=== PATIENT | male | born 1945 | race Caucasian/White ===

== ENCOUNTER 2017-01-31 05:54 | Outpatient (CLI) | payer MEDICARE, BC ==
[~2017-01-31] VITALS: Ht 182.9 cm; Wt 99.8 kg
[~2017-01-31 05:54] MED LIST: AC500T; ALFU10TA6 PO; AMLO10TA PO; ASP81TEC PO; ATOR40TA PO; BENADRYL; CARV25TA PO; CLOP75TA PO; CYAN1TAB21 PO; DICL75TA2; DIGO125T PO; DILT180C82; DIPH25TA82; E400C PO; FLUT1DIS26 IH; FOLI1TAB7 PO; GABA-486 PO; GLIP5TAB13 PO; INSU100I10 SQ; IRBE300T9 PO; KCL20TCR PO; LANS30CA; LTN005OP2; LTN005OP2 OU; MEXI200C; MEXI250C PO; MOME13HF2 IH; MONT10TA24 PO; MTF500T PO; NF-METANX PO; NF-VAL40T PO; NTR.4SL SL; OMEG1CAP PO; OMG1KC PO; PANT40TA3 PO; PNT40TEC PO; RNT150T PO; RT-ALBUINH IH; TYLENOL
[2017-01-31] MEDS ORDERED: INSU100I34 SQ (14:24)
[2017-01-31] MEDS ORDERED: RT-ALBUINH IH (14:24)
[2017-01-31] MEDS ORDERED: TIOT18CA2 IH (14:24)
[2017-01-31] MEDS ORDERED: LEVO1CAP9 PO (14:24)
== END 2017-01-31 14:26 ==
LOC: PREOP 05:54
PROVIDERS: ATTEND Urology
DX: Z01.818 Encounter for other preprocedural examination (principal); N40.0 Benign prostatic hyperplasia without lower urinary tract symptoms

== ENCOUNTER 2017-02-07 06:01 | Day surgery (SDC) | payer MEDICARE, BC ==
[~2017-02-07] VITALS: Ht 182.9 cm; Wt 99.8 kg
[~2017-02-07 06:01] MED LIST changes: +INSU100I34 SQ; +LEVO1CAP9 PO; +TIOT18CA2 IH
[2017-02-07 06:35] VITALS: BP 135/79
[2017-02-07] MEDS ORDERED: cefTRIAXone 1 GM (ROCEPHIN) VIAL ONE (06:42)
[2017-02-07] MEDS ORDERED: NS (IVPB) 50 ML ONE (06:42)
[2017-02-07] MEDS ORDERED: FAMOTIDINE 20MG/2ML IV (PEPCID) ONE (06:43)
[2017-02-07] MEDS ORDERED: LACTATED RINGERS 1,000 ML IV PRN (06:51)
[2017-02-07] MEDS ORDERED: SEVOFLURANE (ULTANE) 15 ML INHAL SOLN ONE (06:51)
[2017-02-07] MEDS ORDERED: proPOfol 200 MG/20 ML (DIPRIVAN) VIAL IV ONE (06:51)
[2017-02-07] MEDS ORDERED: ONDANSETRON 4 MG/2 ML (SDV) Z0FRAN ONE (06:51)
[2017-02-07] MEDS ORDERED: LIDOCAINE PF 2% 5 ML (XYLOCAINE) VIAL ONE (06:51)
[2017-02-07] MEDS ORDERED: fentaNYL INJECTION 100 MCG/2 ML AMP ONE (06:51)
[2017-02-07] MEDS ORDERED: FAMOTIDINE 20MG/2ML IV (PEPCID) IV ONE (07:00)
--- NOTE | 2017-02-07 07:13 | Progress Note-Pre Operative ---
Pre-Operative Progress Note H&P Reviewed The H&P was reviewed, patient examined and no changes noted. Date H&P Reviewed: February 07, 2017 Time H&P Reviewed: 07:13 Pre-Operative Diagnosis: BPH WITH PROSTATISM NANCY GARCÍA MD February 07, 2017 7:13 am
--- NOTE | 2017-02-07 08:15 | Progress Note-Post Operative ---
Post-Operative Progess Note Surgeon (s)/Elastic Tape Inserter (s) Surgeon NANCY GARCÍA MD Elastic Tape Inserter: N/A Pre-Operative Diagnosis BPH WITH PROSTATISM Post-Operative Diagnosis SAME Procedure & Operative Findings Date of Procedure 02/07/17 Procedure Performed/Findings UROLIFT IMPLANT / ENLARGED PROSTATE WITH BNC AND TRABECULATIONS, URETHRAL STRICTURE, NO MEDIAN LOBE Anesthesia Type GENERAL Estimated Blood Loss Estimated blood loss (mL): N/A Specimens/Packing Specimens Removed NONE NANCY GARCÍA MD February 07, 2017 8:15 am
--- NOTE | 2017-02-07 08:19 | Discharge Inst-Urology ---
Discharge Inst-Urology Discharge Medications New, Converted, or Re-newed RX: RX on Chart Patient Instructions/Follow Up Plan Discharge on leg bag (daytime), large bag (night) time with instructions. Come to office 9am to BEENA Calvillo. Please make appointment with me in office in 2 weeks. Monday, january resume ASA and Plavix if no bleedings Increase oral fluids for 48 hours and then as needed. Diet and Activity as tolerated. If questions or concerns contact your physician Or seek help at emergency department. NANCY GARCÍA MD February 07, 2017 8:19 am
[2017-02-07] MEDS ORDERED: morphine INJ 10 MG/ML 1ML (SYR OR VIAL) IVP PRN (08:30)
[2017-02-07] MEDS ORDERED: ONDANSETRON 4 MG/2 ML (SDV) Z0FRAN IVP PRN (08:30)
[2017-02-07] MEDS ORDERED: CIPR-225 PO (09:07)
[2017-02-07] MEDS ORDERED: PHEN-640 PO (09:07)
[2017-02-07 09:10] VITALS: BP 140/79
--- NOTE | 2017-02-07 09:11 | OPERATIVE REPORT ---
DATE OF SERVICE: 02/07/2017 PREOPERATIVE DIAGNOSIS: Benign prostatic hypertrophy with prostatism. POSTOPERATIVE DIAGNOSES: 1. Benign prostatic hypertrophy with prostatism. 2. Urethral stricture. OPERATION PERFORMED: UroLift implant. SURGEON: Bolivar García MD ANESTHESIA: General. COMPLICATIONS: None. PROCEDURE: After satisfactory general anesthesia, with the patient in the lithotomy position, genitalia were prepped and draped in the usual sterile fashion. The 20-Haitian special UroLift implant cystoscope was introduced under vision. There was a wide caliber stricture distal to the sphincter not admitting the scope. So I removed the scope, introduced a 17-Haitian cystoscope. I was able to go through the stricture with no problem. Then I exchanged the sheath with a 23-Haitian. I was able to go again so I reinserted the 20-Haitian special UroLift implant cystoscope. There was lateral lobe enlargement, meeting in the midline, causing bladder neck obstruction and trabeculations. There was no medial lobe and there was no bleeding from the dilatation of the stricture. So I went ahead and inserted UroLift implants, 2 proximal and 2 distal, using the described technique. There was very nice opening of the prostatic urethra. There was no need for further implants. There was no bleeding. The scope was removed and then I elected to leave a catheter for soft dilatation of the stricture for a couple of days. I inserted a 20-Haitian 2-way 5 mL balloon catheter, Coude type. It went easily and connected to a leg bag after inflated the balloon to 10 mL. ESTIMATED BLOOD LOSS: Negligible. The patient tolerated the procedure and anesthesia well, was sent to the recovery room in stable condition. Instructions were given to his . Job ID: [id number] DocumentID: [id number] Dictated Date: 02/07/2017 08:22:37 In Home Sales Consultant Date: 02/07/2017 09:11:05 Dictated By: BOLIVAR GARCÍA MD
[2017-02-07 09:40] VITALS: BP 142/84
[2017-02-07] MEDS ORDERED: cefTRIAXone 1 GM/NS 50 ML IVPB IV ONE ×2 (10:00)
[2017-02-07 10:10] VITALS: BP 132/88
[2017-02-07 10:35] VITALS: BP 132/88
== END 2017-02-07 10:35 | disposition home or self-care (01) ==
LOC: SDC 06:01
PROVIDERS: ATTEND Urology
DX: N40.0 Benign prostatic hyperplasia without lower urinary tract symptoms (principal); N35.9 Urethral stricture, unspecified; I25.10 Atherosclerotic heart disease of native coronary artery without angina pectoris; I10 Essential (primary) hypertension; E10.9 Type 1 diabetes mellitus without complications; F17.210 Nicotine dependence, cigarettes, uncomplicated; J44.9 Chronic obstructive pulmonary disease, unspecified; G47.33 Obstructive sleep apnea (adult) (pediatric); Z79.4 Long term (current) use of insulin; Z95.5 Presence of coronary angioplasty implant and graft
CPT/HCPCS: 82962; 87081

== ENCOUNTER → 2017-02-21 | Outpatient (CLI) | payer MEDICARE, BC ==
[~2017-02-21] MED LIST changes: +CATHETER FLUSH 10 ML SYR IV PRN; +CIPR-225 PO; +IOHEXOL 350 MG/ML 150 ML (OMNIPAQUE 350) VIAL IV ONE; +NS 100 ML (IVPB) BAG IV ONE; +PHEN-640 PO
--- NOTE | 2017-02-21 10:10 | Diagnostic Imaging Report ---
EXAMINATION: CT angiogram of the abdomen and pelvis with bilateral lower extremity runoff. Coronal MIP technique reconstructions were performed. INDICATION: Right leg cramping. CONTRAST: 150 mL of Omnipaque 350 was administered intravenously. FINDINGS: CTA ABDOMEN AND PELVIS: The lung bases demonstrate prominent emphysematous changes as well as a right lung base 6.5 cm bulla. Also, there is suggestion of gallbladder small calcified stones seen. The liver, spleen, and pancreas appear grossly unremarkable. The adrenal glands are thickened on both sides in a somewhat diffuse fashion, perhaps related to hyperplasia. There are multiple renal lesions seen with one in the lower pole of the right kidney having density of simple fluid and is not well characterized on this single angiographic phase study. It is 2.5 cm in size. Renal ultrasound correlation is recommended. There is evidence of prior right inguinal hernia repair with mesh. The abdominal aorta demonstrates an infrarenal abdominal aortic aneurysm measuring 3 cm in caliber. There is no dissection. Its lumen is patent. There is only mild ectasia of the right common iliac artery. Prominent calcified plaque in the iliac arteries is seen on both sides with a mild degree of stenosis in the right common iliac and external iliac artery. The right internal iliac artery is patent. In the left common iliac and external iliac arteries, there is mild disease. There is a significant stenosis along the origin of the left internal iliac artery, however. BILATERAL LOWER EXTREMITY RUNOFF: The right common femoral artery demonstrates prominent plaque with a moderate stenosis distally. The profunda femoris is patent. The SFA demonstrates diffuse plaque with areas of moderate stenosis proximally and moderate to severe stenosis distally. The popliteal artery demonstrates diffuse disease, worse in the proximal aspect. Portions of the right popliteal artery are obscured by artifacts from knee replacement The right anterior tibial artery is patent although has a small caliber, particularly in the mid to distal leg. The tibioperoneal trunk is patent with mild disease. The peroneal artery is patent to the distal leg and the posterior tibial artery is patent to the foot. LEFT LOWER EXTREMITY RUNOFF: The left SENIOR LINUX SYSTEMS ADMINISTRATOR is patent with mild disease. The profunda femoris is patent. The SFA demonstrates mild disease proximally and moderate disease distally. The popliteal artery demonstrates mild disease. The anterior tibial artery is patent to the ankle and not well seen in the foot. The tibioperoneal trunk is patent. The peroneal artery is patent to the distal leg. The posterior tibial artery is patent to the foot. There is a lipoma measuring 4.7 x 2.1 x 5.6 cm seen within the right adductor jorgito muscle. IMPRESSION: 1. Tiny gallstones. 2. Diffuse thickening of the adrenal glands, probably related to hyperplasia. 3. Indeterminate 2.5 cm hypodense lesion in the lower pole of the right kidney. Renal ultrasound evaluation is recommended. 4. Infrarenal 3 cm AAA. 5. Diffuse disease in the iliac arteries with a mild stenosis in the common and external iliac arteries bilaterally. High-grade focal stenosis at the origin of the left internal iliac artery. 6. Diffuse disease in the right SFA with moderate to severe stenosis distally. The popliteal artery on the right side is partially obscured by artifacts from knee replacement. 7. Moderate stenosis in the distal left SFA. 8. Mild bilateral infrapopliteal disease. Dictated by: Dictated on workstation # [id number]
== END ==
LOC: RAD 07:25
PROVIDERS: ATTEND Internal Medicine Cardiovascular Disease
DX: I70.203 Unspecified atherosclerosis of native arteries of extremities, bilateral legs (principal)
CPT/HCPCS: 75635

== ENCOUNTER → 2017-02-21 | Outpatient (CLI) | payer MEDICARE, BC ==
[~2017-02-21] MED LIST changes: -CATHETER FLUSH 10 ML SYR IV PRN; -IOHEXOL 350 MG/ML 150 ML (OMNIPAQUE 350) VIAL IV ONE; -NS 100 ML (IVPB) BAG IV ONE
[2017-02-21 08:01] LABS: BLOOD UREA NITROGEN 12 MG/DL (7-18); BUN/CREATININE RATIO 12; CREATININE SERUM 0.97 MG/DL (0.60-1.30); GFR ESTIMATED > 60
== END ==
LOC: LAB 07:30
PROVIDERS: ATTEND Family Medicine
DX: E10.9 Type 1 diabetes mellitus without complications (principal)
CPT/HCPCS: 36415; 82565; 84520

== ENCOUNTER → 2017-06-07 | Outpatient (CLI) | payer MEDICARE, BC ==
--- NOTE | 2017-06-07 11:26 | Diagnostic Imaging Report ---
INDICATION: Left hip pain. TECHNIQUE: AP and oblique views of the left hip were obtained. FINDINGS: No fracture or acute bony abnormality is seen. There is mild joint space narrowing in the left hip joint. IMPRESSION: Mild degenerative change with no acute bony abnormality. Dictated by: Dictated on workstation # [id number]
== END ==
LOC: RAD 10:42
PROVIDERS: ATTEND Nurse Practitioner Family
DX: M25.552 Pain in left hip (principal)
CPT/HCPCS: 73502

== ENCOUNTER 2017-09-07 21:10 | Inpatient (IN) | payer MEDICARE, BC ==
[~2017-09-07] VITALS: Ht 182.9 cm; Wt 93.2 kg
--- OUTSIDE RECORDS SUMMARY | 2017-09-07 21:18 | XMS REPORT | Continuity of Care Document ---
Author Author [facility] Organization [facility] Address Unknown Phone Unavailable Allergies Active Description Code Type Severity Reaction Onset Reported/Identified Relationship to Patient Clinical Status Yes No Known Drug Allergies [id number] Drug Allergy Unknown N/A 10/03/2009 Yes No Known Drug Allergies No Known Drug Allergies Drug Allergy Unknown . 05/2013 Medications There is no data. Problems Date Dx Coded Attending Type Code Diagnosis Diagnosed By 01/05/2010 Ot 682.9 01/05/2010 Ot V58.69 10/31/2010 Ot 276.51 DEHYDRATION 10/31/2010 Ot 427.9 CARDIAC DYSRHYTHMIA NOS 10/31/2010 Ot 780.79 OTH MALAISE FATIGUE 10/31/2010 Ot V58.69 OTH MED,LT, CURRENT USE 05/14/2014 PATRICIA MURPHY MD Ot 530.10 ESOPHAGITIS NOS 05/14/2014 PATRICIA MURPHY MD Ot 530.3 ESOPHAGEAL STRICTURE 05/14/2014 PATRICIA MURPHY MD Ot 553.3 DIAPHRAGMATIC HERNIA 09/12/2014 FANI LOZADA CONCRETE WORKER Ot 924.21 CONTUSION OF ANKLE 09/12/2014 FANI LOZADA CONCRETE WORKER Ot 959.7 LOWER LEG INJURY NOS 09/12/2014 FANI LOZADA CONCRETE WORKER Ot E000.8 OTHER EXTERNAL CAUSE STATUS 09/12/2014 FANI LOZADA CONCRETE WORKER Ot E849.0 ACCIDENT IN HOME 09/12/2014 FANI LOZADA CONCRETE WORKER Ot E885.9 FALL FROM SLIPPING, TRIPPING, OR STUMBLI 09/29/2014 PATRICIA MURPHY MD Ot 530.10 ESOPHAGITIS NOS 09/29/2014 PATRICIA MURPHY MD Ot 530.3 ESOPHAGEAL STRICTURE 09/29/2014 PATRICIA MURPHY MD Ot 531.90 STOMACH ULCER NOS 12/31/2014 PATRICIA MURPHY MD Ot V72.84 12/31/2014 PATRICIA MURPHY MD Ot V72.84 02/04/2015 Ot 682.9 02/04/2015 Ot V58.69 02/04/2015 Ot 250.00 02/04/2015 Ot 715.97 02/04/2015 Ot 354.9 02/04/2015 Ot 722.4 02/04/2015 JEFFREY BEAVERS, PATRICIA Lockett Ot V72.84 02/04/2015 JEFFREY BEAVERS, PATRICIA Lockett Ot 530.81 02/04/2015 JEFFREY BEAVERS, PATRICIA Lockett Ot V72.84 03/16/2015 JESS FRANCIS DO Ot 278.00 03/16/2015 JESS FRANCIS DO Ot 305.1 03/16/2015 JESS FRANCIS DO Ot 327.23 03/16/2015 JESS FRANCIS DO Ot 496 03/16/2015 JESS FRANCIS DO Ot 786.09 03/19/2015 JESS FRANCIS DO Ot 278.00 03/19/2015 JESS FRANCIS DO Ot 305.1 03/19/2015 JESS FRANCIS DO Ot 327.23 03/19/2015 JESS FRANCIS DO Ot 496 03/19/2015 JESS FRANCIS DO Ot 786.09 11/26/2015 JEFFREY BEAVERS, PATRICIA Lockett Ot Z01.818 ENCOUNTER FOR OTHER PREPROCEDURAL EXAMIN 11/30/2015 JEFFREY BEAVERS, PATRICIA Lockett Ot K22.2 ESOPHAGEAL OBSTRUCTION 12/01/2015 PATRICIA MURPHY MD Ot K22.2 01/02/2016 Ot 250.00 DIAB ROBERT WO COMPL, TYPE II OR UNSPEC TY 01/02/2016 Ot 715.97 OSTEOARTHROS NOS-ANKLE 01/02/2016 Ot 354.9 MONONEURITIS ARM NOS 01/02/2016 Ot 722.4 CERVICAL DISC DEGEN 01/02/2016 JEFFREY BEAVERS, PATRICIA Lockett Ot V72.84 EXAM PRE-OPERATIVE NOS 01/02/2016 JEFFREY BEAVERS, PATRICIA Lockett Ot 530.81 ESOPHAGEAL REFLUX 01/02/2016 PATRICIA MURPHY MD Ot V72.84 EXAM PRE-OPERATIVE NOS 01/02/2016 JESS FRANCIS DO Ot 278.00 OBESITY, NOS 01/02/2016 JESS FRANCIS DO Ot 305.1 TOBACCO USE DISORDER 01/02/2016 JESS FRANCIS DO Ot 327.23 OBSTRUCTIVE SLEEP APNEA (ADULT) (PEDIATR 01/02/2016 JESS FRANCIS DO Ot 496 CHR AIRWAY OBSTRUCT NEC 01/02/2016 JESS FRANCIS DO Ot 786.09 RESPIRATORY ABNORM NEC 01/02/2016 LUIS MILNER MD Ot F17.210 NICOTINE DEPENDENCE, CIGARETTES, UNCOMPL 01/02/2016 LUIS MILNER MD Ot S22.32XA FRACTURE OF ONE RIB, LEFT SIDE, INIT FOR 01/02/2016 LUIS MILNER MD Ot W01.0XXA FALL SAME LEV FROM SLIP/TRIP W/O STRIKE 01/02/2016 LUIS MILNER MD Ot Y92.[address] IN UNSP NON-INSTITUT (PRIVATE 01/02/2016 LUIS MILNER MD Ot Y99.8 OTHER EXTERNAL CAUSE STATUS 03/25/2016 SANDHYA DE LA GARZA APRN Ot J44.9 CHRONIC OBSTRUCTIVE PULMONARY DISEASE, U 03/29/2016 SANDHYA DE LA GARZA APRN Ot J44.9 CHRONIC OBSTRUCTIVE PULMONARY DISEASE, U 03/29/2016 SANDHYA DE LA GARZA CONCRETE WORKER Ot R06.09 OTHER FORMS OF DYSPNEA 03/29/2016 HOLLISANDHYA REED CONCRETE WORKER Ot J44.9 CHRONIC OBSTRUCTIVE PULMONARY DISEASE, U 03/29/2016 SANDHYA DE LA GARZA CONCRETE WORKER Ot R06.09 OTHER FORMS OF DYSPNEA 04/27/2016 SANDHYA DE LA GARZA CONCRETE WORKER Ot J44.9 CHRONIC OBSTRUCTIVE PULMONARY DISEASE, U 04/27/2016 SANDHYA DE LA GARZA CONCRETE WORKER Ot R06.09 OTHER FORMS OF DYSPNEA 04/29/2016 SANDHYA DE LA GARZA CONCRETE WORKER Ot J44.9 CHRONIC OBSTRUCTIVE PULMONARY DISEASE, U 04/29/2016 SANDHYA DE LA GARZA CONCRETE WORKER Ot R06.09 OTHER FORMS OF DYSPNEA 08/01/2016 Ot 250.00 DIAB ROBERT WO COMPL, TYPE II OR UNSPEC TY 08/01/2016 Ot 715.97 OSTEOARTHROS NOS-ANKLE 08/01/2016 Ot 354.9 MONONEURITIS ARM NOS 08/01/2016 Ot 722.4 CERVICAL DISC DEGEN 08/01/2016 JEFFREY BEAVERS, PATRICIA Lockett Ot V72.84 EXAM PRE-OPERATIVE NOS 08/01/2016 PATRICIA MURPHY MD Ot 530.81 ESOPHAGEAL REFLUX 08/01/2016 JEFFREY BEAVERS, PATRICIA Lockett Ot V72.84 EXAM PRE-OPERATIVE NOS 08/01/2016 JESS FRANCIS DO Ot 278.00 OBESITY, NOS 08/01/2016 JESS FRANCIS DO Ot 305.1 TOBACCO USE DISORDER 08/01/2016 JESS FRANCIS DO Ot 327.23 OBSTRUCTIVE SLEEP APNEA (ADULT) (PEDIATR 08/01/2016 JESS FRANCIS DO Ot 496 CHR AIRWAY OBSTRUCT NEC 08/01/2016 JESS FRANCIS DO Ot 786.09 RESPIRATORY ABNORM NEC 08/01/2016 SANDHYA DE LA GARZA APRN Ot J44.9 CHRONIC OBSTRUCTIVE PULMONARY DISEASE, U 08/01/2016 SANDHYA DE LA GARZA APRN Ot R06.09 OTHER FORMS OF DYSPNEA 01/31/2017 RAQUEL BEAVERS, NANCY Guzman Ot N40.0 BENIGN PROSTATIC HYPERPLASIA WITHOUT LOW 01/31/2017 RAQUEL BEAVERS, NANCY Guzman Ot Z01.818 ENCOUNTER FOR OTHER PREPROCEDURAL EXAMIN 02/07/2017 Ot 354.9 MONONEURITIS ARM NOS 02/07/2017 Ot 722.4 CERVICAL DISC DEGEN 02/07/2017 JEFFREY BEAVERS, PATRICIA Lockett Ot V72.84 EXAM PRE-OPERATIVE NOS 02/07/2017 JEFFREY BEAVERS, PATRICIA Lockett Ot 530.81 ESOPHAGEAL REFLUX 02/07/2017 JEFFREY BEAVERS, PATRICIA Lockett Ot V72.84 EXAM PRE-OPERATIVE NOS 02/07/2017 JESS FRANCIS DO Ot 278.00 OBESITY, NOS 02/07/2017 JESS FRANCIS DO Ot 305.1 TOBACCO USE DISORDER 02/07/2017 JESS FRANCIS DO Ot 327.23 OBSTRUCTIVE SLEEP APNEA (ADULT) (PEDIATR 02/07/2017 JESS FRANCIS DO Ot 496 CHR AIRWAY OBSTRUCT NEC 02/07/2017 JESS FRANCIS DO Ot 786.09 RESPIRATORY ABNORM NEC 02/07/2017 SANDHYA DE LA GARZA APRN Ot J44.9 CHRONIC OBSTRUCTIVE PULMONARY DISEASE, U 02/07/2017 SANDHYA DE LA GARZA APRN Ot R06.09 OTHER FORMS OF DYSPNEA 02/07/2017 RAQUEL BEAVERS, NANCY Guzman Ot E10.9 TYPE 1 DIABETES MELLITUS WITHOUT COMPLIC 02/07/2017 NANCY GARCÍA MD Ot F17.210 NICOTINE DEPENDENCE, CIGARETTES, UNCOMPL 02/07/2017 NANCY GARCÍA MD Ot G47.33 OBSTRUCTIVE SLEEP APNEA (ADULT) (PEDIATR 02/07/2017 NANCY GARCÍA MD Ot I10 ESSENTIAL (PRIMARY) HYPERTENSION 02/07/2017 NANCY GARCÍA MD Ot I25.10 ATHSCL HEART DISEASE OF [place] CORONARY 02/07/2017 NANCY GARCÍA MD Ot J44.9 CHRONIC OBSTRUCTIVE PULMONARY DISEASE, U 02/07/2017 NANCY GARCÍA MD Ot N35.9 URETHRAL STRICTURE, UNSPECIFIED 02/07/2017 NANCY GARCÍA MD Ot N40.0 BENIGN PROSTATIC HYPERPLASIA WITHOUT LOW 02/07/2017 NANCY GARCÍA MD, Ot Z79.4 DETENTION (CURRENT) USE OF INSULIN 02/07/2017 NANCY GARCÍA MD Ot Z95.5 PRESENCE OF CORONARY ANGIOPLASTY IMPLANT 02/09/2017 NANCY GARCÍA MD Ot E10.9 TYPE 1 DIABETES MELLITUS WITHOUT COMPLIC 02/09/2017 NANCY GARCÍA MD Ot F17.210 NICOTINE DEPENDENCE, CIGARETTES, UNCOMPL 02/09/2017 NANCY GARCÍA MD, Ot G47.33 OBSTRUCTIVE SLEEP APNEA (ADULT) (PEDIATR 02/09/2017 NANCY GARCÍA MD Ot I10 ESSENTIAL (PRIMARY) HYPERTENSION 02/09/2017 NANCY GARCÍA MD Ot I25.10 ATHSCL HEART DISEASE OF [place] CORONARY 02/09/2017 NANCY GARCÍA MD, Ot J44.9 CHRONIC OBSTRUCTIVE PULMONARY DISEASE, U 02/09/2017 NANCY GARCÍA MD Ot N35.9 URETHRAL STRICTURE, UNSPECIFIED 02/09/2017 NANCY GARCÍA MD Ot N40.0 BENIGN PROSTATIC HYPERPLASIA WITHOUT LOW 02/09/2017 NANCY GARCÍA MD, Ot Z79.4 MARKETING CONTENT SPECIALIST (CURRENT) USE OF INSULIN 02/09/2017 NANCY GARCÍA MD Ot Z95.5 PRESENCE OF CORONARY ANGIOPLASTY IMPLANT 02/16/2017 NANCY GARCÍA MD Ot E10.9 TYPE 1 DIABETES MELLITUS WITHOUT COMPLIC 02/16/2017 NANCY GARCÍA MD Ot F17.210 NICOTINE DEPENDENCE, CIGARETTES, UNCOMPL 02/16/2017 NANCY GARCÍA MD Ot G47.33 OBSTRUCTIVE SLEEP APNEA (ADULT) (PEDIATR 02/16/2017 NANCY GARCÍA MD Ot I10 ESSENTIAL (PRIMARY) HYPERTENSION 02/16/2017 NANCY GARCÍA MD, Ot I25.10 ATHSCL HEART DISEASE OF [place] CORONARY 02/16/2017 NANCY GARCÍA MD, Ot J44.9 CHRONIC OBSTRUCTIVE PULMONARY DISEASE, U 02/16/2017 NANCY GARCÍA MD, Ot N35.9 URETHRAL STRICTURE, UNSPECIFIED 02/16/2017 NANCY GARCÍA MD, Ot N40.0 BENIGN PROSTATIC HYPERPLASIA WITHOUT LOW 02/16/2017 NANCY GARCÍA MD, Ot Z79.4 DETENTION (CURRENT) USE OF INSULIN 02/16/2017 NANCY GARCÍA MD, Ot Z95.5 PRESENCE OF CORONARY ANGIOPLASTY IMPLANT 02/23/2017 IGNACIA BEAVERS, SELAM Yung Ot I70.203 UNSP ATHSCL [place] ARTERIES OF [facility] 03/16/2017 Ot E10.9 TYPE 1 DIABETES MELLITUS WITHOUT COMPLIC 03/20/2017 SELAM BETH MD Ot I70.203 UNSP ATHSCL [place] ARTERIES OF [facility] 03/22/2017 SELAM BETH MD Ot I70.203 UNSP ATHSCL [place] [facility] 06/07/2017 JEFFREY BEAVERS, PATRICIA Lockett Ot V72.84 EXAM PRE-OPERATIVE NOS 06/07/2017 JEFFREY BEAVERS, PATRICIA Lockett Ot 530.81 ESOPHAGEAL REFLUX 06/07/2017 JEFFREY BEAVERS, PATRICIA Lockett Ot V72.84 EXAM PRE-OPERATIVE NOS 06/07/2017 JESS FRANCIS DO Ot 278.00 OBESITY, NOS 06/07/2017 JESS FRANCIS DO Ot 305.1 TOBACCO USE DISORDER 06/07/2017 JESS FRANCIS DO Ot 327.23 OBSTRUCTIVE SLEEP APNEA (ADULT) (PEDIATR 06/07/2017 JESS FRANCIS DO Ot 496 CHR AIRWAY OBSTRUCT NEC 06/07/2017 JESS FRANCIS DO Ot 786.09 RESPIRATORY ABNORM NEC 06/07/2017 SANDHYA DE LA GARZA APRN Ot J44.9 CHRONIC OBSTRUCTIVE PULMONARY DISEASE, U 06/07/2017 SANDHYA DE LA GARZA APRN Ot R06.09 OTHER FORMS OF DYSPNEA 06/07/2017 IGNACIA BEAVERS, SELAM Yung Ot I70.203 UNSP ATHSCL [place] ARTERIES OF EXTREMITI 06/07/2017 Ot E10.9 TYPE 1 DIABETES MELLITUS WITHOUT COMPLIC 06/08/2017 VICK VARGAS APRN Ot M25.552 PAIN IN LEFT HIP 06/27/2017 VICK VARGAS APRN Ot M25.552 PAIN IN LEFT HIP 07/05/2017 VICK VARGAS APRN Ot M25.552 PAIN IN LEFT HIP Procedures There is no data. Results Test Result Range Capillary blood glucose measurement by glucometer (mass/volume) - 02/07/17 06: 28 Capillary blood glucose measurement by glucometer (mass/volume) 82 mg/dL 70-110 Methicillin resistant Staphylococcus aureus (MRSA) screening culture - 06:30 Methicillin resistant Staphylococcus aureus (MRSA) screening culture NEG NRG CBC W/DIFF - 03/09/17 12:16 BASOPHIL # 0.1 k/cumm 0.0-0.2 BASOPHIL % 1 % 0-1 EOSINOPHIL # 0.4 k/cumm 0.1-0.5 EOSINOPHIL % 5 % 2-4 GRANULOCYTE # 6.3 k/cumm 2.0-9.0 GRANULOCYTE % 65 % 50-75 LYMPHOCYTE # 2.0 k/cumm 1.0-4.0 LYMPHOCYTE % 21 % 20-30 MEAN CELL HGB 30.3 pg 27.0-33.0 MEAN CELL HGB CONCENTRATION 34.3 g/dL 32.0-37.0 MEAN CELL VOLUME 88.4 fl 80.0-100.0 MONOCYTE # 0.9 k/cumm 0.1-1.0 MONOCYTE % 9 % 4-6 RED BLOOD CELL 4.65 m/cumm 4.00-6.00 RED CELL DISTRIBUTION WIDTH 14.5 % 11.0-15.6 WHITE BLOOD CELL 9.6 k/cumm 5.0-10.0 HEMOGLOBIN 14.1 gm/dL 14.0-18.0 HEMATOCRIT 41.1 % 40.0-54.0 PLATELET COUNT 238 k/cumm 150-450 PROTHROMBIN TIME WITH INR - 03/09/17 12:16 INTERNATIONAL NORMAL RATIO 1.2 0.9-1.1 PROTHROMBIN TIME 13.9 sec 10.0-12.8 METABOLIC PANEL, BASIC - 03/09/17 12:16 POTASSIUM 4.6 mmol/L 3.5-5.3 EST GFR (MDRD) 35 mL/min > 59 ANION GAP 9 mmol/L 5-15 GLUCOSE 50 mg/dL 70-99 CALCIUM 9.1 mg/dL 8.5-10.1 BLOOD UREA NITROGEN 27 mg/dL 7-20 CREATININE 1.9 mg/dL 0.7-1.3 SODIUM 137 mmol/L 135-148 CHLORIDE 106 mmol/L 98-110 CARBON DIOXIDE 22 mmol/L 21-32 LIPID PANEL - 03/09/17 12:16 CHOLESTEROL/HDL RATIO 7.1 < 5.0 LDL CHOLESTEROL 154 mg/dL < 100 VLDL CHOLESTEROL 29 mg/dL < 30 TRIGLYCERIDES 144 mg/dL < 150 CHOLESTEROL 213 mg/dL < 200 HDL CHOLESTEROL 30 mg/dL > 39 GLUCOSE (POC) - 03/09/17 12:22 GLUCOSE (POC) 47 mg/dL 70-99 GLUCOSE (POC) - 03/09/17 12:58 GLUCOSE (POC) 119 mg/dL 70-99 GLUCOSE (POC) - 03/09/17 14:30 GLUCOSE (POC) 65 mg/dL 70-99 GLUCOSE (POC) - 03/09/17 15:00 GLUCOSE (POC) 108 mg/dL 70-99 Encounters ACCT No. Visit Date/Time Discharge Status Pt. Type Provider Facility Loc./Unit Complaint [id number] 06/07/2017 10:42:00 06/07/2017 23:59:59 CLS Outpatient VICK VARGAS APRN [facility] RAD M25.552 [id number] 02/21/2017 08:45:00 02/21/2017 23:59:59 CLS Outpatient SELAM BETH MD [facility] RAD SEVERE PVD [id number] 02/07/2017 06:01:00 02/07/2017 10:35:00 DIS Outpatient NANCY GARCÍA MD [facility] SDC BENIGN PROSTATIC HYPERTROPHY, PROSTATISM [id number] 01/31/2017 05:54:00 01/31/2017 14:26:00 DIS Outpatient NANCY GARCÍA MD [facility] PREOP BENIGN PROSTATIC HYPERTROPHY, PROSTATISM [id number] 03/24/2016 08:51:00 03/24/2016 23:59:59 CLS Outpatient SANDHYA DE LA GARZA APRN [facility] RAD DYSPNEA; COPD [id number] 01/02/2016 09:39:00 01/02/2016 10:45:00 DIS Emergency LUIS MILNER MD [facility] ER FALL L RIB PAIN [id number] 11/30/2015 07:15:00 11/30/2015 10:00:00 DIS Out[facility]; DYSPHAGIA [id number] 11/26/2015 05:46:00 11/26/2015 10:13:00 DIS Outpatient PATRICIA MURPHY MD [facility] PREOP GERD; DYSPHAGIA [id number] 02/20/2015 12:51:00 02/20/2015 23:59:59 CLS Outpatient JESS FRANCIS DO [facility] RT COPD [id number] 09/29/2014 10:57:00 09/29/2014 13:45:00 DIS Outpatient [facility]UR[facility] REFLUX [id number] 09/24/2014 05:49:00 09/24/2014 23:59:59 CLS Outpatient PATRICIA MURPHY MD [facility] PREOP REFLUX [id number] 09/12/2014 17:43:00 09/12/2014 19:09:00 DIS Emergency FANI LOZADA APRN [facility] ER FELL INJ LEFT FOOT [id number] 05/14/2014 06:15:00 05/14/2014 09:25:00 DIS Outpatient PATRICIA MURPHY MD [facility] GERD [id number] 05/09/2014 12:01:00 05/09/2014 23:59:59 CLS Outpatient PATRICIA MURPHY MD [facility] GERD [id number] 05/07/2014 07:22:00 05/07/2014 23:59:59 CLS Outpatient PATRICIA MRUPHY MD [facility] PREOP GERD [id number] 02/21/2017 07:30:00 Document Registration [id number] 02/04/2015 12:21:00 Document Registration [id number] 02/04/2015 12:20:00 Document Registration [id number] 12/14/2011 09:27:00 Document Registration [id number] 06/01/2011 10:33:00 Document Registration [id number] 10/31/2010 11:48:00 Document Registration [id number] 01/06/2010 00:00:00 Document Registration [id number] 03/09/2017 10:59:00 03/09/2017 21:30:00 DIS Outpatient Emmett BEAVERS, [facility] & DEREK KOROMA
[2017-09-07] MEDS ORDERED: methylPREDNISolone 125 MG (Solu-MEDROL) VIAL ONE (21:33)
[2017-09-07] MEDS ORDERED: NS IV 1000 ML 1,000 ML IV SCH (21:45)
--- NOTE | 2017-09-07 21:46 | ED Cough/URI ---
General Chief Complaint: Respiratory Problems Stated Complaint: TROUBLE BREATHING Source: patient Exam Limitations: no limitations History of Present Illness Time seen by provider: 21:43 Initial Comments To ER with trouble breathing since Monday09/05/17. He wears a C Pap at night but does not wear oxygen at home. He has a history of COPD. He smokes three quarters of a pack of cigarettes per day and has done so for many, many years. He reports diffuse body aches. Denies any change in the intensity or frequency of his cough. He has not known himself to have any fevers during this illness. When asked if he wants to be FULL CODE STATUS/intubation if required patient and state "yes". Oxygen saturation 87% on arrival to ER on room air. Hypotensive at 94/50. Timing/Duration: constant Severity/Quality: moderate (chronic unchanged cough) Associated Symptoms: cough, fever/chills (chills), muscle aches (body aches) Allergies and Home Medications Allergies Coded Allergies: No Known Drug Allergies (Verified , 10/03/09) Home Medications Albuterol Sulfate 18 Gm Hfa.aer.ad, 2 PUFF INH QID PRN for SHORTNESS OF BREATH, (Reported) Amlodipine Besylate 10 Mg Tablet, 10 MG PO DAILY, (Reported) Aspirin 81 Mg Tablet.dr, 81 MG PO DAILY, (Reported) Carvedilol 25 Mg Tablet, 25 MG PO HS, (Reported) Carvedilol 25 Mg Tablet, 12.5 MG PO DAILY, (Reported) TAKES 1/2 (25MG) TABLET Cefdinir 300 Mg Capsule, 300 MG PO BID, #10 Prescribed by: SHAVONNE LUCAS on 09/09/17 1256 Cilostazol 100 Mg Tablet, 100 MG PO BID, (Reported) Clopidogrel Bisulfate 75 Mg Tablet, 75 MG PO DAILY, (Reported) Digoxin 125 Mcg Tablet, 125 MCG PO HS, (Reported) Esomeprazole Magnesium 20 Mg Tablet.dr, 20 MG PO DAILY, (Reported) Fluticasone/Vilanterol 1 Each Blst.w.dev, 1 PUFF INH DAILY, (Reported) Gabapentin 100 Mg Capsule, 100 MG PO DAILY, (Reported) Gabapentin 100 Mg Capsule, 200 MG PO HS, (Reported) TAKES 2 (100MG) CAPSULES Glipizide 5 Mg Tablet, 5 MG PO DAILY, (Reported) Insulin Glargine,Hum.rec.anlog 100 Unit/1 Ml Insuln.pen, 10 UNIT SQ DAILY, ( Reported) Insulin Glargine,Hum.rec.anlog 100 Unit/1 Ml Insuln.pen, 40 UNIT SQ HS, ( Reported) Ipratropium/Albuterol Sulfate 3 Ml Ampul.neb, 3 ML IH QID PRN for SHORTNESS OF BREATH, #60 Prescribed by: SHAVONNE LUCAS on 09/08/17 1248 Irbesartan 300 Mg Tablet, 300 MG PO HS, (Reported) Latanoprost 2.5 Ml Drops, 2 DROPS OD HS, (Reported) Levomefolate/B6/B12/Algal Oil 1 Each Capsule, 1 CAP PO BID, (Reported) Metformin HCl 500 Mg Tablet, 500 MG PO BID WITH MEALS, (Reported) Mexiletine HCl 200 Mg Capsule, 200 MG PO BID, (Reported) Multivit-Min/FA/Lycopene/Lut 1 Each Tablet, 1 TAB PO DAILY, (Reported) Nitroglycerin 0.4 Mg Tab.subl, 0.4 MG SL UD PRN for CHEST PAIN, #24 (Reported) [place] 3 Polyunsat Fatty Acids 1,000 Mg Cap, 1,000 MG PO HS, (Reported) Potassium Chloride 20 Meq Tab.er.prt, 20 MEQ PO DAILY, (Reported) Prednisone 10 Mg Tab.ds.pk, 10 MG PO DAILY, #21 Take 6 tabs(60mg)daily,decrease by 1 tab(10MG)daily. Prescribed by: SHAVONNE LUCAS on 09/09/17 1256 Tiotropium [place] 1 Inh Aerp, 1 CAP INH DAILY, (Reported) Vitamin E Acetate 400 Unit Capsule, 400 UNIT PO DAILY, (Reported) Constitutional: see HPI, chills EENTM: see HPI Respiratory: dyspnea on exertion, short of breath Cardiovascular: no symptoms reported Genitourinary: no symptoms reported Musculoskeletal: no symptoms reported Skin: no symptoms reported Psychiatric/Neurological: No Symptoms Reported Hematologic/Lymphatic: No Symptoms Reported Immunological/Allergic: no symptoms reported Past Qqdjjdp-Jtwdmm-Qsvkqu Hx Patient Social History Type Used: Cigarettes Recent Foreign Travel: No Contact w/Someone Who Travel: No Recent Hopitalizations: No Immunizations Up To Date Date of Pneumonia Vaccine: Jul 30, 2014 Date of Influenza Vaccine: Jul 30, 2014 Seasonal Allergies Seasonal Allergies: No Respiratory Respiratory Disorders: Sleep Apnea, COPD Currently Using CPAP: Yes Cardiovascular Cardiac Disorders: Coronary Artery Disease, Heart Attack, High Cholesterol, Hypertension Reproductive System Hx Reproductive Disorders: No Genitourinary Genitourinary Disorders: Prostate Problems Musculoskeletal Musculoskeletal Disorders: Arthritis Physical Exam Vital Signs Vital Sign - Last 12Hours 09/07/17 09/07/17 21:28 22:10 Temp 99.4 Pulse 92 Resp 24 B/P (MAP) 93/64 (74) Pulse Ox 88 O2 Delivery Room Air O2 Flow Rate 3.00 Capillary Refill : General Appearance: WD/WN, no apparent distress, No mild distress, No moderate distress Eyes: Bilateral Eye Normal Inspection, Bilateral Eye PERRL, Bilateral Eye EOMI HEENT: PERRL/EOMI, normal ENT inspection Neck: non-tender, full range of motion Respiratory: no respiratory distress, no accessory muscle use, decreased breath sounds Cardiovascular: regular rate, rhythm, no murmur Gastrointestinal: normal bowel sounds, non tender, soft Extremities: normal range of motion, non-tender, no pedal edema Neurologic/Psychiatric: alert, normal mood/affect, oriented x 3 Skin: normal color, warm/dry Focused Exam Evaluation Lactate Level Laboratory Tests 09/07/17 21:37: Lactic Acid Level 1.31 Lactic Acid Level Laboratory Tests Test 09/07/17 21:37 Lactic Acid Level 1.31 MMOL/L (0.50-2.00) Progress/Results/Core Measures Suspected Sepsis SIRS Temperature: Pulse: Respiratory Rate: Laboratory Tests 09/07/17 21:37: White Blood Count 10.2 Blood Pressure / Mean: Laboratory Tests 09/07/17 21:37: Lactic Acid Level 1.31 Laboratory Tests 09/07/17 21:37: Creatinine 1.21, Platelet Count 189, Total Bilirubin 1.2H Results/Orders Lab Results Laboratory Tests Test 09/07/17 21:37 Range/Units White Blood Count 10.2 4.3-11.0 10^3/uL Red Blood Count 4.50 4.35-5.85 10^6/uL Hemoglobin 14.0 13.3-17.7 G/DL Hematocrit 40 40-54 % Mean Corpuscular Volume 89 80-99 FL Mean Corpuscular Hemoglobin 31 25-34 PG Mean Corpuscular Hemoglobin Concent 35 32-36 G/DL Red Cell Distribution Width 13.4 10.0-14.5 % Platelet Count 189 130-400 10^3/uL Mean Platelet Volume 9.7 7.4-10.4 FL Neutrophils (%) (Auto) 86 H 42-75 % Lymphocytes (%) (Auto) 6 L 12-44 % Monocytes (%) (Auto) 8 0-12 % Eosinophils (%) (Auto) 0 0-10 % Basophils (%) (Auto) 0 0-10 % Neutrophils # (Auto) 8.8 H 1.8-7.8 X 10^3 Lymphocytes # (Auto) 0.6 L 1.0-4.0 X 10^3 Monocytes # (Auto) 0.8 0.0-1.0 X 10^3 Eosinophils # (Auto) 0.0 0.0-0.3 10^3/uL Basophils # (Auto) 0.0 0.0-0.1 10^3/uL Neutrophils % (Manual) 70 % Lymphocytes % (Manual) 8 % Monocytes % (Manual) 6 % Eosinophils % (Manual) 1 % Basophils % (Manual) 0 % Band Neutrophils 15 % Blood Morphology Comment NORMAL Sodium Level 132 L 135-145 MMOL/L Potassium Level 4.3 3.6-5.0 MMOL/L Chloride Level 101 98-107 MMOL/L Carbon Dioxide Level 20 L 21-32 MMOL/L Anion Gap 11 5-14 MMOL/L Blood Urea Nitrogen 15 7-18 MG/DL Creatinine 1.21 0.60-1.30 MG/DL Estimat Glomerular Filtration Rate 59 BUN/Creatinine Ratio 12 Glucose Level 126 H 70-105 MG/DL Lactic Acid Level 1.31 0.50-2.00 MMOL/L Calcium Level 9.0 8.5-10.1 MG/DL Total Bilirubin 1.2 H 0.1-1.0 MG/DL Aspartate Amino Transf (AST/SGOT) 31 5-34 U/L Alanine Aminotransferase (ALT/SGPT) 17 0-55 U/L Alkaline Phosphatase 78 40-136 U/L B-Type Natriuretic Peptide 69.7 <100.0 PG/ML Total Protein 7.5 6.4-8.2 GM/DL Albumin 3.8 3.2-4.5 GM/DL Digoxin Level 0.77 L 0.80-2.00 NG/ML Micro Results Microbiology 09/07/17 Blood Culture - Preliminary, Resulted No growth 09/07/17 Blood Culture - Preliminary, Resulted No growth 09/07/17 Gram Stain - Final, Complete 09/07/17 Sputum Culture - Final, Complete Usual/normal raciel isolated. 09/07/17 Influenza Types A,B Antigen (NESSA) - Final, Complete My Orders Orders - FANI LOZADA APRN Cbc With Automated Diff (09/07/17 21:40) Comprehensive Metabolic Panel (09/07/17 21:40) BNP (09/07/17 21:40) Digoxin (09/07/17 21:40) Influenza A And B Antigens (09/07/17 21:40) Blood Culture (09/07/17 21:40) Lactic Acid Analyzer (09/07/17 21:40) Saline Lock/Iv-Start (09/07/17 21:40) Ns Iv 1000 Ml (Sodium Chloride 0.9%) (09/07/17 21:45) Ekg Tracing (09/07/17 21:46) Continuous Ekg Monitoring (09/07/17 21:46) Chest 1 View, Ap/Pa Only (09/07/17 21:53) Manual Differential (09/07/17 21:37) Albuterol/Ipra Inhalation Soln (Duoneb I (09/07/17 22:00) Svn Sm Volume Nebulizer Rt-Rfs (09/07/17 22:00) Medications Given in ED Vital Signs/I&O Vital Sign - Last 12Hours 09/07/17 09/07/17 21:28 22:10 Temp 99.4 Pulse 92 Resp 24 B/P (MAP) 93/64 (74) Pulse Ox 88 92 O2 Delivery Room Air Nasal Cannula O2 Flow Rate 3.00 Capillary Refill : Departure Communication (Admissions) Time/Spoke to Admitting Phy: 22:54 Communication Given the persistent hypotension and hypoxia I did speak with Dr. Lucas who agrees to admit. Progress Notes 6- patient's blood pressure remains low at 80/50. Heart rate is in the 70s. He states that he is feeling fine. Normally his blood pressure runs about 110/ 60 he states. He checks it every morning before taking his medications. He did take his evening medications which include 25 mg of carvedilol this evening before coming to the emergency room. See any acute changes on his chest x-ray when compared to prior. He is afebrile. Oxygen saturation remains 87% on room air but goes up to about 91% on 2 L. Impression Impression: Primary Impression: COPD exacerbation Additional Impressions: Hypoxia Hypotension Disposition: ADMITTED INPATIENT Condition: Stable Admissions Decision to Admit Reason: Admit from ER (General) Departure-Patient Inst. Decision time for Depature: 23:12 Referrals: FANG BRADY MD (PCP/Family) Primary Care Physician Scripts Prednisone (Prednisone) 10 Mg Tab.ds.pk 10 MG PO DAILY, #21 PKG Take 6 tabs(60mg)daily,decrease by 1 tab(10MG)daily. Prov: SHAVONNE LUCAS DO 09/09/17 Cefdinir (Cefdinir) 300 Mg Capsule 300 MG PO BID, #10 CAP Prov: SHAVONNE LUCAS DO 09/09/17 Ipratropium/Albuterol Sulfate (Iprat-Albut 0.5-3(2.5) mg/3 ml) 3 Ml Ampul.neb 3 ML IH QID Y for SHORTNESS OF BREATH, #60 EACH Prov: SHAVONNE LUCAS DO 09/08/17 FANI LOZADA APRN Sep 07, 2017 21:46
[2017-09-07 21:50] LABS: BASOPHILS % (AUTO) 0 % (0-10); EOSINOPHILS % (AUTO) 0 % (0-10); HEMATOCRIT 40 % (40-54); LYMPHOCYTES # (AUTO) 0.6 X 10^3 (1.0-4.0); LYMPHOCYTES % (AUTO) 6 % (12-44); MEAN CORPUSCULAR HEMOGLOBIN 31 PG (25-34); MEAN CORPUSCULAR HGB CONC 35 G/DL (32-36); MEAN CORPUSCULAR VOLUME 89 FL (80-99); MEAN PLATELET VOLUME 9.7 FL (7.4-10.4); MONOCYTES # (AUTO) 0.8 X 10^3 (0.0-1.0); MONOCYTES % (AUTO) 8 % (0-12); NEUTROPHILS # (AUTO) 8.8 X 10^3 (1.8-7.8); NEUTROPHILS % (AUTO) 86 % (42-75); PLATELET COUNT 189 10^3/uL (130-400); RED CELL DISTRIBUTION WIDTH 13.4 % (10.0-14.5); WHITE BLOOD COUNT 10.2 10^3/uL (4.3-11.0)
[2017-09-07] MEDS ORDERED: RT-ALBUTEROL/IPRATROPIUM 3 ML (DUONEB) VIAL INH ONE (22:00)
[2017-09-07 22:17] LABS: DIGOXIN 0.77 NG/ML (0.80-2.00)
[2017-09-07 22:34] LABS: ALBUMIN 3.8 GM/DL (3.2-4.5); BAND NEUTROPHILS 15 %; BASOPHILS % (MANUAL) 0 %; BILIRUBIN,TOTAL 1.2 MG/DL (0.1-1.0); CREATININE SERUM 1.21 MG/DL (0.60-1.30); EOSINOPHILS % (MANUAL) 1 %; LYMPHOCYTES % (MANUAL) 8 %; MONOCYTES % (MANUAL) 6 %; NEUTROPHILS % (MANUAL) 70 %; POTASSIUM 4.3 MMOL/L (3.6-5.0); RBC MORPH NORMAL; TOTAL PROTEIN 7.5 GM/DL (6.4-8.2)
--- OUTSIDE RECORDS SUMMARY | 2017-09-07 23:47 | XMS REPORT | Continuity of Care Document ---
Author Author [facility] Organization [facility] Address Unknown Phone Unavailable Allergies Active Description Code Type Severity Reaction Onset Reported/Identified Relationship to Patient Clinical Status Yes No Known Drug Allergies [id number] Drug Allergy Unknown N/A 10/03/2009 Yes No [...] Ot 553.3 DIAPHRAGMATIC HERNIA 09/12/2014 FANI LOZADA [employer]QUOR MAKER Ot 924.21 CONTUSION OF ANKLE 09/12/2014 FANI LOZADA LIQUOR MAKER Ot 959.7 LOWER LEG INJURY NOS 09/12/2014 FANI LOZADA LIQUOR MAKER Ot E000.8 OTHER EXTERNAL CAUSE STATUS 09/12/2014 FANI LOZADA LIQUOR MAKER Ot E849.0 ACCIDENT IN HOME 09/12/2014 FANI LOZADA LIQUOR MAKER Ot E885.9 FALL FROM SLIPPING, TRIPPING, OR [...] DISEASE, U 03/29/2016 SANDHYA DE LA GARZA LIQUOR MAKER Ot R06.09 OTHER FORMS OF DYSPNEA 03/29/2016 HOLLISANDHYA REED LIQUOR MAKER Ot J44.9 CHRONIC OBSTRUCTIVE PULMONARY DISEASE, U 03/29/2016 SANDHYA DE LA GARZA LIQUOR MAKER Ot R06.09 OTHER FORMS OF DYSPNEA 04/27/2016 SANDHYA DE LA GARZA LIQUOR MAKER Ot J44.9 CHRONIC OBSTRUCTIVE PULMONARY DISEASE, U 04/27/2016 SANDHYA DE LA GARZA LIQUOR MAKER Ot R06.09 OTHER FORMS OF DYSPNEA 04/29/2016 SANDHYA DE LA GARZA LIQUOR MAKER Ot J44.9 CHRONIC OBSTRUCTIVE PULMONARY DISEASE, U 04/29/2016 SANDHYA DE LA GARZA LIQUOR MAKER Ot R06.09 OTHER FORMS OF DYSPNEA 08/01/2016 [...] MD Ot I25.10 ATHSCL HEART DISEASE OF [place] CORONARY 02/07/2017 NANCY GARCÍA MD Ot J44.9 CHRONIC OBSTRUCTIVE PULMONARY DISEASE, U 02/07/2017 NANCY GARCÍA MD Ot N35.9 URETHRAL STRICTURE, UNSPECIFIED 02/07/2017 NANCY GARCÍA MD Ot N40.0 BENIGN PROSTATIC HYPERPLASIA WITHOUT LOW 02/07/2017 NANCY GARCÍA MD, Ot Z79.4 PRISON (CURRENT) USE OF INSULIN 02/07/2017 NANCY GARCÍA [...] MD Ot I25.10 ATHSCL HEART DISEASE OF [place] CORONARY 02/09/2017 NANCY GARCÍA MD, Ot J44.9 CHRONIC OBSTRUCTIVE PULMONARY DISEASE, U 02/09/2017 NANCY GARCÍA MD Ot N35.9 URETHRAL STRICTURE, UNSPECIFIED 02/09/2017 NANCY GARCÍA MD Ot N40.0 BENIGN PROSTATIC HYPERPLASIA WITHOUT LOW 02/09/2017 NANCY GARCÍA MD, Ot 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 02/09/2017 NANCY GARCÍA [...] MD, Ot I25.10 ATHSCL HEART DISEASE OF [place] CORONARY 02/16/2017 NANCY GARCÍA MD, Ot J44.9 CHRONIC OBSTRUCTIVE PULMONARY DISEASE, U 02/16/2017 NANCY GARCÍA MD, Ot N35.9 URETHRAL STRICTURE, UNSPECIFIED 02/16/2017 NANCY GARCÍA MD, Ot N40.0 BENIGN PROSTATIC HYPERPLASIA WITHOUT LOW 02/16/2017 NANCY GARCÍA MD, Ot Z79.4 PRISON (CURRENT) USE OF INSULIN 02/16/2017 NANCY GARCÍA MD, Ot Z95.5 PRESENCE OF CORONARY ANGIOPLASTY IMPLANT 02/23/2017 IGNACIA BEAVERS, SELAM Yung Ot I70.203 UNSP ATHSCL [place] [facility] 03/16/2017 Ot E10.9 TYPE 1 DIABETES MELLITUS WITHOUT COMPLIC 03/20/2017 SELAM BETH MD Ot I70.203 UNSP ATHSCL [place] [facility] 03/22/2017 SELAM BETH MD Ot I70.203 UNSP ATHSCL [place] [facility] 06/07/2017 JEFFREY BEAVERS, PATRICIA Lockett [...] BEAVERS, SELAM Yung Ot I70.203 UNSP ATHSCL [place] [facility] 06/07/2017 Ot E10.9 TYPE [...] 03/09/17 15:00 GLUCOSE (POC) 108 mg/dL 70-99 Influenza virus A and B antigen detection - 09/07/17 21:32 FLU RESULT NEGATIVE FOR INFLUENZA A AND B ANTIGENS BY [facility] Complete blood count (CBC) with automated white blood cell (WBC) differential - 09/07/17 21:37 Blood leukocytes automated count (number/volume) 10.2 10*3/uL 4.3-11.0 Blood erythrocytes automated count (number/volume) 4.50 10*6/uL 4.35-5.85 Venous blood hemoglobin measurement (mass/volume) 14.0 g/dL 13.3-17.7 Blood hematocrit (volume fraction) 40 % 40-54 Automated erythrocyte mean corpuscular volume 89 [foz_us] 80-99 Automated erythrocyte mean corpuscular hemoglobin (mass per erythrocyte) 31 pg 25-34 Automated erythrocyte mean corpuscular hemoglobin concentration measurement ( mass/volume) 35 g/dL 32-36 Automated erythrocyte distribution width ratio 13.4 % 10.0-14.5 Automated blood platelet count (count/volume) 189 10*3/uL 130-400 Automated blood platelet mean volume measurement 9.7 [foz_us] 7.4-10.4 Automated blood neutrophils/100 leukocytes 86 % 42-75 Automated blood lymphocytes/100 leukocytes 6 % 12-44 Blood monocytes/100 leukocytes 8 % 0-12 Automated blood eosinophils/100 leukocytes 0 % 0-10 Automated blood basophils/100 leukocytes 0 % 0-10 Blood neutrophils automated count (number/volume) 8.8 10*3 1.8-7.8 Blood lymphocytes automated count (number/volume) 0.6 10*3 1.0-4.0 Blood monocytes automated count (number/volume) 0.8 10*3 0.0-1.0 Automated eosinophil count 0.0 10*3/uL 0.0-0.3 Automated blood basophil count (count/volume) 0.0 10*3/uL 0.0-0.1 Blood lactic acid measurement (moles/volume) - 09/07/17 21:37 Blood lactic acid measurement (moles/volume) 1.31 mmol/L 0.50-2.00 Comprehensive metabolic panel - 09/07/17 21:37 Serum or plasma sodium measurement (moles/volume) 132 mmol/L 135-145 Serum or plasma potassium measurement (moles/volume) 4.3 mmol/L 3.6-5.0 Serum or plasma chloride measurement (moles/volume) 101 mmol/L 98-107 Carbon dioxide 20 mmol/L 21-32 Serum or plasma anion gap determination (moles/volume) 11 mmol/L 5-14 Serum or plasma urea nitrogen measurement (mass/volume) 15 mg/dL 7-18 Serum or plasma creatinine measurement (mass/volume) 1.21 mg/dL 0.60-1.30 Serum or plasma urea nitrogen/creatinine mass ratio 12 NRG Serum or plasma creatinine measurement with calculation of estimated glomerular filtration rate 59 NRG Serum or plasma glucose measurement (mass/volume) 126 mg/dL 70-105 Serum or plasma calcium measurement (mass/volume) 9.0 mg/dL 8.5-10.1 Serum or plasma total bilirubin measurement (mass/volume) 1.2 mg/dL 0.1-1.0 Serum or plasma alkaline phosphatase measurement (enzymatic activity/volume) 78 U/L 40-136 Serum or plasma aspartate aminotransferase measurement (enzymatic activity/ volume) 31 U/L 5-34 Serum or plasma alanine aminotransferase measurement (enzymatic activity/volume ) 17 U/L 0-55 Serum or plasma protein measurement (mass/volume) 7.5 g/dL 6.4-8.2 Serum or plasma albumin measurement (mass/volume) 3.8 g/dL 3.2-4.5 Serum or plasma lithium measurement (moles/volume) - 09/07/17 21:37 BNP level 69.7 pg/mL <100.0 Digoxin - 09/07/17 21:37 Digoxin 0.77 ng/mL 0.80-2.00 Blood manual differential performed detection - 09/07/17 21:37 Blood monocytes/100 leukocytes 6 % NRG Manual blood segmented neutrophils/100 leukocytes 70 % NRG Blood band neutrophils/100 leukocytes 15 % NRG Manual blood lymphocytes/100 leukocytes 8 % NRG Manual eosinophils/100 leukocytes in nose 1 % NRG Manual blood basophils/100 leukocytes 0 % NRG Blood erythrocyte morphology finding identification NORMAL NRG Encounters ACCT No. Visit Date/Time Discharge Status Pt. Type Provider Facility Loc./Unit Complaint [id number] 06/07/2017 10:42:00 06/07/2017 23:59:59 CLS Outpatient VICK VARGAS [employer]QUOR MAKER [facility] RAD M25.552 [id number] 02/21/2017 08:45:00 02/21/2017 23:59:59 CLS Outpatient SELAM BETH MD [facility] RAD SEVERE PVD [id number] 02/07/2017 06:01:00 02/07/2017 10:35:00 DIS Outpatient NANCY GARCÍA MD [facility] SDC BENIGN PROSTATIC HYPERTROPHY, PROSTATISM [id number] 01/31/2017 05:54:00 01/31/2017 14:26:00 DIS Outpatient NANCY GARCÍA MD [facility] PREOP BENIGN PROSTATIC HYPERTROPHY, PROSTATISM [id number] 03/24/2016 08:51:00 03/24/2016 23:59:59 CLS Outpatient SANDHYA DE LA GARZA APRN [facility] RAD DYSPNEA; COPD [id number] 01/02/2016 09:39:00 01/02/2016 10:45:00 DIS Emergency ANNIA BEAVERS, LUIS Vega [facility] ER FALL L RIB PAIN [id number] 11/30/2015 07:15:00 11/30/2015 10:00:00 DIS Outpatient PATRICIA MURPHY MD [facility] GERD; DYSPHAGIA [id number] 11/26/2015 05:46:00 11/26/2015 10:13:00 DIS Outpatient PATRICIA MURPHY MD [facility] PREOP GERD; DYSPHAGIA [id number] 02/20/2015 12:51:00 02/20/2015 23:59:59 CLS Outpatient JESS FRANCIS DO [facility] RT COPD [id number] 09/29/2014 10:57:00 09/29/2014 13:45:00 DIS Outpatient PATRICIA MURPHY MD [facility] REFLUX [id number] 09/24/2014 05:49:00 09/24/2014 23:59:59 CLS Outpatient PATRICIA MURPHY MD [facility] PREOP REFLUX [id number] 09/12/2014 17:43:00 09/12/2014 19:09:00 DIS Emergency LOZADAFANI APRN [facility] ER FELL INJ LEFT FOOT [id number] 05/14/2014 06:15:00 05/14/2014 09:25:00 DIS Outpatient PATRICIA MURPHY MD [facility] GERD [id number] 05/09/2014 12:01:00 05/09/2014 23:59:59 CLS Outpatient PATRICIA MURPHY MD [facility] GERD [id number] 05/07/2014 07:22:00 05/07/2014 23:59:59 CLS Outpatient PATRICIA MURPHY MD [facility] PREOP GERD [id number] 09/07/2017 21:59:00 Document Registration [id number] 02/21/2017 07:30:00 Document Registration [id number] 02/04/2015 12:21:00 Document Registration [id number] 02/04/2015 12:20:00 Document Registration [id number] 12/14/2011 09:27:00 Document Registration [id number] 06/01/2011 10:33:00 Document Registration [id number] 10/31/2010 11:48:00 Document Registration [id number] 01/06/2010 00:00:00 Document Registration [id number] 03/09/2017 10:59:00 03/09/2017 21:30:00 DIS Outpatient Emmett BEAVERS, [facility] & DEREK KOROMA
[2017-09-08] VITALS (7 sets, daily range): BP systolic 99–149; BP diastolic 54–71
[2017-09-08] MEDS: NS IV 1000 ML 1,000 ML IV SCH ×2 (01:18→11:25)
[2017-09-08] MEDS: cefTRIAXone INJECTION 1,000 MG in NS (IVPB) 50 ML IV SCH (01:18)
[2017-09-08] MEDS ORDERED: RT-ALBUTEROL/IPRATROPIUM 3 ML (DUONEB) VIAL INH PRN ×2 (01:30→11:45)
[2017-09-08] MEDS: RT-ALBUTEROL/IPRATROPIUM 3 ML (DUONEB) VIAL INH SCH ×6 (04:05→23:11)
[2017-09-08] MEDS: methylPREDNISolone 125 MG (Solu-MEDROL) VIAL IV SCH ×3 (05:50→21:05)
--- NOTE | 2017-09-08 07:34 | Diagnostic Imaging Report ---
INDICATION: Lower respiratory infection EXAMINATION: Portable chest at 10:08 PM. There is a left subclavian dual chamber pacemaker. Heart size and pulmonary vascularity are normal. Lungs are clear. There are no effusions or pneumothoraces. IMPRESSION: COPD. No acute abnormalities in the chest. Dictated by: Dictated on workstation # [id number]
[2017-09-08 08:27] LABS: BASOPHILS % (AUTO) 0 % (0-10); EOSINOPHILS % (AUTO) 0 % (0-10); HEMATOCRIT 39 % (40-54); HEMOGLOBIN 13.5 G/DL (13.3-17.7); LYMPHOCYTES # (AUTO) 0.3 X 10^3 (1.0-4.0); LYMPHOCYTES % (AUTO) 3 % (12-44); MEAN CORPUSCULAR HEMOGLOBIN 31 PG (25-34); MEAN CORPUSCULAR HGB CONC 34 G/DL (32-36); MEAN CORPUSCULAR VOLUME 90 FL (80-99); MEAN PLATELET VOLUME 9.8 FL (7.4-10.4); MONOCYTES # (AUTO) 0.3 X 10^3 (0.0-1.0); MONOCYTES % (AUTO) 3 % (0-12); NEUTROPHILS # (AUTO) 9.1 X 10^3 (1.8-7.8); NEUTROPHILS % (AUTO) 94 % (42-75); PLATELET COUNT 170 10^3/uL (130-400); RED BLOOD COUNT 4.37 10^6/uL (4.35-5.85); RED CELL DISTRIBUTION WIDTH 13.3 % (10.0-14.5); WHITE BLOOD COUNT 9.8 10^3/uL (4.3-11.0)
[2017-09-08] MEDS ORDERED: POTA20TA15 PO (08:42)
[2017-09-08] MEDS ORDERED: MEXI200C PO (08:42)
[2017-09-08] MEDS ORDERED: GABA-486 PO ×2 (08:42→09:04)
[2017-09-08] MEDS ORDERED: CILO100T PO (08:42)
[2017-09-08] MEDS ORDERED: DIGO125T PO (08:42)
[2017-09-08] MEDS ORDERED: TIOT18CA2 INH (08:42)
[2017-09-08] MEDS ORDERED: IRBE300T18 PO (08:42)
[2017-09-08] MEDS ORDERED: CLOP75TA28 PO (08:42)
[2017-09-08] MEDS ORDERED: GLIP5TAB13 PO (08:42)
[2017-09-08] MEDS ORDERED: INSU100I34 SQ (08:42)
[2017-09-08] MEDS ORDERED: AMLO10TA2 PO (08:42)
[2017-09-08] MEDS ORDERED: METF500T4 PO (08:42)
[2017-09-08] MEDS ORDERED: ASPI-983 PO (09:04)
[2017-09-08] MEDS ORDERED: LATA2.5D5 OD (09:04)
[2017-09-08] MEDS ORDERED: VITA400C60 PO (09:04)
[2017-09-08] MEDS ORDERED: MULT-1029 PO (09:04)
[2017-09-08] MEDS ORDERED: NITR0.4T3 SL (09:04)
[2017-09-08] MEDS ORDERED: ALBU18HF2 INH (09:04)
[2017-09-08] MEDS ORDERED: OMG1KC PO (09:04)
[2017-09-08] MEDS ORDERED: ESOM20TA PO (09:04)
[2017-09-08] MEDS ORDERED: CARV25TA PO ×2 (09:04)
[2017-09-08] MEDS ORDERED: FLUT1AER INH (09:04)
[2017-09-08] MEDS ORDERED: NITROGLYCERIN 0.4 MG SL TABS BTL 25'S SL PRN (10:45)
[2017-09-08 10:55] LABS: BUN/CREATININE RATIO 15; CARBON DIOXIDE 20 MMOL/L (21-32); CHLORIDE 101 MMOL/L (98-107); CREATININE SERUM 1.11 MG/DL (0.60-1.30); POTASSIUM 4.3 MMOL/L (3.6-5.0); SODIUM 131 MMOL/L (135-145)
[2017-09-08 10:56] LABS: ALANINE AMINOTRANSFERASE 18 U/L (0-55); ALBUMIN 3.6 GM/DL (3.2-4.5); ALKALINE PHOSPHATASE 72 U/L (40-136); BILIRUBIN,TOTAL 0.8 MG/DL (0.1-1.0); CALCIUM 8.5 MG/DL (8.5-10.1); GFR ESTIMATED > 60; GLUCOSE 214 MG/DL (70-105); TOTAL PROTEIN 7.1 GM/DL (6.4-8.2)
[2017-09-08] MEDS ORDERED: RT-ALBUTEROL SULF 2.5 MG/3 ML PRE-MIX VIAL INH PRN (11:45)
[2017-09-08] MEDS ORDERED: PATIENT MAY USE OWN MEDS, ALL MC SCH (11:45)
[2017-09-08] MEDS ORDERED: ALBUTEROL INHALER HFA (VENTOLIN HFA) 18 GM IH PRN (12:30)
--- NOTE | 2017-09-08 12:31 | History & Physical-Hospitalist ---
HPI History of Present Illness: HPI/Chief Complaint CC: AECOPD HPI: This is a 72 yoWM pt who presented for AECOPD following a cold. Max fever 99.8, BP 149/71 up from 57, has received IV Solumedrol and Rocephin, WBC 9.8 , CMP, K+ 132 so will recheck this am. 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 Mcleod Pt states he feels better than when he came in, but pt states if he exerts himself (like when he went to the bathroom this am), he cannot breathe Pt denies using O2 at home Physical exam stable. Lungs sound much improved from ER report O2 evaluation was discussed to be done today. Daughter states his O2 was increased from 3 to 4 L. Pt confirms smoking. Pt confirms seeing Dr. Andrade, Dr. Aguayo, Dr. Chávez, and Dr. Ferrara Pt was informed that I have restarted his home meds Pt's asked what is wrong with the pt. I informed her that it is AECOPD probably brought on by a cold Pt confirms [facility] as pharmacy Pt asked about a cleaning machine for his breathing machine. I encouraged him to look into this, but I informed the family that insurance will likely not pay for it. Daughter states the pt is diabetic and the pt asked if he could eat Scribed by Britany Ross under direct supervision of Dr. Page Lucas. Source: patient Date Seen 09/08/17 Time Seen by Provider: 10:30 Attending Physician Page Lucas DO PCP Maycol Mcleod MD Referring Physician Date of Admission Sep 07, 2017 at 22:51 Home Medications & Allergies Home Medications Reviewed patient Home Medication Reconciliation Form Allergies Allergies Coded Allergies No Known Drug Allergies (Verified10/03/09) Past [id number] Hx Patient Social History Marrital Status: Employed/Student: retired Alcohol Use: Denies Use Recreational Drug Use: No Smoking Status: Current Everyday Smoker Type Used: Cigars Physical Abuse Screen: No Sexual Abuse: No Recent Foreign Travel: No Contact w/other who traveled: No Recent Hopitalizations: No Recent Infectious Disease Expo: No Immunizations Up To Date Date of Pneumonia Vaccine: Jul 30, 2014 Date of Influenza Vaccine: Jul 12, 2017 Seasonal Allergies Seasonal Allergies: No Surgeries Yes (LASER SX ON L EYE, R SHOULDER SX, BROKEN ARM, R TKR, ING HERNIA, R FOOT SX, ) Respiratory Yes (SLEEP APNEA, COPD) COPD, Emphysema, Pneumonia Currently Using CPAP: Yes Cardiovascular Yes (defib/pacemaker, several stents) Coronary Artery Disease, Heart Attack, High Cholesterol, Hypertension Neurological Yes Reproductive System Hx Reproductive Disorders: No Genitourinary Yes Prostate Problems Gastrointestinal No Musculoskeletal Yes Arthritis Endocrine History of Endocrine Disorders: Yes Endocrine Disorders: Diabetes, Insulin dep HEENT History of HEENT Disorders: No Cancer No Psychosocial History of Psychiatric Problem: No Integumentary History of Skin or Integumenta: No Blood Transfusions History of Blood Disorders: No Family Medical History Family Hx: Diabetes mellitus 19 MOTHER FH: heart disease 19 FATHER 19 MOTHER Review of Systems Constitutional: weakness EENTM: no symptoms reported Respiratory: cough, dyspnea on exertion, short of breath, wheezing Cardiovascular: no symptoms reported Gastrointestinal: no symptoms reported Genitourinary: no symptoms reported Musculoskeletal: no symptoms reported Skin: no symptoms reported Psychiatric/Neurological: No Symptoms Reported All Other Systems Reviewed Negative Unless Noted: Yes Physical Exam Physical Exam Vital Signs Vital Sign - Last 12Hours 09/07/17 09/07/17 21:28 22:10 Temp 99.4 Pulse 92 Resp 24 B/P (MAP) 93/64 (74) Pulse Ox 88 O2 Delivery Room Air O2 Flow Rate 3.00 Capillary Refill : Less Than 3 Seconds General Appearance: No Apparent Distress, WD/WN, Chronically ill Eyes: Bilateral Eye Normal Inspection, Bilateral Eye PERRL HEENT: PERRL/EOMI, Normal ENT Inspection, Pharynx Normal Neck: Full Range of Motion, Normal Inspection, Non Tender, Supple, Carotid Bruit Respiratory: Chest Non Tender, No Accessory Muscle Use, No Respiratory Distress , Crackles, Decreased Breath Sounds, Wheezing Cardiovascular: Regular Rate, Rhythm, No Edema, No Gallop, No JVD, No Murmur, Normal Peripheral Pulses Gastrointestinal: Normal Bowel Sounds, No Organomegaly, No Pulsatile Mass, Non Tender, Soft Back: Normal Inspection, No CVA Tenderness, No Vertebral Tenderness Extremity: Normal Capillary Refill, Normal Inspection, Normal Range of Motion, Non Tender, No Calf Tenderness, No Pedal Edema Neurologic/Psychiatric: Alert, Oriented x3, No Motor/Sensory Deficits, Normal Mood/Affect Skin: Normal Color, Warm/Dry Lymphatic: No Adenopathy Results Results/Procedures Lab Laboratory Tests 09/07/17 21:37 09/08/17 08:06 Assessment/Plan Admission Diagnosis Assessment: AECOPD Acute bronchitis Acute respiratory failure DM HTN CAD PVD Smoker Hyponatremia Hypotension Assessment and Plan Plan: Home O2 - 4L Nebulizers for home Regular diet Home meds Fluid restriction Clinical Quality Measures DVT/VTE Risk/Contraindication: Risk Factor Score Per Nursin RFS Level Per Nursing on Admit: 4+=Very High PAGE LUCAS DO Sep 08, 2017 12:31
[2017-09-08] MEDS ORDERED: IPRA3AMP IH (12:48)
[2017-09-08] MEDS ORDERED: INSULIN GLARGINE 100 UNIT/ML SQ SCH ×2 (13:00→21:00)
[2017-09-08] MEDS: metFORMIN 500 MG (GLUCOPHAGE) TAB PO SCH (16:47)
[2017-09-08] MEDS: BREO IH SCH (19:26)
[2017-09-08] MEDS: inSUlin ASPART (NovoLOG) 1 UNIT/0.01 ML (CHARGE PER UNIT) SC SCH (19:41)
[2017-09-08] MEDS ORDERED: LATANOPROST 0.005% (XALATAN) OPHTH SOLN 2.5 ML OD SCH (21:00)
[2017-09-08] MEDS ORDERED: IRBESARTAN 300 MG TABLET PO SCH (21:00)
[2017-09-08] MEDS ORDERED: CARVEDILOL 25 MG TABLET PO SCH (21:00)
[2017-09-08] MEDS ORDERED: DIGOXIN 0.125 MG (LANOXIN) TAB PO SCH (21:00)
[2017-09-08] MEDS ORDERED: GABAPENTIN 100 MG (NEURONTIN) CAP PO SCH (21:00)
[2017-09-08] MEDS ORDERED: NON-FORMULARY MEDICATION 1 EA EA (Cilostazol 100 MG) PO SCH (21:00)
[2017-09-08] MEDS ORDERED: OMEGA 3 (FISH OIL) 1000 MG CAP PO SCH (21:00)
[2017-09-08] MEDS: MEXILETINE 200 MG (MEXITIL) CAPSULE PO SCH (21:03)
[2017-09-08] MEDS: FOLTANX PO SCH (21:05)
[2017-09-09] VITALS: BP 131/61
[2017-09-09] MEDS: cefTRIAXone INJECTION 1,000 MG in NS (IVPB) 50 ML IV SCH (00:07)
[2017-09-09] MEDS: RT-ALBUTEROL/IPRATROPIUM 3 ML (DUONEB) VIAL INH SCH ×4 (03:05→14:22)
[2017-09-09 04:15] VITALS: BP 104/58
[2017-09-09 06:46] LABS: BASOPHILS % (AUTO) 0 % (0-10); EOSINOPHILS % (AUTO) 0 % (0-10); HEMATOCRIT 36 % (40-54); HEMOGLOBIN 12.8 G/DL (13.3-17.7); LYMPHOCYTES # (AUTO) 0.6 X 10^3 (1.0-4.0); LYMPHOCYTES % (AUTO) 5 % (12-44); MEAN CORPUSCULAR HEMOGLOBIN 31 PG (25-34); MEAN CORPUSCULAR HGB CONC 35 G/DL (32-36); MEAN CORPUSCULAR VOLUME 89 FL (80-99); MEAN PLATELET VOLUME 9.6 FL (7.4-10.4); MONOCYTES # (AUTO) 0.8 X 10^3 (0.0-1.0); MONOCYTES % (AUTO) 7 % (0-12); NEUTROPHILS % (AUTO) 89 % (42-75); PLATELET COUNT 184 10^3/uL (130-400); RED BLOOD COUNT 4.07 10^6/uL (4.35-5.85); RED CELL DISTRIBUTION WIDTH 13.2 % (10.0-14.5); WHITE BLOOD COUNT 12.4 10^3/uL (4.3-11.0)
[2017-09-09] MEDS: methylPREDNISolone 125 MG (Solu-MEDROL) VIAL IV SCH (06:55)
[2017-09-09] MEDS: inSUlin ASPART (NovoLOG) 1 UNIT/0.01 ML (CHARGE PER UNIT) SC SCH ×2 (06:55→11:16)
[2017-09-09] MEDS: metFORMIN 500 MG (GLUCOPHAGE) TAB PO SCH (06:56)
[2017-09-09] MEDS ORDERED: MULTIVIT W/MINERALS TAB (THERAGRAN M) PO SCH (07:00)
[2017-09-09] MEDS ORDERED: glipiZIDE 5 MG (GLUCOTROL) TAB PO SCH (07:00)
[2017-09-09] MEDS ORDERED: VITAMIN E 400 INTLU CAP PO SCH (07:00)
[2017-09-09] MEDS ORDERED: KCL 20 MEQ TAB (K-DUR) PO SCH (07:00)
[2017-09-09 07:08] LABS: ALANINE AMINOTRANSFERASE 24 U/L (0-55); ALBUMIN 3.2 GM/DL (3.2-4.5); ALKALINE PHOSPHATASE 73 U/L (40-136); BILIRUBIN,TOTAL 0.5 MG/DL (0.1-1.0); BUN/CREATININE RATIO 21; CALCIUM 8.8 MG/DL (8.5-10.1); CARBON DIOXIDE 21 MMOL/L (21-32); CHLORIDE 105 MMOL/L (98-107); CREATININE SERUM 1.04 MG/DL (0.60-1.30); GFR ESTIMATED > 60; GLUCOSE 305 MG/DL (70-105); POTASSIUM 4.2 MMOL/L (3.6-5.0); SODIUM 136 MMOL/L (135-145); TOTAL PROTEIN 6.5 GM/DL (6.4-8.2)
[2017-09-09 08:00] VITALS: BP 117/58
[2017-09-09] MEDS ORDERED: TIOTROPIUM BROMIDE (SPIRIVA) 5'S INHALER IH SCH (08:00)
[2017-09-09] MEDS: MEXILETINE 200 MG (MEXITIL) CAPSULE PO SCH (08:23)
[2017-09-09] MEDS: FOLTANX PO SCH (08:24)
[2017-09-09] MEDS ORDERED: amLODIPine 10 MG (NORVASC) TAB PO SCH (09:00)
[2017-09-09] MEDS ORDERED: CARVEDILOL 25 MG TABLET PO SCH (09:00)
[2017-09-09] MEDS ORDERED: ESOMEPRAZOLE 20 MG PO SCH (09:00)
[2017-09-09] MEDS ORDERED: GABAPENTIN 100 MG (NEURONTIN) CAP PO SCH (09:00)
[2017-09-09] MEDS ORDERED: ASPIRIN E.C. 81 MG (ECOTRIN) TAB PO SCH (09:00)
[2017-09-09] MEDS ORDERED: CLOPIDOGREL 75 MG (PLAVIX) TABLET PO SCH (09:00)
[2017-09-09] MEDS: BREO IH SCH (10:12)
[2017-09-09 12:00] VITALS: BP 127/65
[2017-09-09] MEDS ORDERED: CEFD300C3 PO (12:56)
[2017-09-09] MEDS ORDERED: PRED10TA22 PO (12:56)
--- NOTE | 2017-09-09 12:58 | Discharge Summary-Hospitalist ---
Diagnosis/Chief Complaint Date of Admission Sep 08, 2017 at 11:38 Date of Discharge Discharge Date: Sep 09, 2017 Admission Diagnosis Assessment: AECOPD Acute bronchitis Acute respiratory failure DM HTN CAD PVD Smoker Hyponatremia Hypotension Discharge Diagnosis Assessment: AECOPD Acute bronchitis Acute respiratory failure DM [id number] due to steroids HTN CAD PVD Smoker counseled cessation Hyponatremia resolved Hypotension resolved Hypoxia requiring home oxygen order Leukocytosis due to steroid effect Plan: Home O2 - 4L Nebulizers for home Regular diet Home meds Fluid restriction Discharge Summary Discharge Physical Examination Allergies: Coded Allergies: No Known Drug Allergies (Verified , 10/03/09) Vitals & I&Os Vital Signs Date Time Temp Pulse Resp B/P (MAP) Pulse Ox O2 Delivery O2 Flow Rate FiO2 09/09/17 12:00 97.8 91 18 127/65 (85) 92 NIV CPAP 09/09/17 10:16 4.00 Hospital Course Hospital course: Patient has standard hospital course for acute bronchitis with exacerbation of COPD. He was maintain on IV fluids due to slight hypotension but lactic acid remained normal. He tolerated IV antibiotics and IV steroids although diabetes was out of control due to the IV steroids. All home medications were reconciled and restarted and home oxygen evaluation revealed he was requiring 4 L of oxygen continuously so that order was given and that was set up prior to discharge along with nebulizer machine and nebulizer medication. Smoking cessation was counseled and hyponatremia resolved with fluid restriction at time of discharge and leukocytosis was from steroid effect at day of discharge. Labs (last 24 hrs) Laboratory Tests 09/08/17 16:23: Glucometer 378H 09/08/17 20:41: Glucometer 307H 09/09/17 05:38: Glucometer 284H 09/09/17 06:31: White Blood Count 12.4H, Red Blood Count 4.07L, Hemoglobin 12.8L, Hematocrit 36L , Mean Corpuscular Volume 89, Mean Corpuscular Hemoglobin 31, Mean Corpuscular Hemoglobin Concent 35, Red Cell Distribution Width 13.2, Platelet Count 184, Mean Platelet Volume 9.6, Neutrophils (%) (Auto) 89H, Lymphocytes (%) (Auto) 5L , Monocytes (%) (Auto) 7, Eosinophils (%) (Auto) 0, Basophils (%) (Auto) 0, Neutrophils # (Auto) 11.0H, Lymphocytes # (Auto) 0.6L, Monocytes # (Auto) 0.8, Eosinophils # (Auto) 0.0, Basophils # (Auto) 0.0, Sodium Level 136, Potassium Level 4.2, Chloride Level 105, Carbon Dioxide Level 21, Anion Gap 10, Blood Urea Nitrogen 22H, Creatinine 1.04, Estimat Glomerular Filtration Rate > 60, BUN /Creatinine Ratio 21, Glucose Level 305H, Calcium Level 8.8, Total Bilirubin 0.5 , Aspartate Amino Transf (AST/SGOT) 41H, Alanine Aminotransferase (ALT/SGPT) 24 , Alkaline Phosphatase 73, Total Protein 6.5, Albumin 3.2 09/09/17 11:02: Glucometer 91 Microbiology 09/07/17 Blood Culture - Preliminary, Resulted No growth 09/07/17 Gram Stain - Final, Resulted 09/07/17 Sputum Culture - Preliminary, Resulted Pending Labs Laboratory Tests 09/09/17 06:31: White Blood Count 12.4, Red Blood Count 4.07, Hemoglobin 12.8, Hematocrit 36, Mean Corpuscular Volume 89, Mean Corpuscular Hemoglobin 31, Mean Corpuscular Hemoglobin Concent 35, Red Cell Distribution Width 13.2, Platelet Count 184, Mean Platelet Volume 9.6, Neutrophils (%) (Auto) 89, Lymphocytes (%) (Auto) 5, Monocytes (%) (Auto) 7, Eosinophils (%) (Auto) 0, Basophils (%) (Auto) 0, Neutrophils # (Auto) 11.0, Lymphocytes # (Auto) 0.6, Monocytes # (Auto) 0.8, Eosinophils # (Auto) 0.0, Basophils # (Auto) 0.0, Sodium Level 136, Potassium Level 4.2, Chloride Level 105, Carbon Dioxide Level 21, Anion Gap 10, Blood Urea Nitrogen 22, Creatinine 1.04, Estimat Glomerular Filtration Rate > 60, BUN/ Creatinine Ratio 21, Glucose Level 305, Calcium Level 8.8, Total Bilirubin 0.5, Aspartate Amino Transf (AST/SGOT) 41, Alanine Aminotransferase (ALT/SGPT) 24, Alkaline Phosphatase 73, Total Protein 6.5, Albumin 3.2 09/09/17 11:02: Glucometer 91 Discharge Home Medications: Active Scripts Active Prednisone 10 Mg Tab.ds.pk 10 Mg PO DAILY Take 6 tabs(60mg)daily,decrease by 1 tab(10MG)daily. Cefdinir 300 Mg Capsule 300 Mg PO BID Iprat-Albut 0.5-3(2.5) mg/3 ml (Ipratropium/Albuterol Sulfate) 3 Ml Ampul.neb 3 Ml IH QID PRN Reported Nexium 24Hr (Esomeprazole Magnesium) 20 Mg Tablet. 20 Mg PO DAILY Aspirin EC (Aspirin) 81 Mg Tablet. 81 Mg PO DAILY Breo Ellipta 100-25 Mcg INH (Fluticasone/Vilanterol) 1 Each Blst.w.dev 1 Puff INH DAILY Carvedilol 25 Mg Tablet 12.5 Mg PO DAILY TAKES 1/2 (25MG) TABLET Gabapentin 100 Mg Capsule 200 Mg PO HS TAKES 2 (100MG) CAPSULES Ventolin Hfa (Albuterol Sulfate) 18 Gm Hfa.aer.ad 2 Puff INH QID PRN Fish Oil 1,000 mg Capsule ([place] 3 Polyunsat Fatty Acids) 1,000 Mg Cap 1,000 Mg PO HS Nitroglycerin 0.4 Mg Tab.subl 0.4 Mg SL UD PRN Carvedilol 25 Mg Tablet 25 Mg PO HS Latanoprost 2.5 Ml Drops 2 Drops OD HS Vitamin E (Vitamin E Acetate) 400 Unit Capsule 400 Unit PO DAILY Centrum Silver Tablet (Multivit-Min/FA/Lycopene/Lut) 1 Each Tablet 1 Tab PO DAILY Glipizide 5 Mg Tablet 5 Mg PO DAILY Metformin HCl 500 Mg Tablet 500 Mg PO BID WITH MEALS Basaglar Kwikpen U-100 (Insulin Glargine,Hum.rec.anlog) 100 Unit/1 Ml Insuln.pen 40 Unit SQ HS Cilostazol 100 Mg Tablet 100 Mg PO BID Clopidogrel (Clopidogrel Bisulfate) 75 Mg Tablet 75 Mg PO DAILY Irbesartan 300 Mg Tablet 300 Mg PO HS Potassium Chloride 20 Meq Tab.er.prt 20 Meq PO DAILY Gabapentin 100 Mg Capsule 100 Mg PO DAILY Amlodipine Besylate 10 Mg Tablet 10 Mg PO DAILY Mexiletine HCl 200 Mg Capsule 200 Mg PO BID Digoxin 125 Mcg Tablet 125 Mcg PO HS Spiriva (Tiotropium [place]) 1 Inh Aerp 1 Cap INH DAILY Basaglar Kwikpen U-100 (Insulin Glargine,Hum.rec.anlog) 100 Unit/1 Ml Insuln.pen 10 Unit SQ DAILY Foltanx Rf Capsule (Levomefolate/B6/B12/Algal Oil) 1 Each Capsule 1 Cap PO BID Instructions to patient/family Please see electronic discharge instructions given to patient. Clinical Quality Measures DVT/VTE Risk/Contraindication: Risk Factor Score Per Nursin RFS Level Per Nursing on Admit: 4+=Very High SHAVONNE LUCAS DO Sep 09, 2017 12:58
[2017-09-09 14:45] VITALS: BP 128/78
== END 2017-09-09 14:45 | disposition home or self-care (01) | DRG 189 ==
LOC: EDUNIT# 21:10 → ER 21:12 → 4TH 22:51 → OBSVTOIN 09-08 11:38
PROVIDERS: ADMIT Internal Medicine; ATTEND Internal Medicine
DX: J96.00 Acute respiratory failure, unspecified whether with hypoxia or hypercapnia (principal); J44.1 Chronic obstructive pulmonary disease with (acute) exacerbation; J44.0 Chronic obstructive pulmonary disease with (acute) lower respiratory infection; J20.9 Acute bronchitis, unspecified; E11.65 Type 2 diabetes mellitus with hyperglycemia; T38.0X5A Adverse effect of glucocorticoids and synthetic analogues, initial encounter; I10 Essential (primary) hypertension; I25.10 Atherosclerotic heart disease of native coronary artery without angina pectoris; I73.9 Peripheral vascular disease, unspecified; F17.290 Nicotine dependence, other tobacco product, uncomplicated; E87.6 Hypokalemia; I95.9 Hypotension, unspecified; E78.00 Pure hypercholesterolemia, unspecified; G47.30 Sleep apnea, unspecified; I25.2 Old myocardial infarction; Z79.82 Long term (current) use of aspirin; Z79.4 Long term (current) use of insulin; Z95.810 Presence of automatic (implantable) cardiac defibrillator; Z95.5 Presence of coronary angioplasty implant and graft
CPT/HCPCS: 36415; 71010; 80053; 80162; 82962; 83605; 83880; 85007; 85025; 85027; 87040; 87070; 87205; 87804; 93005; 94640; 94660; 94760; 94761; 96361; 96374; G0378

== ENCOUNTER 2017-11-03 21:00 | Outpatient (CLI) | payer MEDICARE, BC ==
[~2017-11-03 21:00] MED LIST changes: +ALBU18HF2 INH; +AMLO10TA2 PO; +ASPI-983 PO; +CEFD300C3 PO; +CILO100T PO; +CLOP75TA28 PO; +ESOM20TA PO; +FLUT1AER INH; +IPRA3AMP IH; +IRBE300T18 PO; +LATA2.5D5 OD; +METF500T4 PO; +MEXI200C PO; +MULT-1029 PO; +NITR0.4T42 SL; +POTA20TA15 PO; +PRED10TA22 PO; +TIOT18CA2 INH; +VITA400C60 PO
== END 2017-11-04 07:15 | disposition home or self-care (01) ==
LOC: SLEEP 21:00
PROVIDERS: ATTEND Nurse Practitioner
DX: G47.33 Obstructive sleep apnea (adult) (pediatric) (principal)
CPT/HCPCS: 95811

== ENCOUNTER 2018-04-25 15:18 | Outpatient (CLI) | payer MEDICARE, BC ==
[~2018-04-25] VITALS: Ht 182.9 cm; Wt 101.2 kg
[~2018-04-25 15:18] MED LIST changes: +ESOM40CA52 PO; -IPRA3AMP IH; +IPRA3AMP31 IH; +LEVO1CAP11 PO; -METF500T4 PO; +METF500T5 PO
== END 2018-04-25 15:20 | disposition home or self-care (01) ==
LOC: PREOP 15:18
PROVIDERS: ATTEND Surgery
DX: Z01.818 Encounter for other preprocedural examination (principal)

== ENCOUNTER → 2018-07-12 | Outpatient (CLI) | payer MEDICARE, BC ==
[~2018-07-12] MED LIST changes: -AMLO10TA2 PO; +AMLO10TA6 PO; +METF-397 PO; -METF500T5 PO; +PANT40TA2 PO; +SUCR1TAB36 PO
== END ==
LOC: CARD 10:58
PROVIDERS: ATTEND Internal Medicine Cardiovascular Disease
DX: I25.10 Atherosclerotic heart disease of native coronary artery without angina pectoris (principal); E11.9 Type 2 diabetes mellitus without complications; R06.09 Other forms of dyspnea; K64.0 First degree hemorrhoids; I10 Essential (primary) hypertension; G47.33 Obstructive sleep apnea (adult) (pediatric); I48.0 Paroxysmal atrial fibrillation; I07.1 Rheumatic tricuspid insufficiency
CPT/HCPCS: 93306

== ENCOUNTER 2018-09-21 11:10 | Outpatient (RCR) | payer MEDICARE, BC | END 2018-09-23 | disposition home or self-care (01) | LOC: CR 11:10 | PROVIDERS: ATTEND Family Medicine | DX: Z48.812 Encounter for surgical aftercare following surgery on the circulatory system (principal); Z95.1 Presence of aortocoronary bypass graft; Z95.2 Presence of prosthetic heart valve | CPT/HCPCS: 93798 ==

== ENCOUNTER 2018-10-24 10:53 | Outpatient (RCR) | payer MEDICARE, BC ==
[~2018-10-24 10:53] MED LIST changes: -AMLO10TA6 PO; +AMLO10TA7 PO
[2018-10-25] MEDS ORDERED: FURO20TA4 PO (11:49)
[2018-10-25] MEDS ORDERED: INSU100I34 SQ ×2 (11:49)
[2018-10-25] MEDS ORDERED: SUCR1TAB PO (11:49)
[2018-10-25] MEDS ORDERED: PANT40TA2 PO (11:49)
[2018-10-25] MEDS ORDERED: LEVO1CAP9 PO (11:49)
[2018-10-25] MEDS ORDERED: ATOR40TA PO (11:54)
[2018-10-25] MEDS ORDERED: ACET-2840 PO (11:58)
[2018-10-26] MEDS ORDERED: CEFU500T63 PO (12:23)
[2018-10-26] MEDS ORDERED: APIX5TAB PO (12:27)
== END 2018-12-23 | disposition home or self-care (01) ==
LOC: CR 10:53
PROVIDERS: ATTEND Family Medicine
DX: Z48.812 Encounter for surgical aftercare following surgery on the circulatory system (principal); Z95.1 Presence of aortocoronary bypass graft; Z95.2 Presence of prosthetic heart valve
CPT/HCPCS: 93798

== ENCOUNTER 2018-10-25 08:05 | Day surgery (SDC) | payer MEDICARE, BC ==
[~2018-10-25] VITALS: Ht 182.9 cm; Wt 101.2 kg
[2018-10-25] VITALS (12 sets, daily range): BP systolic 111–140; BP diastolic 74–93
--- OUTSIDE RECORDS SUMMARY | 2018-10-25 08:10 | XMS REPORT | Continuity of Care Document ---
Author Author [facility] Organization [facility] Address Unknown Phone Unavailable Allergies Active Description Code Type Severity Reaction Onset Reported/Identified Relationship to Patient Clinical Status Yes No Known Drug Allergies [id number] Drug Allergy Unknown N/A 10/03/2009 Yes No [...] Ot V58.69 OTH MED,LT, CURRENT USE 05/14/2014 JEFFREY BEAVERS, PATRICIA oLckett Ot 530.10 ESOPHAGITIS NOS 05/14/2014 PATRICIA MURPHY MD Ot 530.3 ESOPHAGEAL STRICTURE 05/14/2014 JEFFREY BEAVERS, PATRICIA Lockett Ot 553.3 DIAPHRAGMATIC HERNIA 09/12/2014 FANI LOZADA DIGITAL MARKETING APPRENTICE Ot 924.21 CONTUSION OF ANKLE 09/12/2014 FANI LOZADA DIGITAL MARKETING APPRENTICE Ot 959.7 LOWER LEG INJURY NOS 09/12/2014 FANI LOZADA DIGITAL MARKETING APPRENTICE Ot E000.8 OTHER EXTERNAL CAUSE STATUS 09/12/2014 FANI LOZADA DIGITAL MARKETING APPRENTICE Ot E849.0 ACCIDENT IN HOME 09/12/2014 FANI LOZADA DIGITAL MARKETING APPRENTICE Ot E885.9 FALL FROM SLIPPING, TRIPPING, OR [...] OTHER PREPROCEDURAL EXAMIN 11/30/2015 JEFFREY BEAVERS, PATRICIA Lcokett Ot K22.2 ESOPHAGEAL OBSTRUCTION 12/01/2015 PATRICIA MURPHY [...] DO Ot 786.09 RESPIRATORY ABNORM NEC 01/02/2016 ANNIA BEAVERS, LUIS Vega Ot F17.210 NICOTINE DEPENDENCE, CIGARETTES, UNCOMPL 01/02/2016 [...] J44.9 CHRONIC OBSTRUCTIVE PULMONARY DISEASE, U 03/29/2016 HOLLISANDHYA REED DIGITAL MARKETING APPRENTICE Ot R06.09 OTHER FORMS OF DYSPNEA 03/29/2016 HOLLISANDHYA REED DIGITAL MARKETING APPRENTICE Ot J44.9 CHRONIC OBSTRUCTIVE PULMONARY DISEASE, U 03/29/2016 SANDHYA DE LA GARZA DIGITAL MARKETING APPRENTICE Ot R06.09 OTHER FORMS OF DYSPNEA 04/27/2016 BEN DE LA GARZAINE Dilshad DIGITAL MARKETING APPRENTICE Ot J44.9 CHRONIC OBSTRUCTIVE PULMONARY DISEASE, U 04/27/2016 HOLLISANDHYA REED DIGITAL MARKETING APPRENTICE Ot R06.09 OTHER FORMS OF DYSPNEA 04/29/2016 SANDHYA DE LA GARZA DIGITAL MARKETING APPRENTICE Ot J44.9 CHRONIC OBSTRUCTIVE PULMONARY DISEASE, U 04/29/2016 SANDHYA DE LA GARZA DIGITAL MARKETING APPRENTICE Ot R06.09 OTHER FORMS OF DYSPNEA 08/01/2016 Ot 250.00 DIAB ROBERT WO COMPL, TYPE II OR UNSPEC TY 08/01/2016 Ot 715.97 OSTEOARTHROS NOS-ANKLE 08/01/2016 Ot 354.9 MONONEURITIS ARM NOS 08/01/2016 Ot 722.4 CERVICAL DISC DEGEN 08/01/2016 JEFFREY BEAVERS, PATRICIA Lockett Ot V72.84 EXAM PRE-OPERATIVE NOS 08/01/2016 JEFFREY BEAVERS, PATRICIA Lockett Ot 530.81 ESOPHAGEAL REFLUX 08/01/2016 JEFFREY BEAVERS, [...] MD Ot I25.10 ATHSCL HEART DISEASE OF [place] CORONARY 02/07/2017 NANCY GARCÍA MD Ot J44.9 CHRONIC OBSTRUCTIVE PULMONARY DISEASE, U 02/07/2017 NANCY GARCÍA MD Ot N35.9 URETHRAL STRICTURE, UNSPECIFIED 02/07/2017 NANCY GARCÍA MD Ot N40.0 BENIGN PROSTATIC HYPERPLASIA WITHOUT LOW 02/07/2017 NANCY GARCÍA MD, Ot Z79.4 INTERMEDIATE (CURRENT) USE OF INSULIN 02/07/2017 NANCY GARCÍA [...] MD Ot I25.10 ATHSCL HEART DISEASE OF [place] CORONARY 02/09/2017 NANCY GARCÍA MD, Ot J44.9 CHRONIC OBSTRUCTIVE PULMONARY DISEASE, U 02/09/2017 NANCY GARCÍA MD, Ot N35.9 URETHRAL STRICTURE, UNSPECIFIED 02/09/2017 NANCY GARCÍA MD Ot N40.0 BENIGN PROSTATIC HYPERPLASIA WITHOUT LOW 02/09/2017 NANCY GARCÍA MD, Ot Z79.4 ROTARY KILN OPERATOR (CURRENT) USE OF INSULIN 02/09/2017 NANCY GARCÍA [...] MD, Ot I25.10 ATHSCL HEART DISEASE OF [place] CORONARY 02/16/2017 NANCY GARCÍA MD, Ot J44.9 CHRONIC OBSTRUCTIVE PULMONARY DISEASE, U 02/16/2017 NANCY GARCÍA MD, Ot N35.9 URETHRAL STRICTURE, UNSPECIFIED 02/16/2017 NANCY GARCÍA MD, Ot N40.0 BENIGN PROSTATIC HYPERPLASIA WITHOUT LOW 02/16/2017 NANCY GARCÍA MD, Ot Z79.4 ROTARY KILN OPERATOR (CURRENT) USE OF INSULIN 02/16/2017 NANCY GARCÍA MD, Ot Z95.5 PRESENCE OF CORONARY ANGIOPLASTY IMPLANT 02/23/2017 SELAM BETH MD Ot I70.203 UNSP ATHSCL [place] [facility] 03/16/2017 Ot E10.9 TYPE 1 DIABETES MELLITUS WITHOUT COMPLIC 03/20/2017 SELAM BETH MD Ot I70.203 UNSP ATHSCL [place] [facility]ERIES [facility] 03/22/2017 SELAM BETH MD, Ot I70.203 UNS ATHSCL [place] [facility] 06/07/2017 JEFFREY BEAVERS, PATRICIA Lockett Ot V72.84 [...] Ot R06.09 OTHER FORMS OF DYSPNEA 06/07/2017 MATTIE BETH MDSUS E Ot I70.203 UNSP ATHSCL [place] ARTERIES OF EXTREMITI 06/07/2017 Ot E10.9 TYPE 1 DIABETES MELLITUS WITHOUT COMPLIC 06/08/2017 VICK VARGAS R DIGITAL MARKETING APPRENTICE Ot M25.552 PAIN IN LEFT HIP 06/27/2017 VICK VARGAS R DIGITAL MARKETING APPRENTICE Ot M25.552 PAIN IN LEFT HIP 07/05/2017 VICK VARGAS R DIGITAL MARKETING APPRENTICE Ot M25.552 PAIN IN LEFT HIP 09/09/2017 SHAVONNE LUCAS DO Ot E11.65 TYPE 2 DIABETES MELLITUS WITH HYPERGLYCE 09/09/2017 SHAVONNE LUCAS DO Ot E78.00 PURE HYPERCHOLESTEROLEMIA, UNSPECIFIED 09/09/2017 SHAVONNE LUCAS DO Ot E87.6 HYPOKALEMIA 09/09/2017 SHAVONNE LUCAS DO Ot F17.290 NICOTINE DEPENDENCE, OTHER TOBACCO PRODU 09/09/2017 SHAVONNE LUCAS DO Ot G47.30 SLEEP APNEA, UNSPECIFIED 09/09/2017 SHAVONNE LUCAS DO Ot I10 ESSENTIAL (PRIMARY) HYPERTENSION 09/09/2017 SHAVONNE LUCAS DO Ot I25.10 ATHSCL HEART DISEASE OF [place] CORONARY 09/09/2017 SHAVONNE LUCAS DO Ot I25.2 OLD MYOCARDIAL INFARCTION 09/09/2017 SHAVONNE LUCAS DO Ot I73.9 PERIPHERAL VASCULAR DISEASE, UNSPECIFIED 09/09/2017 SHAVONNE LUCAS DO Ot I95.9 HYPOTENSION, UNSPECIFIED 09/09/2017 SHAVONNE LUCAS DO Ot J20.9 ACUTE BRONCHITIS, UNSPECIFIED 09/09/2017 SHAVONNE LUCAS DO Ot J44.0 CHRONIC OBSTRUCTIVE PULMON DISEASE W ACU 09/09/2017 SHAVONNE LUCAS DO Ot J44.1 CHRONIC OBSTRUCTIVE PULMONARY DISEASE W 09/09/2017 SHAVONNE LUCAS DO Ot J96.00 ACUTE RESPIRATORY FAILURE, UNSP W HYPOXI 09/09/2017 SHAVONNE LUCAS DO Ot T38.0X5A ADVERSE EFFECT OF GLUCOCORT/SYNTH ANALOG 09/09/2017 SHAVONNE LUCAS DO Ot Z79.4 ROTARY KILN OPERATOR (CURRENT) USE OF INSULIN 09/09/2017 SHAVONNE LUCAS DO Ot Z79.82 ROTARY KILN OPERATOR (CURRENT) USE OF ASPIRIN 09/09/2017 SHVAONNE LUCAS DO Ot Z95.5 PRESENCE OF CORONARY ANGIOPLASTY IMPLANT 09/09/2017 SHAVONNE LUCAS DO Ot Z95.810 PRESENCE OF AUTOMATIC (IMPLANTABLE) CARD 09/15/2017 SHAVONNE LUCAS DO Ot E11.65 TYPE 2 DIABETES MELLITUS WITH HYPERGLYCE 09/15/2017 LANCE CYR SHAVONNE Ot E78.00 PURE HYPERCHOLESTEROLEMIA, UNSPECIFIED 09/15/2017 LANCE CYR SHAVONNE Ot E87.6 HYPOKALEMIA 09/15/2017 LUCIO LUCAS DOI Ot F17.290 NICOTINE DEPENDENCE, OTHER TOBACCO PRODU 09/15/2017 LANCE CYR SHAVONNE Ot G47.30 SLEEP APNEA, UNSPECIFIED 09/15/2017 LANCE CYR SHAVONNE Ot I10 ESSENTIAL (PRIMARY) HYPERTENSION 09/15/2017 LUCIO LUCAS DOI Ot I25.10 ATHSCL HEART DISEASE OF [place] CORONARY 09/15/2017 LUCIO LUCAS DOI Ot I25.2 OLD MYOCARDIAL INFARCTION 09/15/2017 LANCE CYR SHAVONNE Ot I73.9 PERIPHERAL VASCULAR DISEASE, UNSPECIFIED 09/15/2017 LUICO LUCAS DOI Ot I95.9 HYPOTENSION, UNSPECIFIED 09/15/2017 LANCE CYR SHAVONNE Ot J20.9 ACUTE BRONCHITIS, UNSPECIFIED 09/15/2017 LANCE CYR SHAVONNE Ot J44.0 CHRONIC OBSTRUCTIVE PULMON DISEASE W ACU 09/15/2017 LUCIO LUCAS DOI Ot J44.1 CHRONIC OBSTRUCTIVE PULMONARY DISEASE W 09/15/2017 LUCIO LUCAS DOI Ot J96.00 ACUTE RESPIRATORY FAILURE, UNSP W HYPOXI 09/15/2017 SHAVONNE LUCAS DO Ot T38.0X5A ADVERSE EFFECT OF GLUCOCORT/SYNTH ANALOG 09/15/2017 SHAVONNE LUCAS DO Ot Z79.4 ROTARY KILN OPERATOR (CURRENT) USE OF INSULIN 09/15/2017 LUCIO LUCAS DOI Ot Z79.82 INTERMEDIATE (CURRENT) USE OF ASPIRIN 09/15/2017 SHAVONNE LUCAS DO Ot Z95.5 PRESENCE OF CORONARY ANGIOPLASTY IMPLANT 09/15/2017 SHAVONNE LUCAS DO Ot Z95.810 PRESENCE OF AUTOMATIC (IMPLANTABLE) CARD 09/15/2017 SHAVONNE LUCAS DO Ot E11.65 TYPE 2 DIABETES MELLITUS WITH HYPERGLYCE 09/15/2017 LUCIO LUCAS DOI Ot E78.00 PURE HYPERCHOLESTEROLEMIA, UNSPECIFIED 09/15/2017 LUCAS DO, SHAVONNE Ot E87.6 HYPOKALEMIA 09/15/2017 LANCE CYR, SHAVONNE Ot F17.290 NICOTINE DEPENDENCE, OTHER TOBACCO PRODU 09/15/2017 LANCE CYR SHAVONNE Ot G47.30 SLEEP APNEA, UNSPECIFIED 09/15/2017 LUCAS DO SHAVONNE Ot I10 ESSENTIAL (PRIMARY) HYPERTENSION 09/15/2017 LUCAS DO SHAVONNE Ot I25.10 ATHSCL HEART DISEASE OF [place] CORONARY 09/15/2017 LUCAS DO SHAVONNE Ot I25.2 OLD MYOCARDIAL INFARCTION 09/15/2017 LUCAS DO SHAVONNE Ot I73.9 PERIPHERAL VASCULAR DISEASE, UNSPECIFIED 09/15/2017 LUCAS DO SHAVONNE Ot I95.9 HYPOTENSION, UNSPECIFIED 09/15/2017 LUCAS DO SHAVONNE Ot J20.9 ACUTE BRONCHITIS, UNSPECIFIED 09/15/2017 LUCAS DO SHAVONNE Ot J44.0 CHRONIC OBSTRUCTIVE PULMON DISEASE W ACU 09/15/2017 LANCE CYR SHAVONNE Ot J44.1 CHRONIC OBSTRUCTIVE PULMONARY DISEASE W 09/15/2017 LANCE CYR SHAVONNE Ot J96.00 ACUTE RESPIRATORY FAILURE, UNSP W HYPOXI 09/15/2017 LANCE CYR SHAVONNE Ot T38.0X5A ADVERSE EFFECT OF GLUCOCORT/SYNTH ANALOG 09/15/2017 LANCE CYR SHAVONNE Ot Z79.4 INTERMEDIATE (CURRENT) USE OF INSULIN 09/15/2017 LANCE CYR SHAVONNE Ot Z79.82 INTERMEDIATE (CURRENT) USE OF ASPIRIN 09/15/2017 LANCE CYR SHAVONNE Ot Z95.5 PRESENCE OF CORONARY ANGIOPLASTY IMPLANT 09/15/2017 SHAVONNE LUCAS DO Ot Z95.810 PRESENCE OF AUTOMATIC (IMPLANTABLE) CARD 10/23/2017 FRANDY ALBERT APRN Ot G47.33 OBSTRUCTIVE SLEEP APNEA (ADULT) (PEDIATR 10/23/2017 JEFFREY BEAVERS, PATRICIA Lockett Ot V72.84 EXAM PRE-OPERATIVE NOS 10/23/2017 JEFFREY BEAVERS, PATRICIA Lockett Ot 530.81 ESOPHAGEAL REFLUX 10/23/2017 JEFFREY BEAVERS, PATRICIA Lockett Ot V72.84 EXAM PRE-OPERATIVE NOS 10/23/2017 JESS FRANCIS DO Ot 278.00 OBESITY, NOS 10/23/2017 JESS FRANCIS DO Ot 305.1 TOBACCO USE DISORDER 10/23/2017 JESS FRANCIS DO Ot 327.23 OBSTRUCTIVE SLEEP APNEA (ADULT) (PEDIATR 10/23/2017 JESS FRANCIS DO Ot 496 CHR AIRWAY OBSTRUCT NEC 10/23/2017 JESS FRANCIS DO Ot 786.09 RESPIRATORY ABNORM NEC 10/23/2017 SANDHYA DE LA GARZA DIGITAL MARKETING APPRENTICE Ot J44.9 CHRONIC OBSTRUCTIVE PULMONARY DISEASE, U 10/23/2017 SANDHYA DE LA GARZA DIGITAL MARKETING APPRENTICE Ot R06.09 OTHER FORMS OF DYSPNEA 10/23/2017 IGNACIA BAEVERS, SELAM E Ot I70.[address] [facility] ATHSCL [place] ARTERIES OF [place]I 10/23/2017 Ot E10.9 TYPE 1 DIABETES MELLITUS WITHOUT COMPLIC 10/23/2017 VICK VARGAS DIGITAL MARKETING APPRENTICE Ot M25.552 PAIN IN LEFT HIP 10/23/2017 FRANDY ALBERT DIGITAL MARKETING APPRENTICE Ot G47.33 OBSTRUCTIVE SLEEP APNEA (ADULT) (PEDIATR 10/24/2017 ROOSEVELTFRANDY DIGITAL MARKETING APPRENTICE Ot G47.33 OBSTRUCTIVE SLEEP APNEA (ADULT) (PEDIATR 11/04/2017 ROOSEVELTFRANDY DIGITAL MARKETING APPRENTICE Ot G47.33 OBSTRUCTIVE SLEEP APNEA (ADULT) (PEDIATR 11/07/2017 ROOSEVELTFRANDY DIGITAL MARKETING APPRENTICE Ot G47.33 OBSTRUCTIVE SLEEP APNEA (ADULT) (PEDIATR 11/29/2017 SANDHYA DE LA GARZA DIGITAL MARKETING APPRENTICE Ot J44.9 CHRONIC OBSTRUCTIVE PULMONARY DISEASE, U 11/29/2017 SANDHYA DE LA GARZA DIGITAL MARKETING APPRENTICE Ot R06.09 OTHER FORMS OF DYSPNEA 11/29/2017 SANDHYA DE LA GARZA DIGITAL MARKETING APPRENTICE Ot R09.02 HYPOXEMIA 11/29/2017 SANDHYA DE LA GARZA DIGITAL MARKETING APPRENTICE Ot Z72.0 TOBACCO USE 12/05/2017 SANDHYA DE LA GARZA DIGITAL MARKETING APPRENTICE Ot J44.9 CHRONIC OBSTRUCTIVE PULMONARY DISEASE, U 12/05/2017 SANDHYA DE LA GARZA DIGITAL MARKETING APPRENTICE Ot R06.09 OTHER FORMS OF DYSPNEA 12/05/2017 SANDHYA DE LA GARZA DIGITAL MARKETING APPRENTICE Ot R09.02 HYPOXEMIA 12/05/2017 SANDHYA DE LA GARZA DIGITAL MARKETING APPRENTICE Ot Z72.0 TOBACCO USE 12/06/2017 SANDHYA DE LA GARZA DIGITAL MARKETING APPRENTICE Ot J44.9 CHRONIC OBSTRUCTIVE PULMONARY DISEASE, U 12/06/2017 SANDHYA DE LA GARZA DIGITAL MARKETING APPRENTICE Ot R06.09 OTHER FORMS OF DYSPNEA 12/06/2017 HOLLI, SANDHYA E DIGITAL MARKETING APPRENTICE Ot R09.02 HYPOXEMIA 12/06/2017 HOLLI, SANDHYA E DIGITAL MARKETING APPRENTICE Ot Z72.0 TOBACCO USE 12/14/2017 HOLLI, SANDHYA E DIGITAL MARKETING APPRENTICE Ot J44.9 CHRONIC OBSTRUCTIVE PULMONARY DISEASE, U 12/14/2017 HOLLI, SANDHYA E DIGITAL MARKETING APPRENTICE Ot R06.09 OTHER FORMS OF DYSPNEA 12/14/2017 HOLLI, SANDHYA E DIGITAL MARKETING APPRENTICE Ot R09.02 HYPOXEMIA 12/14/2017 HOLLI, SANDHYA E DIGITAL MARKETING APPRENTICE Ot Z72.0 TOBACCO USE 12/21/2017 HOLLI, SANDHYA E DIGITAL MARKETING APPRENTICE Ot J44.9 CHRONIC OBSTRUCTIVE PULMONARY DISEASE, U 12/21/2017 HOLLI, SANDHYA E DIGITAL MARKETING APPRENTICE Ot R06.09 OTHER FORMS OF DYSPNEA 12/21/2017 HOLLI, SANDHYA E DIGITAL MARKETING APPRENTICE Ot R09.02 HYPOXEMIA 12/21/2017 HOLLI, SANDHYA E DIGITAL MARKETING APPRENTICE Ot Z72.0 TOBACCO USE 12/26/2017 HOLLI, SANDHYA E DIGITAL MARKETING APPRENTICE Ot J44.9 CHRONIC OBSTRUCTIVE PULMONARY DISEASE, U 12/26/2017 HOLLI, SANDHYA E DIGITAL MARKETING APPRENTICE Ot R06.09 OTHER FORMS OF DYSPNEA 12/26/2017 HOLLI, SANDHYA E DIGITAL MARKETING APPRENTICE Ot R09.02 HYPOXEMIA 12/26/2017 HOLLI, SANDHYA E DIGITAL MARKETING APPRENTICE Ot Z72.0 TOBACCO USE 12/28/2017 HOLLI, SANDHYA E DIGITAL MARKETING APPRENTICE Ot J44.9 CHRONIC OBSTRUCTIVE PULMONARY DISEASE, U 12/28/2017 HOLLI, SANDHYA E DIGITAL MARKETING APPRENTICE Ot R06.09 OTHER FORMS OF DYSPNEA 12/28/2017 HOLLI, SANDHYA E DIGITAL MARKETING APPRENTICE Ot R09.02 HYPOXEMIA 12/28/2017 HOLLI, SANDHYA E DIGITAL MARKETING APPRENTICE Ot Z72.0 TOBACCO USE 12/28/2017 HOLLI, SANDHYA E DIGITAL MARKETING APPRENTICE Ot J44.9 CHRONIC OBSTRUCTIVE PULMONARY DISEASE, U 12/28/2017 HOLLI, SANDHYA E DIGITAL MARKETING APPRENTICE Ot R06.09 OTHER FORMS OF DYSPNEA 12/28/2017 HOLLI, SANDHYA E DIGITAL MARKETING APPRENTICE Ot R09.02 HYPOXEMIA 12/28/2017 HOLLI, SANDHYA E DIGITAL MARKETING APPRENTICE Ot Z72.0 TOBACCO USE 01/04/2018 HOLLI, SANDHYA E DIGITAL MARKETING APPRENTICE Ot J44.9 CHRONIC OBSTRUCTIVE PULMONARY DISEASE, U 01/04/2018 HOLLI, SANDHYA E DIGITAL MARKETING APPRENTICE Ot R06.09 OTHER FORMS OF DYSPNEA 01/04/2018 HOLLI, SANDHYA E DIGITAL MARKETING APPRENTICE Ot R09.02 HYPOXEMIA 01/04/2018 HOLLI, SANDHYA E DIGITAL MARKETING APPRENTICE Ot Z72.0 TOBACCO USE 01/09/2018 HOLLI, SANDHYA E DIGITAL MARKETING APPRENTICE Ot J44.9 CHRONIC OBSTRUCTIVE PULMONARY DISEASE, U 01/09/2018 HOLLI, SANDHYA E DIGITAL MARKETING APPRENTICE Ot R06.09 OTHER FORMS OF DYSPNEA 01/09/2018 HOLLI, SANDHYA E DIGITAL MARKETING APPRENTICE Ot R09.02 HYPOXEMIA 01/09/2018 HOLLI, SANDHYA E DIGITAL MARKETING APPRENTICE Ot Z72.0 TOBACCO USE 01/11/2018 HOLLI, SANDHYA E DIGITAL MARKETING APPRENTICE Ot J44.9 CHRONIC OBSTRUCTIVE PULMONARY DISEASE, U 01/11/2018 HOLLI, SANDHYA E DIGITAL MARKETING APPRENTICE Ot R06.09 OTHER FORMS OF DYSPNEA 01/11/2018 HOLLI, SANDHYA E DIGITAL MARKETING APPRENTICE Ot R09.02 HYPOXEMIA 01/11/2018 HOLLI, SANDHYA E DIGITAL MARKETING APPRENTICE Ot Z72.0 TOBACCO USE 01/16/2018 HOLLI SANDHYA E DIGITAL MARKETING APPRENTICE Ot J44.9 CHRONIC OBSTRUCTIVE PULMONARY DISEASE, U 01/16/2018 HOLLI, SANDHYA E DIGITAL MARKETING APPRENTICE Ot R06.09 OTHER FORMS OF DYSPNEA 01/16/2018 HOLLI, SANDHYA E DIGITAL MARKETING APPRENTICE Ot R09.02 HYPOXEMIA 01/16/2018 HOLLI, SANDHYA E DIGITAL MARKETING APPRENTICE Ot Z72.0 TOBACCO USE 01/16/2018 HOLLI, SANDHYA E DIGITAL MARKETING APPRENTICE Ot J44.9 CHRONIC OBSTRUCTIVE PULMONARY DISEASE, U 01/16/2018 HOLLI, SANDHYA E DIGITAL MARKETING APPRENTICE Ot R06.09 OTHER FORMS OF DYSPNEA 01/16/2018 HOLLI, SANDHYA E DIGITAL MARKETING APPRENTICE Ot R09.02 HYPOXEMIA 01/16/2018 HOLLI, SANDHYA E DIGITAL MARKETING APPRENTICE Ot Z72.0 TOBACCO USE 01/23/2018 HOLLI, SANDHYA E DIGITAL MARKETING APPRENTICE Ot J44.9 CHRONIC OBSTRUCTIVE PULMONARY DISEASE, U 01/23/2018 HOLLI, SANDHYA E DIGITAL MARKETING APPRENTICE Ot R06.09 OTHER FORMS OF DYSPNEA 01/23/2018 HOLLI, SANDHYA E DIGITAL MARKETING APPRENTICE Ot R09.02 HYPOXEMIA 01/23/2018 HOLLI, SANDHYA E DIGITAL MARKETING APPRENTICE Ot Z72.0 TOBACCO USE 01/25/2018 HOLLI, SANDHYA E DIGITAL MARKETING APPRENTICE Ot J44.9 CHRONIC OBSTRUCTIVE PULMONARY DISEASE, U 01/25/2018 HOLLI, SANDHYA E DIGITAL MARKETING APPRENTICE Ot R06.09 OTHER FORMS OF DYSPNEA 01/25/2018 HOLLI, SANDHYA E DIGITAL MARKETING APPRENTICE Ot R09.02 HYPOXEMIA 01/25/2018 HOLLI, SANDHYA E DIGITAL MARKETING APPRENTICE Ot Z72.0 TOBACCO USE 01/25/2018 HOLLI, SANDHYA E DIGITAL MARKETING APPRENTICE Ot J44.9 CHRONIC OBSTRUCTIVE PULMONARY DISEASE, U 01/25/2018 HOLLI, SANDHYA E DIGITAL MARKETING APPRENTICE Ot R06.09 OTHER FORMS OF DYSPNEA 01/25/2018 HOLLI, SANDHYA E DIGITAL MARKETING APPRENTICE Ot R09.02 HYPOXEMIA 01/25/2018 HOLLI, SANDHYA E DIGITAL MARKETING APPRENTICE Ot Z72.0 TOBACCO USE 01/28/2018 HOLLI, SANDHYA E DIGITAL MARKETING APPRENTICE Ot J44.9 CHRONIC OBSTRUCTIVE PULMONARY DISEASE, U 01/28/2018 HOLLI, SANDHAY E DIGITAL MARKETING APPRENTICE Ot R06.09 OTHER FORMS OF DYSPNEA 01/28/2018 HOLLI, SANDHYA E DIGITAL MARKETING APPRENTICE Ot R09.02 HYPOXEMIA 01/28/2018 HOLLI, SANDHYA E DIGITAL MARKETING APPRENTICE Ot Z72.0 TOBACCO USE 01/29/2018 HOLLI, SANDHYA E DIGITAL MARKETING APPRENTICE Ot J44.9 CHRONIC OBSTRUCTIVE PULMONARY DISEASE, U 01/29/2018 HOLLI, SANDHYA E DIGITAL MARKETING APPRENTICE Ot R06.09 OTHER FORMS OF DYSPNEA 01/29/2018 HOLLI, SANDHYA E DIGITAL MARKETING APPRENTICE Ot R09.02 HYPOXEMIA 01/29/2018 HOLLI, SANDHYA E DIGITAL MARKETING APPRENTICE Ot Z72.0 TOBACCO USE 02/01/2018 HOLLI, SANDHYA E DIGITAL MARKETING APPRENTICE Ot J44.9 CHRONIC OBSTRUCTIVE PULMONARY DISEASE, U 02/01/2018 HOLLI, SANDHYA E DIGITAL MARKETING APPRENTICE Ot R06.09 OTHER FORMS OF DYSPNEA 02/01/2018 HOLLI, SANDHYA E DIGITAL MARKETING APPRENTICE Ot R09.02 HYPOXEMIA 02/01/2018 HOLLI, SANDHYA E DIGITAL MARKETING APPRENTICE Ot Z72.0 TOBACCO USE 02/02/2018 HOLLI, SANDHYA E DIGITAL MARKETING APPRENTICE Ot J44.9 CHRONIC OBSTRUCTIVE PULMONARY DISEASE, U 02/02/2018 HOLLI, SANDHYA E DIGITAL MARKETING APPRENTICE Ot R06.09 OTHER FORMS OF DYSPNEA 02/02/2018 HOLLI, SANDHYA E DIGITAL MARKETING APPRENTICE Ot R09.02 HYPOXEMIA 02/02/2018 HOLLI, SANDHYA E DIGITAL MARKETING APPRENTICE Ot Z72.0 TOBACCO USE 03/02/2018 HOLLI, SANDHYA E DIGITAL MARKETING APPRENTICE Ot J44.9 CHRONIC OBSTRUCTIVE PULMONARY DISEASE, U 03/02/2018 SANDHYA DE LA GARZA DIGITAL MARKETING APPRENTICE Ot R06.09 OTHER FORMS OF DYSPNEA 03/02/2018 SANDHYA DE LA GARZA APRN Ot R09.02 HYPOXEMIA 03/02/2018 SANDHYA DE LA GARZA APRN Ot Z72.0 TOBACCO USE 03/07/2018 SANDHYA DE LA GARZA DIGITAL MARKETING APPRENTICE Ot J44.9 CHRONIC OBSTRUCTIVE PULMONARY DISEASE, U 03/07/2018 SANDHYA DE LA GARZA APRN Ot R06.09 OTHER FORMS OF DYSPNEA 03/07/2018 SANDHYA DE LA GARZA APRN Ot R09.02 HYPOXEMIA 03/07/2018 SANDHYA DE LA GARZA APRN Ot Z72.0 TOBACCO USE 04/25/2018 Ot Z01.818 ENCOUNTER FOR OTHER PREPROCEDURAL EXAMIN 04/30/2018 JEFFREY BEAVERS, PATRICIA Lockett Ot V72.84 EXAM PRE-OPERATIVE NOS 04/30/2018 JEFFREY BEAVERS, PATRICIA Lockett Ot 530.81 ESOPHAGEAL REFLUX 04/30/2018 JEFFREY BEAVERS, PATRICIA Lockett Ot V72.84 EXAM PRE-OPERATIVE NOS 04/30/2018 JESS FRANCIS DO Ot 278.00 OBESITY, NOS 04/30/2018 JESS FRANCIS DO Ot 305.1 TOBACCO USE DISORDER 04/30/2018 JESS FRANCIS DO Ot 327.23 OBSTRUCTIVE SLEEP APNEA (ADULT) (PEDIATR 04/30/2018 JESS FRANCIS DO Ot 496 CHR AIRWAY OBSTRUCT NEC 04/30/2018 JESS FRANCIS DO Ot 786.09 RESPIRATORY ABNORM NEC 04/30/2018 SANDHYA DE LA GARZA APRN Ot J44.9 CHRONIC OBSTRUCTIVE PULMONARY DISEASE, U 04/30/2018 SANDHYA DE LA GARZA APRN Ot R06.09 OTHER FORMS OF DYSPNEA 04/30/2018 IGNACIA BEAVERS, SELAM Yung Ot I70.203 UNSP ATHSCL [place] ARTERIES OF EXTREMITI 04/30/2018 Ot E10.9 TYPE 1 DIABETES MELLITUS WITHOUT COMPLIC 04/30/2018 VICK VARGAS APRN Ot M25.552 PAIN IN LEFT HIP 04/30/2018 SANDHYA DE LA GARZA APRN Ot J44.9 CHRONIC OBSTRUCTIVE PULMONARY DISEASE, U 04/30/2018 SANDHYA DE LA GARZA APRN Ot R06.09 OTHER FORMS OF DYSPNEA 04/30/2018 SANDHYA DE LA GARZA APRN Ot R09.02 HYPOXEMIA 04/30/2018 SANDHYA DE LA GARZA APRN Ot Z72.0 TOBACCO USE 04/30/2018 DUC CONCEPCION DO Ot E11.9 TYPE 2 DIABETES MELLITUS WITHOUT COMPLIC 04/30/2018 DUC CONCEPCION DO B Ot G47.33 OBSTRUCTIVE SLEEP APNEA (ADULT) (PEDIATR 04/30/2018 DUC CONCEPCION DO B Ot I11.9 HYPERTENSIVE HEART DISEASE WITHOUT HEART 04/30/2018 DUC CONCEPCION DO Ot I25.10 ATHSCL HEART DISEASE OF [place] CORONARY 04/30/2018 DUC CONCEPCION DO Ot J30.9 ALLERGIC RHINITIS, UNSPECIFIED 04/30/2018 DUC CONCEPCION DO Ot J44.9 CHRONIC OBSTRUCTIVE PULMONARY DISEASE, U 04/30/2018 DUC CONCEPCION DO Ot K21.9 GASTRO-ESOPHAGEAL REFLUX DISEASE WITHOUT 04/30/2018 DUC CONCEPCION DO B Ot K29.70 GASTRITIS, UNSPECIFIED, WITHOUT BLEEDING 04/30/2018 DUC CONCEPCION DO Ot K44.9 DIAPHRAGMATIC HERNIA WITHOUT OBSTRUCTION 04/30/2018 DUC CONCEPCION DO B Ot K92.1 MELENA 04/30/2018 DUC CONCEPCION DO B Ot R09.02 HYPOXEMIA 04/30/2018 DUC CONCEPCION DO Ot R13.14 DYSPHAGIA, PHARYNGOESOPHAGEAL PHASE 04/30/2018 DUC CONCEPCION DO B Ot Z79.02 ROTARY KILN OPERATOR (CURRENT) USE OF ANTITHROMBOTI 04/30/2018 DUC CONCEPCION DO Ot Z87.891 PERSONAL HISTORY OF NICOTINE DEPENDENCE 04/30/2018 DUC CONCEPCION DO Ot Z95.5 PRESENCE OF CORONARY ANGIOPLASTY IMPLANT 04/30/2018 DUC CONCEPCION DO Ot Z95.810 PRESENCE OF AUTOMATIC (IMPLANTABLE) CARD 05/02/2018 SANDHYA DE LA GARZA APRN Ot J44.9 CHRONIC OBSTRUCTIVE PULMONARY DISEASE, U 05/02/2018 SANDHYA DE LA GARZA APRN Ot R06.09 OTHER FORMS OF DYSPNEA 05/02/2018 SANDHYA DE LA GARZA APRN Ot R09.02 HYPOXEMIA 05/02/2018 SANDHYA DE LA GARZA APRN Ot Z72.0 TOBACCO USE 05/03/2018 SANDHYA DE LA GARZA APRN Ot J44.9 CHRONIC OBSTRUCTIVE PULMONARY DISEASE, U 05/03/2018 SANDHYA DE LA GARZA APRN Ot R06.09 OTHER FORMS OF DYSPNEA 05/03/2018 SANDHYA DE LA GARZA APRN Ot R09.02 HYPOXEMIA 05/03/2018 SANDHYA DE LA GARZA APRN Ot Z72.0 TOBACCO USE 05/03/2018 DUC CONCEPCION DO Ot D12.0 BENIGN NEOPLASM OF [place] 05/03/2018 DUC CONCEPCION DO Ot D12.3 BENIGN NEOPLASM OF [place] COLON 05/03/2018 DUC CONCEPCION DO Ot D12.4 BENIGN NEOPLASM OF DESCENDING COLON 05/03/2018 DUC CONCEPCION DO B Ot E11.43 TYPE 2 DIABETES W DIABETIC AUTONOMIC (PO 05/03/2018 DUC CONCEPCION DO B Ot F17.210 NICOTINE DEPENDENCE, CIGARETTES, UNCOMPL 05/03/2018 DUC CONCEPCION DO B Ot G47.33 OBSTRUCTIVE SLEEP APNEA (ADULT) (PEDIATR 05/03/2018 DUC CONCEPCION DO Ot I10 ESSENTIAL (PRIMARY) HYPERTENSION 05/03/2018 DUC CONCEPCION DO Ot I25.10 ATHSCL HEART DISEASE OF [place] CORONARY 05/03/2018 DUC CONCEPCION DO Ot J44.9 CHRONIC OBSTRUCTIVE PULMONARY DISEASE, U 05/03/2018 DUC CONCEPCION DO Ot K64.8 OTHER HEMORRHOIDS 05/03/2018 DUC CONCEPCION DO Ot K92.1 MELENA 05/03/2018 DUC CONCEPCION DO Ot Z79.4 ROTARY KILN OPERATOR (CURRENT) USE OF INSULIN 05/03/2018 DUC CONCEPCION DO Ot Z95.5 PRESENCE OF CORONARY ANGIOPLASTY IMPLANT 05/03/2018 DUC CONCEPCION DO Ot Z95.810 PRESENCE OF AUTOMATIC (IMPLANTABLE) CARD 05/08/2018 DUC CONCEPCION DO Ot D12.0 BENIGN NEOPLASM OF [place] 05/08/2018 DUC CONCEPCION DO Ot D12.3 BENIGN NEOPLASM OF TRANSVERSE COLON 05/08/2018 DUC CONCEPCION DO Ot D12.4 BENIGN NEOPLASM OF DESCENDING COLON 05/08/2018 DUC CONCEPCION DO B Ot E11.43 TYPE 2 DIABETES W DIABETIC AUTONOMIC (PO 05/08/2018 DUC CONCEPCION DO B Ot F17.210 NICOTINE DEPENDENCE, CIGARETTES, UNCOMPL 05/08/2018 DEREK CONCEPCION DOIC B Ot G47.33 OBSTRUCTIVE SLEEP APNEA (ADULT) (PEDIATR 05/08/2018 DEREK CONCEPCION DOIC B Ot I10 ESSENTIAL (PRIMARY) HYPERTENSION 05/08/2018 DEREK CONCEPCION DOIC B Ot I25.10 ATHSCL HEART DISEASE OF [place] CORONARY 05/08/2018 DEREK CONCEPCION DOIC B Ot J44.9 CHRONIC OBSTRUCTIVE PULMONARY DISEASE, U 05/08/2018 DUC CONCEPCION DO B Ot K64.8 OTHER HEMORRHOIDS 05/08/2018 DEREK CONCEPCION DOIC B Ot K92.1 MELENA 05/08/2018 DEREK CONCEPCION DOIC B Ot Z79.4 ROTARY KILN OPERATOR (CURRENT) USE OF INSULIN 05/08/2018 DEREK CONCEPCION DOIC B Ot Z95.5 PRESENCE OF CORONARY ANGIOPLASTY IMPLANT 05/08/2018 DEREK CONCEPCION DOIC B Ot Z95.810 PRESENCE OF AUTOMATIC (IMPLANTABLE) CARD 05/08/2018 DUC CONCEPCION DO B Ot D12.0 BENIGN NEOPLASM OF [place] 05/08/2018 DEREK CONCEPCION DOIC B Ot D12.3 BENIGN NEOPLASM OF TRANSVERSE COLON 05/08/2018 DEREK CONCEPCION DOIC B Ot D12.4 BENIGN NEOPLASM OF DESCENDING COLON 05/08/2018 DEREK CONCEPCION DOIC B Ot E11.43 TYPE 2 DIABETES W DIABETIC AUTONOMIC (PO 05/08/2018 DEREK CONCEPCION DOIC B Ot F17.210 NICOTINE DEPENDENCE, CIGARETTES, UNCOMPL 05/08/2018 DEREK CONCEPCION DOIC B Ot G47.33 OBSTRUCTIVE SLEEP APNEA (ADULT) (PEDIATR 05/08/2018 DEREK CONCEPCION DOIC B Ot I10 ESSENTIAL (PRIMARY) HYPERTENSION 05/08/2018 DEREK CONCEPCION DOIC B Ot I25.10 ATHSCL HEART DISEASE OF [place] CORONARY 05/08/2018 DEREK CONCEPCION DOIC B Ot J44.9 CHRONIC OBSTRUCTIVE PULMONARY DISEASE, U 05/08/2018 DUC CONCEPCION DO B Ot K64.8 OTHER HEMORRHOIDS 05/08/2018 DEREK CONCEPCION DOIC B Ot K92.1 MELENA 05/08/2018 DEREK CONCEPCION DOIC B Ot Z79.4 ROTARY KILN OPERATOR (CURRENT) USE OF INSULIN 05/08/2018 DEREK CONCEPCION DOIC B Ot Z95.5 PRESENCE OF CORONARY ANGIOPLASTY IMPLANT 05/08/2018 DUC CONCEPCION DO Ot Z95.810 PRESENCE OF AUTOMATIC (IMPLANTABLE) CARD 05/28/2018 IDBEIS, BADR Final D62 Acute posthemorrhagic anemia 05/28/2018 IDBEIS, BADR Final E11.9 Type 2 diabetes mellitus without complications 05/28/2018 IDBEIS, BADR Final E78.5 Hyperlipidemia, unspecified 05/28/2018 IDBEIS, BADR Final F17.210 Nicotine dependence, cigarettes, uncomplicated 05/28/2018 IDBEIS, BADR Final H40.9 Unspecified glaucoma 05/28/2018 IDBEIS, BADR Final I10 Essential (primary) hypertension 05/28/2018 IDBEIS, BADR Final I25.10 Atherosclerotic heart disease of [place] coronary artery without angina pectoris 05/28/2018 IDBEIS, BADR Final I34.0 Nonrheumatic mitral (valve) insufficiency 05/28/2018 IDBEIS, BADR Final I48.0 Paroxysmal atrial fibrillation 05/28/2018 IDBEIS, BADR Final J44.9 Chronic obstructive pulmonary disease, unspecified 05/28/2018 IDBEIS, BADR Final Z79.02 long-term (current) use of antithrombotics/antiplatelets 05/28/2018 IDBEIS, BADR Final Z79.4 long-term (current) use of insulin 05/28/2018 IDBEIS, BADR Final 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 07/13/2018 FLORENTINO RIVAS MD Ot E11.9 TYPE 2 DIABETES MELLITUS WITHOUT COMPLIC 07/13/2018 FLORENTINO RIVAS MD Ot G47.33 OBSTRUCTIVE SLEEP APNEA (ADULT) (PEDIATR 07/13/2018 FLORENTINO RIVAS MD Ot I07.1 RHEUMATIC TRICUSPID INSUFFICIENCY 07/13/2018 FLORENTINO RIVAS MD Ot I10 ESSENTIAL (PRIMARY) HYPERTENSION 07/13/2018 FLORENTINO RIVAS MD, Ot I25.10 ATHSCL HEART DISEASE OF [place] CORONARY 07/13/2018 FLORENTINO RIVAS MD, Ot I48.0 PAROXYSMAL ATRIAL FIBRILLATION 07/13/2018 FLORENTINO RIVAS MD, Ot K64.0 FIRST DEGREE HEMORRHOIDS 07/13/2018 FLORENTINO RIVAS MD Ot R06.09 OTHER FORMS OF DYSPNEA 08/06/2018 CAITLYN BEAVERS, FANG Easley Ot Z48.812 ENCNTR FOR SURGICAL AFTCR FOLLOWING SURG 08/06/2018 FANG BRADY MD Ot Z95.1 PRESENCE OF AORTOCORONARY BYPASS GRAFT 08/06/2018 FANG BRADY MD Ot Z95.2 PRESENCE OF PROSTHETIC HEART VALVE 08/06/2018 FLORENTINO RIVAS MD Ot E11.9 TYPE 2 DIABETES MELLITUS WITHOUT COMPLIC 08/06/2018 FLORENTINO RIVAS MD Ot G47.33 OBSTRUCTIVE SLEEP APNEA (ADULT) (PEDIATR 08/06/2018 FLORENTINO RIAVS MD Ot I07.1 RHEUMATIC TRICUSPID INSUFFICIENCY 08/06/2018 FLORENTINO RIVAS MD Ot I10 ESSENTIAL (PRIMARY) HYPERTENSION 08/06/2018 FLORENTINO RIVAS MD Ot I25.10 ATHSCL HEART DISEASE OF [place] CORONARY 08/06/2018 FLORENTINO RIVAS MD Ot I48.0 PAROXYSMAL ATRIAL FIBRILLATION 08/06/2018 FLORENTINO RIVAS MD Ot K64.0 FIRST DEGREE HEMORRHOIDS 08/06/2018 FLORENTINO RIVAS MD Ot R06.09 OTHER FORMS OF DYSPNEA 08/09/2018 FANG BRADY MD Ot Z48.812 ENCNTR FOR SURGICAL AFTCR FOLLOWING SURG 08/09/2018 FANG BRADY MD Ot Z95.1 PRESENCE OF AORTOCORONARY BYPASS GRAFT 08/09/2018 FANG BRADY MD Ot Z95.2 PRESENCE OF PROSTHETIC HEART VALVE 08/09/2018 FLORENTINO RIVAS MD Ot E11.9 TYPE 2 DIABETES MELLITUS WITHOUT COMPLIC 08/09/2018 FLORENTINO RIVAS MD Ot G47.33 OBSTRUCTIVE SLEEP APNEA (ADULT) (PEDIATR 08/09/2018 FLORENTINO RIVAS MD Ot I07.1 RHEUMATIC TRICUSPID INSUFFICIENCY 08/09/2018 FLORENTINO RIVAS MD Ot I10 ESSENTIAL (PRIMARY) HYPERTENSION 08/09/2018 FLORENTINO RIVAS MD Ot I25.10 ATHSCL HEART DISEASE OF [place] CORONARY 08/09/2018 FLORENTINO RIVAS MD Ot I48.0 PAROXYSMAL ATRIAL FIBRILLATION 08/09/2018 FLORENTINO RIVAS MD Ot K64.0 FIRST DEGREE HEMORRHOIDS 08/09/2018 FLORENTINO RIVAS MD Ot R06.09 OTHER FORMS OF DYSPNEA 09/04/2018 JEFFREY BEAVERS, PATRICIA Lockett Ot V72.84 EXAM PRE-OPERATIVE NOS 09/04/2018 JEFFREY BEAVERS, PATRICIA Lockett Ot 530.81 ESOPHAGEAL REFLUX 09/04/2018 JEFFREY BEAVERS, PATRICIA Lockett Ot V72.84 EXAM PRE-OPERATIVE NOS 09/04/2018 TITO JESS Lockett Ot 278.00 OBESITY, NOS 09/04/2018 TITO CYR JESS Lockett Ot 305.1 TOBACCO USE DISORDER 09/04/2018 TITO CYR JESS Lockett Ot 327.23 OBSTRUCTIVE SLEEP APNEA (ADULT) (PEDIATR 09/04/2018 TITO CYR JESS Levy Ot 496 CHR AIRWAY OBSTRUCT NEC 09/04/2018 TITO CYR JESS Levy Ot 786.09 RESPIRATORY ABNORM NEC 09/04/2018 SANDHYA DE LA GARZA APRN Ot J44.9 CHRONIC OBSTRUCTIVE PULMONARY DISEASE, U 09/04/2018 SANDHYA DE LA GARZA APRN Ot R06.09 OTHER FORMS OF DYSPNEA 09/04/2018 IGNACIA BEAVERS, SELAM Yung Ot I70.203 UNSP ATHSCL [place] [facility]IES [facility] 09/04/2018 Ot E10.9 TYPE 1 DIABETES MELLITUS WITHOUT COMPLIC 09/04/2018 VICK VARGAS APRN Ot M25.552 PAIN IN LEFT HIP 09/04/2018 Ot J44.9 CHRONIC OBSTRUCTIVE PULMONARY DISEASE, U 09/04/2018 Ot R06.09 OTHER FORMS OF DYSPNEA 09/04/2018 Ot R09.02 HYPOXEMIA 09/04/2018 Ot Z72.0 TOBACCO USE 09/04/2018 FANG BRADY MD Ot Z48.812 ENCNTR FOR SURGICAL AFTCR FOLLOWING SURG 09/04/2018 FANG BRADY MD Ot Z95.1 PRESENCE OF AORTOCORONARY BYPASS GRAFT 09/04/2018 FANG BRADY MD Ot Z95.2 PRESENCE OF PROSTHETIC HEART VALVE 09/04/2018 FLORENTINO RIVAS MD Ot E11.9 TYPE 2 DIABETES MELLITUS WITHOUT COMPLIC 09/04/2018 FLORENTINO RIVAS MD Ot G47.33 OBSTRUCTIVE SLEEP APNEA (ADULT) (PEDIATR 09/04/2018 FLORENTINO RIVAS MD Ot I07.1 RHEUMATIC TRICUSPID INSUFFICIENCY 09/04/2018 FLORENTINO RIVAS MD Ot I10 ESSENTIAL (PRIMARY) HYPERTENSION 09/04/2018 FLORENTINO RIVAS MD Ot I25.10 ATHSCL HEART DISEASE OF [place] CORONARY 09/04/2018 FLORENTINO RIVAS MD Ot I48.0 PAROXYSMAL ATRIAL FIBRILLATION 09/04/2018 FLORENTINO RIVAS MD Ot K64.0 FIRST DEGREE HEMORRHOIDS 09/04/2018 FLORENTINO RIVAS MD Ot R06.09 OTHER FORMS OF DYSPNEA 09/04/2018 JEFFREY BEAVERS, PATRICIA Lockett Ot V72.84 EXAM PRE-OPERATIVE NOS 09/04/2018 JEFFREY BEAVERS, PATRICIA Lockett Ot 530.81 ESOPHAGEAL REFLUX 09/04/2018 JEFFREY BEAVERS, PATRICIA Lockett Ot V72.84 EXAM PRE-OPERATIVE NOS 09/04/2018 JESS FRANCIS DO Ot 278.00 OBESITY, NOS 09/04/2018 JESS FRANCIS DO Ot 305.1 TOBACCO USE DISORDER 09/04/2018 JESS FRANCIS DO Ot 327.23 OBSTRUCTIVE SLEEP APNEA (ADULT) (PEDIATR 09/04/2018 JESS FRANCIS DO Ot 496 CHR AIRWAY OBSTRUCT NEC 09/04/2018 JESS FRANCIS DO Ot 786.09 RESPIRATORY ABNORM NEC 09/04/2018 SANDHYA DE LA GARZA APRN Ot J44.9 CHRONIC OBSTRUCTIVE PULMONARY DISEASE, U 09/04/2018 SANDHYA DE LA GARZA APRN Ot R06.09 OTHER FORMS OF DYSPNEA 09/04/2018 IGNACIA BEAVERS, SELAM Yung Ot I70.203 UNSP ATHSCL [place] ARTERIES OF [place]I 09/04/2018 Ot E10.9 TYPE 1 DIABETES MELLITUS WITHOUT COMPLIC 09/04/2018 VICK VARGAS APRN Ot M25.552 PAIN IN LEFT HIP 09/04/2018 Ot J44.9 CHRONIC OBSTRUCTIVE PULMONARY DISEASE, U 09/04/2018 Ot R06.09 OTHER FORMS OF DYSPNEA 09/04/2018 Ot R09.02 HYPOXEMIA 09/04/2018 Ot Z72.0 TOBACCO USE 09/04/2018 FANG BRADY MD, Ot Z48.812 ENCNTR FOR SURGICAL AFTCR FOLLOWING SURG 09/04/2018 FANG BRADY MD Ot Z95.1 PRESENCE OF AORTOCORONARY BYPASS GRAFT 09/04/2018 FANG BRADY MD, Ot Z95.2 PRESENCE OF PROSTHETIC HEART VALVE 09/04/2018 FLORENTINO RIVAS MD Ot E11.9 TYPE 2 DIABETES MELLITUS WITHOUT COMPLIC 09/04/2018 FLORENTINO RIVAS MD, Ot G47.33 OBSTRUCTIVE SLEEP APNEA (ADULT) (PEDIATR 09/04/2018 FLORENTINO RIVAS MD Ot I07.1 RHEUMATIC TRICUSPID INSUFFICIENCY 09/04/2018 FLORENTINO RIVAS MD Ot I10 ESSENTIAL (PRIMARY) HYPERTENSION 09/04/2018 FLORENTINO RIVAS MD Ot I25.10 ATHSCL HEART DISEASE OF [place] CORONARY 09/04/2018 FLORENTINO RIVAS MD Ot I48.0 PAROXYSMAL ATRIAL FIBRILLATION 09/04/2018 FLORENTINO RIVAS MD Ot K64.0 FIRST DEGREE HEMORRHOIDS 09/04/2018 FLORENTINO RIVAS MD Ot R06.09 OTHER FORMS OF DYSPNEA 09/23/2018 FANG BRADY MD Ot Z48.812 ENCNTR FOR SURGICAL AFTCR FOLLOWING SURG 09/23/2018 FANG BRADY MD Ot Z95.1 PRESENCE OF AORTOCORONARY BYPASS GRAFT 09/23/2018 FANG BRADY MD Ot Z95.2 PRESENCE OF PROSTHETIC HEART VALVE 09/24/2018 FAGN BRADY MD Ot Z48.812 ENCNTR FOR SURGICAL AFTCR FOLLOWING SURG 09/24/2018 FANG BRADY MD Ot Z95.1 PRESENCE OF AORTOCORONARY BYPASS GRAFT 09/24/2018 FANG BRADY MD Ot Z95.2 PRESENCE OF PROSTHETIC HEART VALVE 10/03/2018 PATRICIA MURPHY MD Ot V72.84 EXAM PRE-OPERATIVE NOS 10/03/2018 PATRICIA MURPHY MD Ot 530.81 ESOPHAGEAL REFLUX 10/03/2018 PATRICIA MURPHY MD Ot V72.84 EXAM PRE-OPERATIVE NOS 10/03/2018 JESS FRANCIS DO Ot 278.00 OBESITY, NOS 10/03/2018 JESS FRANCIS DO Ot 305.1 TOBACCO USE DISORDER 10/03/2018 JESS FRANCIS DO Ot 327.23 OBSTRUCTIVE SLEEP APNEA (ADULT) (PEDIATR 10/03/2018 JESS FRANCIS DO Ot 496 [address] AIRWAY OBSTRUCT NEC 10/03/2018 JESS FRANCIS DO Ot 786.09 RESPIRATORY ABNORM NEC 10/03/2018 SANDHYA DE LA GARZA APRN Ot J44.9 CHRONIC OBSTRUCTIVE PULMONARY DISEASE, U 10/03/2018 SANDHYA DE LA GARZA APRN Ot R06.09 OTHER FORMS OF DYSPNEA 10/03/2018 IGNACIA BEAVERS, SELAM Yung Ot I70.203 UNSP ATHSCL [place] ARTERIES OF [place]I 10/03/2018 Ot E10.9 TYPE 1 DIABETES MELLITUS WITHOUT COMPLIC 10/03/2018 ALICIAVICK Kaushal LONGORIAN Ot M25.552 PAIN IN LEFT HIP 10/03/2018 Ot J44.9 CHRONIC OBSTRUCTIVE PULMONARY DISEASE, U 10/03/2018 Ot R06.09 OTHER FORMS OF DYSPNEA 10/03/2018 Ot R09.02 HYPOXEMIA 10/03/2018 Ot Z72.0 TOBACCO USE 10/03/2018 FLORENTINO RIVAS MD Ot E11.9 TYPE 2 DIABETES MELLITUS WITHOUT COMPLIC 10/03/2018 FLORENTINO RIVAS MD Ot G47.33 OBSTRUCTIVE SLEEP APNEA (ADULT) (PEDIATR 10/03/2018 FLORENTINO RIVAS MD Ot I07.1 RHEUMATIC TRICUSPID INSUFFICIENCY 10/03/2018 FLORENTINO RIVAS MD Ot I10 ESSENTIAL (PRIMARY) HYPERTENSION 10/03/2018 FLORENTINO RIVAS MD Ot I25.10 ATHSCL HEART DISEASE OF [place] CORONARY 10/03/2018 FLORENTINO RIVAS MD Ot I48.0 PAROXYSMAL ATRIAL FIBRILLATION 10/03/2018 FLORENTINO RIVAS MD Ot K64.0 FIRST DEGREE HEMORRHOIDS 10/03/2018 FLORENTINO RIVAS MD Ot R06.09 OTHER FORMS OF DYSPNEA 10/03/2018 FANG BRADY MD Ot Z48.812 ENCNTR FOR SURGICAL AFTCR FOLLOWING SURG 10/03/2018 FANG BRADY MD Ot Z95.1 PRESENCE OF AORTOCORONARY BYPASS GRAFT 10/03/2018 FANG BRADY MD, Ot Z95.2 PRESENCE OF PROSTHETIC HEART VALVE 10/20/2018 FANG BRADY MD, Ot Z48.812 ENCNTR FOR SURGICAL AFTCR FOLLOWING SURG 10/20/2018 FANG BRADY MD, Ot Z95.1 PRESENCE OF AORTOCORONARY BYPASS GRAFT 10/20/2018 FANG BRADY MD, Ot Z95.2 PRESENCE OF PROSTHETIC HEART VALVE Procedures Code Description Performed By Performed On [id number] Bypass Coronary Artery, Two Arteries from Aorta with Autologous Venous Tissue, Open Approach IDBEIS, [facility] 05/24/2018 [id number] Destruction of Conduction Mechanism, Open Approach IDBEIS, [facility] 2017 [id number] Occlusion of Left Atrial Appendage, Open Approach IDBEIS, [facility] 2017 [id number] Supplement Mitral Valve with Synthetic Substitute, Open Approach IDBEIS, [facility] 05/24/2018 [id number] Insertion of Monitoring Device into Upper Artery, Percutaneous Approach [facility] [place] 05/24/2018 [id number] Insertion of Infusion Device into Right Internal Jugular Vein, Percutaneous Approach [facility] 05/24/2018 [id number] Excision of Left Saphenous Vein, Percutaneous Endoscopic Approach IDBEIS, [facility] 05/24/2018 [id number] Performance of Cardiac Output, Continuous IDBEIS, [facility] 05/24/2018 [id number] Ultrasonography of Right and Left Heart IDBEIS, [facility] 05/24/2018 Results Test Result Range Capillary blood glucose [...] FOR INFLUENZA A AND B ANTIGENS BY [facility] Complete blood count (CBC) with automated [...] Blood erythrocyte morphology finding identification NORMAL NRG Bacterial blood culture - 09/07/17 21:37 Bacterial blood culture NG NRG Bacterial blood culture - 09/07/17 21:58 Bacterial blood culture NG NRG Sputum Gram stain - 09/07/17 22:49 GRAM STAIN SPUTUM AND MIXED BACTERIAL MEI NRG Bacterial sputum culture - 09/07/17 22:49 Bacterial sputum culture NORMAL NRG Complete blood count (CBC) with automated white blood cell (WBC) differential - 09/08/17 08:06 Blood leukocytes automated count (number/volume) 9.8 10*3/uL 4.3-11.0 Blood erythrocytes automated count (number/volume) 4.37 10*6/uL 4.35-5.85 Venous blood hemoglobin measurement (mass/volume) 13.5 g/dL 13.3-17.7 Blood hematocrit (volume fraction) 39 % 40-54 Automated erythrocyte mean corpuscular volume 90 [foz_us] 80-99 Automated erythrocyte mean corpuscular hemoglobin (mass per erythrocyte) 31 pg 25-34 Automated erythrocyte mean corpuscular hemoglobin concentration measurement ( mass/volume) 34 g/dL 32-36 Automated erythrocyte distribution width ratio 13.3 % 10.0-14.5 Automated blood platelet count (count/volume) 170 10*3/uL 130-400 Automated blood platelet mean volume measurement 9.8 [foz_us] 7.4-10.4 Automated blood neutrophils/100 leukocytes 94 % 42-75 Automated blood lymphocytes/100 leukocytes 3 % 12-44 Blood monocytes/100 leukocytes 3 % 0-12 Automated blood eosinophils/100 leukocytes 0 % 0-10 Automated blood basophils/100 leukocytes 0 % 0-10 Blood neutrophils automated count (number/volume) 9.1 10*3 1.8-7.8 Blood lymphocytes automated count (number/volume) 0.3 10*3 1.0-4.0 Blood monocytes automated count (number/volume) 0.3 10*3 0.0-1.0 Automated eosinophil count 0.0 10*3/uL 0.0-0.3 Automated blood basophil count (count/volume) 0.0 10*3/uL 0.0-0.1 Comprehensive metabolic panel - 09/08/17 08:06 Serum or plasma sodium measurement (moles/volume) 131 mmol/L 135-145 Serum or plasma potassium measurement (moles/volume) 4.3 mmol/L 3.6-5.0 Serum or plasma chloride measurement (moles/volume) 101 mmol/L 98-107 Carbon dioxide 20 mmol/L 21-32 Serum or plasma anion gap determination (moles/volume) 10 mmol/L 5-14 Serum or plasma urea nitrogen measurement (mass/volume) 17 mg/dL 7-18 Serum or plasma creatinine measurement (mass/volume) 1.11 mg/dL 0.60-1.30 Serum or plasma urea nitrogen/creatinine mass ratio 15 NRG Serum or plasma creatinine measurement with calculation of estimated glomerular filtration rate > NRG Serum or plasma glucose measurement (mass/volume) 214 mg/dL 70-105 Serum or plasma calcium measurement (mass/volume) 8.5 mg/dL 8.5-10.1 Serum or plasma total bilirubin measurement (mass/volume) 0.8 mg/dL 0.1-1.0 Serum or plasma alkaline phosphatase measurement (enzymatic activity/volume) 72 U/L 40-136 Serum or plasma aspartate aminotransferase measurement (enzymatic activity/ volume) 33 U/L 5-34 Serum or plasma alanine aminotransferase measurement (enzymatic activity/volume ) 18 U/L 0-55 Serum or plasma protein measurement (mass/volume) 7.1 g/dL 6.4-8.2 Serum or plasma albumin measurement (mass/volume) 3.6 g/dL 3.2-4.5 Capillary blood glucose measurement by glucometer (mass/volume) - 09/08/17 13: 22 Capillary blood glucose measurement by glucometer (mass/volume) 469 mg/dL 70-110 Capillary blood glucose measurement by glucometer (mass/volume) - 09/08/17 16: 23 Capillary blood glucose measurement by glucometer (mass/volume) 378 mg/dL 70-110 Capillary blood glucose measurement by glucometer (mass/volume) - 09/08/17 20: 41 Capillary blood glucose measurement by glucometer (mass/volume) 307 mg/dL 70-110 Capillary blood glucose measurement by glucometer (mass/volume) - 09/09/17 05: 38 Capillary blood glucose measurement by glucometer (mass/volume) 284 mg/dL 70-110 Complete blood count (CBC) with automated white blood cell (WBC) differential - 09/09/17 06:31 Blood leukocytes automated count (number/volume) 12.4 10*3/uL 4.3-11.0 Blood erythrocytes automated count (number/volume) 4.07 10*6/uL 4.35-5.85 Venous blood hemoglobin measurement (mass/volume) 12.8 g/dL 13.3-17.7 Blood hematocrit (volume fraction) 36 % 40-54 Automated erythrocyte mean corpuscular volume 89 [foz_us] 80-99 Automated erythrocyte mean corpuscular hemoglobin (mass per erythrocyte) 31 pg 25-34 Automated erythrocyte mean corpuscular hemoglobin concentration measurement ( mass/volume) 35 g/dL 32-36 Automated erythrocyte distribution width ratio 13.2 % 10.0-14.5 Automated blood platelet count (count/volume) 184 10*3/uL 130-400 Automated blood platelet mean volume measurement 9.6 [foz_us] 7.4-10.4 Automated blood neutrophils/100 leukocytes 89 % 42-75 Automated blood lymphocytes/100 leukocytes 5 % 12-44 Blood monocytes/100 leukocytes 7 % 0-12 Automated blood eosinophils/100 leukocytes 0 % 0-10 Automated blood basophils/100 leukocytes 0 % 0-10 Blood neutrophils automated count (number/volume) 11.0 10*3 1.8-7.8 Blood lymphocytes automated count (number/volume) 0.6 10*3 1.0-4.0 Blood monocytes automated count (number/volume) 0.8 10*3 0.0-1.0 Automated eosinophil count 0.0 10*3/uL 0.0-0.3 Automated blood basophil count (count/volume) 0.0 10*3/uL 0.0-0.1 Comprehensive metabolic panel - 09/09/17 06:31 Serum or plasma sodium measurement (moles/volume) 136 mmol/L 135-145 Serum or plasma potassium measurement (moles/volume) 4.2 mmol/L 3.6-5.0 Serum or plasma chloride measurement (moles/volume) 105 mmol/L 98-107 Carbon dioxide 21 mmol/L 21-32 Serum or plasma anion gap determination (moles/volume) 10 mmol/L 5-14 Serum or plasma urea nitrogen measurement (mass/volume) 22 mg/dL 7-18 Serum or plasma creatinine measurement (mass/volume) 1.04 mg/dL 0.60-1.30 Serum or plasma urea nitrogen/creatinine mass ratio 21 NRG Serum or plasma creatinine measurement with calculation of estimated glomerular filtration rate > NRG Serum or plasma glucose measurement (mass/volume) 305 mg/dL 70-105 Serum or plasma calcium measurement (mass/volume) 8.8 mg/dL 8.5-10.1 Serum or plasma total bilirubin measurement (mass/volume) 0.5 mg/dL 0.1-1.0 Serum or plasma alkaline phosphatase measurement (enzymatic activity/volume) 73 U/L 40-136 Serum or plasma aspartate aminotransferase measurement (enzymatic activity/ volume) 41 U/L 5-34 Serum or plasma alanine aminotransferase measurement (enzymatic activity/volume ) 24 U/L 0-55 Serum or plasma protein measurement (mass/volume) 6.5 g/dL 6.4-8.2 Serum or plasma albumin measurement (mass/volume) 3.2 g/dL 3.2-4.5 Capillary blood glucose measurement by glucometer (mass/volume) - 09/09/17 11: 02 Capillary blood glucose measurement by glucometer (mass/volume) 91 mg/dL 70-110 BMP - 05/16/18 11:05 GFR >60 >=60 GFR NonAfrican Ethiopian 59 >=60 SODIUM:SCNC:PT:SER/PLAS:QN: 138 mmol/L 136-145 POTASSIUM:SCNC:PT:SER/PLAS:QN: 4.0 mmol/L 3.5-5.1 CHLORIDE:SCNC:PT:SER/PLAS:QN: 102 mmol/L 98-107 CARBON DIOXIDE:SCNC:PT:SER/PLAS:QN: 27 mmol/L 21-32 ANION GAP 3:SCNC:PT:SER/PLAS:QN: 9 7-16 UREA NITROGEN:MCNC:PT:SER/PLAS:QN: 14 mg/dL 8-23 CREATININE:MCNC:PT:SER/PLAS:QN: 1.2 mg/dL 0.8-1.3 GLUCOSE:MCNC:PT:SER/PLAS:QN: 127 mg/dL 70-110 CALCIUM:MCNC:PT:SER/PLAS:QN: 8.7 mg/dL 8.6-10.2 UREA NITROGEN/CREATININE:MRTO:PT:SER/PLAS:QN: 11.6 10.0- 20.1 Glucose POC1 - 05/16/18 13:24 GLUCOSE:MCNC:PT:BLDC:QN:GLUCOMETER 98 mg/dL 74-106 Type and Cross - 05/23/18 14:55 Blood Type ABO O NRG Blood Type Rh Pos NRG Number of Units 2 NRG Antibody Screen Neg Neg Product Needed PRBC LR NRG Previous Transfusions Unknown NRG Previous Reactions Unknown NRG Crossmatch Units Available NRG UA Routine1 - 05/23/18 14:55 COLOR:TYPE:PT:URINE:NOM:AUTO Yellow Yellow CLARITY:TYPE:PT:URINE:NOM:REFRACTOMETRY.AUTOMATED Clear Clear SPECIFIC GRAVITY:RDEN:PT:URINE:QN:TEST STRIP.AUTOMATED 1.015 1.003-1.035 PH:LSCNC:PT:URINE:QN:TEST STRIP.AUTOMATED 5.0 5.0-6.0 LEUKOCYTE ESTERASE:PRTHR:PT:URINE:ORD:TEST STRIP.AUTOMATED Neg Neg NITRITE:PRTHR:PT:URINE:ORD:TEST STRIP.AUTOMATED Neg Neg PROTEIN:PRTHR:PT:URINE:ORD:TEST STRIP.AUTOMATED Neg Neg GLUCOSE:PRTHR:PT:URINE:ORD:TEST STRIP.AUTOMATED 3+ Neg KETONES:PRTHR:PT:URINE:ORD:TEST STRIP.AUTOMATED Neg Neg UROBILINOGEN:PRTHR:PT:URINE:ORD:TEST STRIP.AUTOMATED Norm mg/dL Norm BILIRUBIN:PRTHR:PT:URINE:ORD:TEST STRIP.AUTOMATED Neg Neg HEMOGLOBIN:PRTHR:PT:URINE:ORD:TEST STRIP.AUTOMATED Neg Neg I-Stat EG7+ Art - 05/23/18 15:14 PH:LSCNC:PT:BLDA:QN: 7.430 7.350-7.450 CARBON DIOXIDE:PPRES:PT:BLDA:QN: 33.0 mmHg 35.0-45.0 OXYGEN:PPRES:PT:BLDA:QN: 59 mmHg 80-105 BICARBONATE:SCNC:PT:BLDA:QN: 21.9 mmol/L 22.0-26.0 BASE EXCESS:SCNC:PT:BLDA:QN:CALCULATED -2 mmol/L -2-3 OXYGEN SATURATION:MFR:PT:BLDA:QN:CALCULATED FROM OXYGEN PARTIAL PRESSURE 91 % 95-98 SODIUM:SCNC:PT:BLD:QN: 137 mmol/L 136-146 POTASSIUM:SCNC:PT:BLD:QN: 3.8 mmol/L 3.4-5.0 CARBON DIOXIDE:SCNC:PT:BLDA:QN: 23 mmol/L 22-29 CALCIUM.IONIZED:MCNC:PT:BLDA:QN: 1.18 mmol/L 1.12-1.32 HEMATOCRIT:VFR:PT:BLD:QN: 33 % 41-53 HEMOGLOBIN:MCNC:PT:BLD:QN:CALCULATED 11.2 gm/dL 13.5- 17.5 Glucose POC1 - 05/23/18 17:52 GLUCOSE:MCNC:PT:BLDC:QN:GLUCOMETER 193 mg/dL 74-106 Glucose POC1 - 05/24/18 00:30 GLUCOSE:MCNC:PT:BLDC:QN:GLUCOMETER 290 mg/dL 74-106 Glucose POC1 - 05/24/18 06:01 GLUCOSE:MCNC:PT:BLDC:QN:GLUCOMETER 139 mg/dL 74-106 UA Surveillance 05/24/18 06:11 COLOR:TYPE:PT:URINE:NOM:AUTO Yellow Yellow CLARITY:TYPE:PT:URINE:NOM:REFRACTOMETRY.AUTOMATED Clear Clear SPECIFIC GRAVITY:RDEN:PT:URINE:QN:TEST STRIP.AUTOMATED 1.010 1.003-1.035 PH:LSCNC:PT:URINE:QN:TEST STRIP.AUTOMATED 8.0 5.0-6.0 LEUKOCYTE ESTERASE:PRTHR:PT:URINE:ORD:TEST STRIP.AUTOMATED Neg Neg NITRITE:PRTHR:PT:URINE:ORD:TEST STRIP.AUTOMATED Neg Neg PROTEIN:PRTHR:PT:URINE:ORD:TEST STRIP.AUTOMATED Neg Neg GLUCOSE:PRTHR:PT:URINE:ORD:TEST STRIP.AUTOMATED Neg Neg KETONES:PRTHR:PT:URINE:ORD:TEST STRIP.AUTOMATED Neg Neg UROBILINOGEN:PRTHR:PT:URINE:ORD:TEST STRIP.AUTOMATED Norm mg/dL Norm BILIRUBIN:PRTHR:PT:URINE:ORD:TEST STRIP.AUTOMATED Neg Neg HEMOGLOBIN:PRTHR:PT:URINE:ORD:TEST STRIP.AUTOMATED Neg Neg Glucose POC1 - 05/24/18 07:22 GLUCOSE:MCNC:PT:BLDC:QN:GLUCOMETER 152 mg/dL 74-106 I-Stat EG7+ Art - 05/24/18 07:28 PH:LSCNC:PT:BLDA:QN: 7.315 7.350-7.450 CARBON DIOXIDE:PPRES:PT:BLDA:QN: 47.0 mmHg 35.0-45.0 OXYGEN:PPRES:PT:BLDA:QN: 173 mmHg 80-105 BICARBONATE:SCNC:PT:BLDA:QN: 24.0 mmol/L 22.0-26.0 BASE EXCESS:SCNC:PT:BLDA:QN:CALCULATED -2 mmol/L -2-3 OXYGEN SATURATION:MFR:PT:BLDA:QN:CALCULATED FROM OXYGEN PARTIAL PRESSURE 99 % 95-98 SODIUM:SCNC:PT:BLD:QN: 139 mmol/L 136-146 POTASSIUM:SCNC:PT:BLD:QN: 3.8 mmol/L 3.4-5.0 CARBON DIOXIDE:SCNC:PT:BLDA:QN: 25 mmol/L 22-29 CALCIUM.IONIZED:MCNC:PT:BLDA:QN: 1.21 mmol/L 1.12-1.32 HEMATOCRIT:VFR:PT:BLD:QN: 32 % 41-53 HEMOGLOBIN:MCNC:PT:BLD:QN:CALCULATED 10.9 gm/dL 13.5- 17.5 Glucose POC1 - 05/24/18 09:38 GLUCOSE:MCNC:PT:BLDC:QN:GLUCOMETER 322 mg/dL 74-106 I-Stat EG7+ Art - 05/24/18 09:44 PH:LSCNC:PT:BLDA:QN: 7.288 7.350-7.450 CARBON DIOXIDE:PPRES:PT:BLDA:QN: 59.1 mmHg 35.0-45.0 OXYGEN:PPRES:PT:BLDA:QN: 519 mmHg 80-105 BICARBONATE:SCNC:PT:BLDA:QN: 28.3 mmol/L 22.0-26.0 BASE EXCESS:SCNC:PT:BLDA:QN:CALCULATED 2 mmol/L -2-3 OXYGEN SATURATION:MFR:PT:BLDA:QN:CALCULATED FROM OXYGEN PARTIAL PRESSURE 100 % 95-98 SODIUM:SCNC:PT:BLD:QN: 138 mmol/L 136-146 POTASSIUM:SCNC:PT:BLD:QN: 5.2 mmol/L 3.4-5.0 CARBON DIOXIDE:SCNC:PT:BLDA:QN: 30 mmol/L 22-29 CALCIUM.IONIZED:MCNC:PT:BLDA:QN: 0.91 mmol/L 1.12-1.32 HEMATOCRIT:VFR:PT:BLD:QN: 26 % 41-53 HEMOGLOBIN:MCNC:PT:BLD:QN:CALCULATED 8.8 gm/dL 13.5-17.5 Glucose POC1 - 05/24/18 10:10 GLUCOSE:MCNC:PT:BLDC:QN:GLUCOMETER 335 mg/dL 74-106 I-Stat EG7+ Art - 05/24/18 10:17 PH:LSCNC:PT:BLDA:QN: 7.348 7.350-7.450 CARBON DIOXIDE:PPRES:PT:BLDA:QN: 46.9 mmHg 35.0-45.0 OXYGEN:PPRES:PT:BLDA:QN: 97 mmHg 80-105 BICARBONATE:SCNC:PT:BLDA:QN: 25.8 mmol/L 22.0-26.0 BASE EXCESS:SCNC:PT:BLDA:QN:CALCULATED 0 mmol/L -2-3 OXYGEN SATURATION:MFR:PT:BLDA:QN:CALCULATED FROM OXYGEN PARTIAL PRESSURE 97 % 95-98 SODIUM:SCNC:PT:BLD:QN: 135 mmol/L 136-146 POTASSIUM:SCNC:PT:BLD:QN: 5.4 mmol/L 3.4-5.0 CARBON DIOXIDE:SCNC:PT:BLDA:QN: 27 mmol/L 22-29 CALCIUM.IONIZED:MCNC:PT:BLDA:QN: 0.99 mmol/L 1.12-1.32 HEMATOCRIT:VFR:PT:BLD:QN: 27 % 41-53 HEMOGLOBIN:MCNC:PT:BLD:QN:CALCULATED 9.2 gm/dL 13.5-17.5 Glucose POC1 - 05/24/18 10:55 GLUCOSE:MCNC:PT:BLDC:QN:GLUCOMETER 315 mg/dL 74-106 I-Stat EG7+ Art - 05/24/18 11:02 PH:LSCNC:PT:BLDA:QN: 7.326 7.350-7.450 CARBON DIOXIDE:PPRES:PT:BLDA:QN: 51.5 mmHg 35.0-45.0 OXYGEN:PPRES:PT:BLDA:QN: 200 mmHg 80-105 BICARBONATE:SCNC:PT:BLDA:QN: 26.9 mmol/L 22.0-26.0 BASE EXCESS:SCNC:PT:BLDA:QN:CALCULATED 1 mmol/L -2-3 OXYGEN SATURATION:MFR:PT:BLDA:QN:CALCULATED FROM OXYGEN PARTIAL PRESSURE 100 % 95-98 SODIUM:SCNC:PT:BLD:QN: 137 mmol/L 136-146 POTASSIUM:SCNC:PT:BLD:QN: 4.9 mmol/L 3.4-5.0 CARBON DIOXIDE:SCNC:PT:BLDA:QN: 28 mmol/L 22-29 CALCIUM.IONIZED:MCNC:PT:BLDA:QN: 0.99 mmol/L 1.12-1.32 HEMATOCRIT:VFR:PT:BLD:QN: 30 % 41-53 HEMOGLOBIN:MCNC:PT:BLD:QN:CALCULATED 10.2 gm/dL 13.5- 17.5 Glucose POC1 - 05/24/18 11:33 GLUCOSE:MCNC:PT:BLDC:QN:GLUCOMETER 358 mg/dL 74-106 I-Stat EG7+ Art - 05/24/18 11:40 PH:LSCNC:PT:BLDA:QN: 7.358 7.350-7.450 CARBON DIOXIDE:PPRES:PT:BLDA:QN: 50.4 mmHg 35.0-45.0 OXYGEN:PPRES:PT:BLDA:QN: 336 mmHg 80-105 BICARBONATE:SCNC:PT:BLDA:QN: 28.4 mmol/L 22.0-26.0 BASE EXCESS:SCNC:PT:BLDA:QN:CALCULATED 3 mmol/L -2-3 OXYGEN SATURATION:MFR:PT:BLDA:QN:CALCULATED FROM OXYGEN PARTIAL PRESSURE 100 % 95-98 SODIUM:SCNC:PT:BLD:QN: 135 mmol/L 136-146 POTASSIUM:SCNC:PT:BLD:QN: 5.6 mmol/L 3.4-5.0 CARBON DIOXIDE:SCNC:PT:BLDA:QN: 30 mmol/L 22-29 CALCIUM.IONIZED:MCNC:PT:BLDA:QN: 0.96 mmol/L 1.12-1.32 HEMATOCRIT:VFR:PT:BLD:QN: 26 % 41-53 HEMOGLOBIN:MCNC:PT:BLD:QN:CALCULATED 8.8 gm/dL 13.5-17.5 Glucose POC1 - 05/24/18 12:32 GLUCOSE:MCNC:PT:BLDC:QN:GLUCOMETER 276 mg/dL 74-106 I-Stat EG7+ Art - 05/24/18 12:38 PH:LSCNC:PT:BLDA:QN: 7.322 7.350-7.450 CARBON DIOXIDE:PPRES:PT:BLDA:QN: 46.3 mmHg 35.0-45.0 OXYGEN:PPRES:PT:BLDA:QN: 68 mmHg 80-105 BICARBONATE:SCNC:PT:BLDA:QN: 24.0 mmol/L 22.0-26.0 BASE EXCESS:SCNC:PT:BLDA:QN:CALCULATED -2 mmol/L -2-3 OXYGEN SATURATION:MFR:PT:BLDA:QN:CALCULATED FROM OXYGEN PARTIAL PRESSURE 91 % 95-98 SODIUM:SCNC:PT:BLD:QN: 137 mmol/L 136-146 POTASSIUM:SCNC:PT:BLD:QN: 4.1 mmol/L 3.4-5.0 CARBON DIOXIDE:SCNC:PT:BLDA:QN: 25 mmol/L 22-29 CALCIUM.IONIZED:MCNC:PT:BLDA:QN: 1.18 mmol/L 1.12-1.32 HEMATOCRIT:VFR:PT:BLD:QN: 33 % 41-53 HEMOGLOBIN:MCNC:PT:BLD:QN:CALCULATED 11.2 gm/dL 13.5- 17.5 Glucose POC1 - 05/24/18 14:04 GLUCOSE:MCNC:PT:BLDC:QN:GLUCOMETER 248 mg/dL 74-106 Magnesium - 05/24/18 14:05 MAGNESIUM:MCNC:PT:SER/PLAS:QN: 2.2 mg/dL 1.8-2.4 I-Stat EG7+ Art - 05/24/18 14:10 PH:LSCNC:PT:BLDA:QN: 7.329 7.350-7.450 CARBON DIOXIDE:PPRES:PT:BLDA:QN: 42.7 mmHg 35.0-45.0 OXYGEN:PPRES:PT:BLDA:QN: 66 mmHg 80-105 BICARBONATE:SCNC:PT:BLDA:QN: 22.5 mmol/L 22.0-26.0 BASE EXCESS:SCNC:PT:BLDA:QN:CALCULATED -3 mmol/L -2-3 OXYGEN SATURATION:MFR:PT:BLDA:QN:CALCULATED FROM OXYGEN PARTIAL PRESSURE 91 % 95-98 SODIUM:SCNC:PT:BLD:QN: 138 mmol/L 136-146 POTASSIUM:SCNC:PT:BLD:QN: 4.0 mmol/L 3.4-5.0 CARBON DIOXIDE:SCNC:PT:BLDA:QN: 24 mmol/L 22-29 CALCIUM.IONIZED:MCNC:PT:BLDA:QN: 1.21 mmol/L 1.12-1.32 HEMATOCRIT:VFR:PT:BLD:QN: 34 % 41-53 HEMOGLOBIN:MCNC:PT:BLD:QN:CALCULATED 11.6 gm/dL 13.5- 17.5 Glucose POC1 - 05/24/18 15:10 GLUCOSE:MCNC:PT:BLDC:QN:GLUCOMETER 230 mg/dL 74-106 I-Stat EG7+ Art - 05/24/18 15:13 PH:LSCNC:PT:BLDA:QN: 7.452 7.350-7.450 CARBON DIOXIDE:PPRES:PT:BLDA:QN: 28.7 mmHg 35.0-45.0 OXYGEN:PPRES:PT:BLDA:QN: 72 mmHg 80-105 BICARBONATE:SCNC:PT:BLDA:QN: 20.0 mmol/L 22.0-26.0 BASE EXCESS:SCNC:PT:BLDA:QN:CALCULATED -4 mmol/L -2-3 OXYGEN SATURATION:MFR:PT:BLDA:QN:CALCULATED FROM OXYGEN PARTIAL PRESSURE 95 % 95-98 SODIUM:SCNC:PT:BLD:QN: 140 mmol/L 136-146 POTASSIUM:SCNC:PT:BLD:QN: 3.8 mmol/L 3.4-5.0 CARBON DIOXIDE:SCNC:PT:BLDA:QN: 21 mmol/L 22-29 CALCIUM.IONIZED:MCNC:PT:BLDA:QN: 1.14 mmol/L 1.12-1.32 HEMATOCRIT:VFR:PT:BLD:QN: 32 % 41-53 HEMOGLOBIN:MCNC:PT:BLD:QN:CALCULATED 10.9 gm/dL 13.5- 17.5 Glucose POC1 - 05/24/18 16:03 GLUCOSE:MCNC:PT:BLDC:QN:GLUCOMETER 200 mg/dL 74-106 Glucose POC1 - 05/24/18 16:42 GLUCOSE:MCNC:PT:BLDC:QN:GLUCOMETER 169 mg/dL 74-106 Glucose POC1 - 05/24/18 17:55 GLUCOSE:MCNC:PT:BLDC:QN:GLUCOMETER 133 mg/dL 74-106 Glucose POC05/24/18 18:45 GLUCOSE:MCNC:PT:BLDC:QN:GLUCOMETER 111 mg/dL 74-106 Glucose POC1 - 05/24/18 20:10 GLUCOSE:MCNC:PT:BLDC:QN:GLUCOMETER 107 mg/dL 74-106 I-Stat EG7+ (no sample type selected) - 05/24/18 20:16 SODIUM:SCNC:PT:BLD:QN: 142 mmol/L 136-146 POTASSIUM:SCNC:PT:BLD:QN: 3.8 mmol/L 3.4-5.0 CALCIUM.IONIZED:MCNC:PT:BLDA:QN: 1.17 mmol/L 1.12-1.32 HEMATOCRIT:VFR:PT:BLD:QN: 33 % 41-53 HEMOGLOBIN:MCNC:PT:BLD:QN:CALCULATED 11.2 gm/dL 13.5- 17.5 PH:LSCNC:PT:BLD:QN: 7.431 7.350-7.450 CARBON DIOXIDE:PPRES:PT:BLD:QN: 33.3 mmHg 35.0-45.0 OXYGEN:PPRES:PT:BLD:QN: 62 mmHg 80-105 BICARBONATE:SCNC:PT:BLD:QN: 22.2 mmol/L 22.0-26.0 BASE EXCESS -2 mmol/L -2-3 OXYGEN SATURATION:MFR:PT:BLD:QN:CALCULATED FROM OXYGEN PARTIAL PRESSURE 92 % 95-98 CARBON DIOXIDE:SCNC:PT:BLD:QN: 23 mmol/L 23-27 Glucose POC1 - 05/24/18 22:23 GLUCOSE:MCNC:PT:BLDC:QN:GLUCOMETER 100 mg/dL 74-106 Glucose POC1 - 05/25/18 00:02 GLUCOSE:MCNC:PT:BLDC:QN:GLUCOMETER 102 mg/dL 74-106 Glucose POC1 - 05/25/18 02:08 GLUCOSE:MCNC:PT:BLDC:QN:GLUCOMETER 104 mg/dL 74-106 Glucose POC05/25/18 04:03 GLUCOSE:MCNC:PT:BLDC:QN:GLUCOMETER 116 mg/dL 74-106 Glucose POC - 05/25/18 06:01 GLUCOSE:MCNC:PT:BLDC:QN:GLUCOMETER 103 mg/dL 74-106 BUN - 05/25/18 06:07 UREA NITROGEN:MCNC:PT:SER/PLAS:QN: 17 mg/dL 8-23 Creatinine - 05/25/18 06:07 GFR >60 >=60 GFR NonAfrican Ethiopian 55 >=60 CREATININE:MCNC:PT:SER/PLAS:QN: 1.3 mg/dL 0.8-1.3 CK-MB Group - 05/25/18 06:07 CREATINE KINASE:CCNC:PT:SER/PLAS:QN: 757 unit/L 39-308 CREATINE KINASE.MB:CCNC:PT:SER/PLAS:QN: 87.3 ng/mL 0.0- 3.6 CREATINE KINASE.MB/CREATINE KINASE.TOTAL:RATIO:PT:SER/PLAS:QN: 12 NRG I-Stat EG7+ Art - 05/25/18 06:08 PH:LSCNC:PT:BLDA:QN: 7.460 7.350-7.450 CARBON DIOXIDE:PPRES:PT:BLDA:QN: 32.4 mmHg 35.0-45.0 OXYGEN:PPRES:PT:BLDA:QN: 74 mmHg 80-105 BICARBONATE:SCNC:PT:BLDA:QN: 23.0 mmol/L 22.0-26.0 BASE EXCESS:SCNC:PT:BLDA:QN:CALCULATED -1 mmol/L -2-3 OXYGEN SATURATION:MFR:PT:BLDA:QN:CALCULATED FROM OXYGEN PARTIAL PRESSURE 96 % 95-98 SODIUM:SCNC:PT:BLD:QN: 140 mmol/L 136-146 POTASSIUM:SCNC:PT:BLD:QN: 4.1 mmol/L 3.4-5.0 CARBON DIOXIDE:SCNC:PT:BLDA:QN: 24 mmol/L 22-29 CALCIUM.IONIZED:MCNC:PT:BLDA:QN: 1.14 mmol/L 1.12-1.32 HEMATOCRIT:VFR:PT:BLD:QN: 32 % 41-53 HEMOGLOBIN:MCNC:PT:BLD:QN:CALCULATED 10.9 gm/dL 13.5- 17.5 Glucose POC1 - 05/25/18 11:28 GLUCOSE:MCNC:PT:BLDC:QN:GLUCOMETER 234 mg/dL 74-106 Glucose POC1 - 05/25/18 15:44 GLUCOSE:MCNC:PT:BLDC:QN:GLUCOMETER 417 mg/dL 74-106 Glucose POC1 - 05/25/18 17:47 GLUCOSE:MCNC:PT:BLDC:QN:GLUCOMETER 329 mg/dL 74-106 Glucose POC1 - 05/25/18 20:07 GLUCOSE:MCNC:PT:BLDC:QN:GLUCOMETER 323 mg/dL 74-106 Slide Scan - 05/26/18 04:40 ERYTHROCYTE MORPHOLOGY FINDING:PRID:PT:BLD:NOM: Normal NRG PLATELETS:PRTHR:PT:BLD:ORD:MICROSCOPY.LIGHT Adequate Adequate [facility] 05/26/18 04:40 GFR >60 >=60 GFR NonAfrican Ethiopian 53 >=60 SODIUM:SCNC:PT:SER/PLAS:QN: 135 mmol/L 136-145 POTASSIUM:SCNC:PT:SER/PLAS:QN: 4.2 mmol/L 3.5-5.1 CHLORIDE:SCNC:PT:SER/PLAS:QN: 101 mmol/L 98-107 CARBON DIOXIDE:SCNC:PT:SER/PLAS:QN: 22 mmol/L 21-32 ANION GAP 3:SCNC:PT:SER/PLAS:QN: 12 7-16 UREA NITROGEN:MCNC:PT:SER/PLAS:QN: 26 mg/dL 8-23 CREATININE:MCNC:PT:SER/PLAS:QN: 1.3 mg/dL 0.8-1.3 GLUCOSE:MCNC:PT:SER/PLAS:QN: 210 mg/dL 70-110 CALCIUM:MCNC:PT:SER/PLAS:QN: 7.9 mg/dL 8.6-10.2 UREA NITROGEN/CREATININE:MRTO:PT:SER/PLAS:QN: 19.7 10.0- 20.1 Glucose POC1 - 05/26/18 12:25 GLUCOSE:MCNC:PT:BLDC:QN:GLUCOMETER 281 mg/dL 74-106 Glucose POC1 - 05/26/18 21:43 GLUCOSE:MCNC:PT:BLDC:QN:GLUCOMETER 220 mg/dL 74-106 [facility] - 05/27/18 04:50 GFR >60 >=60 GFR NonAfrican Ethiopian >60 >=60 SODIUM:SCNC:PT:SER/PLAS:QN: 135 mmol/L 136-145 POTASSIUM:SCNC:PT:SER/PLAS:QN: 4.0 mmol/L 3.5-5.1 CHLORIDE:SCNC:PT:SER/PLAS:QN: 102 mmol/L 98-107 CARBON DIOXIDE:SCNC:PT:SER/PLAS:QN: 27 mmol/L 21-32 ANION GAP 3:SCNC:PT:SER/PLAS:QN: 6 7-16 UREA NITROGEN:MCNC:PT:SER/PLAS:QN: 23 mg/dL 8-23 CREATININE:MCNC:PT:SER/PLAS:QN: 1.1 mg/dL 0.8-1.3 GLUCOSE:MCNC:PT:SER/PLAS:QN: 177 mg/dL 70-110 CALCIUM:MCNC:PT:SER/PLAS:QN: 8.0 mg/dL 8.6-10.2 UREA NITROGEN/CREATININE:MRTO:PT:SER/PLAS:QN: 21.3 10.0- 20.1 Glucose POC1 - 05/27/18 21:21 GLUCOSE:MCNC:PT:BLDC:QN:GLUCOMETER 204 mg/dL 74-106 [facility] 05/28/18 06:35 GFR >60 >=60 GFR NonAfrican Ethiopian >60 >=60 SODIUM:SCNC:PT:SER/PLAS:QN: 138 mmol/L 136-145 POTASSIUM:SCNC:PT:SER/PLAS:QN: 3.7 mmol/L 3.5-5.1 CHLORIDE:SCNC:PT:SER/PLAS:QN: 103 mmol/L 98-107 CARBON DIOXIDE:SCNC:PT:SER/PLAS:QN: 26 mmol/L 21-32 ANION GAP 3:SCNC:PT:SER/PLAS:QN: 9 7-16 UREA NITROGEN:MCNC:PT:SER/PLAS:QN: 25 mg/dL 8-23 CREATININE:MCNC:PT:SER/PLAS:QN: 1.0 mg/dL 0.8-1.3 GLUCOSE:MCNC:PT:SER/PLAS:QN: 94 mg/dL 70-110 CALCIUM:MCNC:PT:SER/PLAS:QN: 8.1 mg/dL 8.6-10.2 UREA NITROGEN/CREATININE:MRTO:PT:SER/PLAS:QN: 24.0 10.0- 20.1 Magnesium - 05/28/18 06:35 MAGNESIUM:MCNC:PT:SER/PLAS:QN: 2.2 mg/dL 1.8-2.4 Encounters ACCT No. Visit Date/Time Discharge Status Pt. Type Provider Facility Loc./Unit Complaint [id number] 05/23/2018 14:01:00 05/28/2018 14:51:00 DIS Inpatient JAIDEN CARLOS [facility] [id number] 05/24/2018 00:30:00 05/24/2018 23:00:00 DIS Inpatient [facility] [place] [id number] 05/16/2018 10:30:00 05/16/2018 20:10:00 DIS Outpatient Buster Hernandez [facility] [id number] 03/28/2018 07:59:00 03/28/2018 13:20:00 DIS Outpatient Selam Murphy [facility] SOUT [id number] 09/21/2018 11:10:00 09/23/2018 00:01:00 DIS Outpatient FANG BRADY MD [facility] CR STATUS POST ACB,VALUE REPAIR [id number] 07/12/2018 10:58:00 07/12/2018 23:59:59 CLS Outpatient FLORENTINO RIVAS MD [facility] CARD CAD [id number] 05/03/2018 11:37:00 05/03/2018 15:05:00 DIS Outpatient DUC CONCEPCION DO [facility] ENDO MELENA [id number] 04/30/2018 13:21:00 04/30/2018 16:09:00 DIS Outpatient DUC CONCEPCION DO [facility] ENDO MELENA/DYSPHAGIA [id number] 03/28/2018 11:53:00 03/28/2018 23:59:59 CLS Preadmit SANDHYA DE LA GARZA APRN [facility] RAD COPD,TOBACCO USER, HYPOXEMIA REQUIRING OXYGEN [id number] 02/01/2018 14:03:00 02/01/2018 23:59:59 CLS Outpatient SANDHYA DE LA GARZA DIGITAL MARKETING APPRENTICE [facility] PULM J44.9 COPD [id number] 01/25/2018 15:00:00 01/28/2018 00:01:00 DIS Outpatient SANDHYA DE LA GARZA DIGITAL MARKETING APPRENTICE [facility] PULM J44.9 COPD [id number] 11/03/2017 21:00:00 11/04/2017 07:15:00 DIS Outpatient FRANDY ALBERT DIGITAL MARKETING APPRENTICE [facility] SLEEP G47.33 VALENTIN [id number] 09/08/2017 11:38:00 09/09/2017 14:45:00 DIS Inpatient SHAVONNE LUCAS DO [facility] 4TH COPD EXACERBATION W HYPOXIA [id number] 06/07/2017 10:42:00 06/07/2017 23:59:59 CLS Outpatient VICK VARGAS D[employer]ITAL MARKETING APPRENTICE [facility] RAD M25.552 [id number] 02/21/2017 08:45:00 02/21/2017 23:59:59 CLS Outpatient SELAM BETH MD [facility] RAD SEVERE PVD [id number] 02/07/2017 06:01:00 02/07/2017 10:35:00 DIS Outpatient NANCY GARCÍA MD [facility] SDC BENIGN PROSTATIC HYPERTROPHY, PROSTATISM [id number] 01/31/2017 05:54:00 01/31/2017 14:26:00 DIS Outpatient NANCY GARCÍA MD [facility] PREOP BENIGN PROSTATIC HYPERTROPHY, PROSTATISM [id number] 03/24/2016 08:51:00 03/24/2016 23:59:59 CLS Outpatient SANDHYA DE LA GARZA DIGITAL MARKETING APPRENTICE [facility] RAD DYSPNEA; COPD [id number] 01/02/2016 09:39:00 01/02/2016 10:45:00 DIS Emergency ANNIA BEAVERS, LUIS Vega [facility] ER FALL L RIB PAIN [id number] 11/30/2015 07:15:00 11/30/2015 10:00:00 DIS Outpatient PATRICIA MURPHY MD [facility] GERD; DYSPHAGIA [id number] 11/26/2015 05:46:00 11/26/2015 10:13:00 DIS Outpatient PATRICIA MURPHY MD [facility] PREOP GERD; DYSPHAGIA [id number] 02/20/2015 12:51:00 02/20/2015 23:59:59 CLS Outpatient JESS FRANCIS DO [facility] RT COPD [id number] 09/29/2014 10:57:00 09/29/2014 13:45:00 DIS Outpatient PATRICIA MURPHY MD [facility] REFLUX [id number] 09/24/2014 05:49:00 09/24/2014 23:59:59 CLS Outpatient PATRICIA MURPHY MD [facility] PREOP REFLUX [id number] 09/12/2014 17:43:00 09/12/2014 19:09:00 DIS Emergency FANI LOZADA APRN [facility] ER FELL INJ LEFT FOOT [id number] 05/14/2014 06:15:00 05/14/2014 09:25:00 DIS Outpatient PATRICIA MURPHY MD [facility] GERD [id number] 05/09/2014 12:01:00 05/09/2014 23:59:59 CLS Outpatient PATRICIA MURPHY MD [facility] GERD [id number] 05/07/2014 07:22:00 05/07/2014 23:59:59 CLS Outpatient PATRICIA MURPHY MD [facility] PREOP GERD [id number] 10/25/2018 13:00:00 PEN Preadmit Levy MUÑOZ MD [facility] CATH CARDIOMYOPATHY [id number] 10/24/2018 10:53:00 ACT Outpatient FANG BRADY MD [facility] CR STATUS POST ACB,VALUE REPAIR [id number] 05/03/2018 00:11:00 Document Registration [id number] 04/25/2018 15:18:00 Document Registration [id number] 02/21/2017 07:30:00 Document Registration [id number] 02/04/2015 12:21:00 Document Registration [id number] 02/04/2015 12:20:00 Document Registration [id number] 12/14/2011 09:27:00 Document Registration [id number] 06/01/2011 10:33:00 Document Registration [id number] 10/31/2010 11:48:00 Document Registration [id number] 01/06/2010 00:00:00 Document Registration [id number] 03/09/2017 10:59:00 03/09/2017 21:30:00 DIS Outpatient Emmett BEAVERS, [id number] 04/02/2017 11:00:44 ACT Document Registration
[2018-10-25] MEDS ORDERED: ceFAZolin INJECTION 1,000 MG VIAL IV ONE (08:15)
[2018-10-25] MEDS ORDERED: NS IV 1000 ML 1,000 ML IV ONE (08:15)
[2018-10-25] MEDS ORDERED: BACITRACIN INJECTION 50,000 UNIT, SODIUM CHLORIDE 0.9% IRRIGATIO 500 ML IR ONE ×2 (08:15)
[2018-10-25] MEDS ORDERED: NS IV 1000 ML 1,000 ML ONE (08:18)
[2018-10-25] MEDS ORDERED: HEParin (CATH LAB) 1,000 ML IV ONE (08:18)
[2018-10-25] MEDS ORDERED: LIDOCAINE 1% INJ 20 ML 20 ML VIAL ONE (08:18)
[2018-10-25 08:53] LABS: HEMOGLOBIN 12.5 G/DL (13.3-17.7); MEAN PLATELET VOLUME 10.2 FL (7.4-10.4); WHITE BLOOD COUNT 5.9 10^3/uL (4.3-11.0)
[2018-10-25 09:02] LABS: INR 1.3 (0.8-1.4); PROTHROMBIN TIME PATIENT 15.9 SEC (12.2-14.7)
[2018-10-25 09:08] LABS: CALCIUM 9.4 MG/DL (8.5-10.1); CREATININE SERUM 1.34 MG/DL (0.60-1.30); POTASSIUM 3.9 MMOL/L (3.6-5.0)
[2018-10-25] MEDS ORDERED: fentaNYL INJECTION 100 MCG/2 ML AMP ONE ×2 (09:28→10:26)
[2018-10-25] MEDS ORDERED: ceFAZolin INJECTION 1,000 MG ONE (09:28)
[2018-10-25] MEDS ORDERED: MIDAZOLAM 5 MG/5 ML (VERSED) VIAL ONE ×2 (09:28→10:10)
[2018-10-25] MEDS ORDERED: diphenhydrAMINE 50 MG/ML INJ (BENADRYL) ONE (10:26)
[2018-10-25] MEDS ORDERED: NEO/POLY/BAC (NEOSPORIN) OINT 15 GM TUBE ONE (11:28)
[2018-10-25] MEDS ORDERED: NS IV 1000 ML 1,000 ML IV SCH (11:43)
--- NOTE | 2018-10-25 11:43 | Cardiac Procedure Note-CS/ASA ---
Pre-Procedure Note Pre-Op Procedure Note H&P Reviewed The H&P was reviewed, patient examined and no changes noted. Date H&P Reviewed: Oct 25, 2018 Time H&P Reviewed: 09:15 Conscious Sedation Pre-Proced Time 09:15 ASA Score 3 For ASA 3 and 4: Consider anesthesia and medical clearance. Also, for patients with a history of failed moderate sedation consider anesthesia. Airway Lungs Heart ASA score ASA 1: a normal healthy patient ASA 2: a patient with a mild systemic disease (mid diabetes, controlled hypertension, obesity ASA 3: a patient with a severe systemic disease that limits activity (angina , COPD, prior Myocardial infarction) ASA 4: a patient with an incapacitating disease that is a constant threat to life (CHF, renal failure) ASA 5: a moribund patient not expected to survive 24 hrs. (ruptured aneurysm) ASA 6: a declared brain- patient whose organs are being harvested. For emergent operations, add the letter E after the classification Mallampati Classification Grade 1 Sedation Plan Analgesia, Amnesia, Plan communicated to team members, Discussed options with patient/fam, Discussed risks with patient/fam The patient is an appropriate candidate to undergo the planned procedure, sedation, and anesthesia. The patient immediately re-assessed prior to indication. Levy MUÑOZ MD Oct 25, 2018 11:43
--- NOTE | 2018-10-25 11:43 | ICD Implantation ---
Single Chamber ICD Implant DATE OF SERVICE: 10/25/2018 Biventricular ICD generator change, atrial lead implantation REFERRING PHYSICIAN: Hayden Ron MD CARDIAC EHS MANAGER: Yoli Lawton MD INDICATION: 1. BLINDSTITCH LAPEL PADDER device, YULIANA. 2. Right atrial lead dysfunction. PREOPERATIVE DIAGNOSES: 1. BLINDSTITCH LAPEL PADDER device, YULIANA. 2. Right atrial lead dysfunction. POSTOPERATIVE DIAGNOSES: Successful biventricular ICD generator change, Pocket revision, New right atrial lead placement. HISTORY: This is a 73-year-old gentleman who follows with Dr. Ron. The patient had a previous [employer] [place] biventricular ICD device which was YULIANA. Also right atrial lead dysfunction was noted with significantly elevated capture thresholds. Biventricular ICD device generator change, pocket revision and new right atrial lead implantation is recommended. PROCEDURE PERFORMED: 1. Biventricular ICD generator change. 2. Pocket revision. 3. Capping chronic right atrial lead. 4. Implantation of a new right atrial lead. COMPLICATIONS: None. ESTIMATED BLOOD LOSS: 20 mL. SPECIMENS: None. ANESTHESIA: Conscious sedation. ORAL ANTICOAGULATION: None. FLUOROSCOPY TIME: 4.36 minutes. FLUOROSCOPY DOSE: 55 mgy. CONTRAST DOSE: none. PROCEDURE DETAILS: After all the questions were answered, an informed consent was taken. All the risks and complication were explained in detail. The patient was brought to the EP lab. The patient's right and left chest was prepped and draped in the usual sterile fashion. A 2-inch horizontal incision was made 1 cm below the clavicle and dissection carried down to the pectoralis fascia. IV antibiotics were administered prior to first incision. The chronic leads were freed from scar tissue and Previous BLINDSTITCH LAPEL PADDER device was explanted. Right atrial lead chronic was capped. Pocket revision and capsulotomy was performed.. Under fluoroscopic guidance, access was gained in the axillary vein and a regular J-wire was placed. We then introduced a sheath into the axillary vein. A Right atrial lead was inserted under fluoroscopic guidance. The screw was deployed and lead connected to the graphics programmer. Good sensing and pacing Thresholds were obtained. Diaphragmatic pacing was ruled out. The lead was secured with 2-0 Vicryl nonabsorbable sutures. The lead was secured to the underlying muscle and fascia. We then took an BLINDSTITCH LAPEL PADDER-D generator and the lead was connected to the device in a hermetic fashion. The device was placed Medtronic Tyrx coat and then in the pocket. Aggressive irrigation with normal saline solution was done. Interrogation of the device revealed good integrity of the leads and connection. The wound was closed using 2 layers. The first layer was an interrupted 2-0 Vicryl. The second layer was an uninterrupted 4-0 Vicryl suture. Half inch Steri-Strips and a small dressing was then applied to the wound. The patient tolerated the procedure well and did not have any complications. DEVICE INFORMATION: New device Medtronic, model number [id number], Serial number [id number]. Explanted device: [place], Product # [id number]. Serial # [id number]. Implant date 06/2011. Right atrial lead model number 2088TC, serial number [id number], [place], implant date 11/18/2010. New right atrial lead, Medtronic, model number [id number], serial number [id number]. Chronic RV lead model number 7121Q, Serial # [id number], [place]. Chronic LV lead, Model number 1258T, Serial # [id number], [place]. INTRAOPERATIVE DEVICE TESTING: Right atrial capture 0.6 V at 0.5 ms. Impedance 510 ohms. P wave 1.2 mV. Normal sensing and capture threshold for chronic RV and LV lead. DEVICE INTERROGATION IMMEDIATELY POSTOP: Right atrial sensing 1.0 mV. Pacing impedance 420 ohms. Pacing threshold 1.0 V at 0.4 ms. RV: R wave 12.1 mV, impedance 513 ohms, pacing threshold 0.5 V at 0.4 ms. LV: Pacing impedance 513 ohms. Pacing threshold 2.0 V at 0.4 ms. PLAN: The patient will be observed for 23 hours. We will continue with two more dosages of IV antibiotics. We will check a chest x-ray and interrogate the device in the morning. An EKG will be done as well. If everything checks out, the patient will be discharged tomorrow. Yoli Lawton MD, [facility], CCDS Cardiac Electrophysiology Levy LAWTON MD Oct 25, 2018 11:43 am
[2018-10-25] MEDS ORDERED: PATIENT MAY USE OWN MEDS, ALL PO SCH (11:45)
[2018-10-25] MEDS ORDERED: SUCR1TAB PO (11:49)
[2018-10-25] MEDS ORDERED: LEVO1CAP9 PO (11:49)
[2018-10-25] MEDS ORDERED: PANT40TA2 PO (11:49)
[2018-10-25] MEDS ORDERED: FURO20TA4 PO (11:49)
[2018-10-25] MEDS ORDERED: INSU100I34 SQ ×2 (11:49)
[2018-10-25] MEDS ORDERED: ATOR40TA PO (11:54)
[2018-10-25] MEDS ORDERED: ACET-2840 PO (11:58)
--- NOTE | 2018-10-25 14:37 | Diagnostic Imaging Report ---
INDICATION: Post ICD. COMPARISON: 09/07/2017. FINDINGS: The device battery overlies the left chest. There is no pneumothorax. There is chronic lung disease with mild chronic air trapping. No effusion or pneumothorax. There is a vague and somewhat indistinctly marginated opacity projecting over the right upper lung of about 1.7 cm transverse dimension, previously obscured by overlying artifact. While this may reflect a focal infiltrate, a mass cannot be excluded and either CT or short-term radiographic followup recommended. IMPRESSION: Questionable findings for mass versus infiltrate in the right upper lung. Background chronic COPD. Otherwise, stable with no pneumothorax. Dictated by: Dictated on workstation # [id number]
[2018-10-25] MEDS: ceFAZolin INJECTION 1,000 MG in WATER (STERILE) FOR INJECTION 10 ML IV SCH ×2 (15:39→21:34)
[2018-10-25] MEDS ORDERED: NON-FORMULARY MEDICATION 1 EA EA (Acetaminophen (Tylenol 8 Hour) 650 MG) PO PRN (15:45)
[2018-10-25] MEDS ORDERED: RT-ALBUTEROL SULF 2.5 MG/3 ML PRE-MIX VIAL IH PRN (15:45)
[2018-10-25] MEDS ORDERED: NITROGLYCERIN 0.4 MG SL TABS BTL 25'S SL PRN (15:45)
[2018-10-25] MEDS ORDERED: ACETAMINOPHEN 325 MG TABLET PO PRN (17:15)
[2018-10-25] MEDS ORDERED: ALGAL OIL PO SCH (21:00)
[2018-10-25] MEDS ORDERED: inSUlin DETERMIR 1 UNIT/0.01 ML (LEVEMIR) CHARGE PER UNIT SQ SCH (21:00)
[2018-10-25] MEDS ORDERED: LATANOPROST 0.005% (XALATAN) OPHTH SOLN 2.5 ML OD SCH (21:00)
[2018-10-25] MEDS ORDERED: NON-FORMULARY MEDICATION 1 EA EA (Carvedilol 25 MG) PO SCH (21:00)
[2018-10-25] MEDS ORDERED: B12 PO SCH (21:00)
[2018-10-25] MEDS ORDERED: B6 PO SCH (21:00)
[2018-10-25] MEDS ORDERED: CARVEDILOL 12.5 MG (COREG) TABLET PO SCH (21:00)
[2018-10-25] MEDS ORDERED: LEVOMEFOLATE PO SCH (21:00)
[2018-10-25] MEDS ORDERED: [UNRECOGNIZED DRUG - OTHER] PO SCH (21:00)
[2018-10-25] MEDS ORDERED: NON-FORMULARY MEDICATION 1 EA EA (Mexiletine HCl 200 MG) PO SCH (21:00)
[2018-10-25] MEDS: GABAPENTIN 100 MG (NEURONTIN) CAP PO SCH (21:34)
[2018-10-25] MEDS: PANTOPRAZOLE 40 MG (PROTONIX) TAB PO SCH (21:35)
[2018-10-25] MEDS: SUCRALFATE 1 GM (CARAFATE) TAB PO SCH ×2 (21:35→21:36)
[2018-10-25] MEDS: MEXILETINE 200 MG (MEXITIL) CAPSULE PO SCH (21:35)
[2018-10-25] MEDS: FOLIC ACID 1 MG TAB PO SCH (21:35)
[2018-10-26] VITALS: BP 145/94
[2018-10-26 03:49] LABS: HEMOGLOBIN 11.2 G/DL (13.3-17.7); MEAN PLATELET VOLUME 10.5 FL (7.4-10.4); RED CELL DISTRIBUTION WIDTH 16.8 % (10.0-14.5); WHITE BLOOD COUNT 6.4 10^3/uL (4.3-11.0)
[2018-10-26 04:00] VITALS: BP 118/69
[2018-10-26 04:11] LABS: ALANINE AMINOTRANSFERASE 20 U/L (0-55); ALBUMIN 3.6 GM/DL (3.2-4.5); ALKALINE PHOSPHATASE 83 U/L (40-136); BILIRUBIN,TOTAL 1.2 MG/DL (0.1-1.0); BUN/CREATININE RATIO 13; CALCIUM 8.7 MG/DL (8.5-10.1); CARBON DIOXIDE 21 MMOL/L (21-32); CHLORIDE 108 MMOL/L (98-107); CREATININE SERUM 1.12 MG/DL (0.60-1.30); GFR ESTIMATED > 60; GLUCOSE 80 MG/DL (70-105); POTASSIUM 3.9 MMOL/L (3.6-5.0); SODIUM 139 MMOL/L (135-145)
[2018-10-26 05:05] LABS: TOTAL PROTEIN 7.1 GM/DL (6.4-8.2)
[2018-10-26] MEDS: ceFAZolin INJECTION 1,000 MG in WATER (STERILE) FOR INJECTION 10 ML IV SCH (06:12)
[2018-10-26] MEDS: PANTOPRAZOLE 40 MG (PROTONIX) TAB PO SCH (06:12)
[2018-10-26] MEDS: SUCRALFATE 1 GM (CARAFATE) TAB PO SCH ×2 (06:13→10:36)
[2018-10-26] MEDS ORDERED: MULTIVIT W/MINERALS TAB (THERAGRAN M) PO SCH (07:00)
[2018-10-26] MEDS ORDERED: glipiZIDE 5 MG (GLUCOTROL) TAB PO SCH (07:00)
[2018-10-26 08:00] VITALS: BP 135/74
[2018-10-26] MEDS ORDERED: RT-ADVAIR HFA 115/21 MCG PER PUFF IH SCH (08:00)
[2018-10-26] MEDS ORDERED: KCL 20 MEQ TAB (K-DUR) PO SCH (08:00)
[2018-10-26] MEDS ORDERED: ATORVASTATIN 40 MG (LIPITOR) TABLET PO SCH (09:00)
[2018-10-26] MEDS ORDERED: inSUlin DETERMIR 1 UNIT/0.01 ML (LEVEMIR) CHARGE PER UNIT SQ SCH (09:00)
[2018-10-26] MEDS ORDERED: FUROSEMIDE 20 MG (LASIX) TAB PO SCH (09:00)
[2018-10-26] MEDS ORDERED: CARVEDILOL 12.5 MG (COREG) TABLET PO SCH (09:00)
[2018-10-26] MEDS ORDERED: NON-FORMULARY MEDICATION 1 EA EA (Vitamin E Acetate (Vitamin E) 400 UNIT) PO SCH (09:00)
[2018-10-26] MEDS ORDERED: ASPIRIN E.C. 81 MG (ECOTRIN) TAB PO SCH (09:00)
[2018-10-26] MEDS ORDERED: NON-FORMULARY MEDICATION 1 EA EA (Amlodipine Besylate 10 MG) PO SCH (09:00)
[2018-10-26] MEDS ORDERED: amLODIPine 10 MG (NORVASC) TAB PO SCH (09:00)
[2018-10-26] MEDS ORDERED: NON-FORMULARY MEDICATION 1 EA EA (Multivit-Min/FA/Lycopene/Lut (Centrum Silver Tablet) 1 T PO SCH (09:00)
[2018-10-26] MEDS ORDERED: NON-FORMULARY MEDICATION 1 EA EA (Fluticasone/Vilanterol (Breo Ellipta 100-25 Mcg INH) 1 P INH SCH (09:00)
[2018-10-26] MEDS ORDERED: NON-FORMULARY MEDICATION 1 EA EA (Carvedilol 12.5 MG) PO SCH (09:00)
[2018-10-26] MEDS ORDERED: VITAMIN E 400 INTLU CAP PO SCH (09:00)
[2018-10-26] MEDS: MEXILETINE 200 MG (MEXITIL) CAPSULE PO SCH (10:35)
--- NOTE | 2018-10-26 10:36 | Progress Note-Cardiology ---
Cardiology SOAP Progress Note Subjective: No cp or palp or syncope or shortness of breath Generally feels well and wishes to go home Objective: I&O/Vital Signs 10/26/18 10/26/18 10/26/18 10/26/18 01:14 04:00 07:00 08:00 Temp 97.6 98.2 Pulse 70 60 70 70 Resp 16 18 B/P (MAP) 118/69 (85) 135/74 (94) Pulse Ox 94 95 O2 Delivery Nasal Cannula Room Air O2 Flow Rate 1.00 10/26/18 10/26/18 08:00 12:00 Pulse 75 Resp 21 B/P (MAP) O2 Delivery Room Air Room Air Weight (Pounds): 223 Weight (Ounces): 0.6 Weight (Calculated Kilograms): 101.521371 Device Insertion Site: without hematoma Swelling: mild amount of swelling Bruising: mild bruising Constitutional: AAO x 3, well-developed Respiratory: No accessory muscle use; other (good bilat air entry) Cardiovascular: regular rate-rhythm, S1 and S2, systolic murmur (soft TANYA at card base) Gastrointestional: No tender; soft; No guarding, No rebound; audible bowel sounds Extremities: No clubbing, No cyanosis, No significant edema Neurologic/Psychiatric: grossly intact, power is 5/5 both on sides Skin: No rash on exposed areas, No ulcerations on exposed areas Results/Procedures: Labs Laboratory Tests 10/25/18 21:20: Glucometer 174H 10/26/18 03:15: White Blood Count 6.4, Red Blood Count 4.43, Hemoglobin 11.2L, Hematocrit 36L, Mean Corpuscular Volume 81, Mean Corpuscular Hemoglobin 25, Mean Corpuscular Hemoglobin Concent 31L, Red Cell Distribution Width 16.8H, Platelet Count 191, Mean Platelet Volume 10.5H, Sodium Level 139, Potassium Level 3.9, Chloride Level 108H, Carbon Dioxide Level 21, Anion Gap 10, Blood Urea Nitrogen 15, Creatinine 1.12, Estimat Glomerular Filtration Rate > 60, BUN/Creatinine Ratio 13, Glucose Level 80, Calcium Level 8.7, Corrected Calcium 9.0, Total Bilirubin 1.2H, Aspartate Amino Transf (AST/SGOT) 23, Alanine Aminotransferase (ALT/SGPT) 20, Alkaline Phosphatase 83, Total Protein 7.1, Albumin 3.6 Microbiology 10/25/18 MRSA Screen - Final, Complete MRSA not isolated A/P: Assessment: S/p JEEPER OPERATOR-D pulse generator change for YULIANA (original indication undocumented), capping of R atrial lead (for lead malfunction) and implantation of new R atrial lead by Dr Lawton on 10/25/18 CAD and valvular heart disease: 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 P-wave amplitude is 0.3 mV (was 0.6 immediate post-implant). Sens set to 0.15. Atrial lead impedance and capture are normal. CXR does not show lead displacement * I discussed his x-ray with Dr Lee * I reviewed his records from Dr Ron and Dr Lawton * I discussed his case with Dr Lawton on the phone * His meds are the same that Dr Lawton and Dr Ron have had him on, with the addition of antibiotic (given fresh device implant) and apixaban (given h/o PAF) * Close outpt f/u device and arrhythmia f/u is advised with FLORECITA Bai MD FACP FAC CCDS Oct 26, 2018 10:36
[2018-10-26] MEDS: FOLIC ACID 1 MG TAB PO SCH (10:37)
[2018-10-26] MEDS: GABAPENTIN 100 MG (NEURONTIN) CAP PO SCH (10:37)
--- NOTE | 2018-10-26 10:38 | Diagnostic Imaging Report ---
INDICATION: Evaluate AICD lead placement. TIME OF EXAM: 10:21 AM Correlation is made with prior study one day earlier. FINDINGS: Changes of median sternotomy are noted. Cardiac defibrillator remains in place. There is some linear atelectasis or scarring in the left base. Linear scarring right base is also seen. No infiltrates are seen. No significant effusion or pneumothorax is detected. IMPRESSION: Stable chest since exam one day earlier. Dictated by: Dictated on workstation # [id number]
[2018-10-26] MEDS ORDERED: CEFU500T63 PO (12:23)
[2018-10-26] MEDS ORDERED: APIX5TAB PO (12:27)
--- NOTE | 2018-10-26 12:29 | Discharge Inst-Cardiology ---
Discharge Inst-Cardiac Discharge Medications New Medications: Apixaban (Eliquis) 5 Mg Tablet 5 MG PO BID, #60 TAB 2 Refills Cefuroxime Axetil (Cefuroxime) 500 Mg Tablet 500 MG PO BID, #10 TAB Continued Medications: Acetaminophen (Tylenol 8 Hour) 650 Mg Tablet.er 650 MG PO BID PRN for PAIN-MILD, TAB Albuterol Sulfate (Ventolin Hfa) 18 Gm Hfa.aer.ad 2 PUFF INH QID PRN for SHORTNESS OF BREATH, INHALER Amlodipine Besylate (Amlodipine Besylate) 10 Mg Tablet 10 MG PO DAILY, TAB Aspirin (Aspirin EC) 81 Mg Tablet.dr 81 MG PO DAILY, TAB Atorvastatin Calcium (Lipitor) 40 Mg Tablet 40 MG PO DAILY, TAB Carvedilol (Carvedilol) 25 Mg Tablet 25 MG PO HS, TAB Carvedilol (Carvedilol) 25 Mg Tablet 12.5 MG PO DAILY, TAB TAKES 1/2 (25MG) TABLET Fluticasone/Vilanterol (Breo Ellipta 100-25 Mcg INH) 1 Each Blst.w.dev 1 PUFF INH DAILY, EA Furosemide (Furosemide) 20 Mg Tablet 20 MG PO DAILY, TAB Gabapentin (Gabapentin) 100 Mg Capsule 200 MG PO BID, CAP TAKES 2 (100MG) CAPSULES Glipizide (Glipizide) 5 Mg Tablet 5 MG PO DAILY, TAB Insulin Glargine,Hum.rec.anlog (Basaglar Kwikpen U-100) 100 Unit/1 Ml Insuln.pen 10 UNIT SQ DAILY, EA Insulin Glargine,Hum.rec.anlog (Basaglar Kwikpen U-100) 100 Unit/1 Ml Insuln.pen 35 UNIT SQ HS, EA Latanoprost (Latanoprost) 2.5 Ml Drops 1 DROP OD HS, DROPS Levomefolate/B6/B12/Algal Oil (Foltanx Rf Capsule) 1 Each Capsule 1 CAP PO BID, CAP Metformin HCl (Metformin HCl) 500 Mg Tablet 500 MG PO BID WITH MEALS, TAB Mexiletine HCl (Mexiletine HCl) 200 Mg Capsule 200 MG PO BID, CAP Multivit-Min/FA/Lycopene/Lut (Centrum Silver Tablet) 1 Each Tablet 1 TAB PO DAILY, TAB Nitroglycerin (Nitroglycerin) 0.4 Mg Tab.subl 0.4 MG SL UD PRN for CHEST PAIN, #24 TAB Pantoprazole Sodium (Protonix) 40 Mg Tablet.dr 40 MG PO BID, TAB Potassium Chloride (Potassium Chloride) 20 Meq Tab.er.prt 20 MEQ PO DAILY, TAB Sucralfate (Sucralfate) 1 Gm Tablet 1 GM PO ACHS, TAB Tiotropium Newcomb (Spiriva) 1 Inh Aerp 1 CAP INH DAILY, EA Vitamin E Acetate (Vitamin E) 400 Unit Capsule 400 UNIT PO DAILY, CAP Patient Instructions Patient Instructions: F/u with Dr Lawton next week Start Eliquis tomorrow Start all other meds today FLORECITA BRISCOE MD FACP FAC CCDS Oct 26, 2018 12:29
--- NOTE | 2018-10-26 12:30 | Discharge Inst-Post Device ---
Discharge Inst-Post Device Follow up/Plan F/u with Dr Lawton next week Heart Healthy Diet Do not lift arm on side of device placement above head for 4 weeks. Do not push and pull heavy objects for 4 weeks. Activity as tolerated. Leave dressing on until follow up at the office. FLORECITA BRISCOE MD FACP FACC CCDS Oct 26, 2018 12:30
== END 2018-10-26 13:03 | disposition home or self-care (01) ==
LOC: CATH 08:05 → ICU 12:11 → CATH 10-26 13:03
PROVIDERS: ATTEND Internal Medicine Interventional Cardiology
DX: Z45.2 Encounter for adjustment and management of vascular access device (principal); I42.9 Cardiomyopathy, unspecified; I25.10 Atherosclerotic heart disease of native coronary artery without angina pectoris; I10 Essential (primary) hypertension; I49.5 Sick sinus syndrome; I48.0 Paroxysmal atrial fibrillation; E11.9 Type 2 diabetes mellitus without complications; G47.33 Obstructive sleep apnea (adult) (pediatric); E66.9 Obesity, unspecified; Z68.30 Body mass index [BMI] 30.0-30.9, adult; Z95.1 Presence of aortocoronary bypass graft; Z95.2 Presence of prosthetic heart valve; Z79.82 Long term (current) use of aspirin; Z79.84 Long term (current) use of oral hypoglycemic drugs; Z79.899 Other long term (current) drug therapy; Z87.891 Personal history of nicotine dependence
CPT/HCPCS: 33206; 33214; 33223; 33249; 36415; 71045; 71046; 80048; 80053; 82962; 85027; 85610; 85730; 87081; 93005

== ENCOUNTER 2019-01-22 06:00 | Outpatient (RCR) | payer MEDICARE, BC ==
[~2019-01-22 06:00] MED LIST changes: +ACET-2840 PO; +APIX5TAB PO; +CEFU500T63 PO; +FURO20TA4 PO; +SUCR1TAB PO
== END 2019-02-02 | disposition home or self-care (01) ==
LOC: CR3 06:00
PROVIDERS: ATTEND Internal Medicine Cardiovascular Disease
DX: Z29.8 Encounter for other specified prophylactic measures (principal)

== ENCOUNTER → 2019-02-19 | Outpatient (CLI) | payer MEDICARE, BC ==
--- NOTE | 2019-02-19 19:16 | Diagnostic Imaging Report ---
EXAMINATION: PA and lateral chest at 2:53 p.m. INDICATION: Cough, chest pain. FINDINGS: The heart size is within normal limits and stable when compared to 10/26/2018. The sternotomy wires, surgical clips and left-sided defibrillator device seen on the prior study are again evident and no different. The poorly defined band of increased density in the left lung base seen previously has essentially resolved. There is only minimal, if any, residual density still present in this area. The chronic pulmonary changes seen on the prior study are again evident and no different. There is no new area of pneumonia visualized and there is no sign of failure or of a pleural effusion. The mediastinum is not widened. The osseous structures are intact. There are 3 surgical studs now overlying the right humeral head. IMPRESSION: 1. The appearance of the chest has improved as the left lung base does seem better aerated. There is only minimal, if any, residual density still present in this area. 2. There is no acute cardiopulmonary abnormality identified. Dictated by: Dictated on workstation # [id number]
== END ==
LOC: RAD 14:45
PROVIDERS: ATTEND Family Medicine
DX: R07.9 Chest pain, unspecified (principal); R05 Cough; Z95.810 Presence of automatic (implantable) cardiac defibrillator; Z98.890 Other specified postprocedural states
CPT/HCPCS: 71046

== ENCOUNTER 2019-03-05 06:00 | Outpatient (RCR) | payer MEDICARE, BC | END 2019-03-07 | disposition home or self-care (01) | LOC: CR3 06:00 | PROVIDERS: ATTEND Internal Medicine Cardiovascular Disease | DX: Z29.8 Encounter for other specified prophylactic measures (principal) ==

== ENCOUNTER → 2019-03-29 | Outpatient (CLI) | payer MEDICARE, BC ==
--- NOTE | 2019-03-29 10:25 | Diagnostic Imaging Report ---
Examination: Noncontrast chest CT (lung cancer screening). History: [id number] history of smoking Findings: No comparison available. There are inflammatory centrilobular nodules in the posterior basal segment right lower lobe measuring up to 9 mm. The is present is bronchial wall thickening. No edema or pneumonia. No pleural effusion or pneumothorax. Heart is normal. 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 Pacemaker is present with leads in right atrium and right ventricle. No axillary, supraclavicular mediastinal lymphadenopathy. Limited views of the upper abdomen show unchanged adrenal adenomas comparison prior CT dated 02/21/2017. There are no suspicious osseous lesions. Impression: Inflammatory appearing right lower lobe nodules are categorized as lung rads 4a, three-month followup CT is recommended. Lung rads category: 4A. Modifier: None. Other significant findings: None. Dictated by: Dictated on workstation # [id number]
== END ==
LOC: RAD 09:38
PROVIDERS: ATTEND Nurse Practitioner Family
DX: Z12.2 Encounter for screening for malignant neoplasm of respiratory organs (principal); R91.1 Solitary pulmonary nodule; Z95.1 Presence of aortocoronary bypass graft; Z95.0 Presence of cardiac pacemaker

== ENCOUNTER 2019-04-02 06:00 | Outpatient (RCR) | payer MEDICARE, BC | END 2019-04-06 | disposition home or self-care (01) | LOC: CR3 06:00 | PROVIDERS: ATTEND Internal Medicine Cardiovascular Disease | DX: Z29.8 Encounter for other specified prophylactic measures (principal) ==

== ENCOUNTER → 2019-04-26 | Outpatient (CLI) | payer MEDICARE, BC ==
[~2019-04-26] MED LIST changes: +RT-ALBUTEROL SULF 2.5 MG/3 ML PRE-MIX VIAL INH ONE; +RT-ALBUTEROL SULF 2.5 MG/3 ML PRE-MIX VIAL ONE
== END ==
LOC: RT 09:33
PROVIDERS: ATTEND Nurse Practitioner Family
DX: G47.10 Hypersomnia, unspecified (principal); G47.33 Obstructive sleep apnea (adult) (pediatric); J30.9 Allergic rhinitis, unspecified; J44.9 Chronic obstructive pulmonary disease, unspecified; Z72.0 Tobacco use
CPT/HCPCS: 94060; 94726; 94729

== ENCOUNTER 2019-05-02 06:00 | Outpatient (RCR) | payer MEDICARE, BC ==
[~2019-05-02 06:00] MED LIST changes: -RT-ALBUTEROL SULF 2.5 MG/3 ML PRE-MIX VIAL INH ONE; -RT-ALBUTEROL SULF 2.5 MG/3 ML PRE-MIX VIAL ONE
== END 2019-05-09 | disposition home or self-care (01) ==
LOC: CR3 06:00
PROVIDERS: ATTEND Internal Medicine Cardiovascular Disease
DX: Z29.8 Encounter for other specified prophylactic measures (principal)

== ENCOUNTER 2019-05-15 15:20 | Outpatient (CLI) | payer MEDICARE, BC ==
[~2019-05-15] VITALS: Ht 182.9 cm; Wt 108.9 kg
[2019-05-16] MEDS ORDERED: FEXO-46 PO (09:50)
[2019-05-16] MEDS ORDERED: ATOR40TA70 PO (09:50)
[2019-05-16] MEDS ORDERED: APIX5TAB PO (09:50)
[2019-05-16] MEDS ORDERED: MONT10TA24 PO (09:50)
== END 2019-05-15 16:00 ==
LOC: PREOP 15:20
PROVIDERS: ATTEND Surgery
DX: Z01.818 Encounter for other preprocedural examination (principal); K63.5 Polyp of colon

== ENCOUNTER 2019-05-20 08:42 | Day surgery (SDC) | payer MEDICARE, BC ==
[~2019-05-20] VITALS: Ht 182.9 cm; Wt 108.9 kg
[~2019-05-20 08:42] MED LIST changes: +ATOR40TA70 PO; +FEXO-46 PO; +LACTATED RINGERS 1,000 ML IV ONE
--- NOTE | 2019-05-20 08:55 | Progress Note-Pre Operative ---
Pre-Operative Progress Note H&P Reviewed The H&P was reviewed, patient examined and no changes noted. Time Seen by Provider: 08:52 Date H&P Reviewed: May 20, 2019 Time H&P Reviewed: 08:53 Pre-Operative Diagnosis: Personal hx of colon polyps DUC CONCEPCION DO May 20, 2019 08:55
[2019-05-20 09:15] VITALS: BP 141/86
[2019-05-20] MEDS ORDERED: PROPOFOL INJECTION 50 ML IV ONE (09:18)
[2019-05-20] MEDS ORDERED: MIDAZOLAM 2 MG/2 ML (VERSED) VIAL ONE (09:18)
[2019-05-20] MEDS ORDERED: LACTATED RINGERS 1,000 ML IV STA (09:20)
[2019-05-20 09:55] VITALS: BP 104/68
[2019-05-20 10:00] VITALS: BP 110/70
--- NOTE | 2019-05-20 10:00 | Progress Note-Post Operative ---
Post-Operative Progess Note Surgeon (s)/Bodily Injury Adjuster (s) Surgeon DUC CONCEPCION DO Bodily Injury Adjuster: none Pre-Operative Diagnosis Personal hx of colon polyps Post-Operative Diagnosis Colon polyps internal hemorrhoids Procedure & Operative Findings Date of Procedure 05/20/19 Procedure Performed/Findings Colon with snare Anesthesia Type IV sedation by EMPLOYMENT TRAINER Estimated Blood Loss Estimated blood loss (mL): scant Specimens/Packing Specimens Removed transverse colon polyp descending colon polyp DUC CONCEPCION DO May 20, 2019 09:59
--- NOTE | 2019-05-20 10:01 | Endoscopy Discharge Instruct ---
Endo Procedure/Findings Findings 1.: Polyp 2.: Internal Hemorrhoids Discharge Instructions - Activity: You might feel a little sleepy until tomorrow. This is due to the medicine you received to relax you. Until tomorrow, you should: NOT drive a car, operate machinery or power tools. NOT drink any alcoholic beverages. NOT make any important decisions or sign importortant papers. Do not return to work until tomorrow, unless otherwise instructed. Resume previous activities tomorrow. Diet: Start by taking liquids. If you tolerate liquids, advance to solid food. make an appointment for one week 1.: Colonscopy in 3 years Notify Physician - If you experience excessive bleeding, unusual abdominal pain, fever, or chest pain, contact your doctor immediately. DUC CONCEPCION DO May 20, 2019 10:01
[2019-05-20 10:05] VITALS: BP 110/70
[2019-05-20 10:35] VITALS: BP 134/88
[2019-05-20 10:55] VITALS: BP 134/88
--- NOTE | 2019-05-21 17:27 | OPERATIVE REPORT ---
DATE OF SERVICE: 05/20/2019 PREOPERATIVE DIAGNOSIS: Personal history of colon polyps. POSTOPERATIVE DIAGNOSES: 1. Colon polyps. 2. Internal hemorrhoids. PROCEDURE PERFORMED: Colonoscopy with snare polypectomy. SURGEON: Chava Augustine DO. [employer]: None. ANESTHESIA: IV sedation by HEMATOLOGY SPECIALIST. SPECIMEN: Colon polyps, one from the transverse colon and one from the descending colon. BLOOD LOSS: Scant. FLUIDS: Per Anesthesia. POSTOPERATIVE CONDITION: Stable. INDICATION FOR PROCEDURE: The patient is a 73-year-old male, who a year ago, had a colonoscopy performed and had more than 8 polyps removed, number of them were large and he needed a repeat colonoscopy in one year. FINDINGS: The patient again had a couple of polyps, one in the transverse colon and one in the descending colon and had some small internal hemorrhoids. PROCEDURE NOTE: After informed consent was obtained, the patient was brought to the endoscopy suite, placed in the bed in left lateral decubitus position. He was administered IV sedation by the HEMATOLOGY SPECIALIST who then monitored his vitals the entire time, heart rate, blood pressure and pulse ox and the scope was inserted, pushed all the way to 150 cm, able to get to the cecum, took a picture of appendiceal orifice, noted the ileocecal valve and then slowly withdrew the scope insufflating the circumferential erickson looking at the cecum up the ascending colon to the hepatic flexure, then down the transverse colon and in the transverse colon, saw small flat polyp, did snare polypectomy of this and then continued down to the splenic flexure, into the descending colon. In the descending colon, saw another flat polyp, did another snare polypectomy and then continued down into the sigmoid colon and down in the rectum, retroflexed in the rectal vault, saw some minimal internal hemorrhoids, took a picture of this and then removed the scope. The patient tolerated the procedure and he was recovered in endoscopy suite. Job ID: [id number] DocumentID: [id number] Dictated Date: 05/21/2019 10:08:13 Production Bow Maker Date: 05/21/2019 17:26:01 Dictated By: CHAVA AUGUSTINE DO
== END 2019-05-20 10:55 | disposition home or self-care (01) ==
LOC: ENDO 08:42
PROVIDERS: ATTEND Surgery
DX: D12.4 Benign neoplasm of descending colon (principal); D12.3 Benign neoplasm of transverse colon; K21.9 Gastro-esophageal reflux disease without esophagitis; K64.8 Other hemorrhoids; I25.10 Atherosclerotic heart disease of native coronary artery without angina pectoris; I11.9 Hypertensive heart disease without heart failure; I48.0 Paroxysmal atrial fibrillation; G47.33 Obstructive sleep apnea (adult) (pediatric); J44.9 Chronic obstructive pulmonary disease, unspecified; E11.9 Type 2 diabetes mellitus without complications; L30.9 Dermatitis, unspecified; Z95.810 Presence of automatic (implantable) cardiac defibrillator; Z95.1 Presence of aortocoronary bypass graft; Z87.891 Personal history of nicotine dependence; Z79.4 Long term (current) use of insulin; Z79.899 Other long term (current) drug therapy; Z79.84 Long term (current) use of oral hypoglycemic drugs; Z82.49 Family history of ischemic heart disease and other diseases of the circulatory system
CPT/HCPCS: 82962

== ENCOUNTER 2019-06-04 06:00 | Outpatient (RCR) | payer MEDICARE, BC ==
[~2019-06-04 06:00] MED LIST changes: -LACTATED RINGERS 1,000 ML IV ONE
== END 2019-06-08 | disposition home or self-care (01) ==
LOC: CR3 06:00
PROVIDERS: ATTEND Internal Medicine Cardiovascular Disease
DX: Z29.8 Encounter for other specified prophylactic measures (principal)

== ENCOUNTER → 2019-06-20 | Outpatient (CLI) | payer MEDICARE, BC ==
[~2019-06-20] MED LIST changes: +HOLD METFORMIN - RECEIVED CONTRAST 20 ML VIAL IV SCH
[2019-06-20 08:50] LABS: BUN/CREATININE RATIO 14; CREATININE SERUM 1.07 MG/DL (0.60-1.30); GFR ESTIMATED > 60
[2019-06-20] MEDS: IOHEXOL 350 MG/ML 100 ML (OMNIPAQUE 350) VIAL IV ONE (09:22)
[2019-06-20] MEDS: NS 100 ML (IVPB) BAG IV ONE (09:22)
[2019-06-20] MEDS: CATHETER FLUSH 10 ML SYR IV PRN (09:22)
--- NOTE | 2019-06-20 09:41 | Diagnostic Imaging Report ---
PROCEDURE: CT chest with contrast only. TECHNIQUE: Multiple contiguous axial images were obtained through the chest after administration of intravenous contrast. Auto Exposure Controls were utilized during the CT exam to meet ALARA standards for radiation dose reduction. INDICATION: COPD and cough. COMPARISON: Correlation is made with recent low-dose CT chest screening study from 03/29/2019. FINDINGS: Postoperative changes of median sternotomy are noted. Left chest wall cardiac pacemaker remains in place. No axillary lymphadenopathy is detected. No definite mediastinal or hilar lymphadenopathy is identified. No pericardial or pleural fluid is identified. Significant emphysematous changes are identified in both lungs, with upper lobe predominance. Airspace opacities in the lower lobes, greater in the medial right lower lobe on prior study demonstrates significant improvement and almost nearly resolved. There is some minimal residual linear opacity in the posterior sulcus of the right lower lobe consistent with some scarring or atelectasis. No discrete mass is identified. Central airways are patent. Upper abdomen does show moderate-sized hiatal hernia. Adrenal mass is greatest on the left are again noted and stable. There appear to be small stones within the gallbladder. IMPRESSION: Overall improved appearance to the chest since prior CT from 03/29/2019. Inflammatory changes right lower lobe have nearly completely resolved. No new abnormality is detected. Dictated by: Dictated on workstation # [id number]
== END ==
LOC: RAD 08:17
PROVIDERS: ATTEND Nurse Practitioner Family
DX: J44.9 Chronic obstructive pulmonary disease, unspecified (principal); J18.9 Pneumonia, unspecified organism; Z95.0 Presence of cardiac pacemaker; Z98.890 Other specified postprocedural states
CPT/HCPCS: 36415; 71260; 82565; 84520

== ENCOUNTER 2019-07-02 08:00 | Outpatient (RCR) | payer MEDICARE, BC ==
[~2019-07-02 08:00] MED LIST changes: -HOLD METFORMIN - RECEIVED CONTRAST 20 ML VIAL IV SCH
== END 2019-07-13 | disposition home or self-care (01) ==
LOC: CR3 08:00
PROVIDERS: ATTEND Internal Medicine Cardiovascular Disease
DX: Z29.8 Encounter for other specified prophylactic measures (principal)

== ENCOUNTER → 2020-02-24 | Outpatient (CLI) | payer MEDICARE, BC ==
[~2020-02-24] MED LIST changes: +DIGO125T3 PO; +IRBE300T17 PO; -IRBE300T18 PO; -MEXI200C PO; -MONT10TA24 PO; +MONT10TA26 PO; +NF-MEXI200 PO
== END ==
LOC: CARD 14:16
PROVIDERS: ATTEND Internal Medicine Cardiovascular Disease
DX: I08.1 Rheumatic disorders of both mitral and tricuspid valves (principal); I48.0 Paroxysmal atrial fibrillation; I25.10 Atherosclerotic heart disease of native coronary artery without angina pectoris; I11.9 Hypertensive heart disease without heart failure; E11.9 Type 2 diabetes mellitus without complications

== ENCOUNTER → 2020-02-26 | Outpatient (CLI) | payer MEDICARE, BC ==
[~2020-02-26] VITALS: Ht 105 cm; Wt 109.0 kg
[~2020-02-26] MED LIST changes: +CATHETER FLUSH 10 ML SYR IV PRN; +REGADENOSON 0.4 MG/5 ML SYR (LEXISCAN) IV ONE
[2020-02-26 09:25] VITALS: BP 154/83
[2020-02-26 09:28] VITALS: BP 139/73
--- NOTE | 2020-02-26 13:55 | Cardiology Stress Test Report ---
Stress Test Report Date of Procedure/Referring: Date of Procedure: Feb 26, 2020 PCP Florentino Ron MD Admitting Physician Britt Acuña MD Indications: Paroxysmal atrial fibrillation Baseline Heart Rate: 77 Baseline Blood Pressure: Blood Pressure Systolic: 139 Blood Pressure Diastolic: 73 Baseline EKG: Baseline EKG: ventricular paced rhythm Summary: Patient received 0.4 mg Lexiscan for stress test, ECG, heart rate and blood pressure were monitored continuously. Resting and stress dose of radio tracer were injected, imaging was acquired and reviewed in short axis, horizontal long axis and vertical long axis views. TID 0.96 SSS 16 SDS 0 EF 54% Conclusion: 1. Patient tolerated Lexiscan well 2. Baseline paced rhythm persisted throughout test 3. Fixed defect involving the whole inferior wall and inferolateral wall, mild reversible ischemia involving the mid to apical anterior wall and anterior septum 4. Normal left ventricular size, mild hypokinesia than for wall, EF 54 percent FLORENTINO RON MD Feb 26, 2020 13:55
== END ==
LOC: CARD 08:18
PROVIDERS: ATTEND Internal Medicine Cardiovascular Disease
DX: I48.0 Paroxysmal atrial fibrillation (principal); I10 Essential (primary) hypertension; E11.9 Type 2 diabetes mellitus without complications; I25.10 Atherosclerotic heart disease of native coronary artery without angina pectoris
CPT/HCPCS: 78452; 93017; A9502

== ENCOUNTER 2020-03-08 08:40 | Emergency (ER) | payer MEDICARE, BC ==
[~2020-03-08] VITALS: Ht 182.8 cm; Wt 108.8 kg
[~2020-03-08 08:40] MED LIST changes: -CATHETER FLUSH 10 ML SYR IV PRN; -REGADENOSON 0.4 MG/5 ML SYR (LEXISCAN) IV ONE
--- OUTSIDE RECORDS SUMMARY | 2020-03-08 08:49 | XMS REPORT | Continuity of Care Document ---
Author Organization Unknown Address Unknown Phone Unavailable Allergies Active Description Code Type Severity Reaction Onset Reported/Identified Relationship to Patient Clinical Status Yes No Known Drug Allergies [id number] Drug Allergy Unknown N/A 10/03/2009 Yes No Known Drug Allergies No Kno wn Drug Allergies Drug Allergy Unknown . 12/18/2012 Medications There is no data. Problems Date Dx Coded Attending Type Code Diagnosis Diagnosed By 01/05/2010 Ot 682.9 01/05/2010 Ot V58.69 10/31/2010 Ot 276.51 DEH YDRATION 10/31/2010 Ot 427.9 CARD IAC DYSRHYTHMIA NOS 10/31/2010 Ot 780.79 OTH MALAISE FATIGUE 10/31/2010 Ot V58.69 OTH MED,LT,CURRENT USE 05/14/2014 JEFFREY BEAVERS, PATRICIA Lockett Ot 530.10 ESOPHAGITIS NOS 05/14/2014 PATRICIA MURPHY MD Ot 530.3 ESOPHAGEAL STRICTURE 05/14/2014 PATRICIA MURPHY MD Ot 553.3 DIAPHRAGMATIC HERNIA 09/12/2014 FANI LOZADA SOUND DESIGNER Ot 924.21 CONTUSION OF ANKLE 09/12/2014 FANI LOZADA SOUND DESIGNER Ot 959 .7 LOWER LEG INJURY NOS 09/12/2014 FANI LOZADA SOUND DESIGNER Ot E000.8 OTHER EXTERNAL CAUSE STATUS 09/12/2014 FANI LOZADA SOUND DESIGNER Ot E849.0 ACCIDENT IN HOME 09/12/2014 FANI LOZADA SOUND DESIGNER Ot E885.9 FALL FROM SLIPPING, TRIPPING, OR [...] Ot V72.84 03/16/2015 JESS FRANCIS DO Ot 278. 00 03/16/2015 JESS FRANCIS DO Ot 305. 1 03/16/2015 JESS FRANCIS DO Ot 327. 23 03/16/2015 JESS FRANCIS DO Ot 496 03/16/2015 JESS FRANCIS DO Ot 786. 09 03/19/2015 JESS FRANCIS DO Ot 278. 00 03/19/2015 JESS FRANCIS DO Ot 305. 1 03/19/2015 JESS FRANCIS DO Ot 327. 23 03/19/2015 JESS FRANCIS DO Ot 496 03/19/2015 JESS FRANCIS DO Ot 786. 09 11/26/2015 JEFFREY BEAVERS, PATRICIA Lockett Ot Z01.818 ENCOUNTER FOR OTHER PREPROCEDURAL EXAMIN 11/30/2015 JEFFREY BEAVERS, PATRICIA Lockett Ot K22.2 ESOPHAGEAL OBSTRUCTION 12/01/2015 PATRICIA MURPHY MD Ot K22.2 01/02/2016 Ot 250.00 RHONDA B ROBERT WO COMPL, TYPE II OR UNSPEC TY 01/02/2016 Ot 715.97 OST EOARTHROS NOS- ANKLE 01/02/2016 Ot 354.9 MONO NEURITIS ARM NOS 01/02/2016 Ot 722.4 CERV ICAL DISC DEGEN 01/02/2016 JEFFREY BEAVERS, PATRICIA Lockett Ot V72.84 EXAM PRE-OPERATIVE NOS 01/02/2016 JEFFREY BEAVERS, PATRICIA Lockett Ot 530.81 ESOPHAGEAL REFLUX 01/02/2016 PATRICIA MURPHY MD Ot V72.84 EXAM PRE-OPERATIVE NOS 01/02/2016 JESS FRANCIS DO Ot 278. 00 OBESITY, NOS 01/02/2016 JESS FRANCIS DO Ot 305. 1 TOBACCO USE DISORDER 01/02/2016 JESS FRANCIS DO Ot 327. 23 OBSTRUCTIVE SLEEP APNEA (ADULT) (PEDIATR 01/02/2016 JESS FRANCIS DO Ot 496 CHR AIRWAY OBSTRUCT NEC 01/02/2016 JESS FRANCIS DO Ot 786. 09 RESPIRATORY ABNORM NEC 01/02/2016 ANNIA BEAVERS, LUIS Vega Ot F17.210 NICOTINE DEPENDENCE, CIGARETTES, UNCOMPL 01/02/2016 ANNIA BEAVERS, LUIS Vega Ot S22.32XA FRACTURE OF ONE RIB, LEFT SIDE, INIT FOR 01/02/2016 LUIS MILNER MD Ot W01.0XXA FALL SAME LEV FROM SLIP/TRIP W/O STRIKE 01/02/2016 LUIS MILNER MD Ot Y92.[address] IN UNSP NON-INSTITUT (PRIVATE 01/02/2016 LUIS MILNER MD Ot Y99. 8 OTHER EXTERNAL CAUSE STATUS 03/25/2016 SANDHYA DE LA GARZA APRN Ot J44.9 CHRONIC OBSTRUCTIVE PULMONARY DISEASE, U 03/29/2016 SANDHYA DE LA GARZA APRN Ot J44.9 CHRONIC OBSTRUCTIVE PULMONARY DISEASE, U 03/29/2016 SANDHYA DE LA GARZA SOUND DESIGNER Ot R06.09 OTHER FORMS OF DYSPNEA 03/29/2016 SANDHYA DE LA GARZA SOUND DESIGNER Ot J44.9 CHRONIC OBSTRUCTIVE PULMONARY DISEASE, U 03/29/2016 SANDHYA DE LA GARZA SOUND DESIGNER Ot R06.09 OTHER FORMS OF DYSPNEA 04/27/2016 SANDHYA DE LA GARZA SOUND DESIGNER Ot J44.9 CHRONIC OBSTRUCTIVE PULMONARY DISEASE, U 04/27/2016 SANDHYA DE LA GARZA SOUND DESIGNER Ot R06.09 OTHER FORMS OF DYSPNEA 04/29/2016 SANDHYA DE LA GARZA SOUND DESIGNER Ot J44.9 CHRONIC OBSTRUCTIVE PULMONARY DISEASE, U 04/29/2016 SANDHYA DE LA GARZA SOUND DESIGNER Ot R06.09 OTHER FORMS OF DYSPNEA 08/01/2016 Ot 250.00 RHONDA B ROBERT WO COMPL, TYPE II OR UNSPEC TY 08/01/2016 Ot 715.97 OST EOARTHROS NOS- ANKLE 08/01/2016 Ot 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 00 OBESITY, NOS 08/01/2016 JESS FRANCIS DO Ot 305. 1 TOBACCO USE DISORDER 08/01/2016 JESS FRANCIS DO Ot 327. 23 OBSTRUCTIVE SLEEP APNEA (ADULT) (PEDIATR 08/01/2016 JESS FRANCIS DO Ot 496 CHR AIRWAY OBSTRUCT NEC 08/01/2016 JESS FRANCIS DO Ot 786. 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 00 OBESITY, NOS 02/07/2017 JESS FRANCIS DO Ot 305. 1 TOBACCO USE DISORDER 02/07/2017 JESS FRANCIS DO Ot 327. 23 OBSTRUCTIVE SLEEP APNEA (ADULT) (PEDIATR 02/07/2017 JESS FRANCIS DO Ot 496 CHR AIRWAY OBSTRUCT NEC 02/07/2017 JESS FRANCIS DO Ot 786. 09 RESPIRATORY ABNORM NEC 02/07/2017 SANDHYA DE LA GARZA APRN Ot J44.9 CHRONIC OBSTRUCTIVE PULMONARY DISEASE, U 02/07/2017 SANDHYA DE LA GARZA APRN Ot R06.09 OTHER FORMS OF DYSPNEA 02/07/2017 NANCY GARCÍA MD Ot E10.9 TYPE 1 DIABETES MELLITUS WITHOUT COMPLIC 02/07/2017 NANCY GARCÍA MD Ot F17.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, CIGARETTES, UNCOMPL 02/07/2017 NANCY GARCÍA MD Ot G47.3 3 OBSTRUCTIVE SLEEP APNEA (ADULT) (PEDIATR 02/07/2017 NANCY GARCÍA MD Ot I10 ESSENTIAL (PRIMARY) HYPERTENSION 02/07/2017 NANCY GARCÍA MD Ot I25.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 02/07/2017 NANCY GARCÍA MD Ot J44.9 CHRONIC OBSTRUCTIVE PULMONARY DISEASE, U 02/07/2017 NANCY GARCÍA MD Ot N35.9 URETHRAL STRICTURE, UNSPECIFIED 02/07/2017 ANNCY GARCÍA MD Ot N40.0 BENIGN PROSTATIC HYPERPLASIA WITHOUT LOW 02/07/2017 NANCY GARCÍA MD, Ot Z79.4 ASSISTED (CURRENT) USE OF INSULIN 02/07/2017 NANCY GARCÍA MD Ot Z95.5 PRESENCE OF CORONARY ANGIOPLASTY IMPLANT 02/09/2017 NANCY GARCÍA MD Ot E10.9 TYPE 1 DIABETES MELLITUS WITHOUT COMPLIC 02/09/2017 NANCY GARCÍA MD Ot F17.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, CIGARETTES, UNCOMPL 02/09/2017 NANCY GARCÍA MD Ot G47.3 3 OBSTRUCTIVE SLEEP APNEA (ADULT) (PEDIATR 02/09/2017 NANCY GARCÍA MD Ot I10 ESSENTIAL (PRIMARY) HYPERTENSION 02/09/2017 NANCY GARCÍA MD Ot I25.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 02/09/2017 NANCY GARCÍA MD, Ot J44.9 CHRONIC OBSTRUCTIVE PULMONARY DISEASE, U 02/09/2017 NANCY GARCÍA MD Ot N35.9 URETHRAL STRICTURE, UNSPECIFIED 02/09/2017 NANCY GARCÍA MD Ot N40.0 BENIGN PROSTATIC HYPERPLASIA WITHOUT LOW 02/09/2017 NANCY GARCÍA MD, Ot Z79.4 ASSISTED (CURRENT) USE OF INSULIN 02/09/2017 NANCY GARCÍA MD Ot Z95.5 PRESENCE OF CORONARY ANGIOPLASTY IMPLANT 02/16/2017 NANCY GARCÍA MD Ot E10.9 TYPE 1 DIABETES MELLITUS WITHOUT COMPLIC 02/16/2017 NANCY GARCÍA MD Ot F17.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, CIGARETTES, UNCOMPL 02/16/2017 NANCY GARCÍA MD, Ot G47.3 3 OBSTRUCTIVE SLEEP APNEA (ADULT) (PEDIATR 02/16/2017 NANCY GARCÍA MD Ot I10 ESSENTIAL (PRIMARY) HYPERTENSION 02/16/2017 NANCY GARCÍA MD, Ot I25.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 02/16/2017 NANCY GARCÍA MD, Ot J44.9 CHRONIC OBSTRUCTIVE PULMONARY DISEASE, U 02/16/2017 NANCY GARCÍA MD, Ot N35.9 URETHRAL STRICTURE, UNSPECIFIED 02/16/2017 NANCY GARCÍA MD, Ot N40.0 BENIGN PROSTATIC HYPERPLASIA WITHOUT LOW 02/16/2017 NANCY GARCÍA MD, Ot Z79.4 QUANTITATIVE SOFTWARE ENGINEER (CURRENT) USE OF INSULIN 02/16/2017 NANCY GARCÍA MD, Ot Z95.5 PRESENCE OF CORONARY ANGIOPLASTY IMPLANT 02/23/2017 IGNACIA BEAVERS, SELAM Yung Ot I70.203 UNSP ATHSCL [place] [facility] 03/16/2017 Ot E10.9 TYPE 1 DIABETES MELLITUS WITHOUT COMPLIC 03/20/2017 SELAM BETH MD Ot I70.203 UNSP ATHSCL [place] [facility] 03/22/2017 SELAM BETH MD Ot I70.203 UNSP ATHSCL [place] [facility] 06/07/2017 JEFFREY BEAVERS, PATRICIA Lockett Ot V72.84 EXAM PRE-OPERATIVE NOS 06/07/2017 JEFFERY BEAVERS, PATRICIA Lockett Ot 530.81 ESOPHAGEAL REFLUX 06/07/2017 JEFFREY BEAVERS, PATRICIA Lockett Ot V72.84 EXAM PRE-OPERATIVE NOS 06/07/2017 JESS FRANCIS DO Ot 278. 00 OBESITY, NOS 06/07/2017 JESS FRANCIS DO Ot 305. 1 TOBACCO USE DISORDER 06/07/2017 JESS FRANCIS DO Ot 327. 23 OBSTRUCTIVE SLEEP APNEA (ADULT) (PEDIATR 06/07/2017 JESS FRANCIS DO Ot 496 CHR AIRWAY OBSTRUCT NEC 06/07/2017 JESS FRANCIS DO Ot 786. 09 RESPIRATORY ABNORM NEC 06/07/2017 SANDHYA DE LA GARZA APRN Ot J44.9 CHRONIC OBSTRUCTIVE PULMONARY DISEASE, U 06/07/2017 HOLLI, SANDHYA E SOUND DESIGNER Ot R06.09 OTHER FORMS OF DYSPNEA 06/07/2017 IGNACIA BEAVERS, SELAM Yung Ot I70.203 UNSP ATHSCL [place] [facility] OF EXTREMITI 06/07/2017 Ot E10.9 TYPE 1 DIABETES MELLITUS WITHOUT COMPLIC 06/08/2017 VICK VARGAS SOUND DESIGNER Ot M25.552 PAIN IN LEFT HIP 06/27/2017 VICK VARGAS R SOUND DESIGNER Ot M25.552 PAIN IN LEFT HIP 07/05/2017 VICK VARGAS R SOUND DESIGNER Ot M25.552 PAIN IN LEFT HIP 09/09/2017 SHAVONNE LUCAS DO Ot E11.65 TYPE 2 DIABETES MELLITUS WITH HYPERGLYCE 09/09/2017 SHAVONNE LUCAS DO Ot E78.00 PURE HYPERCHOLESTEROLEMIA, UNSPECIFIED 09/09/2017 SHAVONNE LUCAS DO Ot E87.6 HYPOKALEMIA 09/09/2017 SHAVONNE LUCAS DO Ot F17.29 0 NICOTINE DEPENDENCE, OTHER TOBACCO PRODU 09/09/2017 SHAVONNE LUCAS DO Ot G47.30 SLEEP APNEA, UNSPECIFIED 09/09/2017 SHAVONNE LUCAS DO Ot I10 ESSENTIAL (PRIMARY) HYPERTENSION 09/09/2017 SHAVONNE LUCAS DO Ot I25.1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 09/09/2017 SHAVONNE LUCAS DO Ot I25.2 [...] W HYPOXI 09/09/2017 SHAVONNE LUCAS DO Ot T38.0X 5A ADVERSE EFFECT OF GLUCOCORT/SYNTH ANALOG 09/09/2017 SHAVONNE LUCAS DO Ot Z79.4 ASSISTED (CURRENT) USE OF INSULIN 09/09/2017 SHAVONNE LUCAS DO Ot Z79.82 QUANTITATIVE SOFTWARE ENGINEER (CURRENT) USE OF ASPIRIN 09/09/2017 LANCE CYR SHAVONNE Ot Z95.5 PRESENCE OF CORONARY ANGIOPLASTY IMPLANT 09/09/2017 LANCE CYR SHAVONNE Ot Z95.81 0 PRESENCE OF AUTOMATIC (IMPLANTABLE) CARD 09/15/2017 LANCE CYR SHAVONNE Ot E11.65 TYPE 2 DIABETES MELLITUS WITH HYPERGLYCE 09/15/2017 LANCE CYR SHAVONNE Ot E78.00 PURE HYPERCHOLESTEROLEMIA, UNSPECIFIED 09/15/2017 LANCE CYR SHAVONNE Ot E87.6 HYPOKALEMIA 09/15/2017 LANCE CYR SHAVONNE Ot F17.29 0 NICOTINE DEPENDENCE, OTHER TOBACCO PRODU 09/15/2017 LANCE CYR SHAVONNE Ot G47.30 SLEEP APNEA, UNSPECIFIED 09/15/2017 LANCE CYR SHAVONNE Ot I10 ESSENTIAL (PRIMARY) HYPERTENSION 09/15/2017 LANCE CYR SHAVONNE Ot I25.1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 09/15/2017 LANCE CYR SHAVONNE Ot I25.2 OLD MYOCARDIAL INFARCTION 09/15/2017 LANCE CYR SHAVONNE Ot I73.9 PERIPHERAL VASCULAR DISEASE, UNSPECIFIED 09/15/2017 LANCE CYR SHAVONNE Ot I95.9 HYPOTENSION, UNSPECIFIED 09/15/2017 LANCE CYR SHAVONNE Ot J20.9 ACUTE BRONCHITIS, UNSPECIFIED 09/15/2017 LANCE CYR SHAVONNE Ot J44.0 CHRONIC OBSTRUCTIVE PULMON DISEASE W ACU 09/15/2017 LANCE CYR SHAVONNE Ot J44.1 CHRONIC OBSTRUCTIVE PULMONARY DISEASE W 09/15/2017 LANCE CYR SHAVONNE Ot J96.00 ACUTE RESPIRATORY FAILURE, UNSP W HYPOXI 09/15/2017 SHAVONNE LUCAS DO Ot T38.0X 5A ADVERSE EFFECT OF GLUCOCORT/SYNTH ANALOG 09/15/2017 LANCE CYR SHAVONNE Ot Z79.4 ASSISTED (CURRENT) USE OF INSULIN 09/15/2017 LUCIO LUCAS DOI Ot Z79.82 ASSISTED (CURRENT) USE OF ASPIRIN 09/15/2017 LUCIO LUCAS DOI Ot Z95.5 PRESENCE OF CORONARY ANGIOPLASTY IMPLANT 09/15/2017 LANCE CYR SHAVONNE Ot Z95.81 0 PRESENCE OF AUTOMATIC (IMPLANTABLE) CARD 09/15/2017 LUCIO LUCAS DOI Ot E11.65 TYPE 2 DIABETES MELLITUS WITH HYPERGLYCE 09/15/2017 LANCE CYR SHAVONNE Ot E78.00 PURE HYPERCHOLESTEROLEMIA, UNSPECIFIED 09/15/2017 LUCASREINA CYR SHAVONNE Ot E87.6 HYPOKALEMIA 09/15/2017 LANCE CYR SHAVONNE Ot F17.29 0 NICOTINE DEPENDENCE, OTHER TOBACCO PRODU 09/15/2017 LANCE CYR SHAVONNE Ot G47.30 SLEEP APNEA, UNSPECIFIED 09/15/2017 LANCE CYR SHAVONNE Ot I10 ESSENTIAL (PRIMARY) HYPERTENSION 09/15/2017 LANCE CYR SHAVONNE Ot I25.1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 09/15/2017 LANCE CYR SHAVONNE Ot I25.2 OLD MYOCARDIAL INFARCTION 09/15/2017 LANCE CYR SHAVONNE Ot I73.9 PERIPHERAL VASCULAR DISEASE, UNSPECIFIED 09/15/2017 LANCE CYR SHAVONNE Ot I95.9 HYPOTENSION, UNSPECIFIED 09/15/2017 LANCE CYR SHAVONNE Ot J20.9 ACUTE BRONCHITIS, UNSPECIFIED 09/15/2017 LANCE CYR SHAVONNE Ot J44.0 CHRONIC OBSTRUCTIVE PULMON DISEASE W ACU 09/15/2017 LUCIO LUCAS DOI Ot J44.1 CHRONIC OBSTRUCTIVE PULMONARY DISEASE W 09/15/2017 LANCE CYR SHAVONNE Ot J96.00 ACUTE RESPIRATORY FAILURE, UNSP W HYPOXI 09/15/2017 SHAVONNE LUCAS DO Ot T38.0X 5A ADVERSE EFFECT OF GLUCOCORT/SYNTH ANALOG 09/15/2017 LANCE CYR SHAVONNE Ot Z79.4 ASSISTED (CURRENT) USE OF INSULIN 09/15/2017 LANCE CYR SHAVONNE Ot Z79.82 QUANTITATIVE SOFTWARE ENGINEER (CURRENT) USE OF ASPIRIN 09/15/2017 SHAVONNE LUCAS DO Ot Z95.5 PRESENCE OF CORONARY ANGIOPLASTY IMPLANT 09/15/2017 LANCE CYR SHAVONNE Ot Z95.81 0 PRESENCE OF AUTOMATIC (IMPLANTABLE) CARD 10/23/2017 FRANDY ALBERT APRN Ot G47.33 OBSTRUCTIVE SLEEP APNEA (ADULT) (PEDIATR 10/23/2017 JEFFREY BEAVERS, PATRICIA Lockett Ot V72.84 EXAM PRE-OPERATIVE NOS 10/23/2017 JEFFREY BEAVERS, PATRICIA Lockett Ot 530.81 ESOPHAGEAL REFLUX 10/23/2017 JEFFREY BEAVERS, PATRICIA Lockett Ot V72.84 EXAM PRE-OPERATIVE NOS 10/23/2017 JESS FRANCIS DO Ot 278. 00 OBESITY, NOS 10/23/2017 JSES FRANCIS DO Ot 305. 1 TOBACCO USE DISORDER 10/23/2017 JESS FRANCIS DO Ot 327. 23 OBSTRUCTIVE SLEEP APNEA (ADULT) (PEDIATR 10/23/2017 JESS FRANCIS DO Ot 496 CHR AIRWAY OBSTRUCT NEC 10/23/2017 JESS FRANCIS DO Ot 786. 09 RESPIRATORY ABNORM NEC 10/23/2017 SANDHYA DE LA GARZA SOUND DESIGNER Ot J44.9 CHRONIC OBSTRUCTIVE PULMONARY DISEASE, U 10/23/2017 SANDHYA DE LA GARZA SOUND DESIGNER Ot R06.09 OTHER FORMS OF DYSPNEA 10/23/2017 IGNACIA BEAVERS, SELAM E Ot I70.203 UNSP ATHSCL [place] ARTERIES OF EXTREMITI 10/23/2017 Ot E10.9 TYPE 1 DIABETES MELLITUS WITHOUT COMPLIC 10/23/2017 VICK VARGAS SOUND DESIGNER Ot M25.552 PAIN IN LEFT HIP 10/23/2017 FRANDY ALBERT SOUND DESIGNER Ot G47.33 OBSTRUCTIVE SLEEP APNEA (ADULT) (PEDIATR 10/24/2017 FRANDY ALBERT SOUND DESIGNER Ot G47.33 OBSTRUCTIVE SLEEP APNEA (ADULT) (PEDIATR 11/04/2017 ROOSEVELTFRANDY SOUND DESIGNER Ot G47.33 OBSTRUCTIVE SLEEP APNEA (ADULT) (PEDIATR 11/07/2017 ROOSEVELTFRANDY SOUND DESIGNER Ot G47.33 OBSTRUCTIVE SLEEP APNEA (ADULT) (PEDIATR 11/29/2017 SANDHYA DE LA GARZA SOUND DESIGNER Ot J44.9 CHRONIC OBSTRUCTIVE PULMONARY DISEASE, U 11/29/2017 SANDHYA DE LA GARZA SOUND DESIGNER Ot R06.09 OTHER FORMS OF DYSPNEA 11/29/2017 SANDHYA DE LA GARZA SOUND DESIGNER Ot R09.02 HYPOXEMIA 11/29/2017 SANDHYA DE LA GARZA SOUND DESIGNER Ot Z72.0 TOBACCO USE 12/05/2017 SANDHYA DE LA GARZA SOUND DESIGNER Ot J44.9 CHRONIC OBSTRUCTIVE PULMONARY DISEASE, U 12/05/2017 SANDHYA DE LA GARZA SOUND DESIGNER Ot R06.09 OTHER FORMS OF DYSPNEA 12/05/2017 SANDHYA DE LA GARZA SOUND DESIGNER Ot R09.02 HYPOXEMIA 12/05/2017 SANDHYA DE LA GARZA SOUND DESIGNER Ot Z72.0 TOBACCO USE 12/06/2017 SANDHYA DE LA GARZA SOUND DESIGNER Ot J44.9 CHRONIC OBSTRUCTIVE PULMONARY DISEASE, U 12/06/2017 SANDHYA DE LA GARZA SOUND DESIGNER Ot R06.09 OTHER FORMS OF DYSPNEA 12/06/2017 HOLLI, SANDHYA E SOUND DESIGNER Ot R09.02 HYPOXEMIA 12/06/2017 HOLLI, SANDHYA E SOUND DESIGNER Ot Z72.0 TOBACCO USE 12/14/2017 HOLLI, SANDHYA E SOUND DESIGNER Ot J44.9 CHRONIC OBSTRUCTIVE PULMONARY DISEASE, U 12/14/2017 HOLLI, SANDHYA E SOUND DESIGNER Ot R06.09 OTHER FORMS OF DYSPNEA 12/14/2017 HOLLI, SANDHYA E SOUND DESIGNER Ot R09.02 HYPOXEMIA 12/14/2017 HOLLI, SANDHYA E SOUND DESIGNER Ot Z72.0 TOBACCO USE 12/21/2017 HOLLI, SANDHYA E SOUND DESIGNER Ot J44.9 CHRONIC OBSTRUCTIVE PULMONARY DISEASE, U 12/21/2017 HOLLI, SANDHYA E SOUND DESIGNER Ot R06.09 OTHER FORMS OF DYSPNEA 12/21/2017 HOLLI, SANDHYA E SOUND DESIGNER Ot R09.02 HYPOXEMIA 12/21/2017 HOLLI, SANDHYA E SOUND DESIGNER Ot Z72.0 TOBACCO USE 12/26/2017 HOLLI, SANDHYA E SOUND DESIGNER Ot J44.9 CHRONIC OBSTRUCTIVE PULMONARY DISEASE, U 12/26/2017 HOLLI, SANDHYA E SOUND DESIGNER Ot R06.09 OTHER FORMS OF DYSPNEA 12/26/2017 HOLLI, SANDHYA E SOUND DESIGNER Ot R09.02 HYPOXEMIA 12/26/2017 HOLLI, SANDHYA E SOUND DESIGNER Ot Z72.0 TOBACCO USE 12/28/2017 HOLLI, SANDHYA E SOUND DESIGNER Ot J44.9 CHRONIC OBSTRUCTIVE PULMONARY DISEASE, U 12/28/2017 HOLLI, SANDHYA E SOUND DESIGNER Ot R06.09 OTHER FORMS OF DYSPNEA 12/28/2017 HOLLI, SANDHYA E SOUND DESIGNER Ot R09.02 HYPOXEMIA 12/28/2017 HOLLI, SANDHYA E SOUND DESIGNER Ot Z72.0 TOBACCO USE 12/28/2017 HOLLI, SANDHYA E SOUND DESIGNER Ot J44.9 CHRONIC OBSTRUCTIVE PULMONARY DISEASE, U 12/28/2017 HOLLI, SANDHYA E SOUND DESIGNER Ot R06.09 OTHER FORMS OF DYSPNEA 12/28/2017 HOLLI, SANDHYA E SOUND DESIGNER Ot R09.02 HYPOXEMIA 12/28/2017 HOLLI, SANDHYA E SOUND DESIGNER Ot Z72.0 TOBACCO USE 01/04/2018 HOLLI, SANDHYA E SOUND DESIGNER Ot J44.9 CHRONIC OBSTRUCTIVE PULMONARY DISEASE, U 01/04/2018 HOLLI, SANDHYA E SOUND DESIGNER Ot R06.09 OTHER FORMS OF DYSPNEA 01/04/2018 HOLLI, SANDHYA E SOUND DESIGNER Ot R09.02 HYPOXEMIA 01/04/2018 HOLLI, SANDHYA E SOUND DESIGNER Ot Z72.0 TOBACCO USE 01/09/2018 HOLLI, SANDHYA E SOUND DESIGNER Ot J44.9 CHRONIC OBSTRUCTIVE PULMONARY DISEASE, U 01/09/2018 HOLLI, SANDHYA E SOUND DESIGNER Ot R06.09 OTHER FORMS OF DYSPNEA 01/09/2018 HOLLI, SANDHYA E SOUND DESIGNER Ot R09.02 HYPOXEMIA 01/09/2018 HOLLI, SANDHYA E SOUND DESIGNER Ot Z72.0 TOBACCO USE 01/11/2018 HOLLI, SANDHYA E SOUND DESIGNER Ot J44.9 CHRONIC OBSTRUCTIVE PULMONARY DISEASE, U 01/11/2018 HOLLI, SANDHYA E SOUND DESIGNER Ot R06.09 OTHER FORMS OF DYSPNEA 01/11/2018 HOLLI, SANDHYA E SOUND DESIGNER Ot R09.02 HYPOXEMIA 01/11/2018 HOLLI, SANDHYA E SOUND DESIGNER Ot Z72.0 TOBACCO USE 01/16/2018 HOLLI, SANDHYA E SOUND DESIGNER Ot J44.9 CHRONIC OBSTRUCTIVE PULMONARY DISEASE, U 01/16/2018 HOLLI, SANDHYA E SOUND DESIGNER Ot R06.09 OTHER FORMS OF DYSPNEA 01/16/2018 HOLLI, SANDHYA E SOUND DESIGNER Ot R09.02 HYPOXEMIA 01/16/2018 HOLLI, SANDHYA E SOUND DESIGNER Ot Z72.0 TOBACCO USE 01/16/2018 HOLLI, SANDHYA E SOUND DESIGNER Ot J44.9 CHRONIC OBSTRUCTIVE PULMONARY DISEASE, U 01/16/2018 HOLLI, SANDHYA E SOUND DESIGNER Ot R06.09 OTHER FORMS OF DYSPNEA 01/16/2018 HOLLI, SANDHYA E SOUND DESIGNER Ot R09.02 HYPOXEMIA 01/16/2018 HOLLI, SANDHYA E SOUND DESIGNER Ot Z72.0 TOBACCO USE 01/23/2018 HOLLI, SANDHYA E SOUND DESIGNER Ot J44.9 CHRONIC OBSTRUCTIVE PULMONARY DISEASE, U 01/23/2018 HOLLI, SANDHYA E SOUND DESIGNER Ot R06.09 OTHER FORMS OF DYSPNEA 01/23/2018 HOLLI, SANDHYA E SOUND DESIGNER Ot R09.02 HYPOXEMIA 01/23/2018 HOLLI, SANDHYA E SOUND DESIGNER Ot Z72.0 TOBACCO USE 01/25/2018 HOLLI, SANDHYA E SOUND DESIGNER Ot J44.9 CHRONIC OBSTRUCTIVE PULMONARY DISEASE, U 01/25/2018 HOLLI, SANDHYA E SOUND DESIGNER Ot R06.09 OTHER FORMS OF DYSPNEA 01/25/2018 HOLLI, SANDHYA E SOUND DESIGNER Ot R09.02 HYPOXEMIA 01/25/2018 HOLLI, SANDHYA E SOUND DESIGNER Ot Z72.0 TOBACCO USE 01/25/2018 HOLLI, SANDHYA E SOUND DESIGNER Ot J44.9 CHRONIC OBSTRUCTIVE PULMONARY DISEASE, U 01/25/2018 HOLLI, SANDHYA E SOUND DESIGNER Ot R06.09 OTHER FORMS OF DYSPNEA 01/25/2018 HOLLI, SANDHYA E SOUND DESIGNER Ot R09.02 HYPOXEMIA 01/25/2018 HOLLI, SANDHYA E SOUND DESIGNER Ot Z72.0 TOBACCO USE 01/28/2018 HOLLI, SANDHYA E SOUND DESIGNER Ot J44.9 CHRONIC OBSTRUCTIVE PULMONARY DISEASE, U 01/28/2018 HOLLI, SANDHYA E SOUND DESIGNER Ot R06.09 OTHER FORMS OF DYSPNEA 01/28/2018 HOLLI, SANDHYA E SOUND DESIGNER Ot R09.02 HYPOXEMIA 01/28/2018 HOLLI, SANDHYA E SOUND DESIGNER Ot Z72.0 TOBACCO USE 01/29/2018 HOLLI, SANDHYA E SOUND DESIGNER Ot J44.9 CHRONIC OBSTRUCTIVE PULMONARY DISEASE, U 01/29/2018 HOLLI, SANDHYA E SOUND DESIGNER Ot R06.09 OTHER FORMS OF DYSPNEA 01/29/2018 HOLLI, SANDHYA E SOUND DESIGNER Ot R09.02 HYPOXEMIA 01/29/2018 HOLLI, SANDHYA E SOUND DESIGNER Ot Z72.0 TOBACCO USE 02/01/2018 HOLLI, SANDHYA E SOUND DESIGNER Ot J44.9 CHRONIC OBSTRUCTIVE PULMONARY DISEASE, U 02/01/2018 HOLLI, SANDHYA E SOUND DESIGNER Ot R06.09 OTHER FORMS OF DYSPNEA 02/01/2018 HOLLI, SANDHYA E SOUND DESIGNER Ot R09.02 HYPOXEMIA 02/01/2018 HOLLI, SANDHYA E SOUND DESIGNER Ot Z72.0 TOBACCO USE 02/02/2018 HOLLI, SANDHYA E SOUND DESIGNER Ot J44.9 CHRONIC OBSTRUCTIVE PULMONARY DISEASE, U 02/02/2018 HOLLI, SANDHYA E SOUND DESIGNER Ot R06.09 OTHER FORMS OF DYSPNEA 02/02/2018 HOLLI, SANDHYA E SOUND DESIGNER Ot R09.02 HYPOXEMIA 02/02/2018 HOLLI, SANDHYA E SOUND DESIGNER Ot Z72.0 TOBACCO USE 03/02/2018 HOLLI, SANDHYA E SOUND DESIGNER Ot J44.9 CHRONIC OBSTRUCTIVE PULMONARY DISEASE, U 03/02/2018 SANDHYA DE LA GARZA SOUND DESIGNER Ot R06.09 OTHER FORMS OF DYSPNEA 03/02/2018 SANDHYA DE LA GARZA SOUND DESIGNER Ot R09.02 HYPOXEMIA 03/02/2018 SANDHYA DE LA GARZA SOUND DESIGNER Ot Z72.0 TOBACCO USE 03/07/2018 SANDHYA DE LA GARZA SOUND DESIGNER Ot J44.9 CHRONIC OBSTRUCTIVE PULMONARY DISEASE, U 03/07/2018 SANDHYA DE LA GARZA SOUND DESIGNER Ot R06.09 OTHER FORMS OF DYSPNEA 03/07/2018 SANDHYA DE LA GARZA SOUND DESIGNER Ot R09.02 HYPOXEMIA 03/07/2018 SANDHYA DE LA GARZA SOUND DESIGNER Ot Z72.0 TOBACCO USE 04/25/2018 Ot Z01.818 EN COUNTER FOR OTHER PREPROCEDURAL EXAMIN 04/30/2018 JEFFREY BEAVERS, PATRICIA Lockett Ot V72.84 EXAM PRE-OPERATIVE NOS 04/30/2018 JEFFREY BEAVERS, PATRICIA Lockett Ot 530.81 ESOPHAGEAL REFLUX 04/30/2018 JEFFREY BEAVERS, PATRICIA Lockett Ot V72.84 EXAM PRE-OPERATIVE NOS 04/30/2018 JESS FRANCIS DO Ot 278. 00 OBESITY, NOS 04/30/2018 JESS FRANCIS DO Ot 305. 1 TOBACCO USE DISORDER 04/30/2018 JESS FRANCIS DO Ot 327. 23 OBSTRUCTIVE SLEEP APNEA (ADULT) (PEDIATR 04/30/2018 JESS FRANCIS DO Ot 496 CHR AIRWAY OBSTRUCT NEC 04/30/2018 JESS FRANCIS DO Ot 786. 09 RESPIRATORY ABNORM NEC 04/30/2018 SANDHYA DE LA GARZA APRN Ot J44.9 CHRONIC OBSTRUCTIVE PULMONARY DISEASE, U 04/30/2018 SANDHYA DE LA GARZA SOUND DESIGNER Ot R06.09 OTHER FORMS OF DYSPNEA 04/30/2018 IGNACIA BEAVERS, SELAM E Ot I70.203 UNSP ATHSCL [place] ARTERIES OF EXTREMITI 04/30/2018 Ot E10.9 TYPE 1 DIABETES MELLITUS WITHOUT COMPLIC 04/30/2018 VICK VARGAS SOUND DESIGNER Ot M25.552 PAIN IN LEFT HIP 04/30/2018 SANDHYA DE LA GARZA SOUND DESIGNER Ot J44.9 CHRONIC OBSTRUCTIVE PULMONARY DISEASE, U 04/30/2018 SANDHYA DE LA GARZA SOUND DESIGNER Ot R06.09 OTHER FORMS OF DYSPNEA 04/30/2018 SANDHYA DE LA GARZA APRN Ot R09.02 HYPOXEMIA 04/30/2018 SANDHYA DE LA GARZA APRN Ot Z72.0 TOBACCO USE 04/30/2018 EDIEROSSY DO DUC B Ot E11.9 TYPE 2 DIABETES MELLITUS WITHOUT COMPLIC 04/30/2018 EDIEROSSY DO DUC B Ot G47.3 3 OBSTRUCTIVE SLEEP APNEA (ADULT) (PEDIATR 04/30/2018 EDIEROSSY DUC CYR B Ot I11.9 HYPERTENSIVE HEART DISEASE WITHOUT HEART 04/30/2018 EDIEROSSY DO DUC B Ot I25.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 04/30/2018 EDIEROSSY DUC CYR B Ot J30.9 ALLERGIC RHINITIS, UNSPECIFIED 04/30/2018 DUC CONCEPCION DO B Ot J44.9 CHRONIC OBSTRUCTIVE PULMONARY DISEASE, U 04/30/2018 EDIEROSSY DO DUC B Ot K21.9 GASTRO-ESOPHAGEAL REFLUX DISEASE WITHOUT 04/30/2018 EDIEROSSY DO DUC B Ot K29.7 0 GASTRITIS, UNSPECIFIED, WITHOUT BLEEDING 04/30/2018 EDIEROSSY DO DUC B Ot K44.9 DIAPHRAGMATIC HERNIA WITHOUT OBSTRUCTION 04/30/2018 EDIEROSSY DO DUC B Ot K92.1 MELENA 04/30/2018 EDIEROSSY DO DUC B Ot R09.0 2 HYPOXEMIA 04/30/2018 EDIEROSSY DO DUC B Ot R13.1 4 DYSPHAGIA, PHARYNGOESOPHAGEAL PHASE 04/30/2018 EDIEROSSY DO DUC B Ot Z79.0 2 ASSISTED (CURRENT) USE OF ANTITHROMBOTI 04/30/2018 DUC CONCEPCION DO B Ot Z87.8 91 PERSONAL HISTORY OF NICOTINE DEPENDENCE 04/30/2018 EDIEROSSY DUC CYR B Ot Z95.5 PRESENCE OF CORONARY ANGIOPLASTY IMPLANT 04/30/2018 DUC CONCEPCION DO B Ot Z95.8 10 PRESENCE OF AUTOMATIC (IMPLANTABLE) CARD 05/02/2018 SANDHYA [...] OF DESCENDING COLON 05/03/2018 DUC CONCEPCION DO Ot 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 05/03/2018 DUC CONCEPCION DO B Ot F17.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, CIGARETTES, UNCOMPL 05/03/2018 DUC CONCEPCION DO Ot G47.3 3 OBSTRUCTIVE SLEEP APNEA (ADULT) (PEDIATR 05/03/2018 DUC CONCEPCION DO Ot I10 ESSENTIAL (PRIMARY) HYPERTENSION 05/03/2018 DUC CONCEPCION DO Ot I25.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 05/03/2018 DUC CONCEPCION DO Ot J44.9 CHRONIC OBSTRUCTIVE PULMONARY DISEASE, U 05/03/2018 DUC CONCEPCION DO Ot K64.8 OTHER HEMORRHOIDS 05/03/2018 DUC CONCEPCION DO Ot K92.1 MELENA 05/03/2018 DUC CONCEPCION DO Ot Z79.4 ASSISTED (CURRENT) USE OF INSULIN 05/03/2018 DUC CONCEPCION DO Ot Z95.5 PRESENCE OF CORONARY ANGIOPLASTY IMPLANT 05/03/2018 DUC CONCEPCION DO Ot Z95.8 10 PRESENCE OF AUTOMATIC (IMPLANTABLE) CARD 05/08/2018 DUC CONCEPCION DO Ot D12.0 BENIGN NEOPLASM OF [place] 05/08/2018 DUC CONCEPCION DO Ot D12.3 BENIGN NEOPLASM OF TRANSVERSE COLON 05/08/2018 DUC CONCEPCION DO Ot D12.4 BENIGN NEOPLASM OF DESCENDING COLON 05/08/2018 DUC CONCEPCION DO Ot 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 05/08/2018 CARLENE CYR DUC B Ot F17.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, CIGARETTES, UNCOMPL 05/08/2018 DEREK CONCEPCION DOIC B Ot G47.3 3 OBSTRUCTIVE SLEEP APNEA (ADULT) (PEDIATR 05/08/2018 CARLENE DO DUC B Ot I10 ESSENTIAL (PRIMARY) HYPERTENSION 05/08/2018 CARLENE CYR DUC B Ot I25.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 05/08/2018 DEREK CONCEPCION DOIC B Ot J44.9 CHRONIC OBSTRUCTIVE PULMONARY DISEASE, U 05/08/2018 DEREK CONCEPCION DOIC B Ot K64.8 OTHER HEMORRHOIDS 05/08/2018 DEREK CONCEPCION DOIC B Ot K92.1 MELENA 05/08/2018 DUC CONCEPCION DO B Ot Z79.4 ASSISTED (CURRENT) USE OF INSULIN 05/08/2018 DEREK CONCEPCION DOIC B Ot Z95.5 PRESENCE OF CORONARY ANGIOPLASTY IMPLANT 05/08/2018 DUC CONCEPCION DO B Ot Z95.8 10 PRESENCE OF AUTOMATIC (IMPLANTABLE) CARD 05/08/2018 DEREK CONCEPCION DOIC B Ot D12.0 BENIGN NEOPLASM OF CEC[place] 05/08/2018 DEREK CONCEPCION DOIC B Ot D12.3 BENIGN NEOPLASM OF TRANSVERSE COLON 05/08/2018 DUC CONCEPCION DO B Ot D12.4 BENIGN NEOPLASM OF DESCENDING COLON 05/08/2018 DEREK CONCEPCION DOIC B Ot 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 05/08/2018 DEREK CONCEPCION DOIC B Ot F17.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, CIGARETTES, UNCOMPL 05/08/2018 DUC CONCEPCION DO B Ot G47.3 3 OBSTRUCTIVE SLEEP APNEA (ADULT) (PEDIATR 05/08/2018 DEREK CONCEPCION DOIC B Ot I10 ESSENTIAL (PRIMARY) HYPERTENSION 05/08/2018 DEREK CONCEPCION DOIC B Ot I25.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 05/08/2018 DUC CONCEPCION DO B Ot J44.9 CHRONIC OBSTRUCTIVE PULMONARY DISEASE, U 05/08/2018 DEREK CONCEPCION DOIC B Ot K64.8 OTHER HEMORRHOIDS 05/08/2018 DEREK CONCEPCION DOIC B Ot K92.1 MELENA 05/08/2018 DUC CONCEPCION DO B Ot Z79.4 QUANTITATIVE SOFTWARE ENGINEER (CURRENT) USE OF INSULIN 05/08/2018 DUC CONCEPCION DO Ot Z95.5 PRESENCE OF CORONARY ANGIOPLASTY IMPLANT 05/08/2018 DUC CONCEPCION DO Ot Z95.8 10 PRESENCE OF AUTOMATIC (IMPLANTABLE) CARD 05/28/2018 IDBEIS, [...] BADR Final I25.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 9 TYPE 2 DIABETES MELLITUS WITHOUT COMPLIC 07/13/2018 FLORENTINO RIVAS MD, Ot G47. 33 OBSTRUCTIVE SLEEP APNEA (ADULT) (PEDIATR 07/13/2018 FLORENTINO RIVAS MD Ot I07. 1 RHEUMATIC TRICUSPID INSUFFICIENCY 07/13/2018 FLORENTINO RIVAS MD, Ot I10 ESSENTIAL (PRIMARY) HYPERTENSION 07/13/2018 FLORENTINO RIVAS MD, Ot I25. 1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 07/13/2018 FLORENTINO RIVAS MD Ot I48. 0 PAROXYSMAL ATRIAL FIBRILLATION 07/13/2018 FLORENTINO RIVAS MD Ot K64. 0 FIRST DEGREE HEMORRHOIDS 07/13/2018 FLORENTINO RIVAS MD Ot R06. 09 OTHER FORMS OF DYSPNEA 08/06/2018 FANG BRADY MD Ot Z48.812 ENCNTR FOR SURGICAL AFTCR FOLLOWING SURG 08/06/2018 FANG BRADY MD Ot Z95. 1 PRESENCE OF AORTOCORONARY BYPASS GRAFT 08/06/2018 AFNG BRADY MD R Ot Z95. 2 PRESENCE OF PROSTHETIC HEART VALVE 08/06/2018 FLORENTINO RIVAS MD Ot E11. 9 TYPE 2 DIABETES MELLITUS WITHOUT COMPLIC 08/06/2018 FLORENTINO RIVAS MD Ot G47. 33 OBSTRUCTIVE SLEEP APNEA (ADULT) (PEDIATR 08/06/2018 FLORENTINO RIVAS MD Ot I07. 1 RHEUMATIC TRICUSPID INSUFFICIENCY 08/06/2018 FLORENTINO RIVAS MD Ot I10 ESSENTIAL (PRIMARY) HYPERTENSION 08/06/2018 FLORENTINO RIVAS MD Ot I25. 1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 08/06/2018 FLORENTINO RIVAS MD Ot I48. 0 PAROXYSMAL ATRIAL FIBRILLATION 08/06/2018 FLORENTINO RIVAS MD Ot K64. 0 FIRST DEGREE HEMORRHOIDS 08/06/2018 FLORENTINO RIVAS MD Ot R06. 09 OTHER FORMS OF DYSPNEA 08/09/2018 FANG BRADY MD R Ot Z48.812 ENCNTR FOR SURGICAL AFTCR FOLLOWING SURG 08/09/2018 FANG BRADY MD R Ot Z95. 1 PRESENCE OF AORTOCORONARY BYPASS GRAFT 08/09/2018 FANG BRADY MD R Ot Z95. 2 PRESENCE OF PROSTHETIC HEART VALVE 08/09/2018 FLORENTINO RIVAS MD Ot E11. 9 TYPE 2 DIABETES MELLITUS WITHOUT COMPLIC 08/09/2018 FLORENTINO RIVAS MD Ot G47. 33 OBSTRUCTIVE SLEEP APNEA (ADULT) (PEDIATR 08/09/2018 FLORENTINO RIVAS MD Ot I07. 1 RHEUMATIC TRICUSPID INSUFFICIENCY 08/09/2018 FLORENTINO RIVAS MD Ot I10 ESSENTIAL (PRIMARY) HYPERTENSION 08/09/2018 FLORENTINO RIVAS MD Ot I25. 1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 08/09/2018 FLORENTINO RIVAS MD Ot I48. 0 PAROXYSMAL ATRIAL FIBRILLATION 08/09/2018 FLORENTINO RIVAS MD Ot K64. 0 FIRST DEGREE HEMORRHOIDS 08/09/2018 ROB BEAVERS, FLORENTINO Rodríguez Ot R06. 09 OTHER FORMS OF DYSPNEA 09/04/2018 JEFFREY BEAVERS, PATRICIA Lockett Ot V72.84 EXAM PRE-OPERATIVE NOS 09/04/2018 JEFFREY BEAVERS, PATRICIA Lockett Ot 530.81 ESOPHAGEAL REFLUX 09/04/2018 JEFFREY BEAVERS, PATRICIA Lockett Ot V72.84 EXAM PRE-OPERATIVE NOS 09/04/2018 JESS FRANCIS DO Ot 278. 00 OBESITY, NOS 09/04/2018 JESS FRANCIS DO Ot 305. 1 TOBACCO USE DISORDER 09/04/2018 JESS FRANCIS DO Ot 327. 23 OBSTRUCTIVE SLEEP APNEA (ADULT) (PEDIATR 09/04/2018 JESS FRANCIS DO Ot 496 CHR AIRWAY OBSTRUCT NEC 09/04/2018 JESS FRANCIS DO Ot 786. 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 1 PRESENCE OF AORTOCORONARY BYPASS GRAFT 09/04/2018 FANG BRADY MD, Ot Z95. 2 PRESENCE OF PROSTHETIC HEART VALVE 09/04/2018 FLORENTINO RIVAS MD Ot E11. 9 TYPE 2 DIABETES MELLITUS WITHOUT COMPLIC 09/04/2018 FLORENTINO RIVAS MD Ot G47. 33 OBSTRUCTIVE SLEEP APNEA (ADULT) (PEDIATR 09/04/2018 ROB MD, BASHAR J Ot I07. 1 RHEUMATIC TRICUSPID INSUFFICIENCY 09/04/2018 FLORENTINO RIVAS MD Ot I10 ESSENTIAL (PRIMARY) HYPERTENSION 09/04/2018 FLORENTINO RIVAS MD Ot I25. 1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 09/04/2018 FLORENTINO RIVAS MD Ot I48. 0 PAROXYSMAL ATRIAL FIBRILLATION 09/04/2018 FLORENTINO RIVAS MD Ot K64. 0 FIRST DEGREE HEMORRHOIDS 09/04/2018 FLORENTINO RIVAS MD Ot R06. 09 OTHER FORMS OF DYSPNEA 09/04/2018 JEFFREY BEAVERS, PATRICIA Lockett Ot V72.84 EXAM PRE-OPERATIVE NOS 09/04/2018 PATRICIA MURPHY MD Ot 530.81 ESOPHAGEAL REFLUX 09/04/2018 PATRICIA MURPHY MD Ot V72.84 EXAM PRE-OPERATIVE NOS 09/04/2018 JESS FRANCIS DO Ot 278. 00 OBESITY, NOS 09/04/2018 JESS FRANCIS DO Ot 305. 1 TOBACCO USE DISORDER 09/04/2018 JESS FRANCIS DO Ot 327. 23 OBSTRUCTIVE SLEEP APNEA (ADULT) (PEDIATR 09/04/2018 JESS FRANCIS DO Ot 496 CHR AIRWAY OBSTRUCT NEC 09/04/2018 JESS FRANCIS DO Ot 786. 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 1 PRESENCE OF AORTOCORONARY BYPASS GRAFT 09/04/2018 FANG BRADY MD Ot Z95. 2 PRESENCE OF PROSTHETIC HEART VALVE 09/04/2018 FLORENTINO RIVAS MD Ot E11. 9 TYPE 2 DIABETES MELLITUS WITHOUT COMPLIC 09/04/2018 FLORENTINO RIVAS MD Ot G47. 33 OBSTRUCTIVE SLEEP APNEA (ADULT) (PEDIATR 09/04/2018 FLORENTINO RIVAS MD Ot I07. 1 RHEUMATIC TRICUSPID INSUFFICIENCY 09/04/2018 FLORENTINO RIVAS MD Ot I10 ESSENTIAL (PRIMARY) HYPERTENSION 09/04/2018 FLORENTINO RIVAS MD Ot I25. 1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 09/04/2018 FLORENTINO RIVAS MD Ot I48. 0 PAROXYSMAL ATRIAL FIBRILLATION 09/04/2018 FLORENTINO RIVAS MD Ot K64. 0 FIRST DEGREE HEMORRHOIDS 09/04/2018 FLORENTINO RIVAS MD Ot R06. 09 OTHER FORMS OF DYSPNEA 09/23/2018 FANG BRADY MD Ot Z48.812 ENCNTR FOR SURGICAL AFTCR FOLLOWING SURG 09/23/2018 FANG BRADY MD Ot Z95. 1 PRESENCE OF AORTOCORONARY BYPASS GRAFT 09/23/2018 FANG BRADY MD Ot Z95. 2 PRESENCE OF PROSTHETIC HEART VALVE 09/24/2018 FANG BRADY MD Ot Z48.812 ENCNTR FOR SURGICAL AFTCR FOLLOWING SURG 09/24/2018 FANG BRADY MD Ot Z95. 1 PRESENCE OF AORTOCORONARY BYPASS GRAFT 09/24/2018 FANG BRADY MD Ot Z95. 2 PRESENCE OF PROSTHETIC HEART VALVE 10/03/2018 PATRICIA MURPHY MD Ot V72.84 EXAM PRE-OPERATIVE NOS 10/03/2018 PATRICIA MURPHY MD Ot 530.81 ESOPHAGEAL REFLUX 10/03/2018 PATRICIA MURPHY MD Ot V72.84 EXAM PRE-OPERATIVE NOS 10/03/2018 JESS FRANCIS DO Ot 278. 00 OBESITY, NOS 10/03/2018 JESS FRANCIS DO Ot 305. 1 TOBACCO USE DISORDER 10/03/2018 JESS FRANCIS DO Ot 327. 23 OBSTRUCTIVE SLEEP APNEA (ADULT) (PEDIATR 10/03/2018 TITO DO, JESS M Ot 496 CHR AIRWAY OBSTRUCT NEC 10/03/2018 JESS FRANCIS DO Ot 786. 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 9 TYPE 2 DIABETES MELLITUS WITHOUT COMPLIC 10/03/2018 FLORENTINO RIVAS MD Ot G47. 33 OBSTRUCTIVE SLEEP APNEA (ADULT) (PEDIATR 10/03/2018 FLORENTINO RIVAS MD Ot I07. 1 RHEUMATIC TRICUSPID INSUFFICIENCY 10/03/2018 FLORENTINO RIVAS MD Ot I10 ESSENTIAL (PRIMARY) HYPERTENSION 10/03/2018 FLORENTINO RIVAS MD Ot I25. 1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 10/03/2018 FLORENTINO RIVAS MD Ot I48. 0 PAROXYSMAL ATRIAL FIBRILLATION 10/03/2018 FLORENTINO RIVAS MD Ot K64. 0 FIRST DEGREE HEMORRHOIDS 10/03/2018 FLORENTINO RIVAS MD Ot R06. 09 OTHER FORMS OF DYSPNEA 10/03/2018 FANG BRADY MD, Ot Z48.812 ENCNTR FOR SURGICAL AFTCR FOLLOWING SURG 10/03/2018 FANG BRADY MD, Ot Z95. 1 PRESENCE OF AORTOCORONARY BYPASS GRAFT 10/03/2018 FANG BRADY MD, Ot Z95. 2 PRESENCE OF PROSTHETIC HEART VALVE 10/20/2018 FANG BRADY MD, Ot Z48.812 ENCNTR FOR SURGICAL AFTCR FOLLOWING SURG 10/20/2018 FANG BRADY MD, Ot Z95. 1 PRESENCE OF AORTOCORONARY BYPASS GRAFT 10/20/2018 FANG BRADY MD, Ot Z95. 2 PRESENCE OF PROSTHETIC HEART VALVE 10/26/2018 Levy MUÑOZ MD Ot E11 .9 TYPE 2 DIABETES MELLITUS WITHOUT COMPLIC 10/26/2018 Levy MUÑOZ MD, Ot E66 .9 OBESITY, UNSPECIFIED 10/26/2018 Levy MUÑOZ MD, Ot G47.33 OBSTRUCTIVE SLEEP APNEA (ADULT) (PEDIATR 10/26/2018 Levy MUÑOZ MD Ot I10 ESSENTIAL (PRIMARY) HYPERTENSION 10/26/2018 Levy MUÑOZ MD, Ot I25.1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 10/26/2018 Levy MUÑOZ MD, Ot I42 .9 CARDIOMYOPATHY, UNSPECIFIED 10/26/2018 Levy MUÑOZ MD, Ot I48 .0 PAROXYSMAL ATRIAL FIBRILLATION 10/26/2018 Levy MUÑOZ MD, Ot I49 .5 SICK SINUS SYNDROME 10/26/2018 Levy MUÑOZ MD, Ot Z45 .2 ENCOUNTER FOR ADJUSTMENT AND MANAGEMENT 10/26/2018 Levy MUÑOZ MD Ot Z68.30 BODY MASS INDEX (BMI) 30.0-30.9, ADULT 10/26/2018 Levy MUÑOZ MD, Ot Z79.82 ASSISTED (CURRENT) USE OF ASPIRIN 10/26/2018 Levy MUÑOZ MD Ot Z79.84 QUANTITATIVE SOFTWARE ENGINEER (CURRENT) USE OF ORAL HYPOGLYC 10/26/2018 Levy MUÑOZ MD, Ot Z79.899 OTHER ASSISTED (CURRENT) DRUG THERAPY 10/26/2018 Levy MUÑOZ MD, Ot Z87.891 PERSONAL HISTORY OF NICOTINE DEPENDENCE 10/26/2018 Levy MUÑOZ MD, Ot Z95 .1 PRESENCE OF AORTOCORONARY BYPASS GRAFT 10/26/2018 Levy MUÑOZ MD Ot Z95 .2 PRESENCE OF PROSTHETIC HEART VALVE 10/30/2018 Levy MUÑOZ MD Ot E11 .9 TYPE 2 DIABETES MELLITUS WITHOUT COMPLIC 10/30/2018 Levy MUÑOZ MD Ot E66 .9 OBESITY, UNSPECIFIED 10/30/2018 Levy MUÑOZ MD Ot G47.33 OBSTRUCTIVE SLEEP APNEA (ADULT) (PEDIATR 10/30/2018 Levy MUÑOZ MD Ot I10 ESSENTIAL (PRIMARY) HYPERTENSION 10/30/2018 Levy MUÑOZ MD Ot I25.1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 10/30/2018 Levy MUÑOZ MD Ot I42 .9 CARDIOMYOPATHY, UNSPECIFIED 10/30/2018 Levy MUÑOZ MD Ot I48 .0 PAROXYSMAL ATRIAL FIBRILLATION 10/30/2018 Levy MUÑOZ MD, Ot I49 .5 SICK SINUS SYNDROME 10/30/2018 Levy MUÑOZ MD Ot Z45 .2 ENCOUNTER FOR ADJUSTMENT AND MANAGEMENT 10/30/2018 Levy MUÑOZ MD Ot Z68.30 BODY MASS INDEX (BMI) 30.0-30.9, ADULT 10/30/2018 Levy MUÑOZ MD Ot Z79.82 ASSISTED (CURRENT) USE OF ASPIRIN 10/30/2018 Levy MUÑOZ MD Ot Z79.84 ASSISTED (CURRENT) USE OF ORAL HYPOGLYC 10/30/2018 Levy MUÑOZ MD Ot Z79.899 OTHER QUANTITATIVE SOFTWARE ENGINEER (CURRENT) DRUG THERAPY 10/30/2018 Levy MUÑOZ MD Ot Z87.891 PERSONAL HISTORY OF NICOTINE DEPENDENCE 10/30/2018 Levy MUÑOZ MD Ot Z95 .1 PRESENCE OF AORTOCORONARY BYPASS GRAFT 10/30/2018 Levy MUÑOZ MD Ot Z95 .2 PRESENCE OF PROSTHETIC HEART VALVE 10/30/2018 Levy MUÑOZ MD Ot E11 .9 TYPE 2 DIABETES MELLITUS WITHOUT COMPLIC 10/30/2018 Levy MUÑOZ MD Ot E66 .9 OBESITY, UNSPECIFIED 10/30/2018 Levy MUÑOZ MD Ot G47.33 OBSTRUCTIVE SLEEP APNEA (ADULT) (PEDIATR 10/30/2018 Levy MUÑOZ MD Ot I10 ESSENTIAL (PRIMARY) HYPERTENSION 10/30/2018 Levy MUÑOZ MD, Ot I25.1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 10/30/2018 Levy MUÑOZ MD, Ot I42 .9 CARDIOMYOPATHY, UNSPECIFIED 10/30/2018 Levy MUÑOZ MD, Ot I48 .0 PAROXYSMAL ATRIAL FIBRILLATION 10/30/2018 Levy MUÑOZ MD, Ot I49 .5 SICK SINUS SYNDROME 10/30/2018 Levy MUÑOZ MD, Ot Z45 .2 ENCOUNTER FOR ADJUSTMENT AND MANAGEMENT 10/30/2018 Levy MUÑOZ MD, Ot Z68.30 BODY MASS INDEX (BMI) 30.0-30.9, ADULT 10/30/2018 Levy MUÑOZ MD, Ot Z79.82 ASSISTED (CURRENT) USE OF ASPIRIN 10/30/2018 Levy MUÑOZ MD, Ot Z79.84 QUANTITATIVE SOFTWARE ENGINEER (CURRENT) USE OF ORAL HYPOGLYC 10/30/2018 Levy MUÑOZ MD, Ot Z79.899 OTHER QUANTITATIVE SOFTWARE ENGINEER (CURRENT) DRUG THERAPY 10/30/2018 Levy MUÑOZ MD, Ot Z87.891 PERSONAL HISTORY OF NICOTINE DEPENDENCE 10/30/2018 Levy MUÑOZ MD, Ot Z95 .1 PRESENCE OF AORTOCORONARY BYPASS GRAFT 10/30/2018 Levy MUÑOZ MD, Ot Z95 .2 PRESENCE OF PROSTHETIC HEART VALVE 11/07/2018 FANG BRADY MD Ot Z48.812 ENCNTR FOR SURGICAL AFTCR FOLLOWING SURG 11/07/2018 FANG BRADY MD Ot Z95. 1 PRESENCE OF AORTOCORONARY BYPASS GRAFT 11/07/2018 FANG BRADY MD Ot Z95. 2 PRESENCE OF PROSTHETIC HEART VALVE 11/12/2018 FANG BRADY MD Ot Z48.812 ENCNTR FOR SURGICAL AFTCR FOLLOWING SURG 11/12/2018 FANG BRADY MD Ot Z95. 1 PRESENCE OF AORTOCORONARY BYPASS GRAFT 11/12/2018 FANG BRADY MD Ot Z95. 2 PRESENCE OF PROSTHETIC HEART VALVE 12/07/2018 PATRICIA MURPHY MD, Ot V72.84 EXAM PRE-OPERATIVE NOS 12/07/2018 MURPHY MD, PATRICIA M Ot 530.81 ESOPHAGEAL REFLUX 12/07/2018 JEFFREY BEAVERS, PATRICIA Lockett Ot V72.84 EXAM PRE-OPERATIVE NOS 12/07/2018 JESS FRANCIS DO Ot 278. 00 OBESITY, NOS 12/07/2018 JESS FRANCIS DO Ot 305. 1 TOBACCO USE DISORDER 12/07/2018 JESS FRANCIS DO Ot 327. 23 OBSTRUCTIVE SLEEP APNEA (ADULT) (PEDIATR 12/07/2018 JESS FRANCIS DO Ot 496 CHR AIRWAY OBSTRUCT NEC 12/07/2018 JESS FRANCIS DO Ot 786. 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 9 TYPE 2 DIABETES MELLITUS WITHOUT COMPLIC 12/07/2018 FLORENTINO RIVAS MD Ot G47. 33 OBSTRUCTIVE SLEEP APNEA (ADULT) (PEDIATR 12/07/2018 FLORENTINO RIVAS MD Ot I07. 1 RHEUMATIC TRICUSPID INSUFFICIENCY 12/07/2018 FLORENTINO RIVAS MD Ot I10 ESSENTIAL (PRIMARY) HYPERTENSION 12/07/2018 FLORENTINO RIVAS MD Ot I25. 1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 12/07/2018 FLORENTINO RIVAS MD Ot I48. 0 PAROXYSMAL ATRIAL FIBRILLATION 12/07/2018 FLORENTINO RIVAS MD Ot K64. 0 FIRST DEGREE HEMORRHOIDS 12/07/2018 FLORENTINO RIVAS MD Ot R06. 09 OTHER FORMS OF DYSPNEA 12/07/2018 CAITLYN BEAVERS, FANG Easley Ot Z48.812 ENCNTR FOR SURGICAL AFTCR FOLLOWING SURG 12/07/2018 FANG BRADY MD Ot Z95. 1 PRESENCE OF AORTOCORONARY BYPASS GRAFT 12/07/2018 FANG BRADY MD Ot Z95. 2 PRESENCE OF PROSTHETIC HEART VALVE 12/23/2018 FANG BRADY MD, Ot Z48.812 ENCNTR FOR SURGICAL AFTCR FOLLOWING SURG 12/23/2018 FANG BRADY MD, Ot Z95. 1 PRESENCE OF AORTOCORONARY BYPASS GRAFT 12/23/2018 FANG BRADY MD, Ot Z95. 2 PRESENCE OF PROSTHETIC HEART VALVE 02/02/2019 ROB BEAVERS, FLORENTINO Rodríguez Ot Z29. 8 ENCOUNTER FOR OTHER SPECIFIED PROPHYLACT 02/05/2019 Levy MUÑOZ MD Ot E11 .9 TYPE 2 DIABETES MELLITUS WITHOUT COMPLIC 02/05/2019 Levy MUÑOZ MD Ot E66 .9 OBESITY, UNSPECIFIED 02/05/2019 Levy MUÑOZ MD, Ot G47.33 OBSTRUCTIVE SLEEP APNEA (ADULT) (PEDIATR 02/05/2019 Levy MUÑOZ MD Ot I10 ESSENTIAL (PRIMARY) HYPERTENSION 02/05/2019 Levy MUÑOZ MD, Ot I25.1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 02/05/2019 Levy MUÑOZ MD Ot I42 .9 CARDIOMYOPATHY, UNSPECIFIED 02/05/2019 Levy MUÑOZ MD Ot I48 .0 PAROXYSMAL ATRIAL FIBRILLATION 02/05/2019 Levy MUÑOZ MD, Ot I49 .5 SICK SINUS SYNDROME 02/05/2019 Levy MUÑOZ MD, Ot T82.110A BREAKDOWN (MECHANICAL) OF CARDIAC ELECTR 02/05/2019 Levy MUÑOZ MD Ot Z68.30 BODY MASS INDEX (BMI) 30.0-30.9, ADULT 02/05/2019 Levy MUÑOZ MD, Ot Z79.82 QUANTITATIVE SOFTWARE ENGINEER (CURRENT) USE OF ASPIRIN 02/05/2019 Levy MUÑOZ MD, Ot Z79.84 QUANTITATIVE SOFTWARE ENGINEER (CURRENT) USE OF ORAL HYPOGLYC 02/05/2019 Levy MUÑOZ MD, Ot Z79.899 OTHER QUANTITATIVE SOFTWARE ENGINEER (CURRENT) DRUG THERAPY 02/05/2019 Levy MUÑOZ MD Ot Z87.891 PERSONAL HISTORY OF NICOTINE DEPENDENCE 02/05/2019 TONI BEAVERS, Levy CARVALHO Ot Z95 .1 PRESENCE OF AORTOCORONARY BYPASS GRAFT 02/05/2019 Levy MUÑOZ MD Ot Z95 .2 PRESENCE OF PROSTHETIC HEART VALVE 03/07/2019 FLORENTINO RIVAS MD Ot Z29. 8 ENCOUNTER FOR OTHER SPECIFIED PROPHYLACT 03/08/2019 FLORENTINO RIVAS MD Ot Z29. 8 ENCOUNTER FOR OTHER SPECIFIED PROPHYLACT 03/18/2019 FANG BRADY MD R Ot R05 COUGH 03/18/2019 FANG BRADY MD R Ot R07. 9 CHEST PAIN, UNSPECIFIED 03/18/2019 FANG BRADY MD R Ot Z95.810 PRESENCE OF AUTOMATIC (IMPLANTABLE) CARD 03/18/2019 FANG BRADY MD R Ot Z98.890 OTHER SPECIFIED POSTPROCEDURAL STATES 03/25/2019 FANG BRADY MD R Ot R05 COUGH 03/25/2019 FANG BRADY MD R Ot R07. 9 CHEST PAIN, UNSPECIFIED 03/25/2019 FANG BRADY MD R Ot Z95.810 PRESENCE OF AUTOMATIC (IMPLANTABLE) CARD 03/25/2019 FANG BRADY MD R Ot Z98.890 OTHER SPECIFIED POSTPROCEDURAL STATES 03/26/2019 SANDHYA DE LA GARZA APRN Ot Z87.891 PERSONAL HISTORY OF NICOTINE DEPENDENCE 03/27/2019 SANDHYA DE LA GARZA APRN Ot Z87.891 PERSONAL HISTORY OF NICOTINE DEPENDENCE 03/29/2019 SANDHYA DE LA GARZA APRN Ot Z87.891 PERSONAL HISTORY OF NICOTINE DEPENDENCE 04/06/2019 FLORENTINO RIVAS MD Ot Z29. 8 ENCOUNTER FOR OTHER SPECIFIED PROPHYLACT 05/09/2019 FLORENTINO RIVAS MD Ot Z29. 8 ENCOUNTER FOR OTHER SPECIFIED PROPHYLACT 05/16/2019 DUC CONCEPCION DO Ot K63.5 POLYP OF COLON 05/16/2019 DUC CONCEPCION DO Ot Z01.8 18 ENCOUNTER FOR OTHER PREPROCEDURAL EXAMIN 05/20/2019 SANDHYA DE LA GARZA APRN Ot G47.10 HYPERSOMNIA, UNSPECIFIED 05/20/2019 SANDHYA DE LA GARZA APRN Ot G47.33 OBSTRUCTIVE SLEEP APNEA (ADULT) (PEDIATR 05/20/2019 SANDHYA DE LA GARZA APRN Ot J30.9 ALLERGIC RHINITIS, UNSPECIFIED 05/20/2019 SANDHYA DE LA GARZA APRN Ot J44.9 CHRONIC OBSTRUCTIVE PULMONARY DISEASE, U 05/20/2019 SANDHYA DE LA GARZA APRN Ot Z72.0 TOBACCO USE 05/20/2019 DUC CONCEPCION DO B Ot D12.3 BENIGN NEOPLASM OF TRANSVERSE COLON 05/20/2019 DUC CONCEPCION DO B Ot D12.4 BENIGN NEOPLASM OF DESCENDING COLON 05/20/2019 DUC CONCEPCION DO B Ot E11.9 TYPE 2 DIABETES MELLITUS WITHOUT COMPLIC 05/20/2019 DEREK CONCEPCION DOIC B Ot G47.3 3 OBSTRUCTIVE SLEEP APNEA (ADULT) (PEDIATR 05/20/2019 DUC CONCEPCION DO B Ot I11.9 HYPERTENSIVE HEART DISEASE WITHOUT HEART 05/20/2019 DUC CONCEPCION DO B Ot I25.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 05/20/2019 DEREK CONCEPCION DOIC B Ot I48.0 PAROXYSMAL ATRIAL FIBRILLATION 05/20/2019 DUC CONCEPCION DO B Ot J44.9 CHRONIC OBSTRUCTIVE PULMONARY DISEASE, U 05/20/2019 DUC CONCEPCION DO B Ot K21.9 GASTRO-ESOPHAGEAL REFLUX DISEASE WITHOUT 05/20/2019 DEREK CONCEPCION DOIC B Ot K64.8 OTHER HEMORRHOIDS 05/20/2019 DUC CONCEPCION DO B Ot L30.9 DERMATITIS, UNSPECIFIED 05/20/2019 DUC CONCEPCION DO B Ot Z79.4 QUANTITATIVE SOFTWARE ENGINEER (CURRENT) USE OF INSULIN 05/20/2019 DUC CONCEPCION DO B Ot Z79.8 4 QUANTITATIVE SOFTWARE ENGINEER (CURRENT) USE OF ORAL HYPOGLYC 05/20/2019 DUC CONCEPCION DO B Ot Z79.8 99 OTHER QUANTITATIVE SOFTWARE ENGINEER (CURRENT) DRUG THERAPY 05/20/2019 DUC CONCEPCION DO B Ot Z82.4 9 FAMILY HX OF ISCHEM HEART DIS AND OTH DI 05/20/2019 DUC CONCEPCION DO B Ot Z87.8 91 PERSONAL HISTORY OF NICOTINE DEPENDENCE 05/20/2019 DUC CONCPECION DO Ot Z95.1 PRESENCE OF AORTOCORONARY BYPASS GRAFT 05/20/2019 DUC CONCEPCION DO Ot Z95.8 10 PRESENCE OF AUTOMATIC (IMPLANTABLE) CARD 05/26/2019 DUC CONCEPCION DO Ot D12.3 BENIGN NEOPLASM OF TRANSVERSE COLON 05/26/2019 DUC CONCEPCION DO B Ot D12.4 BENIGN NEOPLASM OF DESCENDING COLON 05/26/2019 DUC CONCEPCION DO B Ot E11.9 TYPE 2 DIABETES MELLITUS WITHOUT COMPLIC 05/26/2019 DUC CONCEPCION DO Ot G47.3 3 OBSTRUCTIVE SLEEP APNEA (ADULT) (PEDIATR 05/26/2019 DUC CONCEPCION DO B Ot I11.9 HYPERTENSIVE HEART DISEASE WITHOUT HEART 05/26/2019 DUC CONCEPCION DO Ot I25.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 05/26/2019 DUC CONCEPCION DO B Ot I48.0 PAROXYSMAL ATRIAL FIBRILLATION 05/26/2019 DUC CONCEPCION DO B Ot J44.9 CHRONIC OBSTRUCTIVE PULMONARY DISEASE, U 05/26/2019 DUC CONCEPCION DO B Ot K21.9 GASTRO-ESOPHAGEAL REFLUX DISEASE WITHOUT 05/26/2019 DUC CONCEPCION DO B Ot K64.8 OTHER HEMORRHOIDS 05/26/2019 DUC CONCEPCION DO B Ot L30.9 DERMATITIS, UNSPECIFIED 05/26/2019 DUC CONCEPCION DO B Ot Z79.4 ASSISTED (CURRENT) USE OF INSULIN 05/26/2019 DUC CONCEPCION DO B Ot Z79.8 4 QUANTITATIVE SOFTWARE ENGINEER (CURRENT) USE OF ORAL HYPOGLYC 05/26/2019 DUC CONCEPCION DO Ot Z79.8 99 OTHER ASSISTED (CURRENT) DRUG THERAPY 05/26/2019 DUC CONCEPCION DO Ot Z82.4 9 FAMILY HX OF ISCHEM HEART DIS AND OTH DI 05/26/2019 DUC CONCEPCION DO B Ot Z87.8 91 PERSONAL HISTORY OF NICOTINE DEPENDENCE 05/26/2019 DUC CONCEPCION DO Ot Z95.1 PRESENCE OF AORTOCORONARY BYPASS GRAFT 05/26/2019 DUC CONCEPCION DO B Ot Z95.8 10 PRESENCE OF AUTOMATIC (IMPLANTABLE) CARD 06/24/2019 SANDHYA DE LA GARZA APRN Ot J18.9 PNEUMONIA, UNSPECIFIED ORGANISM 06/24/2019 HOLLI, SANDHYA E SOUND DESIGNER Ot J44.9 CHRONIC OBSTRUCTIVE PULMONARY DISEASE, U 06/24/2019 BEN DE LA GARZAINE Dilshad SOUND DESIGNER Ot Z95.0 PRESENCE OF CARDIAC PACEMAKER 06/24/2019 HOLLI SANDHYA Yung SOUND DESIGNER Ot Z98.890 OTHER SPECIFIED POSTPROCEDURAL STATES 07/10/2019 HOLLI, SANDHYA Dilshad SOUND DESIGNER Ot J18.9 PNEUMONIA, UNSPECIFIED ORGANISM 07/10/2019 HOLLI SANDHYA Yung SOUND DESIGNER Ot J44.9 CHRONIC OBSTRUCTIVE PULMONARY DISEASE, U 07/10/2019 HOLLI SANDHYA Yung SOUND DESIGNER Ot Z95.0 PRESENCE OF CARDIAC PACEMAKER 07/10/2019 HOLLI, SANDHYA Dilshad SOUND DESIGNER Ot Z98.890 OTHER SPECIFIED POSTPROCEDURAL STATES 11/08/2019 W J01.80 Oth er acute sinusitis Luba Albert 11/08/2019 W J30.89 Oth er allergic rhinitis Luba Albert 11/08/2019 W R05 Cough Luba Albert 11/08/2019 W E11.9 Type 2 diabetes mellitus without complications Kelsey Lux 11/08/2019 W 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 Kelsey Lux 11/08/2019 W I10 Essent ial (primary) hypertension Kelsey Lux Procedures Code Description Performed By Per formed On [id number] By pass Coronary Artery, Two Arteries from Aorta with Autologous Venous Tissue, Open Approach [facility], [facility] 05/24/2018 [id number] De struction of Conduction Mechanism, Open Approach [facility], [facility] [place] [facility] [id number] Oc clusion of Left Atrial Appendage, Open Approach IDBEIS, [facility] 8 [id number] Bhakta pplement Mitral Valve with Synthetic Substitute, Open Approach [facility], [facility] [place] 05/24/2018 [id number] In sertion of Monitoring Device into Upper Artery, Percutaneous Approach [place] [facility] 05/24/2018 [id number] In sertion of Infusion Device into Right Internal Jugular Vein, Percutaneous Approach [place] [facility] 05/24/2018 [id number] Ex cision of Left Saphenous Vein, Percutaneous Endoscopic Approach [facility], [facility] [place] 05/24/2018 [id number] Pe rformance of Cardiac Output, Continuous [facility], [facility] [place] 05/24/2018 [id number] Ul trasonography of Right and Left Heart IDBEIS, [facility] 05/24/2018 Results Test Result Range Capillary blood glucose measurement by g lucometer (mass/volume) - 02/07/17 06:28 Capillary blood glucose measurement by glucometer (mas s/volume) 82 mg/dL 70-110 Methicillin resistant Staphylococcus aur eus (MRSA) screening culture - 02/07/17 06:30 Methicillin resistant Staphylococcus aureus (MRSA) scr eening culture NEG NRG CBC W/DIFF - 03/09/17 12:16 BASOPHIL # 0.1 k/cumm 0.0-0.2 BASOPHIL % 1 % 0-1 EOSINOPHIL # 0.4 k/cumm 0.1-0.5 EOSINOPHIL % 5 % 2-4 GRANULOCYTE # 6.3 k/cumm 2.0-9.0 GRANULOCYTE % 65 % 50-75 LYMPHOCYTE # 2.0 k/cumm 1.0-4.0 LYMPHOCYTE % 21 % 20-30 MEAN CELL HGB 30.3 pg 27.0-33.0 MEAN CELL HGB CONCENTRATION 34.3 g/dL 32 .0-37.0 MEAN CELL VOLUME 88.4 fl 80.0-100.0 MONOCYTE # 0.9 k/cumm 0.1-1.0 MONOCYTE % 9 % 4-6 RED BLOOD CELL 4.65 m/cumm 4.00-6.00 RED CELL DISTRIBUTION WIDTH 14.5 % 11 .0-15.6 WHITE BLOOD CELL 9.6 k/cumm 5.0-10.0 HEMOGLOBIN 14.1 gm/dL 14.0-18.0 HEMATOCRIT 41.1 % 40.0-54.0 PLATELET COUNT 238 k/cumm 150-450 PROTHROMBIN TIME WITH INR - 03/09/17 12: 16 INTERNATIONAL NORMAL RATIO 1.2 0.9 -1.1 PROTHROMBIN TIME 13.9 sec 10.0-12.8 METABOLIC PANEL, [...] 70-99 Influenza virus A and B antigen detectio n - 09/07/17 21:32 FLU RESULT NEGATIVE FOR INFLUENZA A AND B ANTIGENS BY IA [facility] Complete blood count (CBC) with automate d white blood cell (WBC) differential - 09/07/17 21:37 Blood leukocytes automated count (number/volume) 10.2 10*3/uL 4.3-11.0 Blood erythrocytes automated count (number/volume) 4.50 10*6/uL 4.35-5.85 Venous blood hemoglobin measurement (mass/volume) 14.0 g/dL 13.3-17.7 Blood hematocrit (volume fraction) 40 % 40-54 Automated erythrocyte mean corpuscular volume 89 [ foz_us] 80-99 Automated erythrocyte mean corpuscular h emoglobin (mass per erythrocyte) 31 pg 25-34 Automated erythrocyte mean corpuscular h emoglobin concentration measurement (mass/volume) 35 g/dL 32-36 Automated erythrocyte distribution width ratio 13. 4 % 10.0- 14.5 Automated blood platelet count (count/volume) 189 10*3/uL [...] 10*3 1.0-4.0 Blood monocytes automated count (number/volume) 0. 8 10*3 0.0-1.0 Automated eosinophil count 0.0 10*3/uL 0 .0-0.3 Automated blood basophil count (count/volume) 0.0 10*3/uL 0.0-0.1 Blood lactic acid measurement (moles/vol ume) - 09/07/17 21:37 Blood lactic acid measurement [...] 5-14 Serum or plasma urea nitrogen measurement (mass/volume ) 15 mg/dL 7-18 Serum or plasma creatinine measurement (mass/volume) 1.21 mg/dL 0.60-1.30 Serum or plasma urea nitrogen/creatinine mass ratio 12 NRG Serum or plasma creatinine measurement w ith calculation of estimated glomerular filtration rate 59 NRG Serum or plasma glucose measurement (mass/volume) 126 mg/dL 70-105 Serum or plasma calcium measurement (mass/volume) 9.0 mg/dL 8.5-10.1 Serum or plasma total bilirubin measurement (mass/volu me) 1.2 mg/dL 0.1-1.0 Serum or plasma alkaline phosphatase abimael surement (enzymatic activity/volume) 78 U/L 40-136 Serum or plasma aspartate aminotransfera se measurement (enzymatic activity/volume) 31 U/L 5-34 Serum or plasma alanine aminotransferase measurement (enzymatic activity/volume) 17 U/L 0-55 Serum or plasma protein measurement (mass/volume) 7.5 g/dL 6.4-8.2 Serum or plasma albumin measurement (mass/volume) 3.8 g/dL 3.2-4.5 Serum or plasma lithium measurement (mol es/volume) - 09/07/17 21:37 BNP level 69.7 pg/mL <100.0 Digoxin - 09/07/17 21:37 Digoxin 0.77 ng/mL 0.80-2.00 Blood manual differential performed dete ction - 09/07/17 21:37 Blood monocytes/100 leukocytes 6 [...] MEI NRG Bacterial sputum culture - 09/07/17 22:4 9 Bacterial sputum culture NORMAL NRG Complete blood count (CBC) with automate d white blood cell (WBC) differential - 09/08/17 08:06 Blood leukocytes automated count (number/volume) 9.8 10*3/uL 4.3-11.0 Blood erythrocytes automated count (number/volume) 4.37 10*6/uL 4.35-5.85 Venous blood hemoglobin measurement (mass/volume) 13.5 g/dL 13.3-17.7 Blood hematocrit (volume fraction) 39 % 40-54 Automated erythrocyte mean corpuscular volume 90 [ foz_us] 80-99 Automated erythrocyte mean corpuscular h emoglobin (mass per erythrocyte) 31 pg 25-34 Automated erythrocyte mean corpuscular h emoglobin concentration measurement (mass/volume) 34 g/dL 32-36 Automated erythrocyte distribution width ratio 13. 3 % 10.0- 14.5 Automated blood platelet count (count/volume) 170 10*3/uL [...] 10*3 1.0-4.0 Blood monocytes automated count (number/volume) 0. 3 10*3 0.0-1.0 Automated eosinophil count 0.0 10*3/uL 0 .0-0.3 Automated blood basophil count (count/volume) 0.0 10*3/uL 0.0-0.1 Comprehensive metabolic panel - 09/08/17 08:06 Serum or plasma sodium measurement (moles/volume) 131 mmol/L 135-145 Serum or plasma potassium measurement (moles/volume) 4.3 mmol/L 3.6-5.0 Serum or plasma chloride measurement (moles/volume) 101 mmol/L 98-107 Carbon dioxide 20 mmol/L 21-32 Serum or plasma anion gap determination (moles/volume) 10 mmol/L 5-14 Serum or plasma urea nitrogen measurement (mass/volume ) 17 mg/dL 7-18 Serum or plasma creatinine measurement (mass/volume) 1.11 mg/dL 0.60-1.30 Serum or plasma urea nitrogen/creatinine mass ratio 15 NRG Serum or plasma creatinine measurement w ith calculation of estimated glomerular filtration rate > NRG Serum or plasma glucose measurement (mass/volume) 214 mg/dL 70-105 Serum or plasma calcium measurement (mass/volume) 8.5 mg/dL 8.5-10.1 Serum or plasma total bilirubin measurement (mass/volu me) 0.8 mg/dL 0.1-1.0 Serum or plasma alkaline phosphatase abimael surement (enzymatic activity/volume) 72 U/L 40-136 Serum or plasma aspartate aminotransfera se measurement (enzymatic activity/volume) 33 U/L 5-34 Serum or plasma alanine aminotransferase measurement (enzymatic activity/volume) 18 U/L 0-55 Serum or plasma protein measurement (mass/volume) 7.1 g/dL 6.4-8.2 Serum or plasma albumin measurement (mass/volume) 3.6 g/dL 3.2-4.5 Capillary blood glucose measurement by g lucometer (mass/volume) - 09/08/17 13:22 Capillary blood glucose measurement by glucometer (mas s/volume) 469 mg/dL 70-110 Capillary blood glucose measurement by g lucometer (mass/volume) - 09/08/17 16:23 Capillary blood glucose measurement by glucometer (mas s/volume) 378 mg/dL 70-110 Capillary blood glucose measurement by g lucometer (mass/volume) - 09/08/17 20:41 Capillary blood glucose measurement by glucometer (mas s/volume) 307 mg/dL 70-110 Capillary blood glucose measurement by g lucometer (mass/volume) - 09/09/17 05:38 Capillary blood glucose measurement by glucometer (mas s/volume) 284 mg/dL 70-110 Complete blood count (CBC) with automate d white blood cell (WBC) differential - 09/09/17 06:31 Blood leukocytes automated count (number/volume) 12.4 10*3/uL 4.3-11.0 Blood erythrocytes automated count (number/volume) 4.07 10*6/uL 4.35-5.85 Venous blood hemoglobin measurement (mass/volume) 12.8 g/dL 13.3-17.7 Blood hematocrit (volume fraction) 36 % 40-54 Automated erythrocyte mean corpuscular volume 89 [ foz_us] 80-99 Automated erythrocyte mean corpuscular h emoglobin (mass per erythrocyte) 31 pg 25-34 Automated erythrocyte mean corpuscular h emoglobin concentration measurement (mass/volume) 35 g/dL 32-36 Automated erythrocyte distribution width ratio 13. 2 % 10.0- 14.5 Automated blood platelet count (count/volume) 184 10*3/uL [...] 10*3 1.0-4.0 Blood monocytes automated count (number/volume) 0. 8 10*3 0.0-1.0 Automated eosinophil count 0.0 10*3/uL 0 .0-0.3 Automated blood basophil count (count/volume) 0.0 10*3/uL 0.0-0.1 Comprehensive metabolic panel - 09/09/17 06:31 Serum or plasma sodium measurement (moles/volume) 136 mmol/L 135-145 Serum or plasma potassium measurement (moles/volume) 4.2 mmol/L 3.6-5.0 Serum or plasma chloride measurement (moles/volume) 105 mmol/L 98-107 Carbon dioxide 21 mmol/L 21-32 Serum or plasma anion gap determination (moles/volume) 10 mmol/L 5-14 Serum or plasma urea nitrogen measurement (mass/volume ) 22 mg/dL 7-18 Serum or plasma creatinine measurement (mass/volume) 1.04 mg/dL 0.60-1.30 Serum or plasma urea nitrogen/creatinine mass ratio 21 NRG Serum or plasma creatinine measurement w ith calculation of estimated glomerular filtration rate > NRG Serum or plasma glucose measurement (mass/volume) 305 mg/dL 70-105 Serum or plasma calcium measurement (mass/volume) 8.8 mg/dL 8.5-10.1 Serum or plasma total bilirubin measurement (mass/volu me) 0.5 mg/dL 0.1-1.0 Serum or plasma alkaline phosphatase abimael surement (enzymatic activity/volume) 73 U/L 40-136 Serum or plasma aspartate aminotransfera se measurement (enzymatic activity/volume) 41 U/L 5-34 Serum or plasma alanine aminotransferase measurement (enzymatic activity/volume) 24 U/L 0-55 Serum or plasma protein measurement (mass/volume) 6.5 g/dL 6.4-8.2 Serum or plasma albumin measurement (mass/volume) 3.2 g/dL 3.2-4.5 Capillary blood glucose measurement by g lucometer (mass/volume) - 09/09/17 11:02 Capillary blood glucose measurement by glucometer (mas s/volume) 91 mg/dL 70-110 BMP - 05/16/18 11:05 GFR >60 >=60 GFR NonAfrican [place]ian 59 >=60 SODIUM:SCNC:PT:SER/PLAS:QN: 138 mmol/L 1 36-145 POTASSIUM:SCNC:PT:SER/PLAS:QN: 4.0 mmol/L 3.5-5.1 CHLORIDE:SCNC:PT:SER/PLAS:QN: 102 mmol/L 98-107 CARBON DIOXIDE:SCNC:PT:SER/PLAS:QN: 27 mmol/L 21-32 ANION GAP 3:SCNC:PT:SER/PLAS:QN: 9 7-16 UREA NITROGEN:MCNC:PT:SER/PLAS:QN: 14 mg/dL 8-23 CREATININE:MCNC:PT:SER/PLAS:QN: 1.2 mg/dL 0.8-1.3 GLUCOSE:MCNC:PT:SER/PLAS:QN: 127 mg/dL 7 0-110 CALCIUM:MCNC:PT:SER/PLAS:QN: 8.7 mg/dL 8 .6-10.2 UREA NITROGEN/CREATININE:MRTO:PT:SER/PLAS:QN: 11.6 10.0- 20.1 Glucose POC1 - 05/16/18 13:24 GLUCOSE:MCNC:PT:BLDC:QN:GLUCOMETER 98 mg/dL 74-106 Type and Cross - 05/23/18 14:55 Blood Type ABO O NRG Blood Type Rh Pos NRG Number of Units 2 NRG Antibody Screen Neg Neg Product Needed PRBC LR NRG Previous Transfusions Unknown NRG Previous Reactions Unknown NRG Crossmatch Units Available NRG UA Routine1 - 05/23/18 14:55 COLOR:TYPE:PT:URINE:NOM:AUTO Yellow Y ellow CLARITY:TYPE:PT:URINE:NOM:REFRACTOMETRY.AUTOMATED Clear Clear SPECIFIC GRAVITY:RDEN:PT:URINE:QN:TEST STRIP.AUTOMATED 1.015 1.003-1.035 PH:LSCNC:PT:URINE:QN:TEST STRIP.AUTOMATED 5.0 5.0-6.0 LEUKOCYTE ESTERASE:PRTHR:PT:URINE:ORD:TEST STRIP.AUTOM ATED Neg Neg NITRITE:PRTHR:PT:URINE:ORD:TEST STRIP.AUTOMATED Ne g Neg PROTEIN:PRTHR:PT:URINE:ORD:TEST STRIP.AUTOMATED Ne g Neg GLUCOSE:PRTHR:PT:URINE:ORD:TEST STRIP.AUTOMATED 3+ Neg KETONES:PRTHR:PT:URINE:ORD:TEST STRIP.AUTOMATED Ne g Neg UROBILINOGEN:PRTHR:PT:URINE:ORD:TEST STRIP.AUTOMATED Norm mg/dL Norm BILIRUBIN:PRTHR:PT:URINE:ORD:TEST STRIP.AUTOMATED Neg Neg HEMOGLOBIN:PRTHR:PT:URINE:ORD:TEST STRIP.AUTOMATED Neg Neg I-Stat EG7+ Art - 05/23/18 15:14 PH:LSCNC:PT:BLDA:QN: 7.430 7.350-7.4 50 CARBON DIOXIDE:PPRES:PT:BLDA:QN: 33.0 mmHg 35.0-45.0 OXYGEN:PPRES:PT:BLDA:QN: 59 mmHg 80-10 5 BICARBONATE:SCNC:PT:BLDA:QN: 21.9 mmol/L 22.0-26.0 BASE EXCESS:SCNC:PT:BLDA:QN:CALCULATED -2 mmol/L -2-3 OXYGEN SATURATION:MFR:PT:BLDA:QN:CALCULA CHUCHO FROM OXYGEN PARTIAL PRESSURE 91 % 95-98 SODIUM:SCNC:PT:BLD:QN: 137 mmol/L 136-14 6 POTASSIUM:SCNC:PT:BLD:QN: 3.8 mmol/L 3.4 -5.0 CARBON DIOXIDE:SCNC:PT:BLDA:QN: 23 mmol/L 22-29 CALCIUM.IONIZED:MCNC:PT:BLDA:QN: 1.18 mmol/L 1.12-1.32 HEMATOCRIT:VFR:PT:BLD:QN: 33 % 41-5 3 HEMOGLOBIN:MCNC:PT:BLD:QN:CALCULATED 11.2 gm/dL 13.5-17.5 Glucose POC1 - 05/23/18 17:52 GLUCOSE:MCNC:PT:BLDC:QN:GLUCOMETER 193 mg/dL 74-106 Glucose POC1 - 05/24/18 00:30 GLUCOSE:MCNC:PT:BLDC:QN:GLUCOMETER 290 mg/dL 74-106 Glucose POC1 - 05/24/18 06:01 GLUCOSE:MCNC:PT:BLDC:QN:GLUCOMETER 139 mg/dL 74-106 UA Surveillance - 05/24/18 06:11 COLOR:TYPE:PT:URINE:NOM:AUTO Yellow Y ellow CLARITY:TYPE:PT:URINE:NOM:REFRACTOMETRY.AUTOMATED Clear Clear SPECIFIC GRAVITY:RDEN:PT:URINE:QN:TEST STRIP.AUTOMATED 1.010 1.003-1.035 PH:LSCNC:PT:URINE:QN:TEST STRIP.AUTOMATED 8.0 5.0-6.0 LEUKOCYTE ESTERASE:PRTHR:PT:URINE:ORD:TEST STRIP.AUTOM ATED Neg Neg NITRITE:PRTHR:PT:URINE:ORD:TEST STRIP.AUTOMATED Ne g Neg PROTEIN:PRTHR:PT:URINE:ORD:TEST STRIP.AUTOMATED Ne g Neg GLUCOSE:PRTHR:PT:URINE:ORD:TEST STRIP.AUTOMATED Ne g Neg KETONES:PRTHR:PT:URINE:ORD:TEST STRIP.AUTOMATED Ne g Neg UROBILINOGEN:PRTHR:PT:URINE:ORD:TEST STRIP.AUTOMATED Norm mg/dL Norm BILIRUBIN:PRTHR:PT:URINE:ORD:TEST STRIP.AUTOMATED Neg Neg HEMOGLOBIN:PRTHR:PT:URINE:ORD:TEST STRIP.AUTOMATED Neg Neg Glucose POC1 - 05/24/18 07:22 GLUCOSE:MCNC:PT:BLDC:QN:GLUCOMETER 152 mg/dL 74-106 I-Stat EG7+ Art - 05/24/18 07:28 PH:LSCNC:PT:BLDA:QN: 7.315 7.350-7.4 50 CARBON DIOXIDE:PPRES:PT:BLDA:QN: 47.0 mmHg 35.0-45.0 OXYGEN:PPRES:PT:BLDA:QN: 173 mmHg 80-10 5 BICARBONATE:SCNC:PT:BLDA:QN: 24.0 mmol/L 22.0-26.0 BASE EXCESS:SCNC:PT:BLDA:QN:CALCULATED -2 mmol/L -2-3 OXYGEN SATURATION:MFR:PT:BLDA:QN:CALCULA CHUCHO FROM OXYGEN PARTIAL PRESSURE 99 % 95-98 SODIUM:SCNC:PT:BLD:QN: 139 mmol/L 136-14 6 POTASSIUM:SCNC:PT:BLD:QN: 3.8 mmol/L 3.4 -5.0 CARBON DIOXIDE:SCNC:PT:BLDA:QN: 25 mmol/L 22-29 CALCIUM.IONIZED:MCNC:PT:BLDA:QN: 1.21 mmol/L 1.12-1.32 HEMATOCRIT:VFR:PT:BLD:QN: 32 % 41-5 3 HEMOGLOBIN:MCNC:PT:BLD:QN:CALCULATED 10.9 gm/dL 13.5-17.5 Glucose POC1 - 05/24/18 09:38 GLUCOSE:MCNC:PT:BLDC:QN:GLUCOMETER 322 mg/dL 74-106 I-Stat EG7+ Art - 05/24/18 09:44 PH:LSCNC:PT:BLDA:QN: 7.288 7.350-7.4 50 CARBON DIOXIDE:PPRES:PT:BLDA:QN: 59.1 mmHg 35.0-45.0 OXYGEN:PPRES:PT:BLDA:QN: 519 mmHg 80-10 5 BICARBONATE:SCNC:PT:BLDA:QN: 28.3 mmol/L 22.0-26.0 BASE EXCESS:SCNC:PT:BLDA:QN:CALCULATED 2 mmol/L -2-3 OXYGEN SATURATION:MFR:PT:BLDA:QN:CALCULA CHUCHO FROM OXYGEN PARTIAL PRESSURE 100 % 95-98 SODIUM:SCNC:PT:BLD:QN: 138 mmol/L 136-14 6 POTASSIUM:SCNC:PT:BLD:QN: 5.2 mmol/L 3.4 -5.0 CARBON DIOXIDE:SCNC:PT:BLDA:QN: 30 mmol/L 22-29 CALCIUM.IONIZED:MCNC:PT:BLDA:QN: 0.91 mmol/L 1.12-1.32 HEMATOCRIT:VFR:PT:BLD:QN: 26 % 41-5 3 HEMOGLOBIN:MCNC:PT:BLD:QN:CALCULATED 8.8 gm/dL 13.5-17.5 Glucose POC1 - 05/24/18 10:10 GLUCOSE:MCNC:PT:BLDC:QN:GLUCOMETER 335 mg/dL 74-106 I-Stat EG7+ Art - 05/24/18 10:17 PH:LSCNC:PT:BLDA:QN: 7.348 7.350-7.4 50 CARBON DIOXIDE:PPRES:PT:BLDA:QN: 46.9 mmHg 35.0-45.0 OXYGEN:PPRES:PT:BLDA:QN: 97 mmHg 80-10 5 BICARBONATE:SCNC:PT:BLDA:QN: 25.8 mmol/L 22.0-26.0 BASE EXCESS:SCNC:PT:BLDA:QN:CALCULATED 0 mmol/L -2-3 OXYGEN SATURATION:MFR:PT:BLDA:QN:CALCULA CHUCHO FROM OXYGEN PARTIAL PRESSURE 97 % 95-98 SODIUM:SCNC:PT:BLD:QN: 135 mmol/L 136-14 6 POTASSIUM:SCNC:PT:BLD:QN: 5.4 mmol/L 3.4 -5.0 CARBON DIOXIDE:SCNC:PT:BLDA:QN: 27 mmol/L 22-29 CALCIUM.IONIZED:MCNC:PT:BLDA:QN: 0.99 mmol/L 1.12-1.32 HEMATOCRIT:VFR:PT:BLD:QN: 27 % 41-5 3 HEMOGLOBIN:MCNC:PT:BLD:QN:CALCULATED 9.2 gm/dL 13.5-17.5 Glucose POC1 - 05/24/18 10:55 GLUCOSE:MCNC:PT:BLDC:QN:GLUCOMETER 315 mg/dL 74-106 I-Stat EG7+ Art - 05/24/18 11:02 PH:LSCNC:PT:BLDA:QN: 7.326 7.350-7.4 50 CARBON DIOXIDE:PPRES:PT:BLDA:QN: 51.5 mmHg 35.0-45.0 OXYGEN:PPRES:PT:BLDA:QN: 200 mmHg 80-10 5 BICARBONATE:SCNC:PT:BLDA:QN: 26.9 mmol/L 22.0-26.0 BASE EXCESS:SCNC:PT:BLDA:QN:CALCULATED 1 mmol/L -2-3 OXYGEN SATURATION:MFR:PT:BLDA:QN:CALCULA CHUCHO FROM OXYGEN PARTIAL PRESSURE 100 % 95-98 SODIUM:SCNC:PT:BLD:QN: 137 mmol/L 136-14 6 POTASSIUM:SCNC:PT:BLD:QN: 4.9 mmol/L 3.4 -5.0 CARBON DIOXIDE:SCNC:PT:BLDA:QN: 28 mmol/L 22-29 CALCIUM.IONIZED:MCNC:PT:BLDA:QN: 0.99 mmol/L 1.12-1.32 HEMATOCRIT:VFR:PT:BLD:QN: 30 % 41-5 3 HEMOGLOBIN:MCNC:PT:BLD:QN:CALCULATED 10.2 gm/dL 13.5-17.5 Glucose POC1 - 05/24/18 11:33 GLUCOSE:MCNC:PT:BLDC:QN:GLUCOMETER 358 mg/dL 74-106 I-Stat EG7+ Art - 05/24/18 11:40 PH:LSCNC:PT:BLDA:QN: 7.358 7.350-7.4 50 CARBON DIOXIDE:PPRES:PT:BLDA:QN: 50.4 mmHg 35.0-45.0 OXYGEN:PPRES:PT:BLDA:QN: 336 mmHg 80-10 5 BICARBONATE:SCNC:PT:BLDA:QN: 28.4 mmol/L 22.0-26.0 BASE EXCESS:SCNC:PT:BLDA:QN:CALCULATED 3 mmol/L -2-3 OXYGEN SATURATION:MFR:PT:BLDA:QN:CALCULA CHUCHO FROM OXYGEN PARTIAL PRESSURE 100 % 95-98 SODIUM:SCNC:PT:BLD:QN: 135 mmol/L 136-14 6 POTASSIUM:SCNC:PT:BLD:QN: 5.6 mmol/L 3.4 -5.0 CARBON DIOXIDE:SCNC:PT:BLDA:QN: 30 mmol/L 22-29 CALCIUM.IONIZED:MCNC:PT:BLDA:QN: 0.96 mmol/L 1.12-1.32 HEMATOCRIT:VFR:PT:BLD:QN: 26 % 41-5 3 HEMOGLOBIN:MCNC:PT:BLD:QN:CALCULATED 8.8 gm/dL 13.5-17.5 Glucose POC1 - 05/24/18 12:32 GLUCOSE:MCNC:PT:BLDC:QN:GLUCOMETER 276 mg/dL 74-106 I-Stat EG7+ Art - 05/24/18 12:38 PH:LSCNC:PT:BLDA:QN: 7.322 7.350-7.4 50 CARBON DIOXIDE:PPRES:PT:BLDA:QN: 46.3 mmHg 35.0-45.0 OXYGEN:PPRES:PT:BLDA:QN: 68 mmHg 80-10 5 BICARBONATE:SCNC:PT:BLDA:QN: 24.0 mmol/L 22.0-26.0 BASE EXCESS:SCNC:PT:BLDA:QN:CALCULATED -2 mmol/L -2-3 OXYGEN SATURATION:MFR:PT:BLDA:QN:CALCULA CHUCHO FROM OXYGEN PARTIAL PRESSURE 91 % 95-98 SODIUM:SCNC:PT:BLD:QN: 137 mmol/L 136-14 6 POTASSIUM:SCNC:PT:BLD:QN: 4.1 mmol/L 3.4 -5.0 CARBON DIOXIDE:SCNC:PT:BLDA:QN: 25 mmol/L 22-29 CALCIUM.IONIZED:MCNC:PT:BLDA:QN: 1.18 mmol/L 1.12-1.32 HEMATOCRIT:VFR:PT:BLD:QN: 33 % 41-5 3 HEMOGLOBIN:MCNC:PT:BLD:QN:CALCULATED 11.2 gm/dL 13.5-17.5 Glucose POC1 - 05/24/18 14:04 GLUCOSE:MCNC:PT:BLDC:QN:GLUCOMETER 248 mg/dL 74-106 Magnesium - 05/24/18 14:05 MAGNESIUM:MCNC:PT:SER/PLAS:QN: 2.2 mg/dL 1.8-2.4 I-Stat EG7+ Art - 05/24/18 14:10 PH:LSCNC:PT:BLDA:QN: 7.329 7.350-7.4 50 CARBON DIOXIDE:PPRES:PT:BLDA:QN: 42.7 mmHg 35.0-45.0 OXYGEN:PPRES:PT:BLDA:QN: 66 mmHg 80-10 5 BICARBONATE:SCNC:PT:BLDA:QN: 22.5 mmol/L 22.0-26.0 BASE EXCESS:SCNC:PT:BLDA:QN:CALCULATED -3 mmol/L -2-3 OXYGEN SATURATION:MFR:PT:BLDA:QN:CALCULA CHUCHO FROM OXYGEN PARTIAL PRESSURE 91 % 95-98 SODIUM:SCNC:PT:BLD:QN: 138 mmol/L 136-14 6 POTASSIUM:SCNC:PT:BLD:QN: 4.0 mmol/L 3.4 -5.0 CARBON DIOXIDE:SCNC:PT:BLDA:QN: 24 mmol/L 22-29 CALCIUM.IONIZED:MCNC:PT:BLDA:QN: 1.21 mmol/L 1.12-1.32 HEMATOCRIT:VFR:PT:BLD:QN: 34 % 41-5 3 HEMOGLOBIN:MCNC:PT:BLD:QN:CALCULATED 11.6 gm/dL 13.5-17.5 Glucose POC1 - 05/24/18 15:10 GLUCOSE:MCNC:PT:BLDC:QN:GLUCOMETER 230 mg/dL 74-106 I-Stat EG7+ Art - 05/24/18 15:13 PH:LSCNC:PT:BLDA:QN: 7.452 7.350-7.4 50 CARBON DIOXIDE:PPRES:PT:BLDA:QN: 28.7 mmHg 35.0-45.0 OXYGEN:PPRES:PT:BLDA:QN: 72 mmHg 80-10 5 BICARBONATE:SCNC:PT:BLDA:QN: 20.0 mmol/L 22.0-26.0 BASE EXCESS:SCNC:PT:BLDA:QN:CALCULATED -4 mmol/L -2-3 OXYGEN SATURATION:MFR:PT:BLDA:QN:CALCULA CHUCHO FROM OXYGEN PARTIAL PRESSURE 95 % 95-98 SODIUM:SCNC:PT:BLD:QN: 140 mmol/L 136-14 6 POTASSIUM:SCNC:PT:BLD:QN: 3.8 mmol/L 3.4 -5.0 CARBON DIOXIDE:SCNC:PT:BLDA:QN: 21 mmol/L 22-29 CALCIUM.IONIZED:MCNC:PT:BLDA:QN: 1.14 mmol/L 1.12-1.32 HEMATOCRIT:VFR:PT:BLD:QN: 32 % 41-5 3 HEMOGLOBIN:MCNC:PT:BLD:QN:CALCULATED 10.9 gm/dL 13.5-17.5 Glucose POC1 - 05/24/18 16:03 GLUCOSE:MCNC:PT:BLDC:QN:GLUCOMETER 200 mg/dL 74-106 Glucose POC1 - 05/24/18 16:42 GLUCOSE:MCNC:PT:BLDC:QN:GLUCOMETER 169 mg/dL 74-106 Glucose POC1 - 05/24/18 17:55 GLUCOSE:MCNC:PT:BLDC:QN:GLUCOMETER 133 mg/dL 74-106 Glucose POC1 - 05/24/18 18:45 GLUCOSE:MCNC:PT:BLDC:QN:GLUCOMETER 111 mg/dL 74-106 Glucose POC1 - 05/24/18 20:10 GLUCOSE:MCNC:PT:BLDC:QN:GLUCOMETER 107 mg/dL 74-106 I-Stat EG7+ (no sample type selected) - 05/24/18 20:16 SODIUM:SCNC:PT:BLD:QN: 142 mmol/L 136-14 6 POTASSIUM:SCNC:PT:BLD:QN: 3.8 mmol/L 3.4 -5.0 CALCIUM.IONIZED:MCNC:PT:BLDA:QN: 1.17 mmol/L 1.12-1.32 HEMATOCRIT:VFR:PT:BLD:QN: 33 % 41-5 3 HEMOGLOBIN:MCNC:PT:BLD:QN:CALCULATED 11.2 gm/dL 13.5-17.5 PH:LSCNC:PT:BLD:QN: 7.431 7.350-7.45 0 CARBON DIOXIDE:PPRES:PT:BLD:QN: 33.3 mmHg 35.0-45.0 OXYGEN:PPRES:PT:BLD:QN: 62 mmHg 80-105 BICARBONATE:SCNC:PT:BLD:QN: 22.2 mmol/L 22.0-26.0 BASE EXCESS -2 mmol/L -2-3 OXYGEN SATURATION:MFR:PT:BLD:QN:CALCULAT ED FROM OXYGEN PARTIAL PRESSURE 92 % 95-98 CARBON DIOXIDE:SCNC:PT:BLD:QN: 23 mmol/L 23-27 Glucose POC1 - 05/24/18 22:23 GLUCOSE:MCNC:PT:BLDC:QN:GLUCOMETER 100 mg/dL 74-106 Glucose POC1 - 05/25/18 00:02 GLUCOSE:MCNC:PT:BLDC:QN:GLUCOMETER 102 mg/dL 74-106 Glucose POC1 - 05/25/18 02:08 GLUCOSE:MCNC:PT:BLDC:QN:GLUCOMETER 104 mg/dL 74-106 Glucose POC1 - 05/25/18 04:03 GLUCOSE:MCNC:PT:BLDC:QN:GLUCOMETER 116 mg/dL 74-106 Glucose POC1 - 05/25/18 06:01 GLUCOSE:MCNC:PT:BLDC:QN:GLUCOMETER 103 mg/dL 74-106 BUN - 05/25/18 06:07 UREA NITROGEN:MCNC:PT:SER/PLAS:QN: 17 mg/dL 8-23 Creatinine - 05/25/18 06:07 GFR >60 >=60 GFR NonAfrican [place]ian 55 >=60 CREATININE:MCNC:PT:SER/PLAS:QN: 1.3 mg/dL 0.8-1.3 CK-MB Group - 05/25/18 06:07 CREATINE KINASE:CCNC:PT:SER/PLAS:QN: 757 unit/L 39-308 CREATINE KINASE.MB:CCNC:PT:SER/PLAS:QN: 87.3 ng/mL 0.0-3.6 CREATINE KINASE.MB/CREATINE KINASE.TOTAL:RATIO:PT:SER/ PLAS:QN: 12 NRG I-Stat EG7+ Art - 05/25/18 06:08 PH:LSCNC:PT:BLDA:QN: 7.460 7.350-7.4 50 CARBON DIOXIDE:PPRES:PT:BLDA:QN: 32.4 mmHg 35.0-45.0 OXYGEN:PPRES:PT:BLDA:QN: 74 mmHg 80-10 5 BICARBONATE:SCNC:PT:BLDA:QN: 23.0 mmol/L 22.0-26.0 BASE EXCESS:SCNC:PT:BLDA:QN:CALCULATED -1 mmol/L -2-3 OXYGEN SATURATION:MFR:PT:BLDA:QN:CALCULA CHUCHO FROM OXYGEN PARTIAL PRESSURE 96 % 95-98 SODIUM:SCNC:PT:BLD:QN: 140 mmol/L 136-14 6 POTASSIUM:SCNC:PT:BLD:QN: 4.1 mmol/L 3.4 -5.0 CARBON DIOXIDE:SCNC:PT:BLDA:QN: 24 mmol/L 22-29 CALCIUM.IONIZED:MCNC:PT:BLDA:QN: 1.14 mmol/L 1.12-1.32 HEMATOCRIT:VFR:PT:BLD:QN: 32 % 41-5 3 HEMOGLOBIN:MCNC:PT:BLD:QN:CALCULATED 10.9 gm/dL 13.5-17.5 Glucose POC1 - 05/25/18 11:28 GLUCOSE:MCNC:PT:BLDC:QN:GLUCOMETER 234 mg/dL 74-106 Glucose POC1 - 05/25/18 15:44 GLUCOSE:MCNC:PT:BLDC:QN:GLUCOMETER 417 mg/dL 74-106 Glucose POC1 - 05/25/18 17:47 GLUCOSE:MCNC:PT:BLDC:QN:GLUCOMETER 329 mg/dL 74-106 Glucose POC1 - 05/25/18 20:07 GLUCOSE:MCNC:PT:BLDC:QN:GLUCOMETER 323 mg/dL 74-106 Slide Scan - 05/26/18 04:40 ERYTHROCYTE MORPHOLOGY FINDING:PRID:PT:BLD:NOM: No rmal NRG PLATELETS:PRTHR:PT:BLD:ORD:MICROSCOPY.LIGHT [place] Adequate BMP - 05/26/18 04:40 GFR >60 >=60 GFR NonAfrican [place] 53 >=60 SODIUM:SCNC:PT:SER/PLAS:QN: 135 mmol/L 1 36-145 POTASSIUM:SCNC:PT:SER/PLAS:QN: 4.2 mmol/L 3.5-5.1 CHLORIDE:SCNC:PT:SER/PLAS:QN: 101 mmol/L 98-107 CARBON DIOXIDE:SCNC:PT:SER/PLAS:QN: 22 mmol/L 21-32 ANION GAP 3:SCNC:PT:SER/PLAS:QN: 12 7-16 UREA NITROGEN:MCNC:PT:SER/PLAS:QN: 26 mg/dL 8-23 CREATININE:MCNC:PT:SER/PLAS:QN: 1.3 mg/dL 0.8-1.3 GLUCOSE:MCNC:PT:SER/PLAS:QN: 210 mg/dL 7 0-110 CALCIUM:MCNC:PT:SER/PLAS:QN: 7.9 mg/dL 8 .6-10.2 UREA NITROGEN/CREATININE:MRTO:PT:SER/PLAS:QN: 19.7 10.0- 20.1 Glucose POC1 - 05/26/18 12:25 GLUCOSE:MCNC:PT:BLDC:QN:GLUCOMETER 281 mg/dL 74-106 Glucose POC1 - 05/26/18 21:43 GLUCOSE:MCNC:PT:BLDC:QN:GLUCOMETER 220 mg/dL 74-106 BMP - 05/27/18 04:50 GFR >60 >=60 GFR NonAfrican [place] >60 >=60 SODIUM:SCNC:PT:SER/PLAS:QN: 135 mmol/L 1 36-145 POTASSIUM:SCNC:PT:SER/PLAS:QN: 4.0 mmol/L 3.5-5.1 CHLORIDE:SCNC:PT:SER/PLAS:QN: 102 mmol/L 98-107 CARBON DIOXIDE:SCNC:PT:SER/PLAS:QN: 27 mmol/L 21-32 ANION GAP 3:SCNC:PT:SER/PLAS:QN: 6 7-16 UREA NITROGEN:MCNC:PT:SER/PLAS:QN: 23 mg/dL 8-23 CREATININE:MCNC:PT:SER/PLAS:QN: 1.1 mg/dL 0.8-1.3 GLUCOSE:MCNC:PT:SER/PLAS:QN: 177 mg/dL 7 0-110 CALCIUM:MCNC:PT:SER/PLAS:QN: 8.0 mg/dL 8 .6-10.2 UREA NITROGEN/CREATININE:MRTO:PT:SER/PLAS:QN: 21.3 10.0- 20.1 Glucose POC1 - 05/27/18 21:21 GLUCOSE:MCNC:PT:BLDC:QN:GLUCOMETER 204 mg/dL 74-106 BMP 05/28/18 06:35 GFR >60 >=60 GFR NonAfrican [place]ian >60 >=60 SODIUM:SCNC:PT:SER/PLAS:QN: 138 mmol/L 1 36-145 POTASSIUM:SCNC:PT:SER/PLAS:QN: 3.7 mmol/L 3.5-5.1 CHLORIDE:SCNC:PT:SER/PLAS:QN: 103 mmol/L 98-107 CARBON DIOXIDE:SCNC:PT:SER/PLAS:QN: 26 mmol/L 21-32 ANION GAP 3:SCNC:PT:SER/PLAS:QN: 9 7-16 UREA NITROGEN:MCNC:PT:SER/PLAS:QN: 25 mg/dL 8-23 CREATININE:MCNC:PT:SER/PLAS:QN: 1.0 mg/dL 0.8-1.3 GLUCOSE:MCNC:PT:SER/PLAS:QN: 94 mg/dL 7 0-110 CALCIUM:MCNC:PT:SER/PLAS:QN: 8.1 mg/dL 8 .6-10.2 UREA NITROGEN/CREATININE:MRTO:PT:SER/PLAS:QN: 24.0 10.0- 20.1 Magnesium - 05/28/18 06:35 MAGNESIUM:MCNC:PT:SER/PLAS:QN: 2.2 mg/dL 1.8-2.4 Methicillin resistant Staphylococcus aur eus (MRSA) screening culture - 10/25/18 08:42 Methicillin resistant Staphylococcus aureus (MRSA) scr eening culture NEG NRG Automated blood complete blood count (he mogram) panel - 10/25/18 08:45 Blood leukocytes automated count (number/volume) 5.9 10*3/uL 4.3-11.0 Blood erythrocytes automated count (number/volume) 4.95 10*6/uL 4.35-5.85 Venous blood hemoglobin measurement (mass/volume) 12.5 g/dL 13.3-17.7 Blood hematocrit (volume fraction) 40 % 40-54 Automated erythrocyte mean corpuscular volume 80 [ foz_us] 80-99 Automated erythrocyte mean corpuscular h emoglobin (mass per erythrocyte) 25 pg 25-34 Automated erythrocyte mean corpuscular h emoglobin concentration measurement (mass/volume) 32 g/dL 32-36 Automated erythrocyte distribution width ratio 17. 0 % 10.0- 14.5 Automated blood platelet count (count/volume) 230 10*3/uL 130-400 Automated blood platelet mean volume measurement 10.2 [foz_us] 7.4-10.4 Whole blood basic metabolic panel - 10/12 12/28 08:45 Serum or plasma sodium measurement (moles/volume) 140 mmol/L 135-145 Serum or plasma potassium measurement (moles/volume) 3.9 mmol/L 3.6-5.0 Serum or plasma chloride measurement (moles/volume) 106 mmol/L 98-107 Carbon dioxide 24 mmol/L 21-32 Serum or plasma anion gap determination (moles/volume) 10 mmol/L 5-14 Serum or plasma urea nitrogen measurement (mass/volume ) 16 mg/dL 7-18 Serum or plasma creatinine measurement (mass/volume) 1.34 mg/dL 0.60-1.30 Serum or plasma urea nitrogen/creatinine mass ratio 12 NRG Serum or plasma creatinine measurement w ith calculation of estimated glomerular filtration rate 52 NRG Serum or plasma glucose measurement (mass/volume) 95 mg/dL 70-105 Serum or plasma calcium measurement (mass/volume) 9.4 mg/dL 8.5-10.1 PT panel in platelet poor plasma by coag ulation assay - 10/25/18 08:45 Prothrombin time (PT) in platelet poor plasma by coagu lation assay 15.9 s 12.2-14.7 INR in platelet poor plasma or blood by coagulation as say 1.3 0.8-1.4 Activated partial thromboplastin time (a PTT) in platelet poor plasma bycoagulation assay - 10/25/18 08:45 Activated partial thromboplastin time (a PTT) in platelet poor plasma bycoagulation assay 35 s 24-35 Capillary blood glucose measurement by g lucometer (mass/volume) - 10/25/18 21:20 Capillary blood glucose measurement by glucometer (mas s/volume) 174 mg/dL 70-110 Automated blood complete blood count (he mogram) panel - 10/26/18 03:15 Blood leukocytes automated count (number/volume) 6.4 10*3/uL 4.3-11.0 Blood erythrocytes automated count (number/volume) 4.43 10*6/uL 4.35-5.85 Venous blood hemoglobin measurement (mass/volume) 11.2 g/dL 13.3-17.7 Blood hematocrit (volume fraction) 36 % 40-54 Automated erythrocyte mean corpuscular volume 81 [ foz_us] 80-99 Automated erythrocyte mean corpuscular h emoglobin (mass per erythrocyte) 25 pg 25-34 Automated erythrocyte mean corpuscular h emoglobin concentration measurement (mass/volume) 31 g/dL 32-36 Automated erythrocyte distribution width ratio 16. 8 % 10.0- 14.5 Automated blood platelet count (count/volume) 191 10*3/uL 130-400 Automated blood platelet mean volume measurement 10.5 [foz_us] 7.4-10.4 Comprehensive metabolic panel - 10/26/18 03:15 Serum or plasma sodium measurement (moles/volume) 139 mmol/L 135-145 Serum or plasma potassium measurement (moles/volume) 3.9 mmol/L 3.6-5.0 Serum or plasma chloride measurement (moles/volume) 108 mmol/L 98-107 Carbon dioxide 21 mmol/L 21-32 Serum or plasma anion gap determination (moles/volume) 10 mmol/L 5-14 Serum or plasma urea nitrogen measurement (mass/volume ) 15 mg/dL 7-18 Serum or plasma creatinine measurement (mass/volume) 1.12 mg/dL 0.60-1.30 Serum or plasma urea nitrogen/creatinine mass ratio 13 NRG Serum or plasma creatinine measurement w ith calculation of estimated glomerular filtration rate > NRG Serum or plasma glucose measurement (mass/volume) 80 mg/dL 70-105 Serum or plasma calcium measurement (mass/volume) 8.7 mg/dL 8.5-10.1 Serum or plasma total bilirubin measurement (mass/volu me) 1.2 mg/dL 0.1-1.0 Serum or plasma alkaline phosphatase abimael surement (enzymatic activity/volume) 83 U/L 40-136 Serum or plasma aspartate aminotransfera se measurement (enzymatic activity/volume) 23 U/L 5-34 Serum or plasma alanine aminotransferase measurement (enzymatic activity/volume) 20 U/L 0-55 Serum or plasma protein measurement (mass/volume) 7.1 g/dL 6.4-8.2 Serum or plasma albumin measurement (mass/volume) 3.6 g/dL 3.2-4.5 CALCIUM CORRECTED 9.0 mg/dL 8.5-10.1 Capillary blood glucose measurement by g lucometer (mass/volume) - 05/20/19 09:02 Capillary blood glucose measurement by glucometer (mas s/volume) 144 mg/dL 70-110 Encounters ACCT No. Visit Date/Time Discharge Status Pt. Type Provider Facility Loc./Unit Complaint [id number] 05/23/2018 14:01:00 05/28/2018 14:51: 00 DIS Inpatient JAIDEN CARLOS [facility] [id number] 05/24/2018 00:30:00 05/24/2018 23: 00:00 DIS Inpatient [facility] [id number] 05/16/2018 10:30:00 05/16/2018 20:10: 00 DIS Outpatient Buster Hernandez [facility] [id number] 03/28/2018 07:59:00 03/28/2018 13:20: 00 DIS Outpatient Selam Murphy [facility] [id number] 02/26/2020 08:18:00 23:59:59 CLS Outpatient FLORENTINO RIVAS MD [facility] CARD PAF,HYPERTENSION,DYSPNE A,CAD [id number] 02/24/2020 14:16:00 23:59:59 CLS Outpatient FLORENTINO RIVAS MD [facility] CARD PAF,HYPERTENSION,DYSPNE A,CAD [id number] 07/14/2019 00:11:00 23:59:59 CLS Preadmit FLORENTINO RIVAS MD [facility] CR3 WELLNESS [id number] 07/02/2019 08:00:00 00:01:00 DIS Outpatient FLORENTINO RIVAS MD [facility] CR3 WELLNESS [id number] 06/20/2019 08:17:00 23:59:59 CLS Outpatient SANDHYA DE LA GARZA APRN [facility] RAD COPD [id number] 06/04/2019 06:00:00 00:01:00 DIS Outpatient FLORENTINO RIVAS MD [facility] CR3 WELLNESS [id number] 05/20/2019 08:42:00 10:55:00 DIS Outpatient DUC CONCEPCION DO [facility] ENDO HX POLYPS [id number] 05/15/2019 15:20:00 16:00:00 DIS Outpatient DUC CONCEPCION DO [facility] PREOP COLONOSCOPY [id number] 05/02/2019 06:00:00 00:01:00 DIS Outpatient FLORENTINO RIVAS MD [facility] CR3 WELLNESS [id number] 04/26/2019 09:33:00 23:59:59 CLS Outpatient SANDHYA DE LA GARZA APRN [facility] RT VALIENTE, NOCTURNAL HYPOXEMIA [id number] 04/02/2019 06:00:00 07/27/2 019 00:01:00 DIS Outpatient FLORENTINO RIVAS MD [facility] CR3 WELLNESS [id number] 03/29/2019 09:38:00 23:59:59 CLS Outpatient SANDHYA DE LA GARZA APRN [facility] RAD COPD [id number] 03/05/2019 06:00:00 00:01:00 DIS Outpatient FLORENTINO RIVAS MD [facility] CR3 WELLNESS [id number] 02/19/2019 14:45:00 23:59:59 CLS Outpatient FANG BRADY MD [facility] RAD COUGH [id number] 01/22/2019 06:00:00 00:01:00 DIS Outpatient FLORENTINO RIVAS MD [facility] CR3 WELLNESS [id number] 12/24/2018 11:00:00 23:59:59 CLS Preadmit FANG BRADY MD [facility] CR STATUS POST ACB,VALUE R EPAIR [id number] 10/24/2018 10:53:00 00:01:00 DIS Outpatient FANG BRADY MD [facility] CR STATUS POST ACB,VALUE R EPAIR [id number] 10/25/2018 08:05:00 13:03:00 DIS Outpatient Levy MUÑOZ MD [facility] CATH CARDIOMYOPATHY [id number] 09/21/2018 11:10:00 00:01:00 DIS Outpatient FANG BRADY MD [facility] CR STATUS POST ACB,VALUE R EPAIR [id number] 07/12/2018 10:58:00 23:59:59 CLS Outpatient FLORENTINO RIVAS MD [facility] CARD CAD [id number] 05/03/2018 11:37:00 15:05:00 DIS Outpatient DUC CONCEPCION DO [facility] ENDO MELENA [id number] 04/30/2018 13:21:00 018 16:09:00 DIS Outpatient CARLENE DUC CYR [facility] ENDO MELENA/DYSPHAGIA [id number] 03/28/2018 11:53:00 018 23:59:59 CLS Preadmit SANDHYA DE LA GARZA SOUND DESIGNER [facility] RAD COPD,TOBACCO US ER,HYPOXEMIA REQUIRING OXYGEN [id number] 02/01/2018 14:03:00 018 23:59:59 CLS Outpatient SANDHYA DE LA GARZA SOUND DESIGNER [facility] PULM J44.9 COPD [id number] 01/25/2018 15:00:00 018 00:01:00 DIS Outpatient SANDHYA DE LA GARZA SOUND DESIGNER [facility] PULM J44.9 COPD [id number] 11/03/2017 21:00:00 018 07:15:00 DIS Outpatient FRANDY ALBERT SOUND DESIGNER [facility] SLEEP G47.33 VALENTIN [id number] 09/08/2017 11:38:00 017 14:45:00 DIS Inpatient LANCE SHAVONNE CYR V [facility] 4TH COPD EXACERBATION W HYP OXIA [id number] 06/07/2017 10:42:00 017 23:59:59 CLS Outpatient VICK VARGAS SOUND DESIGNER [facility] RAD M25.552 [id number] 02/21/2017 08:45:00 017 23:59:59 CLS Outpatient SELAM BETH MD [facility] RAD SEVERE PVD [id number] 02/07/2017 06:01:00 017 10:35:00 DIS Outpatient NANCY GARCÍA MD [facility] SDC BENIGN PROSTATIC HYPERT ROPHY, PROSTATISM [id number] 01/31/2017 05:54:00 017 14:26:00 DIS Outpatient NANCY GARCÍA MD [facility] PREOP BENIGN PROSTATIC HYPERT ROPHY, PROSTATISM [id number] 03/24/2016 08:51:00 016 23:59:59 CLS Outpatient SANDHYA DE LA GARZA APRN [facility] RAD DYSPNEA; COPD [id number] 01/02/2016 09:39:00 016 10:45:00 DIS Emergency LUIS MILNER MD [facility] ER FALL L RIB PAIN [id number] 11/30/2015 07:15:00 016 10:00:00 DIS Outpatient PATRICIA MURPHY MD [facility] GERD; DYSPHAGIA [id number] 11/26/2015 05:46:00 016 10:13:00 DIS Outpatient PATRICIA MURPHY MD [facility] PREOP GERD; DYSPHAGIA [id number] 02/20/2015 12:51:00 015 23:59:59 CLS Outpatient JESS FRANCIS DO [facility] RT COPD [id number] 09/29/2014 10:57:00 015 13:45:00 DIS Outpatient PATRICIA MURPHY MD [facility] REFLUX [id number] 09/24/2014 05:49:00 015 23:59:59 CLS Outpatient PATRICIA MURPHY MD [facility] PREOP REFLUX [id number] 09/12/2014 17:43:00 015 19:09:00 DIS Emergency FANI LOZADA APRN [facility] ER FELL INJ LEFT FOOT [id number] 05/14/2014 06:15:00 014 09:25:00 DIS Outpatient PATRICIA MURPHY MD [facility] GERD [id number] 05/09/2014 12:01:00 014 23:59:59 CLS Outpatient PATRICIA MURPHY MD [facility] GERD [id number] 05/07/2014 07:22:00 014 23:59:59 CLS Outpatient JEFFREY BEAVERS, PATRICIA Lockett [facility] PREOP GERD [id number] 03/08/2020 08:41:[address] Emergency SALOME BEAVERS, PRCAHI Narvaez [facility] ER FEVER / DIARRHEA [id number] 05/03/2018 00:11:00 Document Registration [id number] 04/25/2018 15:18:00 Document Registration [id number] 02/21/2017 07:30:00 Document Registration [id number] 02/04/2015 12:21:00 Document Registration [id number] 02/04/2015 12:20:00 Document Registration [id number] 12/14/2011 09:27:00 Document Registration [id number] 06/01/2011 10:33:00 Document Registration [id number] 10/31/2010 11:48:00 Document Registration [id number] 01/06/2010 00:00:00 Document Registration [id number] 03/09/2017 10:59:00 017 21:30:00 DIS Outpatient Emmett BEAVERS, [facility] [place] [id number] 10/04/2019 10:27:23 10/04/2019 23:59:5 9 CLS Outpatient
--- NOTE | 2020-03-08 09:10 | NUR ---
Pt now reporting periodic pleuritic chest pain with coughing and deep breathing that has persisted for several days. Pt just now coughed bloody sputum into tissue. Dr. Wiseman present when this occurred.
[2020-03-08 09:36] LABS: BASOPHILS % (AUTO) 0 % (0-10); EOSINOPHILS % (AUTO) 0 % (0-10); HEMATOCRIT 31 % (40-54); HEMOGLOBIN 9.5 G/DL (13.3-17.7); LYMPHOCYTES # (AUTO) 0.3 X 10^3 (1.0-4.0); LYMPHOCYTES % (AUTO) 2 % (12-44); MEAN CORPUSCULAR HEMOGLOBIN 23 PG (25-34); MEAN CORPUSCULAR HGB CONC 30 G/DL (32-36); MEAN CORPUSCULAR VOLUME 74 FL (80-99); MONOCYTES # (AUTO) 0.9 X 10^3 (0.0-1.0); MONOCYTES % (AUTO) 7 % (0-12); NEUTROPHILS # (AUTO) 12.4 X 10^3 (1.8-7.8); NEUTROPHILS % (AUTO) 91 % (42-75); PLATELET COUNT 249 10^3/uL (130-400); RED CELL DISTRIBUTION WIDTH 17.7 % (10.0-14.5); WHITE BLOOD COUNT 13.7 10^3/uL (4.3-11.0)
[2020-03-08 09:45] LABS: ALBUMIN 3.9 GM/DL (3.2-4.5); POTASSIUM 4.3 MMOL/L (3.6-5.0)
--- NOTE | 2020-03-08 09:45 | NUR ---
COVID-19 swab collected at this time.
[2020-03-08 09:46] LABS: CALCIUM 8.9 MG/DL (8.5-10.1)
[2020-03-08 09:47] LABS: TOTAL PROTEIN 7.5 GM/DL (6.4-8.2)
[2020-03-08 09:49] LABS: BILIRUBIN,TOTAL 1.1 MG/DL (0.1-1.0)
[2020-03-08 09:51] LABS: CREATININE SERUM 1.2 MG/DL (0.60-1.30)
--- NOTE | 2020-03-08 10:17 | Diagnostic Imaging Report ---
CHEST 1 VIEW, AP/PA ONLY Indication: Chest pain and coughing Comparison: 02/19/2019 Findings: Scattered chronic basilar subsegmental atelectasis is unchanged. No new opacities in the visualized lungs. Posterior lower lobes are poorly evaluated by portable radiography. No pleural effusion or pneumothorax. Stable left pectoral biventricular pacemaker/ICD. Normal mediastinal contours. Impression: 1. No acute cardiopulmonary process by portable radiography. Dictated by: Dictated on workstation # [id number]
[2020-03-08 10:19] LABS: ELLIPT/OVALOCYTES SLIGHT; LYMPHOCYTES % (MANUAL) 5 %; MONOCYTES % (MANUAL) 4 %; NEUTROPHILS % (MANUAL) 91 %; STOMATOCYTES SLIGHT
[2020-03-08 10:35] LABS: BILIRUBIN,URINE NEGATIVE (NEGATIVE); CLARITY,URINE CLEAR; COLOR,URINE YELLOW; GLUCOSE, URINE (UA) 2+ (NEGATIVE); KETONES,URINE NEGATIVE (NEGATIVE); LEUKOCYTE ESTERASE ,URINE TRACE (NEGATIVE); NITRITE,URINE NEGATIVE (NEGATIVE); PH,URINE 6.5 (5-9); PROTEIN,URINE NEGATIVE (NEGATIVE)
[2020-03-08 10:55] LABS: BACTERIA,URINE NEGATIVE /HPF; SQUAMOUS EPITHELIAL CELL,UR RARE /HPF
--- NOTE | 2020-03-08 11:20 | ED General ---
General Chief Complaint: Fever-Adult/Adol Stated Complaint: FEVER / DIARRHEA Nursing Triage Note: Pt reports fever of 101-102 this morning. Pt reports taking tylenol at 0728 this morning, but is unsure of strength. Pt also reports waking up with L eyelid puffy and swollen. Pt reports pain to the touch. Pt afebrile upon assessment. Pt reports COPD and normal cough for pt. Pt denies any worsening respiratory symptoms at this time. Nursing Sepsis Screen: No Definite Risk Source of Information: Patient Allergies and Home Medications Allergies Coded Allergies: No Known Drug Allergies (Verified , 10/03/09) Home Medications Acetaminophen 650 Mg Tablet.er, 650 MG PO BID PRN for PAIN-MILD, (Reported) Albuterol Sulfate 18 Gm Hfa.aer.ad, 2 PUFF INH QID PRN for SHORTNESS OF BREATH, (Reported) Amlodipine Besylate 10 Mg Tablet, 10 MG PO DAILY, (Reported) Apixaban 5 Mg Tablet, 5 MG PO BID, (Reported) Aspirin 81 Mg Tablet.dr, 81 MG PO DAILY, (Reported) Atorvastatin Calcium 40 Mg Tablet, 40 MG PO HS, (Reported) Carvedilol 25 Mg Tablet, 25 MG PO HS, (Reported) Carvedilol 25 Mg Tablet, 12.5 MG PO DAILY, (Reported) TAKES 1/2 (25MG) TABLET Fexofenadine HCl 180 Mg Tablet, 180 MG PO DAILY, (Reported) Fluticasone/Vilanterol 1 Each Blst.w.dev, 1 PUFF INH DAILY, (Reported) Furosemide 20 Mg Tablet, 20 MG PO DAILY, (Reported) Gabapentin 100 Mg Capsule, 200 MG PO BID, (Reported) TAKES 2 (100MG) CAPSULES Glipizide 5 Mg Tablet, 5 MG PO DAILY, (Reported) Insulin Glargine,Hum.rec.anlog 100 Unit/1 Ml Insuln.pen, 10 UNIT SQ DAILY, (Re ported) Insulin Glargine,Hum.rec.anlog 100 Unit/1 Ml Insuln.pen, 35 UNIT SQ HS, (Reported) Latanoprost 2.5 Ml Drops, 1 DROP OD HS, (Reported) Levomefolate/B6/B12/Algal Oil 1 Each Capsule, 1 CAP PO BID, (Reported) Metformin HCl 500 Mg Tablet, 500 MG PO BID WITH MEALS, (Reported) Mexiletine HCl 200 Mg Capsule, 200 MG PO BID, (Reported) Montelukast Sodium 10 Mg Tablet, 10 MG PO HS, (Reported) Multivit-Min/FA/Lycopene/Lut 1 Each Tablet, 1 TAB PO DAILY, (Reported) Nitroglycerin 0.4 Mg Tab.subl, 0.4 MG SL UD PRN for CHEST PAIN, (Reported) Pantoprazole Sodium 40 Mg Tablet.dr, 40 MG PO DAILY, (Reported) Potassium Chloride 20 Meq Tab.er.prt, 20 MEQ PO DAILY, (Reported) Sucralfate 1 Gm Tablet, 1 GM PO ACHS, (Reported) Tiotropium [place] 1 Inh Aerp, 1 CAP INH DAILY, (Reported) Vitamin E Acetate 400 Unit Capsule, 400 UNIT PO DAILY, (Reported) Past Ioswtck-Zkkubs-Mnonzy Hx Patient Social History Alcohol Use: Denies Use Recreational Drug Use: No Smoking Status: Former Smoker Type Used: Cigars Former Smoker, Quit: Aug 11, 2017 Recent Foreign Travel: No Contact w/Someone Who Travel: No Recent Infectious Disease Expo: No Recent Hopitalizations: No Immunizations Up To Date Date of Pneumonia Vaccine: Jul 30, 2014 Date of Influenza Vaccine: Jul 12, 2018 Seasonal Allergies Seasonal Allergies: No Past Medical History Surgeries: Yes (LASER SX ON L EYE, R SHOULDER SX, BROKEN ARM, R TKR, ING HERNIA, R FOOT SX,) Coronary Stent, Defibrillator, Pacemaker Respiratory: Yes (SLEEP APNEA, COPD) Sleep Apnea, COPD Currently Using CPAP: Yes Cardiac: Yes (defib/pacemaker, several stents) Coronary Artery Disease, Heart Attack, High Cholesterol, Hypertension Neurological: No Reproductive Disorders: No Genitourinary: Yes Prostate Problems Gastrointestinal: Yes Gastroesophageal Reflux, Polyps Musculoskeletal: Yes Arthritis Endocrine: Yes Diabetes, Insulin dep HEENT: No Cancer: No Psychosocial: No Integumentary: No Blood Disorders: No Family Medical History Diabetes mellitus 19 MOTHER FH: heart disease 19 FATHER 19 MOTHER Physical Exam Vital Signs Vital Signs - First Documented 03/08/20 08:50 Temp 37.0 Pulse 82 Resp 18 B/P (MAP) 124/97 (106) Pulse Ox 94 O2 Delivery Room Air Capillary Refill : Less Than 3 Seconds Height, Weight, BMI Height: 6'0.00" Weight: 240lbs. 0.6oz. [id number]; 32.00 BMI Method:Stated Progress/Results/Core Measures Suspected Sepsis Recent Fever Within 48 Hours: Yes Infection Criteria Present: None New/Unexplained Altered Menta: No Sepsis Screen: No Definite Risk SIRS Temperature: Pulse: 82 Respiratory Rate: 18 Laboratory Tests 03/08/20 09:30: White Blood Count 13.7H Blood Pressure 124 /97 Mean: 106 Laboratory Tests 03/08/20 09:30: Creatinine 1.20, Platelet Count 249, Total Bilirubin 1.1H Results/Orders Lab Results Laboratory Tests Test 03/08/20 09:30 03/08/20 09:45 03/08/20 10:25 Range/Units White Blood Count 13.7 H 4.3-11.0 10^3/uL Red Blood Count 4.22 L 4.35-5.85 10^6/uL Hemoglobin 9.5 L 13.3-17.7 G/DL Hematocrit 31 L 40-54 % Mean Corpuscular Volume 74 L 80-99 FL Mean Corpuscular Hemoglobin 23 L 25-34 PG Mean Corpuscular Hemoglobin Concent 30 L 32-36 G/DL Red Cell Distribution Width 17.7 H 10.0-14.5 % Platelet Count 249 130-400 10^3/uL Mean Platelet Volume 10.0 7.4-10.4 FL Neutrophils (%) (Auto) 91 H 42-75 % Lymphocytes (%) (Auto) 2 L 12-44 % Monocytes (%) (Auto) 7 0-12 % Eosinophils (%) (Auto) 0 0-10 % Basophils (%) (Auto) 0 0-10 % Neutrophils # (Auto) 12.4 H 1.8-7.8 X 10^3 Lymphocytes # (Auto) 0.3 L 1.0-4.0 X 10^3 Monocytes # (Auto) 0.9 0.0-1.0 X 10^3 Eosinophils # (Auto) 0.0 0.0-0.3 10^3/uL Basophils # (Auto) 0.0 0.0-0.1 10^3/uL Neutrophils % (Manual) 91 % Lymphocytes % (Manual) 5 % Monocytes % (Manual) 4 % Stomatocytes SLIGHT Elliptocytes SLIGHT Sodium Level 136 135-145 MMOL/L Potassium Level 4.3 3.6-5.0 MMOL/L Chloride Level 105 98-107 MMOL/L Carbon Dioxide Level 19 L 21-32 MMOL/L Anion Gap 12 5-14 MMOL/L Blood Urea Nitrogen 17 7-18 MG/DL Creatinine 1.20 0.60-1.30 MG/DL Estimat Glomerular Filtration Rate 59 BUN/Creatinine Ratio 14 Glucose Level 245 H 70-105 MG/DL Calcium Level 8.9 8.5-10.1 MG/DL Corrected Calcium 9.0 8.5-10.1 MG/DL Total Bilirubin 1.1 H 0.1-1.0 MG/DL Aspartate Amino Transf (AST/SGOT) 20 5-34 U/L Alanine Aminotransferase (ALT/SGPT) 20 0-55 U/L Alkaline Phosphatase 121 40-136 U/L C-Reactive Protein High Sensitivity 1.22 H 0.00-0.50 MG/DL Total Protein 7.5 6.4-8.2 GM/DL Albumin 3.9 3.2-4.5 GM/DL Urine Color YELLOW Urine Clarity CLEAR Urine pH 6.5 5-9 Urine Specific [place] 1.015 L 1.016-1.022 Urine Protein NEGATIVE NEGATIVE Urine Glucose (UA) 2+ H NEGATIVE Urine Ketones NEGATIVE NEGATIVE Urine Nitrite NEGATIVE NEGATIVE Urine Bilirubin NEGATIVE NEGATIVE Urine Urobilinogen 0.2 < = 1.0 MG/DL Urine Leukocyte Esterase TRACE H NEGATIVE Urine RBC (Auto) NEGATIVE NEGATIVE Urine RBC NONE /HPF Urine WBC NONE /HPF Urine Squamous Epithelial Cells RARE /HPF Urine Crystals NONE /LPF Urine Bacteria NEGATIVE /HPF Urine Casts NONE /LPF Urine Mucus NEGATIVE /LPF Urine Culture Indicated NO My Orders Orders - PRACHI MCMAHON MD Cbc With Automated Diff (03/08/20 09:22) Comprehensive Metabolic Panel (03/08/20 09:22) Hs C Reactive Protein (03/08/20 09:22) Ua Culture If Indicated (03/08/20 09:22) Chest 1 View, Ap/Pa Only (03/08/20 09:22) Ed Iv/Invasive Line Start (03/08/20 09:22) Manual Differential (03/08/20 09:30) Coronavirus Sars-Cov-2 So 2018 (03/08/20 10:23) Vital Signs/I&O 03/08/20 08:50 Temp 37.0 Pulse 82 Resp 18 B/P (MAP) 124/97 (106) Pulse Ox 94 O2 Delivery Room Air Capillary Refill : Less Than 3 Seconds Blood Pressure Mean: 106 Departure Impression Primary Impression: Hemoptysis Additional Impressions: Left eye pain Eye swelling, left Disposition: 01 HOME, SELF-CARE Condition: Improved Departure-Patient Inst. Decision time for Depature: 11:18 Referrals: DENNY MARTINEZ MD (PCP/Family) Primary Care Physician Patient Instructions: Cellulitis (Skin Infection), Adult (DC), Coronavirus Disease 2019 (COVID-19) (DC) Add. Discharge Instructions: Follow-up with your primary care provider as soon as possible. Please call the morning for an appointment. Also follow-up with your readiness paraprofessional a few do not have prompt improvement of your eye symptoms. Complete your antibiotic as prescribed. If you have any worsening of your symptoms including more bloody sputum, shortness of breath, fever, etc. please return to care. Continue your other medications as prescribed. If you have persistent bloody sputum or other bleeding issues, stop your Eliquis until otherwise instructed and notify your doctor. All discharge instructions reviewed with patient and/or family. Voiced understanding. Scripts Doxycycline Hyclate (Doxycycline Hyclate) 100 Mg Tablet 100 MG PO BID, #20 TAB Prov: PRACHI MCMAHON MD 03/08/20 PRACHI MCMAHON MD Mar 08, 2020 11:20
[2020-03-08] MEDS ORDERED: DOXY100T2 PO (11:21)
[2020-03-08 11:30] VITALS: BP 101/61
== END 2020-03-08 11:52 | disposition home or self-care (01) ==
LOC: EDUNIT# 08:40 → ER 08:41
DX: R04.2 Hemoptysis (principal); H57.12 Ocular pain, left eye; H02.846 Edema of left eye, unspecified eyelid; J44.9 Chronic obstructive pulmonary disease, unspecified; I10 Essential (primary) hypertension; I25.2 Old myocardial infarction; E78.00 Pure hypercholesterolemia, unspecified; I25.10 Atherosclerotic heart disease of native coronary artery without angina pectoris; K21.9 Gastro-esophageal reflux disease without esophagitis; E11.9 Type 2 diabetes mellitus without complications; Z79.01 Long term (current) use of anticoagulants; Z79.82 Long term (current) use of aspirin; Z20.828 Contact with and (suspected) exposure to other viral communicable diseases; Z79.51 Long term (current) use of inhaled steroids; Z79.4 Long term (current) use of insulin; Z87.891 Personal history of nicotine dependence; Z95.810 Presence of automatic (implantable) cardiac defibrillator; Z95.5 Presence of coronary angioplasty implant and graft; Z96.651 Presence of right artificial knee joint; Z82.49 Family history of ischemic heart disease and other diseases of the circulatory system
CPT/HCPCS: 71045; 80053; 81000; 85007; 85027; 86141; 99284; U0002; 36415; 87635

== ENCOUNTER 2020-04-02 08:54 | Outpatient (RCR) | payer MEDICARE, BC ==
[2020-03-26] MEDS: FERRIC CARBOXYMALTOSE INJ 750 MG in NS (IVPB) 250 ML IV SCH (09:10)
[2020-03-26 10:20] VITALS: BP 122/63
[~2020-04-02] VITALS: Ht 180.3 cm; Wt 108.8 kg
[~2020-04-02 08:54] MED LIST changes: +DOXY100T2 PO
[2020-04-02] MEDS: FERRIC CARBOXYMALTOSE INJ 750 MG in NS (IVPB) 250 ML IV SCH (09:05)
[2020-04-02 09:07] VITALS: BP 122/63
[2020-04-02 09:10] VITALS: BP 126/80
[2020-04-02 13:25] VITALS: BP 126/80
== END 2020-04-02 10:10 | disposition home or self-care (01) ==
LOC: SDC 08:54
PROVIDERS: ATTEND Nurse Practitioner Family
DX: D50.9 Iron deficiency anemia, unspecified (principal)
CPT/HCPCS: 96365

== ENCOUNTER → 2020-06-22 | Outpatient (CLI) | payer MEDICARE, BC ==
[~2020-06-22] MED LIST changes: +ASPI-1238 PO; -ASPI-983 PO; -PANT40TA3 PO; +PANT40TA52 PO
--- NOTE | 2020-06-22 08:41 | Diagnostic Imaging Report ---
CT Lung Screening INDICATION:53 pack year smoking history. Quit smoking 2 years ago. TECHNIQUE: Noncontrast, low-dose CT imaging performed according to the lung cancer screening protocol. Auto Exposure Controls were utilize during the CT exam to meet ALARA standards for radiation dose reduction. COMPARISON:Chest CT 03/29/2019 and 06/20/2019. FINDINGS:Advanced centrilobular emphysema. No suspicious pulmonary nodule or mass. Sternotomy with CABG. AICD. Normal heart size. No pericardial effusion. No mediastinal, hilar or axillary lymphadenopathy. No pleural effusion or pneumothorax. Diffuse nodular thickening of the adrenal glands is stable. Stable 1.3 cm nodule in the left adrenal gland. Moderate esophageal hiatal hernia. Chronic right rib fractures. IMPRESSION: 1. No new suspicious pulmonary nodule or mass. Recommend continued annual screening with low-dose chest CT in 12 months. 2. Advanced centrilobular emphysema. 3. Moderate esophageal hiatal hernia. LUNG-RADS CATEGORY:1. MODIFIER:None. Dictated by: Dictated on workstation # [id number]
== END ==
LOC: RAD 08:15
PROVIDERS: ATTEND Nurse Practitioner Family
DX: Z12.2 Encounter for screening for malignant neoplasm of respiratory organs (principal); Z87.891 Personal history of nicotine dependence; J43.2 Centrilobular emphysema; K44.9 Diaphragmatic hernia without obstruction or gangrene

== ENCOUNTER 2020-11-12 05:35 | Outpatient (RCR) | payer MEDICARE, BC ==
[~2020-11-12] VITALS: Ht 180.3 cm; Wt 106.8 kg
[~2020-11-12 05:35] MED LIST changes: +AMLO-251 PO; -AMLO10TA7 PO; -MONT10TA26 PO; +MONT10TA32 PO
[2020-11-16] MEDS ORDERED: PANT40TA2 PO (09:31)
== END 2020-11-12 14:49 | disposition home or self-care (01) ==
LOC: PREOP 05:35
PROVIDERS: ATTEND Surgery
DX: Z01.812 Encounter for preprocedural laboratory examination (principal); R13.10 Dysphagia, unspecified; Z20.822 Contact with and (suspected) exposure to COVID-19; Z87.19 Personal history of other diseases of the digestive system
CPT/HCPCS: 87635

== ENCOUNTER 2020-11-16 07:34 | Day surgery (SDC) | payer MEDICARE, BC ==
[2020-11-16] VITALS (7 sets, daily range): BP systolic 96–134; BP diastolic 53–90
[~2020-11-16] VITALS: Ht 180.3 cm; Wt 106.8 kg
[2020-11-16] MEDS ORDERED: LACTATED RINGERS 1,000 ML IV STA (07:36)
[2020-11-16] MEDS ORDERED: LACTATED RINGERS 1,000 ML IV ONE (07:44)
[2020-11-16] MEDS ORDERED: proPOfol 200 MG/20 ML (DIPRIVAN) VIAL IV ONE ×2 (07:55→08:36)
[2020-11-16] MEDS ORDERED: HURRICAINE EXT TUBE (BENZOCAINE) ONE (08:26)
--- NOTE | 2020-11-16 08:26 | Progress Note-Pre Operative ---
Pre-Operative Progress Note H&P Reviewed The H&P was reviewed, patient examined and no changes noted. Time Seen by Provider: 08:16 Date H&P Reviewed: Nov 16, 2020 Time H&P Reviewed: 08:17 Pre-Operative Diagnosis: Gastritis, Dysphagia DUC CONCEPCION DO Nov 16, 2020 08:26
[2020-11-16] MEDS ORDERED: HURRICAINE EXT TUBE (BENZOCAINE) XX ONE (08:45)
--- NOTE | 2020-11-16 09:30 | Progress Note-Post Operative ---
Post-Operative Progess Note Surgeon (s)/Sales Expert Home Theater (s) Surgeon DUC CONCEPCION DO Sales Expert Home Theater: none Pre-Operative Diagnosis Gastritis, Dysphagia Post-Operative Diagnosis Gastritis Esophagitis Hiatal hernia Procedure & Operative Findings Date of Procedure 11/16/20 Procedure Performed/Findings EGD with bx Anesthesia Type IV sedation by HEALTH SANITARIAN Estimated Blood Loss Estimated blood loss (mL): scant Specimens/Packing Specimens Removed antral bx x 2 GE jxn x 2 body of stomach bx Cardia of stomach bx DUC CONCEPCION DO Nov 16, 2020 09:30
[2020-11-16] MEDS ORDERED: PANT40TA2 PO (09:31)
--- NOTE | 2020-11-16 09:31 | Endoscopy Discharge Instruct ---
Endo Procedure/Findings Findings 1.: Gastritis 2.: Hiatal Hernia Discharge Instructions - Activity: You might feel a little sleepy until tomorrow. This is due to the medicine you received to relax you. Until tomorrow, you should: NOT drive a car, operate machinery or power tools. NOT drink any alcoholic beverages. NOT make any important decisions or sign importortant papers. Do not return to work until tomorrow, unless otherwise instructed. Resume previous activities tomorrow. Diet: Start by taking liquids. If you tolerate liquids, advance to solid food. 1.: EGD in 1 year Notify Physician - If you experience excessive bleeding, unusual abdominal pain, fever, or chest pain, contact your doctor immediately. DUC CONCEPCION DO Nov 16, 2020 09:31
--- NOTE | 2020-11-16 12:48 | Anesthesia-General Post-Op ---
MAC Patient Condition Mental Status/LOC: Same as Preop Cardiovascular: Satisfactory Nausea/Vomiting: Absent Respiratory: Satisfactory Pain: Controlled Complications: Absent Post Op Complications Complications None Follow Up Care/Instructions Patient Instructions None needed. Anesthesiology Discharge Order Discharge Order Patient is doing well, no complaints, stable vital signs, no apparent adverse anesthesia problems. No complications reported per nursing. FARNAZ BENTLEY CRNA Nov 16, 2020 12:48
--- NOTE | 2020-11-17 02:55 | OPERATIVE REPORT ---
DATE OF SERVICE: PREOPERATIVE DIAGNOSES: Gastritis, dysphagia. POSTOPERATIVE DIAGNOSES: Gastritis, esophagitis, hiatal hernia. PROCEDURE: EGD with biopsy. SURGEON: Chava Augustine DO BREAK OUT MAN: None. ANESTHESIA: IV sedation by the JOB LITHOGRAPHER. SPECIMEN: Biopsy from the antrum x2, Biopsy of the GE junction x2, biopsy of the body of stomach x1 and biopsy of the cardia. BLOOD LOSS: Scant. FLUIDS: Per anesthesia. POSTOPERATIVE CONDITION: Stable. INDICATION FOR PROCEDURE: The patient is a 75-year-old male who has been having some gastritis and dysphagia, needed a workup. FINDINGS: The patient had gastritis, esophagitis and hiatal hernia. PROCEDURE NOTE: After informed consent was obtained, the patient was brought to the endoscopy suite, placed in bed in left lateral decubitus position. He was administered IV sedation by the JOB LITHOGRAPHER who then monitored his vitals the entire time, heart rate, blood pressure and pulse ox and the scope was inserted down the mouth through the esophagus into the stomach. Upon entering the stomach, noted some inflammation in the antrum, pushed into the duodenum, took a picture of the duodenum, pulled back, did two biopsies of the antrum. There are areas looked like ulcerations and then retroflexed the scope, saw hiatal hernia, did a biopsy of body of stomach and then looked like there was a pretty severe inflammation right at the cardia of the stomach, did another biopsy here, pulled the scope into the GE junction, did two biopsies here and then pushed the scope back into the stomach, suctioned all the air out and then pulled the scope up the esophagus and out the mouth. The patient tolerated the procedure, recovered in endoscopy suite. Job ID: [id number] DocumentID: [id number] Dictated Date: 11/16/2020 19:42:29 Senior Project Engineer Date: 11/17/2020 02:54:16 Dictated By: CHAVA AUGUSTINE DO [facility]
== END 2020-11-16 09:50 | disposition home or self-care (01) ==
LOC: ENDO 07:34
PROVIDERS: ATTEND Surgery
DX: K29.50 Unspecified chronic gastritis without bleeding (principal); K21.00 Gastro-esophageal reflux disease with esophagitis, without bleeding; K44.9 Diaphragmatic hernia without obstruction or gangrene; I10 Essential (primary) hypertension; I25.10 Atherosclerotic heart disease of native coronary artery without angina pectoris; J44.9 Chronic obstructive pulmonary disease, unspecified; G47.33 Obstructive sleep apnea (adult) (pediatric); G47.10 Hypersomnia, unspecified; I48.0 Paroxysmal atrial fibrillation; E13.59 Other specified diabetes mellitus with other circulatory complications; E66.9 Obesity, unspecified; Z68.32 Body mass index [BMI] 32.0-32.9, adult; Z79.84 Long term (current) use of oral hypoglycemic drugs; Z79.51 Long term (current) use of inhaled steroids; Z79.899 Other long term (current) drug therapy; Z79.82 Long term (current) use of aspirin; Z79.01 Long term (current) use of anticoagulants; Z95.5 Presence of coronary angioplasty implant and graft; Z87.891 Personal history of nicotine dependence; Z85.038 Personal history of other malignant neoplasm of large intestine

== ENCOUNTER → 2021-05-12 | Outpatient (CLI) | payer MEDICARE, BC ==
[~2021-05-12] MED LIST changes: +RT-ALBUTEROL SULF 2.5 MG/3 ML PRE-MIX VIAL INH ONE
== END ==
LOC: RT 09:30
PROVIDERS: ATTEND Nurse Practitioner Family
DX: J44.9 Chronic obstructive pulmonary disease, unspecified (principal)
CPT/HCPCS: 94060; 94726; 94729

== ENCOUNTER → 2021-06-16 | Outpatient (CLI) | payer MEDICARE, BC ==
[~2021-06-16] MED LIST changes: -RT-ALBUTEROL SULF 2.5 MG/3 ML PRE-MIX VIAL INH ONE
== END ==
LOC: CARD 11:10
PROVIDERS: ATTEND Internal Medicine Cardiovascular Disease
DX: I11.9 Hypertensive heart disease without heart failure (principal); I08.0 Rheumatic disorders of both mitral and aortic valves; I25.10 Atherosclerotic heart disease of native coronary artery without angina pectoris
CPT/HCPCS: 93306

== ENCOUNTER → 2021-06-28 | Outpatient (CLI) | payer MEDICARE, BC ==
--- NOTE | 2021-06-28 16:50 | Diagnostic Imaging Report ---
CT CHEST SCREENING WO TECHNIQUE: Low-dose unenhanced CT of the chest was performed according to the screening protocol. Coronal MIP and sagittal MPR reformats are created. Automatic exposure controls were utilized to keep dose as low as reasonably achievable. INDICATION: 34-nqey-evkc history of smoking. Quit smoking four years ago. COMPARISON: Low-dose CT chest of 06/22/2020. FINDINGS: Pulmonary findings: No tracheal nodule. Severe centrilobular emphysema is unchanged. No suspicious pulmonary nodules have developed. No pneumonia or edema. Extrapulmonary findings: No axillary or mediastinal lymphadenopathy. No pericardial or pleural effusion. Status post CABG without pericardial effusion. Biventricular pacemaker is present. Stable emysx-en-owuqjfbs-sized hiatal hernia. No change in low-attenuation left adrenal nodule, likely a benign adenoma. No worrisome focal osseous lesions. IMPRESSION: 1. No change to indicate clinically active lung cancer. 2. Severe emphysema. 3. Unchanged hiatal hernia. Lung-RADS category: 1 - Negative Recommendations: Continued annual screening with low-dose CT in 12 months. Dictated by: Dictated on workstation # [id number]
== END ==
LOC: RAD 14:45
PROVIDERS: ATTEND Nurse Practitioner Family
DX: Z12.2 Encounter for screening for malignant neoplasm of respiratory organs (principal); J43.9 Emphysema, unspecified; K44.9 Diaphragmatic hernia without obstruction or gangrene; Z87.891 Personal history of nicotine dependence
CPT/HCPCS: 71271

== ENCOUNTER → 2021-06-30 | Outpatient (CLI) | payer MEDICARE, BC ==
[~2021-06-30] VITALS: Ht 180 cm; Wt 106.0 kg
[~2021-06-30] MED LIST changes: +REGADENOSON 0.4 MG/5 ML SYR (LEXISCAN) IV ONE
[2021-06-30] MEDS: CATHETER FLUSH 10 ML SYR IV PRN ×2 (12:08→13:45)
[2021-06-30 13:42] VITALS: BP 147/85
--- NOTE | 2021-06-30 15:41 | Cardiology Stress Test Report ---
Stress Test Report Date of Procedure/Referring: Date of Procedure: Jun 30, 2021 PCP Florentino Ron MD Admitting Physician Britt Acuña MD Baseline Blood Pressure: Blood Pressure Systolic: 147 Blood Pressure Diastolic: 85 Baseline Vitals Vital Signs Date Time Temp Pulse Resp B/P (MAP) Pulse Ox O2 Delivery O2 Flow Rate FiO2 06/30/21 13:42 86 16 147/85 (105) 96 Nasal Cannula Baseline EKG: Baseline EKG: LBBB Summary After explaining the procedure to the patient, he signed a consent and then brought to the stress nuclear laboratory. Patient received 0.4 mg Lexiscan for stress test, ECG, heart rate and blood pressure were monitored continuously. Resting and stress dose of radio tracer were injected, imaging was acquired and reviewed in short axis, horizontal long axis and vertical long axis views. TID: 1.1 SSS: 27 SDS: 6 EF: 44 1. Patient tolerated Lexiscan well 2. Baseline left bundle branch block persisted during test 3. Fixed defect involving the whole inferior wall and inferolateral wall, mild reversible ischemia involving the mid to apical anterior wall 4. Prominent left ventricle with diffuse hypokinesia more pronounced at the inferior wall, ejection fraction 44% FLORENTINO RON MD Jun 30, 2021 15:41
== END ==
LOC: CARD 12:30
PROVIDERS: ATTEND Internal Medicine Cardiovascular Disease
DX: I10 Essential (primary) hypertension (principal); I25.10 Atherosclerotic heart disease of native coronary artery without angina pectoris
CPT/HCPCS: 78452; 93017; A9502

== ENCOUNTER 2021-07-14 11:00 | Day surgery (SDC) | payer MEDICARE, BC ==
[2021-07-14] VITALS (10 sets, daily range): BP systolic 97–150; BP diastolic 64–94
[~2021-07-14] VITALS: Ht 180 cm; Wt 106.0 kg
[2021-07-14 10:00] LABS: HEMATOCRIT 43 % (40-54); HEMOGLOBIN 14.5 g/dL (13.3-17.7); MEAN CORPUSCULAR HEMOGLOBIN 31 pg (25-34); MEAN CORPUSCULAR HGB CONC 34 g/dL (32-36); MEAN CORPUSCULAR VOLUME 90 fL (80-99); PLATELET COUNT 180 10^3/uL (130-400)
[2021-07-14 10:13] LABS: INR 1.2 (0.8-1.4); PROTHROMBIN TIME PATIENT 15.2 SEC (12.2-14.7)
[2021-07-14 10:21] LABS: ALBUMIN 3.7 GM/DL (3.2-4.5); BILIRUBIN,TOTAL 1.7 MG/DL (0.1-1.0); CREATININE SERUM 1.08 MG/DL (0.60-1.30); POTASSIUM 4.1 MMOL/L (3.6-5.0); TOTAL PROTEIN 7.2 GM/DL (6.4-8.2)
--- NOTE | 2021-07-14 10:22 | Diagnostic Imaging Report ---
INDICATION: Dyspnea. Comparison with 03/08/2020. FINDINGS: Bilateral obstructive interstitial lung disease is again demonstrated. There does appear to be some new infiltrate in the left lower lobe today. There is mild cardiomegaly with median sternotomy changes. No evidence of pulmonary edema. ICD pacer on the left is unchanged. IMPRESSION: 1. Development of some alveolar infiltrate left lower lung superimposed on diffuse chronic obstructive interstitial lung disease. Dictated by: Dictated on workstation # [id number]
[~2021-07-14 11:00] MED LIST changes: +ACET-2267 PO; +DOCU100C37 PO; +FERR142T7 PO; +FLUT9.9S NS; +HEParin (CATH LAB) 2,000 ML IV ONE; +LIDOCAINE 1% INJ 20 ML 20 ML VIAL ONE; +LOSA25TA41 PO; +METH1TAB59 PO; +NS IV 1000 ML 1,000 ML IV SCH; +NS IV 1000 ML 1,000 ML ONE; -REGADENOSON 0.4 MG/5 ML SYR (LEXISCAN) IV ONE; +VITA-272 PO; +cefTRIAXone 1,000 MG in WATER (STERILE) FOR INJECTION 10 ML IV ONE
--- NOTE | 2021-07-14 11:02 | Conscious Sedation/ASA ---
Conscious Sedation Pre-Proced Time 11:02 ASA Score 3 For ASA 3 and 4: Consider anesthesia and medical clearance. Also, for patients with a history of failed moderate sedation consider anesthesia. Airway Lungs Heart ASA score ASA 1: a normal healthy patient ASA 2: a patient with a mild systemic disease (mid diabetes, controlled hypertension, obesity x ASA 3: a patient with a severe systemic disease that limits activity (angina, COPD, prior Myocardial infarction) ASA 4: a patient with an incapacitating disease that is a constant threat to life (CHF, renal failure) ASA 5: a moribund patient not expected to survive 24 hrs. (ruptured aneurysm) ASA 6: a declared brain- patient whose organs are being harvested. For emergent operations, add the letter E after the classification Mallampati Classification Grade 3 Sedation Plan Analgesia, Amnesia, Plan communicated to team members, Discussed options with patient/fam, Discussed risks with patient/fam The patient is an appropriate candidate to undergo the planned procedure, sedation, and anesthesia. The patient immediately re-assessed prior to indication. FLORENTINO RIVAS MD Jul 14, 2021 11:02
[2021-07-14] MEDS ORDERED: MIDAZOLAM 5 MG/5 ML (VERSED) VIAL ONE (11:08)
[2021-07-14] MEDS ORDERED: fentaNYL INJ 100 MCG/2 ML AMP ONE (11:08)
[2021-07-14] MEDS ORDERED: AZIT250T PO (11:53)
[2021-07-14] MEDS ORDERED: METF-397 PO (11:53)
--- NOTE | 2021-07-14 11:54 | Discharge Inst-Post CATH ---
Discharge Inst-CATH/EP Problems Reviewed?: Yes Post Cardiac Cath/EP D/C Inst Follow Up/Plan Hold Metformin for [address] Ron's office in 2 to 4 weeks <b>CARDIAC CATH/EP PROCEDURE DISCHARGE INSTRUCTIONS</b> ACTIVITY * Go Home directly and rest. * Limit activity of the leg (or wrist if it was used) for 7 days including aerobics, swimming, jogging, bicycling, etc. * Restrict stair-climbing for 7 days if possible, if not, climb up with your non-cath leg, then bring together on the same step. * Avoid lifting, pushing, pulling or excessive movement of the affected extremity for 7 days. * Customary sexual activity may be resumed after 2 days-use caution not to use a position that strains or causes pain to the affected extremity. * No driving for 24 hours. * NO SMOKING. * Avoid straining for bowel movements for 7 days. * Gentle walking on level ground is allowed. * Returning to work will depend on the type of procedure and the results. Your doctor will discuss this with you. CALL YOUR DOCTOR FOR ANY OF THE FOLLOWING: *If bleeding from the puncture site occurs- Apply gentle pressure to site with clean cloth and call your doctor or EMS. * If a knot or lump forms under the skin, increases in size, or causes pain. * If bruising appears to be worsening or moving further down your leg instead of disappearing. * Temperature above 101 F. CARE OF YOUR GROIN INCISION; * Bruising or purple discoloration of the skin near the puncture site is common. * You may shower only, no bathtub bathing for 5 days. Be careful to avoid slipping as your leg may feel stiff. * If a closure device was used on your femoral artery, please see the attached guide regarding care of the device and your leg. * Leave dressing on FOR 24 hours. CARE OF YOUR WRIST INCISION; * Bruising or purple discoloration of the skin near the puncture site is common. * You may shower. * DO NOT submerge wrist. * Leave dressing on FOR 24 hours. FLORENTINO RON MD Jul 14, 2021 11:54
--- NOTE | 2021-07-14 11:58 | Cardiac Cath Report ---
Cardiac Cath Report Physician (s)/Road Freight Brake Coupler (s) Physician FLORENTINO RIVAS MD Pre-Procedure Diagnosis Pre-Procedure Diagnosis: Coronary artery disease Post-Procedure Note Procedure Start Date: Jul 14, 2021 Name of Procedure: Coronary angiogram Vein graft angiogram COLON angiogram Findings/Procedure Note PROCEDURE NOTE: 76 years old gentleman with history of coronary artery disease, CABG x2, multiple intervention in the past, had an abnormal stress test, scheduled for cardiac catheterization possible PTCA. After explaining the procedure to the patient, all pros and cons were explained, all questions were answered. The patient signed the consent and then he was placed on the cardiac catheterization laboratory. Groin was prepped SL fashion local anesthesia was used. Sheath placed in the right femoral artery. Polly right and left catheter were used to access the coronary system.Vein Graft evaluated. COLON evaluated. At the end of the procedure the sheath was removed. Closure device was deployed FINDINGS: ANATOMY: Left Main has mild disease nonobstructive disease Left Anterior Descending has moderate diffuse disease, calcification, no significant obstructive disease Left Circumflex has patent stent proximally with moderate in-stent restenosis, vein graft to the obtuse marginal branch is patent with good flow distally Right Coronary Artery is large dominant artery with patent stent in the proximal portion, moderate in-stent restenosis, patent vein graft to the distal right coronary artery COLON was evaluated and was free COLON Vein Graft evaluation showed 2 vein grafts: Vein graft to the right coronary artery has good flow small vessel disease distally beyond the anastomosis point nonobstructive disease Vein graft to the obtuse marginal branch is patent with good flow distally nonobstructive disease CONCLUSION: 1. Patent vein graft to the obtuse marginal branch and vein graft to the right coronary artery with nonobstructive disease 2. COLON is free. Not utilized in the bypass surgery 3. Calcified LAD with moderate disease nonobstructive disease, patent stent in the proximal circumflex artery with mild to moderate in-stent restenosis nonobstructive disease, patent stent in the proximal right coronary artery with mild to moderate in-stent restenosis nonobstructive disease DISCUSSION AND RECOMMENDATION: Medical therapy is recommended no intervention is warranted Anesthesia Type: Conscious Sedation Estimated blood loss (mL): 25 ml Contrast Amount: 105 ml Total Radiation Dose: 1091 mGy Post-Procedure Diagnosis Post-operative diagnosis: Chest pain Coronary artery disease Hypertension Hyperlipidemia FLORENTINO RIVAS MD Jul 14, 2021 11:58
[2021-07-14] MEDS ORDERED: NS IV 1000 ML 1,000 ML IV SCH (12:00)
[2021-07-14] MEDS ORDERED: PATIENT MAY USE OWN MEDS, ALL PO SCH (12:00)
== END 2021-07-14 16:36 | disposition home or self-care (01) ==
LOC: CATH 11:00
PROVIDERS: ATTEND Internal Medicine Cardiovascular Disease
DX: I25.10 Atherosclerotic heart disease of native coronary artery without angina pectoris (principal); I10 Essential (primary) hypertension; E78.2 Mixed hyperlipidemia; I65.23 Occlusion and stenosis of bilateral carotid arteries; Z95.810 Presence of automatic (implantable) cardiac defibrillator; Z87.891 Personal history of nicotine dependence; I44.7 Left bundle-branch block, unspecified; Z95.1 Presence of aortocoronary bypass graft; Z95.5 Presence of coronary angioplasty implant and graft; I48.0 Paroxysmal atrial fibrillation; E11.9 Type 2 diabetes mellitus without complications; G47.33 Obstructive sleep apnea (adult) (pediatric); Z99.89 Dependence on other enabling machines and devices; R60.9 Edema, unspecified; Z79.01 Long term (current) use of anticoagulants; Z79.899 Other long term (current) drug therapy; Z79.84 Long term (current) use of oral hypoglycemic drugs; Z79.82 Long term (current) use of aspirin; Z11.2 Encounter for screening for other bacterial diseases
CPT/HCPCS: 71045; 80053; 80061; 85027; 85610; 85730; 87081; 93455; C1760; C1894; 36415

== ENCOUNTER 2021-11-02 10:25 | Emergency (ER) | payer MEDICARE, BC ==
[~2021-11-02] VITALS: Ht 180 cm; Wt 108.0 kg
[~2021-11-02 10:25] MED LIST changes: +AZIT250T PO; +FERR142T17 PO; -FERR142T7 PO; -HEParin (CATH LAB) 2,000 ML IV ONE; -LIDOCAINE 1% INJ 20 ML 20 ML VIAL ONE; +MONT-40 PO; -MONT10TA32 PO; -NS IV 1000 ML 1,000 ML IV SCH; -NS IV 1000 ML 1,000 ML ONE; +POTA-179 PO; -POTA20TA15 PO; -cefTRIAXone 1,000 MG in WATER (STERILE) FOR INJECTION 10 ML IV ONE
--- NOTE | 2021-11-02 10:32 | ED Head Injury ---
General Stated Complaint: FALL Source: patient Exam Limitations: no limitations (FANI LOZADA APRN) History of Present Illness Date Seen by Provider: Nov 02, 2021 Time Seen by Provider: 10:29 Initial Comments To ER with reports of a fall. He was walking down his wheelchair ramp which was slick he fell backwards striking the back of his head he did have loss of consciousness for about 1 minute. Complains of some pain to the back of his head where he struck it. No neck pain. He denies any other injuries or pain. He denies any vomiting. He is on Eliquis for history of atrial fibrillation. D enies any pelvis or extremity pain. Occurred: just prior to arrival Severity: moderate Method of Injury: direct blow, fell Associated Systoms: Headaches (FANI LOZADA APRN) Allergies and Home Medications Allergies Coded Allergies: No Known Drug Allergies (Verified , 10/03/09) Patient Home Medication List Home Medication List Reviewed: Yes (FANI LOZADA APRN) Acetaminophen (Tylenol Extra Strength) 500 Mg Tablet, 1,000 MG PO Q8H PRN for PAIN-MILD (1-4), (Reported) Entered as Reported by: ILIANA MARINELLI on 07/14/21 1037 Albuterol Sulfate (Proair Hfa) 1 Puff Puff, 2 PUFF IH Q4H PRN for WHEEZING, (Reported) Entered as Reported by: ILIANA MARINELLI on 07/14/21 1037 Amlodipine Besylate (Amlodipine Besylate) 10 Mg Tablet, 10 MG PO DAILY, (Reported) Entered as Reported by: JANESSA SINGH on 09/08/17 0842 Apixaban (Eliquis) 5 Mg Tablet, 5 MG PO BID, (Reported) Entered as Reported by: ILIANA MARINELLI on 07/14/21 1037 Aspirin (Aspirin EC) 81 Mg Tablet.dr, 81 MG PO DAILY, (Reported) Entered as Reported by: ILIANA MARINELLI on 07/14/21 1037 Atorvastatin Calcium (Atorvastatin Calcium) 40 Mg Tablet, 40 MG PO DAILY, (Repor reyna) Entered as Reported by: KARUNA ORTIZ on 05/16/19 0950 Azithromycin (Zithromax) 250 Mg Tablet, 250 MG PO UD Prescribed by: FLORENTINO RIVAS on 07/14/21 1153 Carvedilol (Carvedilol) 25 Mg Tablet, 25 MG PO HS, (Reported) Entered as Reported by: JANESSA SINGH on 09/08/17 09 Carvedilol (Carvedilol) 25 Mg Tablet, 12.5 MG PO DAILY, (Reported) Entered as Reported by: JANESSA SINGH on 09/08/17 09 Docusate Sodium (Docusate Sodium) 100 Mg Capsule, 100 MG PO DAILY PRN for CONSTIPATION-1ST LINE, (Reported) Entered as Reported by: ILIANA MARINELLI on 07/14/21 1037 Ferrous Sulfate (Slow Release Iron) 142 Mg Tablet.er, 142 MG PO DAILY, (Reported) Entered as Reported by: ILIANA MARINELLI on 07/14/21 1044 Fexofenadine HCl (Fexofenadine HCl) 180 Mg Tablet, 180 MG PO HS, (Reported) Entered as Reported by: KARUNA ORTIZ on 05/16/19 0950 Fluticasone Propionate (Flonase Allergy Relief) 9.9 Ml [place].susp, 1 SPRAY NS HS, (Reported) Entered as Reported by: ILIANA MARINELLI on 07/14/21 1037 Fluticasone/Salmeterol (Advair 250-50 Diskus) 1 Each Blst.w.dev, 1 EACH IH BID, (Reported) Entered as Reported by: ILIANA MARINELLI on 07/14/21 1037 Furosemide (Furosemide) 20 Mg Tablet, 20 MG PO DAILY, (Reported) Entered as Reported by: JANESSA SINGH on 10/25/18 1149 Gabapentin (Gabapentin) 100 Mg Capsule, 100 MG PO QID, (Reported) Entered as Reported by: JANESSA SINGH on 09/08/17 0904 Glipizide (Glipizide) 5 Mg Tablet, 5 MG PO DAILY, (Reported) Entered as Reported by: JANESSA SINGH on 09/08/17 0842 Insulin Glargine,Hum.rec.anlog (Basaglar Kwikpen U-100) 100 Unit/1 Ml Insuln.pen, 10 UNIT SQ DAILY, (Reported) Entered as Reported by: JANESSA SINGH on 10/25/18 1149 Insulin Glargine,Hum.rec.anlog (Basaglar Kwikpen U-100) 100 Unit/1 Ml Insuln.pen, 40 UNIT SQ HS, (Reported) Entered as Reported by: JANESSA SINGH on 10/25/18 1149 Losartan Potassium (Losartan Potassium) 25 Mg Tablet, 25 MG PO DAILY, (Reported) Entered as Reported by: ILIANA MARINELLI on 07/14/21 1037 Metformin HCl (Metformin HCl) 500 Mg Tablet, 500 MG PO BID WITH MEALS Prescribed by: FLORENTINO RIVAS on 07/14/21 1153 Methyl-B12/l-Mefolate/B6 Phos (Foltanx Tablet) 1 Each Tablet, 1 EACH PO BID, (Reported) Entered as Reported by: ILIANA MARINELLI on 07/14/21 1037 Mexiletine HCl (Mexiletine HCl) 200 Mg Capsule, 200 MG PO BID, (Reported) Entered as Reported by: JANESSA SINGH on 09/08/17 0842 Montelukast Sodium (Montelukast Sodium) 10 Mg Tablet, 10 MG PO HS, (Reported) Entered as Reported by: KARUNA ORTIZ on 05/16/19 0950 Multivit-Min/FA/Lycopene/Lut (Centrum Silver Tablet) 1 Each Tablet, 1 TAB PO DAILY, (Reported) Entered as Reported by: JANESSA SINGH on 09/08/17 0904 Nitroglycerin (Nitroglycerin) 0.4 Mg Tab.subl, 0.4 MG SL UD PRN for CHEST PAIN, (Reported) Entered as Reported by: JANESSA SINGH on 09/08/17 0904 [place] 3 Polyunsat Fatty Acids (Fish Oil 1,000 mg Capsule) 1,000 Mg Cap, 1,000 MG PO TID, (Reported) Entered as Reported by: ILIANA MARINELLI on 07/14/21 1037 Pantoprazole Sodium (Pantoprazole Sodium) 40 Mg Tablet.dr, 40 MG PO DAILY, (Reported) Entered as Reported by: ILIANA MARINELLI on 07/14/21 1037 Potassium Chloride (Potassium Chloride) 20 Meq Tab.er.prt, 20 MEQ PO DAILY, (Reported) Entered as Reported by: JANESSA SINGH on 09/08/17 0842 Sucralfate (Sucralfate) 1 Gm Tablet, 1 GM PO ACHS, (Reported) Entered as Reported by: JANESSA SINGH on 10/25/18 1149 Tiotropium [place] (Spiriva) 1 Inh Aerp, 1 CAP INH DAILY, (Reported) Entered as Reported by: JANESSA SINGH on 09/08/17 0842 Vitamin E Mixed (Vitamin E) 400 Unit Capsule, 400 UNIT PO DAILY, (Reported) Entered as Reported by: ILIANA MARINELLI on 07/14/21 1037 Review of Systems Review of Systems Constitutional: see HPI Eyes: No Symptoms Reported Ears, Nose, Mouth, Throat: no symptoms reported Respiratory: no symptoms reported Cardiovascular: no symptoms reported Genitourinary: no symptoms reported Musculoskeletal: no symptoms reported Skin: no symptoms reported Psychiatric/Neurological: See HPI, Headache Endocrine: No Symptoms Reported Hematologic/Lymphatic: No Symptoms Reported (FANI LOZADA APRN) Past Hqgrksx-Ntizsj-Uxpxxo Hx Seasonal Allergies Seasonal Allergies: No (FANI LOZADA APRN) Past Medical History Surgeries: Yes (LASER SX ON L EYE, R SHOULDER SX, BROKEN ARM, R TKR, ING HERNIA, R FOOT SX,) Coronary Stent, Defibrillator, Pacemaker Respiratory: Yes (SLEEP APNEA, COPD) Sleep Apnea, COPD Currently Using CPAP: Yes Cardiac: Yes (defib/pacemaker, several stents) Coronary Artery Disease, Heart Attack, High Cholesterol, Hypertension Neurological: No Reproductive Disorders: No Genitourinary: Yes Prostate Problems Gastrointestinal: Yes Gastroesophageal Reflux, Polyps Musculoskeletal: Yes Arthritis Endocrine: Yes Diabetes, Insulin dep HEENT: Yes Cataract Cancer: No Psychosocial: No Integumentary: No Blood Disorders: No Adverse Reaction/Blood Tranf: No (FANI LOZADA APRN) Family Medical History Diabetes mellitus 19 MOTHER FH: heart disease 19 FATHER 19 MOTHER Physical Exam Vital Signs Vital Signs - First Documented 11/02/21 10:25 Temp 36.4 Pulse 74 Resp 18 B/P (MAP) 136/73 (94) Pulse Ox 96 (PRACHI MCMAHON MD) Vital Signs Capillary Refill : (FANI LOZADA APRN) Height, Weight, BMI Height: 6'0.00" Weight: 240lbs. 0.6oz. 108.085602xi; 32.71 BMI Method:Stated General Appearance: WD/WN, no apparent distress HEENT: PERRL/EOMI, normal ENT inspection (No scalp laceration) Neck: non-tender, full range of motion, other (Denies any neck tenderness. Neck is normal in appearance. He arrives in a rigid cervical collar.) Cardiovascular: regular rate, rhythm, no murmur Respiratory: normal breath sounds, no respiratory distress, no accessory muscle use Gastrointestinal: normal bowel sounds, non tender Extremities: normal range of motion, non-tender Psychiatric: alert, oriented x 3 [place] Nerves: normal hearing, normal speech, PERRL Motor/Sensory: no motor deficit, no sensory deficit Skin: normal color, warm/dry (FANI LOZADA APRN) [place] Coma Score Best Eye Response: (4) Open Spontaneously Best Verbal Response: (5) Oriented Best Motor Response: (6) Obeys Commands [place] Total: 15 (FANI LOZADA APRN) Progress/Results/Core Measures Results/Orders Vital Signs/I&O 11/02/21 11/02/21 10:25 11:34 Temp 36.4 36.4 Pulse 74 74 Resp 18 18 B/P (MAP) 136/73 (94) 136/73 Pulse Ox 96 96 (PRACHI MCMAHON MD) Departure Communication (Admissions) Family Conversation 1132-rigid cervical collar off at this time still no neck tenderness. NAME: [facility] REC#: [id number] PT STATUS: REG ER : 1945 PHYSICIAN: FANI LOZADA APRN ADMIT DATE: 11/02/21/ER Draft Date of Exam:11/02/21 CT HEAD/CERVICAL SPINE WO PROCEDURE: CT head and CT cervical spine without contrast. TECHNIQUE: Multiple contiguous axial images were obtained through the brain and cervical spine without the use of intravenous contrast. Sagittal and coronal reformations through the cervical spine were then performed. Auto Exposure Controls were utilized during the CT exam to meet ALARA standards for radiation dose reduction. INDICATION: Fall. Head injury. Head and neck pain. COMPARISON: CT cervical spine without contrast 12/14/2011. FINDINGS: CT HEAD: Moderate to advanced generalized parenchymal volume loss. Intracranial vascular calcifications. No CT evidence of a territorial infarction. No intracranial hemorrhage, mass effect, hydrocephalus or extra-axial fluid collections. Osseous structures are intact. The mastoids are clear. Mild mucosal thickening in the maxillary sinuses. CT cervical spine: Grade 1 anterolisthesis C3 on C4. Alignment is otherwise normal. Vertebral body heights preserved. No fractures. Moderate degenerative endplate changes greatest at C4-C7. No high-grade spinal canal stenosis is evident on soft tissue windows. Moderate atherosclerotic calcifications in the carotid bifurcations. Emphysematous changes in the lung apices. IMPRESSION: No acute intracranial or cervical spine CT findings. Dictated on workstation # [id number] Dict: 11/02/21 1114 Trans: 11/02/21 1125 [id number] Interpreted by: UGO BORJA MD Electronically signed by: (FANI LOZADA APRN) Impression Primary Impression: Fall Additional Impression: Scalp contusion Disposition: HOME, SELF-CARE Condition: Stable Departure-Patient Inst. Decision time for Depature: 10:31 (FANI LOZADA APRN) Referrals: DENNY MARTINEZ MD (PCP/Family) Primary Care Physician Patient Instructions: Preventing Falls ED Add. Discharge Instructions: 1. Return to ER for any concerns 2. Follow-up with your doctor next week 3. ATTENDING PHYSICIAN NOTE: I was physically present as attending physician in the emergency department duri ng the care of this patient, but I was not directly involved in the decision making or delivery of care for this patient. (PRACHI MCMAHON MD) FANI LOZADA APRN Nov 02, 2021 10:32 PRACHI MCMAHON MD Nov 02, 2021 19:57
--- NOTE | 2021-11-02 11:25 | Diagnostic Imaging Report ---
PROCEDURE: CT head and CT cervical spine without contrast. TECHNIQUE: Multiple contiguous axial images were obtained through the brain and cervical spine without the use of intravenous contrast. Sagittal and coronal reformations through the cervical spine were then performed. Auto Exposure Controls were utilized during the CT exam to meet ALARA standards for radiation dose reduction. INDICATION: Fall. Head injury. Head and neck pain. COMPARISON: CT cervical spine without contrast 12/14/2011. FINDINGS: CT HEAD: Moderate to advanced generalized parenchymal volume loss. Intracranial vascular calcifications. No CT evidence of a territorial infarction. No intracranial hemorrhage, mass effect, hydrocephalus or extra-axial fluid collections. Osseous structures are intact. The mastoids are clear. Mild mucosal thickening in the maxillary sinuses. CT cervical spine: Grade 1 anterolisthesis C3 on C4. Alignment is otherwise normal. Vertebral body heights preserved. No fractures. Moderate degenerative endplate changes greatest at C4-C7. No high-grade spinal canal stenosis is evident on soft tissue windows. Moderate atherosclerotic calcifications in the carotid bifurcations. Emphysematous changes in the lung apices. IMPRESSION: No acute intracranial or cervical spine CT findings. Dictated by: Dictated on workstation # [id number]
[2021-11-02 11:34] VITALS: BP 136/73
== END 2021-11-02 11:34 | disposition home or self-care (01) ==
LOC: EDUNIT# 10:25 → ER 10:26
DX: S00.03XA Contusion of scalp, initial encounter (principal); I48.91 Unspecified atrial fibrillation; Z79.01 Long term (current) use of anticoagulants; W22.8XXA Striking against or struck by other objects, initial encounter
CPT/HCPCS: 70450; 72125

== ENCOUNTER 2021-11-11 05:32 | Outpatient (RCR) | payer MEDICARE, BC ==
[~2021-11-11] VITALS: Ht 180 cm; Wt 110.0 kg
== END 2021-11-12 13:07 | disposition home or self-care (01) ==
LOC: PREOP 05:32
PROVIDERS: ATTEND Surgery
DX: Z01.812 Encounter for preprocedural laboratory examination (principal); K29.50 Unspecified chronic gastritis without bleeding; Z20.822 Contact with and (suspected) exposure to COVID-19
CPT/HCPCS: 87636

== ENCOUNTER → 2021-11-11 | Outpatient (CLI) | payer MEDICARE, BC | LOC: LABNPT 06:14 | PROVIDERS: ATTEND Surgery | DX: Z53.9 Procedure and treatment not carried out, unspecified reason (principal) ==

== ENCOUNTER 2021-11-15 09:02 | Day surgery (SDC) | payer MEDICARE, BC ==
[~2021-11-15] VITALS: Ht 180 cm; Wt 110.0 kg
[~2021-11-15 09:02] MED LIST changes: +FEXO-249 PO; -FEXO-46 PO
[2021-11-15] MEDS ORDERED: LACTATED RINGERS 1,000 ML IV STA (09:14)
[2021-11-15] MEDS ORDERED: HURRICAINE EXT TUBE (BENZOCAINE) XX PRN (09:15)
[2021-11-15 09:20] VITALS: BP 138/90
[2021-11-15] MEDS ORDERED: DEXTROSE 50% 50 ML (IMS) SYR IV ONE (09:30)
--- NOTE | 2021-11-15 09:43 | Progress Note-Pre Operative ---
Pre-Operative Progress Note H&P Reviewed The H&P was reviewed, patient examined and no changes noted. Time Seen by Provider: 09:41 Date H&P Reviewed: Nov 15, 2021 Time H&P Reviewed: 09:41 Pre-Operative Diagnosis: Chronic Gastritis, Regurgitation DUC CONCEPCION DO Nov 15, 2021 09:43
[2021-11-15] MEDS ORDERED: proPOfol 200 MG/20 ML (DIPRIVAN) VIAL IV ONE (10:44)
--- NOTE | 2021-11-15 11:03 | Anesthesia-General Post-Op ---
MAC Patient Condition Mental Status/LOC: Same as Preop Cardiovascular: Satisfactory Nausea/Vomiting: Absent Respiratory: Satisfactory Pain: Controlled Complications: Absent Post Op Complications Complications None Follow Up Care/Instructions Patient Instructions None needed. Anesthesiology Discharge Order Discharge Order Patient is doing well, no complaints, stable vital signs, no apparent adverse anesthesia problems. No complications reported per nursing. DREW RING CRNA Nov 15, 2021 11:03
[2021-11-15 11:05] VITALS: BP 150/59
[2021-11-15 11:07] VITALS: BP 150/59
--- NOTE | 2021-11-15 11:19 | Progress Note-Post Operative ---
Post-Operative Progess Note Surgeon (s)/Claim Adjuster (s) Surgeon DUC CONCEPCION DO Claim Adjuster: none Pre-Operative Diagnosis Chronic Gastritis, Regurgitation Post-Operative Diagnosis Gastritis Esophagitis hiatal hernia ??Gastroparesis Procedure & Operative Findings Date of Procedure 11/15/21 Procedure Performed/Findings EGD with bx PROCEDURE NOTE: After informed consent was obtained, the patient was brought to the endoscopy suite, placed in bed in left lateral decubitus position. He was administered IV sedation by the GAMING DEPARTMENT HEAD who then monitored vitals the entire time, heart rate, blood pressure and pulse ox and the scope was inserted down the mouth through the esophagus into the stomach. On the way down, noted some mild esophagitis, took a picture, and pushed into the stomach. Noted a lot of retained food in the stomach, pushed past the antrum into the duodenum and duodenum looked good. Pulled back and did a biopsy of the antrum and then cleaned off some of the food particles and saw inflammation or even an ulcer and did a biopsy of this. Then retroflexed the scope, saw a small hiatal hernia, took a picture of this and then pulled the scope into the GE junction, took another picture of the hiatal hernia and then did a biopsy of the GE junction. Pushed the scope back into the stomach, suctioned all the air out of the stomach. At this point pulled the scope up the esophagus and out the mouth. The patient tolerated the procedure, and he recovered in endoscopy suite. Anesthesia Type IV sedation by GAMING DEPARTMENT HEAD Estimated Blood Loss Estimated blood loss (mL): scant Specimens/Packing Specimens Removed antral bx Body of stomach bx GE jxn bx DUC CONCEPCION DO Nov 15, 2021 11:19
[2021-11-15 11:35] VITALS: BP 127/75
--- NOTE | 2021-11-15 11:52 | Endoscopy Discharge Instruct ---
Endo Procedure/Findings Findings 1.: Gastritis 2.: Other Findings (Esophagitis) 3.: Hiatal Hernia 4.: Other Findings (??Gastroparesis) Discharge Instructions - Activity: You might feel a little sleepy until tomorrow. This is due to the medicine you received to relax you. Until tomorrow, you should: NOT drive a car, operate machinery or power tools. NOT drink any alcoholic beverages. NOT make any important decisions or sign importortant papers. Do not return to work until tomorrow, unless otherwise instructed. Resume previous activities tomorrow. Diet: Start by taking liquids. If you tolerate liquids, advance to solid food. 1.: EGD in 1 year Notify Physician - If you experience excessive bleeding, unusual abdominal pain, fever, or chest pain, contact your doctor immediately. DUC CONCEPCION DO Nov 15, 2021 11:52
[2021-11-15 11:58] VITALS: BP 124/68
== END 2021-11-15 12:30 | disposition home or self-care (01) ==
LOC: ENDO 09:02
PROVIDERS: ATTEND Surgery
DX: K29.50 Unspecified chronic gastritis without bleeding (principal); K20.90 Esophagitis, unspecified without bleeding; K44.9 Diaphragmatic hernia without obstruction or gangrene; K31.A0 Gastric intestinal metaplasia, unspecified; Z87.891 Personal history of nicotine dependence; E11.9 Type 2 diabetes mellitus without complications; Z79.84 Long term (current) use of oral hypoglycemic drugs; E66.9 Obesity, unspecified; Z68.34 Body mass index [BMI] 34.0-34.9, adult; Z79.82 Long term (current) use of aspirin; Z79.4 Long term (current) use of insulin; Z95.1 Presence of aortocoronary bypass graft; Z95.810 Presence of automatic (implantable) cardiac defibrillator
CPT/HCPCS: 82947; 88305

== ENCOUNTER → 2021-11-16 | Outpatient (CLI) | payer MEDICARE, BC ==
[~2021-11-16] MED LIST changes: -FEXO-249 PO; +FEXO-46 PO
--- NOTE | 2021-11-16 17:41 | Diagnostic Imaging Report ---
INDICATION: Fall and back pain. TIME OF EXAM: 03:09 p.m. FINDINGS: Study is limited due to demineralization. This does make visualization of the thoracic vertebrae difficult. The curvature and alignment appears normal. No definite acute compression fracture is seen. There is generalized spondylosis. Paraspinous line appears intact. There are changes of median sternotomy and cardiac defibrillator wires obscuring some of the bone detail on the frontal view. IMPRESSION: Limited study due to severe demineralization and overlying structures. No acute bony abnormality is detected. Dictated by: Dictated on workstation # [id number]
--- NOTE | 2021-11-16 17:44 | Diagnostic Imaging Report ---
INDICATION: Fall and back pain. TIME OF EXAM: 3:10 p.m. FINDINGS: Curvature of the lumbar spine is normal. There is grade 2 spondylolisthesis of L4 on L5. Vertebral body heights are maintained. No acute compression fracture is seen. There is significant degenerative disc disease at L4-L5 and L5-S1 levels with marked disc space narrowing. There are probable pars defects at L4-L5. Aorta is heavily calcified. IMPRESSION: Lumbar spondylosis and spondylolisthesis at L4-L5 with probable bilateral pars defects. No acute compression fracture is identified. Dictated by: Dictated on workstation # [id number]
== END ==
LOC: RAD 14:47
PROVIDERS: ATTEND Nurse Practitioner Family
DX: M47.816 Spondylosis without myelopathy or radiculopathy, lumbar region (principal); M43.16 Spondylolisthesis, lumbar region; W19.XXXA Unspecified fall, initial encounter
CPT/HCPCS: 72072; 72100

== ENCOUNTER → 2021-11-23 | Outpatient (CLI) | payer MEDICARE, BC ==
--- NOTE | 2021-11-23 16:23 | Diagnostic Imaging Report ---
INDICATION: Postmenopausal screening COMPARISON: Baseline FINDINGS: AP Spine L1-L4: [BMD (g/cm2): 1.246] [T-Score: 0.0] [Z-Score: 0.0] [BMD Previous: NA] [BMD % Change: NA] LT Hip Neck: [BMD (g/cm2): 0.717] [T-Score: -2.7] [Z-Score: -1.8] LT Hip Total: [BMD (g/cm2):0.687] [T-Score:-2.9] [Z-Score: -2.3] [BMD Previous: NA] [BMD % Change: NA] RT Hip Neck: [BMD (g/cm2):0.81] [T-Score:-3.0] [Z-Score:-2.0] RT Hip Total: [BMD (g/cm2):0.668] [T-score:-3.0] [Z-Score:-2.5] [BMD Previous:NA] [BMD % Change:NA] *Indicates significant change from prior examination based on 95% confidence level. World Health Organization criteria for BMD interpretation classify patients as Normal (T-score at or above -1.0), Osteopenic (T-score between -1.0 and -2.5) or Osteoporotic (T-score at or below -2.5). LIMITATIONS AND MODIFICATION: None. FRACTURE RISK (FRAX SCORE): The ten year probability of (%): Major Osteoporotic Fracture: [11.7] Hip Fracture: [5.4] IMPRESSION: 1. Osteoporosis. 2. Baseline examination. 3. See below National Osteoporosis Foundation guidelines on when to potentially initiate pharmacologic therapy. Based on the National Osteoporosis Foundation Guidelines, pharmacologic treatment should be initiated in any of the following, unless clinical conditions suggest otherwise: * Any patient with prior fragility fracture of the hip or vertebrae. A spine fracture indicates 5X risk for subsequent spine fracture and 2X risk for subsequent hip fracture. * Osteoporosis (T-score <-2.5). * Postmenopausal women and men age 50 and older with low bone mass/osteopenia (T-score between -1.0 and -2.5) by DXA and 10-year major osteoporotic fracture greater than 20% or a 10-year probability of hip fracture greater than 3%. These fracture risks are supplied above in the FRAX score, if applicable. * Clinician judgement and/or patient preferences may indicate treatment for people with 10-year fracture probabilities above or below these levels. Dictated by: Dictated on workstation # [id number]
== END ==
LOC: RAD 12:30
PROVIDERS: ATTEND Nurse Practitioner Family
DX: M81.0 Age-related osteoporosis without current pathological fracture (principal)
CPT/HCPCS: 77080

== ENCOUNTER 2021-12-03 14:15 | Emergency (ER) | payer MEDICARE, BC ==
[~2021-12-03] VITALS: Ht 180.3 cm; Wt 108.8 kg
[~2021-12-03 14:15] MED LIST changes: +FEXO-249 PO; -FEXO-46 PO
--- NOTE | 2021-12-03 14:35 | ED General ---
General Chief Complaint: Glucose Problems Stated Complaint: AMS Nursing Triage Note: PT BROUGHT IN BY [facility] FOR SLURRED SPEECH, ALT MENTAL STATUS. PTS BLOOD SUGAR FOR EMS WAS 35. PT GIVEN D10. ON ARRIVAL, PT IS ALERT ON ARRIVAL. BS 55. Source of Information: Patient Exam Limitations: No Limitations History of Present Illness Date Seen by Provider: Dec 03, 2021 Time Seen by Provider: 14:32 Initial Comments To ER by EMS with reports of slurred speech. He also was confused. There was concern for stroke. Upon EMS arrival blood sugar was checked and found to be 35 . He was started on IV D10 and on arrival to ER his blood sugar is up to 55. His speech and mentation is back to normal. He takes long-acting insulin in the morning and evening. He had a few bites of an apple freighter for breakfast and no lunch today Timing/Duration: 1-3 Hours Severity: Moderate Associated Systoms: Denies Symptoms Allergies and Home Medications Allergies Coded Allergies: No Known Drug Allergies (Verified , 10/03/09) Patient Home Medication List Home Medication List Reviewed: Yes Acetaminophen (Tylenol Extra Strength) 500 Mg Tablet, 1,000 MG PO Q8H PRN for PAIN-MILD (1-4), (Reported) Entered as Reported by: ILIANA MARINELLI on 07/14/21 1037 Albuterol Sulfate (Proair Hfa) 1 Puff Puff, 2 PUFF IH Q4H PRN for WHEEZING, (Reported) Entered as Reported by: ILIANA MARINELLI on 07/14/21 1037 Amlodipine Besylate (Amlodipine Besylate) 10 Mg Tablet, 10 MG PO DAILY, (Reported) Entered as Reported by: JANESSA SINGH on 09/08/17 0842 Apixaban (Eliquis) 5 Mg Tablet, 5 MG PO BID, (Reported) Entered as Reported by: ILIANA MARINELLI on 07/14/21 1037 Aspirin (Aspirin EC) 81 Mg Tablet.dr, 81 MG PO DAILY, (Reported) Entered as Reported by: ILIANA MARINELLI on 07/14/21 1037 Atorvastatin Calcium (Atorvastatin Calcium) 40 Mg Tablet, 40 MG PO DAILY, (Reported) Entered as Reported by: KARUNA ORTIZ on 05/16/19 0950 Carvedilol (Carvedilol) 25 Mg Tablet, 25 MG PO HS, (Reported) Entered as Reported by: JANESSA SINGH on 09/08/17 0904 Carvedilol (Carvedilol) 25 Mg Tablet, 12.5 MG PO DAILY, (Reported) Entered as Reported by: JANESSA SINGH on 09/08/17 0904 Docusate Sodium (Docusate Sodium) 100 Mg Capsule, 100 MG PO DAILY PRN for CONSTIPATION-1ST LINE, (Reported) Entered as Reported by: ILIANA MARINELLI on 07/14/21 1037 Ferrous Sulfate (Slow Release Iron) 142 Mg Tablet.er, 142 MG PO DAILY, (Reported) Entered as Reported by: ILIANA MARINELLI on 07/14/21 1044 Fexofenadine HCl (Fexofenadine HCl) 180 Mg Tablet, 180 MG PO HS, (Reported) Entered as Reported by: KARUNA ORTIZ on 05/16/19 0950 Fluticasone Propionate (Flonase Allergy Relief) 9.9 Ml [place].susp, 1 SPRAY NS HS, (Reported) Entered as Reported by: ILIANA MARINELLI on 07/14/21 1037 Fluticasone/Salmeterol (Advair 250-50 Diskus) 1 Each Blst.w.dev, 1 EACH IH BID, (Reported) Entered as Reported by: ILIANA MARINELLI on 07/14/21 1037 Furosemide (Furosemide) 20 Mg Tablet, 20 MG PO DAILY, (Reported) Entered as Reported by: JANESSA SINGH on 10/25/18 1149 Gabapentin (Gabapentin) 100 Mg Capsule, 100 MG PO QID, (Reported) Entered as Reported by: JANESSA SINGH on 09/08/17 0904 Glipizide (Glipizide) 5 Mg Tablet, 5 MG PO DAILY, (Reported) Entered as Reported by: JANESSA SINGH on 09/08/17 0842 Insulin Glargine,Hum.rec.anlog (Basaglar Kwikpen U-100) 100 Unit/1 Ml Insuln.pen, 10 UNIT SQ DAILY, (Reported) Entered as Reported by: JANESSA SINGH on 10/25/18 1149 Insulin Glargine,Hum.rec.anlog (Basaglar Kwikpen U-100) 100 Unit/1 Ml Insuln.pen, 40 UNIT SQ HS, (Reported) Entered as Reported by: JANESSA SINGH on 10/25/18 1149 Losartan Potassium (Losartan Potassium) 25 Mg Tablet, 25 MG PO DAILY, (Reported) Entered as Reported by: ILIANA MARINELLI on 07/14/21 1037 Metformin HCl (Metformin HCl) 500 Mg Tablet, 500 MG PO BID WITH MEALS Prescribed by: FLORENTINO RIVAS on 07/14/21 1153 Methyl-B12/l-Mefolate/B6 Phos (Foltanx Tablet) 1 Each Tablet, 1 EACH PO BID, (Reported) Entered as Reported by: ILIANA MARINELLI on 07/14/21 1037 Mexiletine HCl (Mexiletine HCl) 200 Mg Capsule, 200 MG PO BID, (Reported) Entered as Reported by: JANESSA SINGH on 09/08/17 0842 Montelukast Sodium (Montelukast Sodium) 10 Mg Tablet, 10 MG PO HS, (Reported) Entered as Reported by: KARUNA ORTIZ on 05/16/19 0950 Multivit-Min/FA/Lycopene/Lut (Centrum Silver Tablet) 1 Each Tablet, 1 TAB PO DAILY, (Reported) Entered as Reported by: JANESSA SINGH on 09/08/17 0904 Nitroglycerin (Nitroglycerin) 0.4 Mg Tab.subl, 0.4 MG SL UD PRN for CHEST PAIN, (Reported) Entered as Reported by: JANESSA SINGH on 09/08/17 0904 [place] 3 Polyunsat Fatty Acids (Fish Oil 1,000 mg Capsule) 1,000 Mg Cap, 1,000 MG PO TID, (Reported) Entered as Reported by: ILIANA MARINELLI on 07/14/21 1037 Pantoprazole Sodium (Pantoprazole Sodium) 40 Mg Tablet.dr, 40 MG PO DAILY, (Reported) Entered as Reported by: ILIANA MARINELLI on 07/14/21 1037 Potassium Chloride (Potassium Chloride) 20 Meq Tab.er.prt, 20 MEQ PO DAILY, (Rep orted) Entered as Reported by: JANESSA SINGH on 09/08/17 0842 Sucralfate (Sucralfate) 1 Gm Tablet, 1 GM PO ACHS, (Reported) Entered as Reported by: JANESSA SINGH on 10/25/18 1149 Tiotropium [place] (Spiriva) 1 Inh Aerp, 1 CAP INH DAILY, (Reported) Entered as Reported by: JANESSA SINGH on 09/08/17 0842 Vitamin E Mixed (Vitamin E) 400 Unit Capsule, 400 UNIT PO DAILY, (Reported) Entered as Reported by: ILIANA MARINELLI on 07/14/21 1037 Review of Systems Review of Systems Constitutional: see HPI EENTM: see HPI Respiratory: no symptoms reported Cardiovascular: no symptoms reported Genitourinary: no symptoms reported Musculoskeletal: no symptoms reported Skin: no symptoms reported Psychiatric/Neurological: No Symptoms Reported Hematologic/Lymphatic: No Symptoms Reported Immunological/Allergic: no symptoms reported Past Waielbo-Yddicv-Ijojdo Hx Patient Social History Tobacco Use?: No Use of E-Cig and/or Vaping dev: No Substance use?: No Alcohol Use?: No Pt feels they are or have been: No Immunizations Up To Date Influenza Vaccine Up-to-Date: Yes; Up-to-Date First/Initial COVID19 Vaccinat: 10-30-2020 Second COVID19 Vaccination Luis E: 11-23-20 Third COVID19 Vaccination Date: NO Seasonal Allergies Seasonal Allergies: No Past Medical History Surgeries: Yes Cardiac, Coronary Stent, Defibrillator, Eye Surgery, Open Heart Surgery, Orthopedic, Pacemaker Respiratory: Yes Sleep Apnea, COPD Currently Using CPAP: Yes Cardiac: Yes Atrial Fibrillation, High Cholesterol, Hypertension Neurological: No Reproductive Disorders: No Genitourinary: No Prostate Problems Gastrointestinal: No Gastroesophageal Reflux, Polyps Musculoskeletal: Yes Arthritis, Foot Drop Endocrine: Yes Diabetes, Insulin dep HEENT: Yes Cataract Cancer: No Psychosocial: No Integumentary: No Blood Disorders: No Adverse Reaction/Blood Tranf: No Family Medical History Diabetes mellitus 19 MOTHER FH: heart disease 19 FATHER 19 MOTHER Physical Exam Vital Signs Vital Signs - First Documented 12/03/21 14:25 Pulse 72 Resp 16 B/P (MAP) 135/98 (110) Pulse Ox 96 O2 Delivery Room Air Capillary Refill : Less Than 3 Seconds Height, Weight, BMI Height: 6'0.00" Weight: 240lbs. 0.6oz. [id number]; 33.00 BMI Method:Stated General Appearance: No Apparent Distress, WD/WN Eyes: Bilateral Eye Normal Inspection, Bilateral Eye PERRL HEENT: PERRL/EOMI, TMs Normal Neck: Full Range of Motion, Normal Inspection Respiratory: No Accessory Muscle Use, No Respiratory Distress Cardiovascular: Regular Rate, Rhythm Gastrointestinal: Normal Bowel Sounds, Non Tender, Soft Extremity: Normal Capillary Refill, Normal Inspection Neurologic/Psychiatric: Alert, Oriented x3 Skin: Normal Color, Warm/Dry Progress/Results/Core Measures Suspected Sepsis SIRS Temperature: Pulse: 72 Respiratory Rate: 16 Laboratory Tests 12/03/21 14:25: White Blood Count 11.9H Blood Pressure 135 /98 Mean: 110 Laboratory Tests 12/03/21 14:25: Creatinine 1.07, Platelet Count 183, Total Bilirubin 1.9H Results/Orders Lab Results Laboratory Tests Test 12/03/21 14:25 Range/Units White Blood Count 11.9 H 4.3-11.0 10^3/uL Red Blood Count 4.44 4.30-5.52 10^6/uL Hemoglobin 13.5 13.3-17.7 g/dL Hematocrit 40 40-54 % Mean Corpuscular Volume 89 80-99 fL Mean Corpuscular Hemoglobin 30 25-34 pg Mean Corpuscular Hemoglobin Concent 34 32-36 g/dL Red Cell Distribution Width 13.8 10.0-14.5 % Platelet Count 183 130-400 10^3/uL Mean Platelet Volume 9.6 9.0-12.2 fL Immature Granulocyte % (Auto) 0 % Neutrophils (%) (Auto) 84 H 42-75 % Lymphocytes (%) (Auto) 6 L 12-44 % Monocytes (%) (Auto) 8 0-12 % Eosinophils (%) (Auto) 2 0-10 % Basophils (%) (Auto) 0 0-10 % Neutrophils # (Auto) 10.1 H 1.8-7.8 10^3/uL Lymphocytes # (Auto) 0.7 L 1.0-4.0 10^3/uL Monocytes # (Auto) 1.0 0.0-1.0 10^3/uL Eosinophils # (Auto) 0.2 0.0-0.3 10^3/uL Basophils # (Auto) 0.0 0.0-0.1 10^3/uL Immature Granulocyte # (Auto) 0.1 0.0-0.1 10^3/uL Neutrophils % (Manual) 89 % Lymphocytes % (Manual) 5 % Monocytes % (Manual) 5 % Eosinophils % (Manual) 1 % Blood Morphology Comment NORMAL Sodium Level 138 135-145 MMOL/L Potassium Level 3.8 3.6-5.0 MMOL/L Chloride Level 103 98-107 MMOL/L Carbon Dioxide Level 25 21-32 MMOL/L Anion Gap 10 5-14 MMOL/L Blood Urea Nitrogen 15 7-18 MG/DL Creatinine 1.07 0.60-1.30 MG/DL Estimat Glomerular Filtration Rate 71 BUN/Creatinine Ratio 14 Glucose Level 80 70-105 MG/DL Calcium Level 9.4 8.5-10.1 MG/DL Corrected Calcium 9.5 8.5-10.1 MG/DL Total Bilirubin 1.9 H 0.1-1.0 MG/DL Aspartate Amino Transf (AST/SGOT) 25 5-34 U/L Alanine Aminotransferase (ALT/SGPT) 21 0-55 U/L Alkaline Phosphatase 89 40-136 U/L Total Protein 7.2 6.4-8.2 GM/DL Albumin 3.9 3.2-4.5 GM/DL My Orders Orders - FANI LOZADA APRN Cho 75g/M 1snack (21-2400 [place]) (12/03/21 Lunch) Cbc With Automated Diff (12/03/21 14:30) Comprehensive Metabolic Panel (12/03/21 14:30) Ua Culture If Indicated (12/03/21 14:30) Accucheck Stat ONCE (12/03/21 14:30) Manual Differential (12/03/21 14:25) Vital Signs/I&O 12/03/21 14:25 Pulse 72 Resp 16 B/P (MAP) 135/98 (110) Pulse Ox 96 O2 Delivery Room Air Capillary Refill : Less Than 3 Seconds Blood Pressure Mean: 110 Departure Communication (Admissions) 1528-he ate part of the meal tray here, remains asymptomatic alert and oriented. Impression Primary Impression: Hypoglycemia Disposition: HOME, SELF-CARE Condition: Improved Departure-Patient Inst. Decision time for Depature: 15:28 Referrals: DENNY MARTINEZ MD (PCP/Family) Primary Care Physician Patient Instructions: Low Blood Sugar, Adult ED FANI LOZADA APRN Dec 03, 2021 14:35
[2021-12-03 14:39] LABS: HEMATOCRIT 40 % (40-54); HEMOGLOBIN 13.5 g/dL (13.3-17.7); MEAN CORPUSCULAR HEMOGLOBIN 30 pg (25-34); MEAN CORPUSCULAR HGB CONC 34 g/dL (32-36); MEAN CORPUSCULAR VOLUME 89 fL (80-99); MEAN PLATELET VOLUME 9.6 fL (9.0-12.2); NEUTROPHILS % (AUTO) 84 % (42-75); PLATELET COUNT 183 10^3/uL (130-400); WHITE BLOOD COUNT 11.9 10^3/uL (4.3-11.0)
[2021-12-03 14:40] LABS: BASOPHILS % (AUTO) 0 % (0-10); EOSINOPHILS # (AUTO) 0.2 10^3/uL (0.0-0.3); EOSINOPHILS % (AUTO) 2 % (0-10); LYMPHOCYTES # (AUTO) 0.7 10^3/uL (1.0-4.0); LYMPHOCYTES % (AUTO) 6 % (12-44); MONOCYTES % (AUTO) 8 % (0-12); NEUTROPHILS # (AUTO) 10.1 10^3/uL (1.8-7.8)
[2021-12-03 14:53] LABS: ALBUMIN 3.9 GM/DL (3.2-4.5); POTASSIUM 3.8 MMOL/L (3.6-5.0)
[2021-12-03 14:54] LABS: CALCIUM 9.4 MG/DL (8.5-10.1)
[2021-12-03 14:56] LABS: TOTAL PROTEIN 7.2 GM/DL (6.4-8.2)
[2021-12-03 14:58] LABS: BILIRUBIN,TOTAL 1.9 MG/DL (0.1-1.0)
[2021-12-03 14:59] LABS: CREATININE SERUM 1.07 MG/DL (0.60-1.30)
[2021-12-03 15:19] LABS: EOSINOPHILS % (MANUAL) 1 %; LYMPHOCYTES % (MANUAL) 5 %; MONOCYTES % (MANUAL) 5 %; NEUTROPHILS % (MANUAL) 89 %; RBC MORPH NORMAL
[2021-12-03 16:15] LABS: BILIRUBIN,URINE NEGATIVE (NEGATIVE); CLARITY,URINE CLEAR; COLOR,URINE YELLOW; GLUCOSE, URINE (UA) NEGATIVE (NEGATIVE); KETONES,URINE NEGATIVE (NEGATIVE); LEUKOCYTE ESTERASE ,URINE NEGATIVE (NEGATIVE); NITRITE,URINE NEGATIVE (NEGATIVE); PROTEIN,URINE NEGATIVE (NEGATIVE)
[2021-12-03 16:19] VITALS: BP 167/90
[2021-12-03 16:40] LABS: BACTERIA,URINE NEGATIVE /HPF
== END 2021-12-03 16:20 | disposition home or self-care (01) ==
LOC: EDUNIT# 14:15 → ER 14:16
DX: E11.649 Type 2 diabetes mellitus with hypoglycemia without coma (principal)
CPT/HCPCS: 36415; 80053; 81000; 82947; 85007; 85027

== ENCOUNTER → 2022-01-06 | Outpatient (CLI) | payer MEDICARE, BC ==
[~2022-01-06] VITALS: Ht 180.3 cm; Wt 109.0 kg
[~2022-01-06] MED LIST changes: +DENOSUMAB 60 MG/1 ML (PROLIA) SQ ONE; -FEXO-249 PO; +NF-ALLE180 PO
[2022-01-06 13:36] VITALS: BP 102/65
== END ==
LOC: SDC 13:12
PROVIDERS: ATTEND Family Medicine
DX: M81.0 Age-related osteoporosis without current pathological fracture (principal)
CPT/HCPCS: 96372

== ENCOUNTER → 2022-02-10 | Outpatient (CLI) | payer MEDICARE, BC ==
[~2022-02-10] MED LIST changes: -DENOSUMAB 60 MG/1 ML (PROLIA) SQ ONE
--- NOTE | 2022-02-10 11:57 | Diagnostic Imaging Report ---
Indication: Shortness of breath PA and lateral chest radiograph there are postoperative changes from CABG surgery. There is a dual-chamber pacemaker. There is interstitial fibrosis with some emphysematous changes present. There are no infiltrates, effusions or pneumothoraces. IMPRESSION: COPD. Postsurgical changes. No acute abnormality seen. Dictated by: Dictated on workstation # [id number]
== END ==
LOC: RAD 11:33
PROVIDERS: ATTEND Physician Assistant
DX: J44.9 Chronic obstructive pulmonary disease, unspecified (principal)
CPT/HCPCS: 71046

== ENCOUNTER → 2022-06-21 | Outpatient (CLI) | payer MEDICARE, BC ==
[2022-06-21 11:59] LABS: HEMATOCRIT 37 % (40-54); HEMOGLOBIN 12.5 g/dL (13.3-17.7); MEAN CORPUSCULAR HEMOGLOBIN 30 pg (25-34); MEAN CORPUSCULAR HGB CONC 34 g/dL (32-36); MEAN CORPUSCULAR VOLUME 90 fL (80-99); PLATELET COUNT 211 10^3/uL (130-400); WHITE BLOOD COUNT 13.1 10^3/uL (4.3-11.0)
[2022-06-21 12:10] LABS: ALBUMIN 3.6 GM/DL (3.2-4.5); POTASSIUM 4.2 MMOL/L (3.6-5.0)
[2022-06-21 12:11] LABS: CALCIUM 9.1 MG/DL (8.5-10.1)
[2022-06-21 12:13] LABS: TOTAL PROTEIN 7.4 GM/DL (6.4-8.2)
[2022-06-21 12:14] LABS: BILIRUBIN,TOTAL 2.6 MG/DL (0.1-1.0)
[2022-06-21 12:16] LABS: CREATININE SERUM 1.27 MG/DL (0.60-1.30)
--- NOTE | 2022-06-21 16:14 | Diagnostic Imaging Report ---
INDICATION: Fever, cough and hypoxia. Frontal and lateral chest obtained at 11:49 a.m. and compared to 02/10/2022. There is poststernotomy change. Pacemaker is unchanged. Heart is normal in size. Extensive underlying interstitial fibrotic changes are again noted, with some superimposed alveolar infiltrate in the right perihilar region, suspect pneumonia. There is no pneumothorax or pleural fluid. IMPRESSION: Underlying diffuse interstitial fibrotic changes with some superimposed alveolar infiltrate in the right perihilar region, suspect pneumonia. Follow-up is recommended. Dictated by: Dictated on workstation # [id number]
== END ==
LOC: RAD 11:34
PROVIDERS: ATTEND Nurse Practitioner Family
DX: R91.8 Other nonspecific abnormal finding of lung field (principal); R50.9 Fever, unspecified; R05.9 Cough, unspecified; R09.02 Hypoxemia
CPT/HCPCS: 36415; 71046; 80053; 85027

== ENCOUNTER → 2022-06-28 | Outpatient (CLI) | payer MEDICARE, BC ==
--- NOTE | 2022-06-28 21:09 | Diagnostic Imaging Report ---
INDICATION: Pneumonia. PA and lateral chest obtained at 03:38 p.m. compared 06/21/2022. FINDINGS: There is poststernotomy change with normal heart size and no change in pacemaker device. Diffuse interstitial changes are noted compatible with fibrosis. Right perihilar infiltrate appears similar to the prior study. There is no pneumothorax or pleural fluid. IMPRESSION: Postop changes as above with underlying chronic interstitial fibrotic change. No change in right perihilar infiltrate compared to the prior study. Dictated by: Dictated on workstation # [id number]
== END ==
LOC: RAD 15:18
PROVIDERS: ATTEND Nurse Practitioner Family
DX: J18.9 Pneumonia, unspecified organism (principal); Z98.890 Other specified postprocedural states
CPT/HCPCS: 71046

== ENCOUNTER → 2022-07-07 | Outpatient (CLI) | payer MEDICARE, BC ==
[~2022-07-07] VITALS: Ht 180 cm; Wt 109.0 kg
[~2022-07-07] MED LIST changes: +DENOSUMAB 60 MG/1 ML (PROLIA) SQ ONE
[2022-07-07 12:28] VITALS: BP 125/95
== END ==
LOC: SDC 12:03
PROVIDERS: ATTEND Family Medicine
DX: M81.0 Age-related osteoporosis without current pathological fracture (principal)
CPT/HCPCS: 96372

== ENCOUNTER 2022-11-09 05:39 | Outpatient (CLI) | payer MEDICARE, BC ==
[~2022-11-09] VITALS: Ht 182.9 cm; Wt 110.7 kg
[~2022-11-09 05:39] MED LIST changes: +ALBU8.5H6 IH; -CILO100T PO; -DENOSUMAB 60 MG/1 ML (PROLIA) SQ ONE; +NF-PLET100 PO; +VITA-212 PO; -VITA-272 PO
[2022-11-09] MEDS ORDERED: DEXT-157 PO (16:20)
[2022-11-09] MEDS ORDERED: CHOL400C9 PO (16:20)
[2022-11-09] MEDS ORDERED: LATA7.5D OP (16:20)
[2022-11-09] MEDS ORDERED: TRAM100T40 PO (16:20)
[2022-11-09] MEDS ORDERED: [UNRECOGNIZED DRUG - CODE] PO (16:20)
[2022-11-09] MEDS ORDERED: CALC600T91 PO (16:20)
== END 2022-11-09 16:25 | disposition home or self-care (01) ==
LOC: PREOP 05:39
PROVIDERS: ATTEND Surgery
DX: Z01.818 Encounter for other preprocedural examination (principal)

== ENCOUNTER 2022-11-21 08:21 | Day surgery (SDC) | payer MEDICARE, BC ==
[~2022-11-21] VITALS: Ht 183 cm; Wt 110.7 kg
[~2022-11-21 08:21] MED LIST changes: +CALC600T91 PO; +CHOL400C9 PO; +DEXT-157 PO; +LATA7.5D OP; +TRAM100T40 PO; +[UNRECOGNIZED DRUG - CODE] PO
[2022-11-21] MEDS ORDERED: LACTATED RINGERS 1,000 ML IV STA (08:22)
[2022-11-21 08:30] VITALS: BP 132/75
[2022-11-21] MEDS ORDERED: HURRICAINE EXT TUBE (BENZOCAINE) XX PRN (08:30)
--- NOTE | 2022-11-21 08:53 | Progress Note-Pre Operative ---
Pre-Operative Progress Note Date of Available H&P: Nov 01, 2022 Date H&P Reviewed: Nov 21, 2022 Time H&P Reviewed: 08:51 History & Physical: H&P Reviewed, Patient Examed, No changes noted Pre-Operative Diagnosis: chronic gastritis DUC CONCEPCION DO Nov 21, 2022 08:53
[2022-11-21 09:35] VITALS: BP 74/43
--- NOTE | 2022-11-21 09:36 | Progress Note-Post Operative ---
Post-Operative Progess Note Surgeon (s)/Fruit I Farmworker (s) Surgeon DUC CONCEPCION DO Fruit I Farmworker: none Pre-Operative Diagnosis chronic gastritis Post-Operative Diagnosis Chronic Gastritis Esophagitis Hiatal Hernia Procedure & Operative Findings Date of Procedure 11/21/22 Procedure Performed/Findings EGD with biopsy PROCEDURE NOTE: After informed consent was obtained, the patient was brought to the endoscopy suite, placed in bed in left lateral decubitus position. He was administered IV sedation by the BORE MILL OPERATOR who then monitored vitals the entire time, heart rate, blood pressure and pulse ox and the scope was inserted down the mouth through the esophagus into the stomach. On the way down, noted some mild esophagitis, took a picture, pushed into the stomach, noted moderate Gastritis, pushed past the antrum and into the duodenum. Duodenum looked good. Pulled back and did a biopsy of the antrum, then retroflexed the scope, saw moderate hiatal hernia, took a picture of this and then pulled the scope into the GE junction, took another picture of the hiatal hernia and then did a biopsy of the GE junction. Pushed the scope back into the stomach, suctioned all the air out of the stomach. At this point pulled the scope up the esophagus and out the mouth. The patient tolerated the procedure, and he recovered in endoscopy suite. Anesthesia Type IV sedation by BORE MILL OPERATOR Estimated Blood Loss Estimated blood loss (mL): scant Specimens/Packing Specimens Removed antral bx body of stomach bx GE jxn bx DUC CONCEPCION DO Nov 21, 2022 09:36
--- NOTE | 2022-11-21 09:38 | Endoscopy Discharge Instruct ---
Endo Procedure/Findings Findings 1.: Gastritis 2.: Hiatal Hernia Discharge Instructions - Activity: You might feel a little sleepy until tomorrow. This is due to the medicine you received to relax you. Until tomorrow, you should: NOT drive a car, operate machinery or power tools. NOT drink any alcoholic beverages. NOT make any important decisions or sign importortant papers. Do not return to work until tomorrow, unless otherwise instructed. Resume previous activities tomorrow. Diet: Start by taking liquids. If you tolerate liquids, advance to solid food. 1.: EGD in 1 year Notify Physician - If you experience excessive bleeding, unusual abdominal pain, fever, or chest pain, contact your doctor immediately. DUC CONCEPCION DO Nov 21, 2022 09:37
[2022-11-21 09:40] VITALS: BP 81/45
[2022-11-21 10:00] VITALS: BP 81/45
--- NOTE | 2022-11-21 12:11 | Anesthesia-General Post-Op ---
MAC Patient Condition Mental Status/LOC: Same as Preop Cardiovascular: Satisfactory Nausea/Vomiting: Absent Respiratory: Satisfactory Pain: Controlled Complications: Absent Post Op Complications Complications None Follow Up Care/Instructions Patient Instructions None needed. Anesthesiology Discharge Order Discharge Order Patient is doing well, no complaints, stable vital signs, no apparent adverse anesthesia problems. No complications reported per nursing. AZALEA BOCANEGRA CRNA Nov 21, 2022 12:11
== END 2022-11-21 10:20 | disposition home or self-care (01) ==
LOC: ENDO 08:21
PROVIDERS: ATTEND Surgery
DX: K29.50 Unspecified chronic gastritis without bleeding (principal); K21.00 Gastro-esophageal reflux disease with esophagitis, without bleeding; K44.9 Diaphragmatic hernia without obstruction or gangrene; K31.89 Other diseases of stomach and duodenum; E11.9 Type 2 diabetes mellitus without complications; E66.9 Obesity, unspecified; Z79.4 Long term (current) use of insulin; Z79.84 Long term (current) use of oral hypoglycemic drugs; Z87.891 Personal history of nicotine dependence; Z79.899 Other long term (current) drug therapy; Z79.01 Long term (current) use of anticoagulants; Z95.810 Presence of automatic (implantable) cardiac defibrillator; Z95.5 Presence of coronary angioplasty implant and graft; Z68.33 Body mass index [BMI] 33.0-33.9, adult

== ENCOUNTER → 2023-06-19 | Outpatient (CLI) | payer MEDICARE, BC ==
[~2023-06-19] MED LIST changes: +MOME13HF12 IH; -MOME13HF2 IH
== END ==
LOC: CANPRECLI → CARD 13:07
PROVIDERS: ATTEND Internal Medicine Cardiovascular Disease
DX: I11.9 Hypertensive heart disease without heart failure (principal); I25.10 Atherosclerotic heart disease of native coronary artery without angina pectoris; I08.1 Rheumatic disorders of both mitral and tricuspid valves
CPT/HCPCS: 93306